=== PATIENT | male | born 1945 | race Caucasian/White ===

== ENCOUNTER 2020-04-05 14:48 | Inpatient (IN) ==
--- OUTSIDE RECORDS SUMMARY | 2020-04-05 14:51 | External Medical Summary | Continuity of Care Document ---
:1945 Author Name Christopher Pastrana, Provider Address Unavailable Unavailable , Care Team Providers Name Role Phone Unavailable Unavailable Unavailable KAT PAINTING Unavailable Unavailable Unavailable Unavailable Unavailable Problems History of basal cell carcinoma (V10.83) (Z85.828) History of SCC (squamous cell carcinoma) of skin (V10.83) (Z 85.828) Neoplasm of uncertain behavior of skin (238.2) (D48.5) Actinic keratosis (702.0) (L57.0) Allergies and Adverse Reactions Penicillins (Allergy) Sulfa Drugs (Allergy) Medications PriLOSEC OTC Victoriano JOAQUIN Refills: 0 Efren REYES M.D. Refills: 0 Procedures Procedures not documented Immunizations Immunizations not documented Social History - Smoking Status Ex-smoker Plan of Treatment Planned Observations Planned Goals not documented Results No Known Results Results not documented
[2020-04-05] MEDS ORDERED: SODIUM CHLORIDE 0.9% 1000ML 1,000 ML IV ONE ×4 (15:18→22:55)
[2020-04-05] MEDS ORDERED: ACETAMINOPHEN 1,000 MG/100 ML VIAL IV STA (15:18)
[2020-04-05] MEDS ORDERED: ONDANSETRON INJ 2 MG/ML 2 ML VIAL IV STA (15:18)
--- NOTE | 2020-04-05 15:30 | Emergency Department Note ---
History of Present Illness General Chief complaint: Nausea Stated complaint: nausea/headache Time Seen by Provider: 04/05/20 15:04 History of Present Illness Provider complaint: Nausea vomiting diarrhea chills headache abdominal pain Onset (ago): day(s) 1 Location: head and abdomen Radiation: non-radiation Severity: moderate Pain Consistency: + constant Current Pain Intensity: 6 Quality: + aching Relieved By: + none Exacerbated By: + none Associated symptoms: + fever/chills, + headaches and + nausea/vomiting; no shortness of breath 74-year-old male presents to the emergency department with chills nausea vomiting diarrhea abdominal pain and headache. Patient states he woke up this morning had severe chills. He took his temperature at home and his T-max was 102. EMS was called. Patient is also reporting abdominal pain, headache. No cough. No loss of taste or smell. 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 Social History Smoking Status: Never smoker Feels Safe at Home: Yes Review of Systems A total of 10 systems reviewed and were otherwise negative Physical Exam Vital Signs Vital Signs - 24 hr 04/05/20 15:10 04/05/20 15:11 04/05/20 15:19 Temperature 37.6 C H Temperature Source Oral Pulse Rate 103 H 111 H 101 H Pulse Rate [Apical] Pulse Rate from SpO2 Sensor 110 H 101 H Respiratory Rate 20 19 14 Respiratory Effort / Characteristics Non-Labored Respiratory Depth Normal Blood Pressure 161/75 H 161/75 H Blood Pressure [Right Arm] Blood Pressure Mean 103 105 Blood Pressure Mean [Right Arm] Pulse Oximetry 97 97 98 Oxygen Delivery Method Room Air Sepsis Recent Fever Within 48 Hours Yes Sepsis New/Unexplained Change in Mental Status No Sepsis Action Taken by Nursing Previously Notified 04/05/20 15:30 04/05/20 16:00 04/05/20 16:40 Temperature Temperature Source Pulse Rate 101 H 98 H Pulse Rate [Apical] Pulse Rate from SpO2 Sensor 101 H 99 H Respiratory Rate 23 22 22 Respiratory Effort / Characteristics Non-Labored Respiratory Depth Blood Pressure Blood Pressure [Right Arm] Blood Pressure Mean Blood Pressure Mean [Right Arm] Pulse Oximetry 96 98 98 Oxygen Delivery Method Room Air Sepsis Recent Fever Within 48 Hours Sepsis New/Unexplained Change in Mental Status Sepsis Action Taken by Nursing 04/05/20 17:42 04/05/20 17:43 04/05/20 18:01 Temperature Temperature Source Pulse Rate 107 H 103 H 102 H Pulse Rate [Apical] 106 H Pulse Rate from SpO2 Sensor 104 H 102 H Respiratory Rate 22 22 23 Respiratory Effort / Characteristics Respiratory Depth Blood Pressure 86/55 L 99/59 L 85/54 L Blood Pressure [Right Arm] 99/59 L Blood Pressure Mean 58 78 63 Blood Pressure Mean [Right Arm] 72 Pulse Oximetry 97 96 Oxygen Delivery Method Sepsis Recent Fever Within 48 Hours Sepsis New/Unexplained Change in Mental Status Sepsis Action Taken by Nursing 04/05/20 18:09 04/05/20 18:15 04/05/20 18:29 Temperature Temperature Source Pulse Rate 95 H 94 H 91 H Pulse Rate [Apical] Pulse Rate from SpO2 Sensor 95 H 95 H Respiratory Rate 21 24 23 Respiratory Effort / Characteristics Respiratory Depth Blood Pressure 95/58 L 96/56 L 95/57 L Blood Pressure [Right Arm] Blood Pressure Mean 69 69 68 Blood Pressure Mean [Right Arm] Pulse Oximetry 97 97 Oxygen Delivery Method Sepsis Recent Fever Within 48 Hours Sepsis New/Unexplained Change in Mental Status Sepsis Action Taken by Nursing 04/05/20 18:30 04/05/20 18:45 04/05/20 19:00 Temperature 36.8 C Temperature Source Oral Pulse Rate 92 H 98 H 94 H Pulse Rate [Apical] Pulse Rate from SpO2 Sensor 93 H Respiratory Rate 23 21 25 H Respiratory Effort / Characteristics Non-Labored Spontaneous Respiratory Depth Blood Pressure 95/58 L 97/56 L 89/59 L Blood Pressure [Right Arm] Blood Pressure Mean 76 67 76 Blood Pressure Mean [Right Arm] Pulse Oximetry 97 Oxygen Delivery Method Room Air Sepsis Recent Fever Within 48 Hours Sepsis New/Unexplained Change in Mental Status Sepsis Action Taken by Nursing 04/05/20 19:15 04/05/20 19:31 Temperature Temperature Source Pulse Rate 94 H 100 H Pulse Rate [Apical] Pulse Rate from SpO2 Sensor 88 Respiratory Rate 26 H 22 Respiratory Effort / Characteristics Respiratory Depth Blood Pressure 97/61 L 111/71 Blood Pressure [Right Arm] Blood Pressure Mean 72 76 Blood Pressure Mean [Right Arm] Pulse Oximetry Oxygen Delivery Method Sepsis Recent Fever Within 48 Hours Sepsis New/Unexplained Change in Mental Status Sepsis Action Taken by Nursing Physical Exam GENERAL: He is oriented to person, place, and time. He appears well-developed and well-nourished. He does not appear distressed. HENT: Exam performed. - Head: Normocephalic and atraumatic. - Right Ear: External ear normal. No mastoid tenderness. - Left Ear: External ear normal. No mastoid tenderness. - Mouth/Throat: The oropharynx is clear and moist. No trismus in the jaw. No dental abscesses or uvula swelling. No oropharyngeal exudate or tonsillar abscesses. EYES: Conjunctivae and EOM are normal. Pupils are equal, round, and reactive to light. Right eye exhibits no discharge. Left eye exhibits no discharge. No scleral icterus. NECK: Normal range of motion. Neck supple. No JVD present. No spinous process tenderness present. No carotid bruit present. No rigidity. No tracheal deviation and normal range of motion present. No Brudzinski's sign and no Kernig's sign noted. CV: Tachycardic rate, regular rhythm, normal heart sounds and intact distal pulses. There is no peripheral edema. Palpable radial pulses bue. PULM/CHEST: Effort normal and breath sounds normal. No respiratory distress. No stridor. He has no wheezes. He has no rales. - Chest Wall: He exhibits no tenderness. ABD: The abdomen is soft. Bowel sounds are normal. He has no distension. No mass is present. There is tenderness to palpation of the left lower quadrant. There is no rebound, no guarding, no Cummins's sign and no tenderness at McBurney's point. Rovsig negative. MUSC/SKEL: Normal range of motion. There is no peripheral edema, tenderness or deformity. LYMPH: No cervical adenopathy. NEURO: He is alert and oriented to person, place, and time. He has normal strength. No cranial nerve deficit or sensory deficit. Coordination and gait normal. GCS eye subscore is 4. GCS verbal subscore is 5. GCS motor subscore is 6. Cerebellar tests wnl. SKIN: Skin is warm and dry. He is not diaphoretic. PSYCH: He has a normal mood and affect. Behavior is normal. Judgment and thought content normal. Course Course 1504: The patient was evaluated in room A9. A complete history and physical exam was performed. Cardiac monitoring: An order was placed for continuous cardiac monitoring. The monitor shows a rate of 105 with sinus tachycardia rhythm 1600: Spoke with the patient's Mariangel at [phone] and gave her an update on the patient. 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 Patient is no longer receiving any treatments for any cancer. She states the patient takes no medications regularly except for digestive enzymes. 184: Vital signs improved. Labs show leukopenia with white blood cell count of 3.78. AST/ALT 632/290. Bilirubin 2.3. Magnesium 1.7. COVID-19 swab negative. Imaging shows colitis. Bony munoz was able to pull labs from [facility] which in May 2019 AST/ALT was 29 and 20 respectively. The patient is elevated liver enzymes are an acute change. Patient does report to drinking alcohol approximately 4-5 drinks a day. The patient did become hypotensive transiently in the emergency department which did respond to IV fluids. Patient's initial lactic acid level was 2.1, status post IV fluids patient's lactic acid level went up to 2.8. Patient was completed with 30 cc/kg bolus. Given the patient's rising lactic acid level and his episodes of hypotension, the patient will be admitted to the hospitalist service. Cipro and Flagyl IV piggyback was ordered for the patient. [facility] hospitalist Yojana Angulo was contacted and stated admit to Dr. Peter Administered Medications Discontinued Medications Acetaminophen (Ofirmev) 1,000 mg in 100 mls @ 400 mls/hr IV NOW STA Stop: 04/05/20 15:32 Last Infusion: 04/05/20 16:05 Dose: 0 mls/hr Documented by: [id number] Admin: 04/05/20 15:43 Dose: 400 mls/hr Documented by: [id number] Sodium Chloride (Nss 1000ml) 1,000 mls @ 999 mls/hr IV .Q1H1M ONE Stop: 04/05/20 16:18 Last Infusion: 04/05/20 16:45 Dose: 0 mls/hr Documented by: [id number] Admin: 04/05/20 15:43 Dose: 999 mls/hr Documented by: [id number] Sodium Chloride (Nss 1000ml) 1,000 mls @ 999 mls/hr IV .Q1H1M ONE Stop: 04/05/20 19:19 Last Infusion: 04/05/20 19:20 Dose: 0 mls/hr Documented by: [id number] Admin: 04/05/20 18:19 Dose: 999 mls/hr Documented by: [id number] Ciprofloxacin (Cipro / D5w) 400 mg in 200 mls @ 100 mls/hr IV NOW STA; Protocol Stop: 04/05/20 20:29 Last Admin: 04/05/20 18:41 Dose: Not Given Documented by: [id number] Metronidazole (Flagyl) 500 mg in 100 mls @ 100 mls/hr IV NOW STA Stop: 04/05/20 19:29 Last Admin: 04/05/20 18:41 Dose: 100 mls/hr Documented by: [id number] Levofloxacin/Dextrose (Levaquin/D5w) 500 mg in 100 mls @ 100 mls/hr IV NOW STA Stop: 04/05/20 19:31 Last Admin: 04/05/20 18:41 Dose: 100 mls/hr Documented by: [id number] Sodium Chloride (Nss 1000ml) 1,000 mls @ 999 mls/hr IV .Q1H1M ONE Stop: 04/05/20 19:46 Last Admin: 04/05/20 19:05 Dose: 999 mls/hr Documented by: [id number] Ioversol (Ioversol 100ml) 93 ml IV ONCE ONE Stop: 04/05/20 16:52 Last Admin: 04/05/20 16:52 Dose: 1 ml Documented by: [id number] Ondansetron HCl (Ondansetron Inj 2 Mg/Ml 2 Ml Vial) 4 mg IV NOW STA Stop: 04/05/20 15:19 Last Admin: 04/05/20 15:43 Dose: Not Given Documented by: [id number] Medical Decision Making Laboratory Data Result diagrams: 04/05/20 15:15 04/05/20 15:15 Lab Results 04/05/20 04/05/20 04/05/20 Range/Units 15:15 15:15 15:15 WBC 3.78 L (4.8-10.8) K/uL RBC 4.12 L (4.7-6.1) M/uL Hgb 12.9 L (14.0-18.0) g/dL POC Hgb (14.0-18.0) g/dl Hct 39.0 L (42-52) % POC Hct (42-52) % MCV 94.7 (80-100) fL MCH 31.3 (25-34) pg MCHC 33.1 (32-36) g/dL RDW Std Deviation 46.8 H (36.4-46.3) fL RDW Coeff of Riley 13.5 (11.5-14.5) % Plt Count 245 (130-400) K/uL MPV 10.2 (7.4-10.4) fL Immature Gran % (Auto) 0.3 % Neut % (Auto) 93.0 % Lymph % (Auto) 5.6 % [place] % (Auto) 0.5 % Eos % (Auto) 0.3 % Baso % (Auto) 0.3 % Neut # (Auto) 3.52 (1.4-6.5) K/uL Lymph # (Auto) 0.21 L (1.2-3.4) K/uL [place] # (Auto) 0.02 L (0.11-0.59) K/uL Eos # (Auto) 0.01 (0-0.5) K/uL Baso # (Auto) 0.01 (0-0.2) K/uL Immature Gran # (Auto) 0.01 (0.00-0.02) K/uL PT 10.5 (9.0-12.0) Seconds INR 1.0 (0.9-1.1) APTT 25.4 (21.0-31.0) Seconds PTT Ratio 0.9 POC Sodium (135-144) mmol/L Sodium 138 (136-145) mmol/L POC Potassium (3.3-5.0) mmol/L Potassium 3.9 (3.5-5.1) mmol/L POC Chloride (101-112) mmol/L Chloride 107 (98-107) mmol/L Carbon Dioxide 24 (21-32) mmol/L POC Total CO2 (24-31) mmol/L Anion Gap 7.0 (3-11) POC Anion Gap (16-25) mmol/L POC BUN (7-18) mg/dl BUN 8 (7-18) mg/dl Creatinine 0.96 (0.6-1.4) mg/dl POC Creatinine (0.6-1.3) mg/dl Est Cr Clr Drug Dosing 74.0 ml/min Est GFR ( Amer) 88.6 Est GFR (Non-Af Amer) 76.5 BUN/Creatinine Ratio 8.0 L (10-20) Glucose 110 H (70-99) mg/dl POC Glucose (other) (70-99) mg/dl Lactate (0.4-2.0) mmol/L Calcium 8.4 L (8.5-10.1) mg/dl POC Ioniz Calcium Sheyla (1.12-1.32) mmol/l Magnesium 1.7 L (1.8-2.4) mg/dl Total Bilirubin 2.3 H (0.2-1) mg/dl AST 632 H (15-37) U/L ALT 290 H (12-78) U/L Alkaline Phosphatase 142 H (45-117) U/L Troponin I < 0.015 (0-0.045) ng/ml Total Protein 6.7 (6.4-8.2) gm/dl Albumin 3.2 L (3.4-5.0) gm/dl Globulin 3.5 (2.5-4.0) gm/dl Albumin/Globulin Ratio 0.9 (0.9-2) Lipase 143 (73-393) U/L Procalcitonin (0-0.5) ng/ml Urine Color Urine Appearance (Clear) Urine pH (4.5-7.5) Ur Specific [place] (1.000-1.030) Urine Protein (Negative) Urine Glucose (UA) (Negative) Urine Ketones (Negative) Urine Blood (Negative) Urine Nitrite (Negative) Urine Bilirubin (Negative) Urine Urobilinogen (Negative) Ur Leukocyte Esterase (Negative) Adenovirus (PCR) (NotDetected) B. pertussis DNA (PCR) (NotDetected) B.parapertussis DNA PCR (NotDetected) C. pneumoniae DNA (PCR) (NotDetected) Coronavirus OC43 (PCR) (NotDetected) Coronavirus HKU1 (PCR) (NotDetected) Coronavirus 229E (PCR) (NotDetected) COVID-19 Eval Order COVID-19 PCR (NotDetected) Coronavirus NL63 (PCR) (NotDetected) Human Metapneumovir PCR (NotDetected) Influenza Type A (PCR) (NotDetected) Influenza Type B (PCR) (NotDetected) M. pneumoniae (PCR) (NotDetected) Parainfluenza 1 (PCR) (NotDetected) Parainfluenza 2 (PCR) (NotDetected) Parainfluenza 3 (PCR) (NotDetected) Parainfluenza 4 (PCR) (NotDetected) RSV (PCR) (NotDetected) Entero/Rhino (PCR) (NotDetected) 04/05/20 04/05/20 04/05/20 Range/Units 15:15 15:30 15:30 WBC (4.8-10.8) K/uL RBC (4.7-6.1) M/uL Hgb (14.0-18.0) g/dL POC Hgb (14.0-18.0) g/dl Hct (42-52) % POC Hct (42-52) % MCV (80-100) fL MCH (25-34) pg MCHC (32-36) g/dL RDW Std Deviation (36.4-46.3) fL RDW Coeff of Riley (11.5-14.5) % Plt Count (130-400) K/uL MPV (7.4-10.4) fL Immature Gran % (Auto) % Neut % (Auto) % Lymph % (Auto) % [place] % (Auto) % Eos % (Auto) % Baso % (Auto) % Neut # (Auto) (1.4-6.5) K/uL Lymph # (Auto) (1.2-3.4) K/uL [place] # (Auto) (0.11-0.59) K/uL Eos # (Auto) (0-0.5) K/uL Baso # (Auto) (0-0.2) K/uL Immature Gran # (Auto) (0.00-0.02) K/uL PT (9.0-12.0) Seconds INR (0.9-1.1) APTT (21.0-31.0) Seconds PTT Ratio POC Sodium (135-144) mmol/L Sodium (136-145) mmol/L POC Potassium (3.3-5.0) mmol/L Potassium (3.5-5.1) mmol/L POC Chloride (101-112) mmol/L Chloride (98-107) mmol/L Carbon Dioxide (21-32) mmol/L POC Total CO2 (24-31) mmol/L Anion Gap (3-11) POC Anion Gap (16-25) mmol/L POC BUN (7-18) mg/dl BUN (7-18) mg/dl Creatinine (0.6-1.4) mg/dl POC Creatinine (0.6-1.3) mg/dl Est Cr Clr Drug Dosing ml/min Est GFR ( Amer) Est GFR (Non-Af Amer) BUN/Creatinine Ratio (10-20) Glucose (70-99) mg/dl POC Glucose (other) (70-99) mg/dl Lactate (0.4-2.0) mmol/L Calcium (8.5-10.1) mg/dl POC Ioniz Calcium [place]yla (1.12-1.32) mmol/l Magnesium (1.8-2.4) mg/dl Total Bilirubin (0.2-1) mg/dl AST (15-37) U/L ALT (12-78) U/L Alkaline Phosphatase (45-117) U/L Troponin I (0-0.045) ng/ml Total Protein (6.4-8.2) gm/dl Albumin (3.4-5.0) gm/dl Globulin (2.5-4.0) gm/dl Albumin/Globulin Ratio (0.9-2) Lipase (73-393) U/L Procalcitonin 0.35 (0-0.5) ng/ml Urine Color Urine Appearance (Clear) Urine pH (4.5-7.5) Ur Specific [place] (1.000-1.030) Urine Protein (Negative) Urine Glucose (UA) (Negative) Urine Ketones (Negative) Urine Blood (Negative) Urine Nitrite (Negative) Urine Bilirubin (Negative) Urine Urobilinogen (Negative) Ur Leukocyte Esterase (Negative) Adenovirus (PCR) Not Detected (NotDetected) B. pertussis DNA (PCR) Not Detected (NotDetected) B.parapertussis DNA PCR Not Detected (NotDetected) C. pneumoniae DNA (PCR) Not Detected (NotDetected) Coronavirus OC43 (PCR) Not Detected (NotDetected) Coronavirus HKU1 (PCR) Not Detected (NotDetected) Coronavirus 229E (PCR) Not Detected (NotDetected) COVID-19 Eval Order Dup asRespPanOrdered COVID-19 PCR Not Detected (NotDetected) Coronavirus NL63 (PCR) Not Detected (NotDetected) Human Metapneumovir PCR Not Detected (NotDetected) Influenza Type A (PCR) Not Detected (NotDetected) Influenza Type B (PCR) Not Detected (NotDetected) M. pneumoniae (PCR) Not Detected (NotDetected) Parainfluenza 1 (PCR) Not Detected (NotDetected) Parainfluenza 2 (PCR) Not Detected (NotDetected) Parainfluenza 3 (PCR) Not Detected (NotDetected) Parainfluenza 4 (PCR) Not Detected (NotDetected) RSV (PCR) Not Detected (NotDetected) Entero/Rhino (PCR) Not Detected (NotDetected) 04/05/20 04/05/20 04/05/20 Range/Units 15:50 15:58 16:05 WBC (4.8-10.8) K/uL RBC (4.7-6.1) M/uL Hgb (14.0-18.0) g/dL POC Hgb 13.3 L (14.0-18.0) g/dl Hct (42-52) % POC Hct 39 L (42-52) % MCV (80-100) fL MCH (25-34) pg MCHC (32-36) g/dL RDW Std Deviation (36.4-46.3) fL RDW Coeff of Riley (11.5-14.5) % Plt Count (130-400) K/uL MPV (7.4-10.4) fL Immature Gran % (Auto) % Neut % (Auto) % Lymph % (Auto) % [place] % (Auto) % Eos % (Auto) % Baso % (Auto) % Neut # (Auto) (1.4-6.5) K/uL Lymph # (Auto) (1.2-3.4) K/uL [place] # (Auto) (0.11-0.59) K/uL Eos # (Auto) (0-0.5) K/uL Baso # (Auto) (0-0.2) K/uL Immature Gran # (Auto) (0.00-0.02) K/uL PT (9.0-12.0) Seconds INR (0.9-1.1) APTT (21.0-31.0) Seconds PTT Ratio POC Sodium 138 (135-144) mmol/L Sodium (136-145) mmol/L POC Potassium 4.0 (3.3-5.0) mmol/L Potassium (3.5-5.1) mmol/L POC Chloride 103 (101-112) mmol/L Chloride (98-107) mmol/L Carbon Dioxide (21-32) mmol/L POC Total CO2 21 L (24-31) mmol/L Anion Gap (3-11) POC Anion Gap 19.0 (16-25) mmol/L POC BUN 6 L (7-18) mg/dl BUN (7-18) mg/dl Creatinine (0.6-1.4) mg/dl POC Creatinine 0.8 (0.6-1.3) mg/dl Est Cr Clr Drug Dosing ml/min Est GFR ( Amer) Est GFR (Non-Af Amer) BUN/Creatinine Ratio (10-20) Glucose (70-99) mg/dl POC Glucose (other) 111 H (70-99) mg/dl Lactate 2.1 H* (0.4-2.0) mmol/L Calcium (8.5-10.1) mg/dl POC Ioniz Calcium [place] 1.14 (1.12-1.32) mmol/l Magnesium (1.8-2.4) mg/dl Total Bilirubin (0.2-1) mg/dl AST (15-37) U/L ALT (12-78) U/L Alkaline Phosphatase (45-117) U/L Troponin I (0-0.045) ng/ml Total Protein (6.4-8.2) gm/dl Albumin (3.4-5.0) gm/dl Globulin (2.5-4.0) gm/dl Albumin/Globulin Ratio (0.9-2) Lipase (73-393) U/L Procalcitonin (0-0.5) ng/ml Urine Color Yellow Urine Appearance Clear (Clear) Urine pH 6.0 (4.5-7.5) Ur Specific [place] 1.009 (1.000-1.030) Urine Protein Negative (Negative) Urine Glucose (UA) Negative (Negative) Urine Ketones Negative (Negative) Urine Blood Negative (Negative) Urine Nitrite Negative (Negative) Urine Bilirubin Negative (Negative) Urine Urobilinogen Negative (Negative) Ur Leukocyte Esterase Negative (Negative) Adenovirus (PCR) (NotDetected) B. pertussis DNA (PCR) (NotDetected) B.parapertussis DNA PCR (NotDetected) C. pneumoniae DNA (PCR) (NotDetected) Coronavirus OC43 (PCR) (NotDetected) Coronavirus HKU1 (PCR) (NotDetected) Coronavirus 229E (PCR) (NotDetected) COVID-19 Eval Order COVID-19 PCR (NotDetected) Coronavirus NL63 (PCR) (NotDetected) Human Metapneumovir PCR (NotDetected) Influenza Type A (PCR) (NotDetected) Influenza Type B (PCR) (NotDetected) M. pneumoniae (PCR) (NotDetected) Parainfluenza 1 (PCR) (NotDetected) Parainfluenza 2 (PCR) (NotDetected) Parainfluenza 3 (PCR) (NotDetected) Parainfluenza 4 (PCR) (NotDetected) RSV (PCR) (NotDetected) Entero/Rhino (PCR) (NotDetected) 04/05/20 Range/Units 17:31 WBC (4.8-10.8) K/uL RBC (4.7-6.1) M/uL Hgb (14.0-18.0) g/dL POC Hgb (14.0-18.0) g/dl Hct (42-52) % POC Hct (42-52) % MCV (80-100) fL MCH (25-34) pg MCHC (32-36) g/dL RDW Std Deviation (36.4-46.3) fL RDW Coeff of Riley (11.5-14.5) % Plt Count (130-400) K/uL MPV (7.4-10.4) fL Immature Gran % (Auto) % Neut % (Auto) % Lymph % (Auto) % [place] % (Auto) % Eos % (Auto) % Baso % (Auto) % Neut # (Auto) (1.4-6.5) K/uL Lymph # (Auto) (1.2-3.4) K/uL [place] # (Auto) (0.11-0.59) K/uL Eos # (Auto) (0-0.5) K/uL Baso # (Auto) (0-0.2) K/uL Immature Gran # (Auto) (0.00-0.02) K/uL PT (9.0-12.0) Seconds INR (0.9-1.1) APTT (21.0-31.0) Seconds PTT Ratio POC Sodium (135-144) mmol/L Sodium (136-145) mmol/L POC Potassium (3.3-5.0) mmol/L Potassium (3.5-5.1) mmol/L POC Chloride (101-112) mmol/L Chloride (98-107) mmol/L Carbon Dioxide (21-32) mmol/L POC Total CO2 (24-31) mmol/L Anion Gap (3-11) POC Anion Gap (16-25) mmol/L POC BUN (7-18) mg/dl BUN (7-18) mg/dl Creatinine (0.6-1.4) mg/dl POC Creatinine (0.6-1.3) mg/dl Est Cr Clr Drug Dosing ml/min Est GFR ( Amer) Est GFR (Non-Af Amer) BUN/Creatinine Ratio (10-20) Glucose (70-99) mg/dl POC Glucose (other) (70-99) mg/dl Lactate 2.8 H* (0.4-2.0) mmol/L Calcium (8.5-10.1) mg/dl POC Ioniz Calcium [place] (1.12-1.32) mmol/l Magnesium (1.8-2.4) mg/dl Total Bilirubin (0.2-1) mg/dl AST (15-37) U/L ALT (12-78) U/L Alkaline Phosphatase (45-117) U/L Troponin I (0-0.045) ng/ml Total Protein (6.4-8.2) gm/dl Albumin (3.4-5.0) gm/dl Globulin (2.5-4.0) gm/dl Albumin/Globulin Ratio (0.9-2) Lipase (73-393) U/L Procalcitonin (0-0.5) ng/ml Urine Color Urine Appearance (Clear) Urine pH (4.5-7.5) Ur Specific [place] (1.000-1.030) Urine Protein (Negative) Urine Glucose (UA) (Negative) Urine Ketones (Negative) Urine Blood (Negative) Urine Nitrite (Negative) Urine Bilirubin (Negative) Urine Urobilinogen (Negative) Ur Leukocyte Esterase (Negative) Adenovirus (PCR) (NotDetected) B. pertussis DNA (PCR) (NotDetected) B.parapertussis DNA PCR (NotDetected) C. pneumoniae DNA (PCR) (NotDetected) Coronavirus OC43 (PCR) (NotDetected) Coronavirus HKU1 (PCR) (NotDetected) Coronavirus 229E (PCR) (NotDetected) COVID-19 Eval Order COVID-19 PCR (NotDetected) Coronavirus NL63 (PCR) (NotDetected) Human Metapneumovir PCR (NotDetected) Influenza Type A (PCR) (NotDetected) Influenza Type B (PCR) (NotDetected) M. pneumoniae (PCR) (NotDetected) Parainfluenza 1 (PCR) (NotDetected) Parainfluenza 2 (PCR) (NotDetected) Parainfluenza 3 (PCR) (NotDetected) Parainfluenza 4 (PCR) (NotDetected) RSV (PCR) (NotDetected) Entero/Rhino (PCR) (NotDetected) Imaging Data Radiologist's Impression: CT SCAN OF THE BRAIN WITHOUT IV CONTRAST CLINICAL HISTORY: Headache. COMPARISON STUDY: No priors. TECHNIQUE: Unenhanced axial CT scan of the brain is performed from the vertex to the skull base. A dose lowering technique was utilized adhering to the principles of ALARA. CT DOSE: 821.00 mGycm FINDINGS: Brain parenchyma: There are age-related involutional changes noting minimal subcortical and periventricular microangiopathic change. There is no hemorrhage, mass effect, or evidence of acute territorial ischemia by CT criteria. Ritchie- white matter differentiation is preserved. No extra-axial fluid collection is seen. Ventricles, sulci, cisterns: Prominent secondary to involutional change. Intracranial vasculature: There is atherosclerotic calcification of the cavernous carotid and vertebral arteries. Calvarium: Unremarkable. Sinuses and mastoids: The visualized paranasal sinuses are clear. The mastoid air cells are well pneumatized. Orbits: The bony orbits are grossly intact. IMPRESSION: There is no hemorrhage, mass effect, or evidence of acute territorial ischemia by CT criteria. ACT 112: Negative or not required by law. Electronically signed by: Baldo Mercedes M.D. 04/05/2020 4:52 PM Dictated: 04/05/20 1651 Transcribed: 04/05/201650 SINGLE VIEW CHEST CLINICAL HISTORY: Sepsis. Fever and chills. FINDINGS: An AP, portable, upright chest radiograph is compared to study dated 12/09/2011. The examination is degraded by portable technique and patient rotation. The heart is top normal for projection noting atherosclerotic calcification of the thoracic aorta. Chronic interstitial thickening is similar to previous. There are bibasilar airspace opacities. No large pleural effusion or pneumothorax is seen. The skeletal structures are osteopenic. The bony thorax is grossly intact. Arthritic change is noted in the shoulders. IMPRESSION: Bibasilar airspace opacities likely represent scarring/atelectasis. Correlate clinically for evidence of a mild infectious/inflammatory pneumonitis. ACT 112: Negative or not required by law. Electronically signed by: Baldo Mercedes M.D. 04/05/2020 4:06 PM Dictated: 04/05/20 1604 Transcribed: 04/05/[address] SCAN OF THE ABDOMEN AND PELVIS WITH IV CONTRAST CLINICAL HISTORY: Fever. Left lower quadrant abdominal pain. COMPARISON STUDY: Abdominal CT dated 02/13/2012 and 12/09/2011. TECHNIQUE: Following the IV administration of 93 cc of Optiray 320, CT scan of the abdomen and pelvis is performed from the lung bases to the proximal femora. Images are reviewed in the axial, sagittal, and coronal planes. IV contrast was administered without complication. A dose lowering technique was utilized adhering to the principles of ALARA. CT DOSE: 998.31 mGycm FINDINGS: Lung bases: The heart is normal in size and without pericardial effusion. There are coronary artery calcifications. The lung bases are clear noting bibasilar scarring/atelectasis. There is a small hiatal hernia. Liver: The contrast-enhanced liver is normal in size, contour, and attenuation. There is mild central intrahepatic biliary ductal dilatation. The hepatic veins and portal veins are patent. Gallbladder: Surgically absent. Spleen: Normal in size and attenuation. Pancreas: The proximal pancreas is surgically absent. The pancreatic body and tail are atrophic. A stent is present within the pancreatic duct. The duct is normal in caliber. Parenchyma calcifications are noted in the distal pancreas and suggest chronic pancreatitis. Adrenal glands: Unremarkable. Kidneys: The contrast enhanced kidneys are normal in size and without hydronephrosis. The kidneys enhance symmetrically. Abdominal vasculature: There is moderate to advanced atherosclerotic calcification and mild ectasia of the abdominal aorta. Bowel: There is postoperative change from distal gastrectomy and duodenal resection with gastrojejunostomy. This is consistent with the reported history of a Whipple procedure. There is moderate colonic diverticulosis without CT evidence of acute diverticulitis. No bowel obstruction is identified. Question mild diffuse colonic wall thickening. Fecalization is noted in the distal ileum. The appendix is well-visualized and normal. Peritoneum: There is trace perihepatic ascites. No intraperitoneal free air is seen. There is a small fat-containing umbilical hernia. Lymphadenopathy: None. Pelvic viscera: The prostate gland is enlarged and heterogeneous noting median lobe hypertrophy. The bladder wall is thickened and trabeculated suggesting chronic outlet obstruction. Skeletal structures: The skeletal structures are osteopenic. There is mild lumbosacral spondylosis. Bilateral pars defects are seen at L5. No lytic or blastic lesions are seen. IMPRESSION: 1. Question mild diffuse colonic wall thickening. Correlate clinically for evidence of a nonspecific colitis. 2. Postoperative change is consistent with a history of previous Whipple procedure. No bowel obstruction is seen. 3. Trace perihepatic ascites. 4. Colonic diverticulosis without CT evidence of acute diverticulitis. 5. Additional findings as above. ACT 112: Negative or not required by law. Electronically signed by: Baldo Mercedes M.D. 04/05/2020 5:10 PM Dictated: 04/05/201653 Transcribed: 04/05/201653 ECG Data Indication: + abdominal pain Rate (beats per minute): 103 Rhythm: + sinus tachycardia ECG Intervals/blocks: + Normal QRS, + Normal NM and + Normal QT-c ECG ST segments: + Normal ST segments [facility] Narrative 1504: The patient was evaluated in room A9. A complete history and physical exam was performed. Cardiac monitoring: An order was placed for continuous cardiac monitoring. The monitor shows a rate of 105 with sinus tachycardia rhythm 1600: Spoke with the patient's Mariangel at [phone] and gave her an update on the patient. 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 Patient is no longer receiving any treatments for any cancer. She states the patient takes no medications regularly except for digestive enzymes. 184: Vital signs improved. Labs show leukopenia with white blood cell count of 3.78. AST/ALT 632/290. Bilirubin 2.3. Magnesium 1.7. COVID-19 swab negative. Imaging shows colitis. Bony munoz was able to pull labs from [facility] which in May 2019 AST/ALT was 29 and 20 respectively. The patient is elevated liver enzymes are an acute change. Patient does report to drinking alcohol approximately 4-5 drinks a day. The patient did become hypotensive transiently in the emergency department which did respond to IV fluids. Patient's initial lactic acid level was 2.1, status post IV fluids patient's lactic acid level went up to 2.8. Patient was completed with 30 cc/kg bolus. Given the patient's rising lactic acid level and his episodes of hypotension, the patient will be admitted to the hospitalist service. Cipro and Flagyl IV piggyback was ordered for the patient. [facility] hospitalist Yojana Angulo was contacted and stated admit to Dr. Peter Impression & Plan Sepsis, Colitis Discharge Plan Visit Data Chief Complaint: Nausea Stated Complaint: nausea/headache ED Provider: Compa Roca Discharge Problem: Sepsis, Colitis Patient Disposition: Admitted As Inpatient Forms Stand Alone Forms: [facility] Prescriptions Prescriptions: No Action cyanocobalamin (vitamin B-12) 1,000 mcg tablet 1,000 mcg PO DAILY RF: 0 omeprazole 20 mg capsule,delayed release(DR/EC) 20 mg PO DAILY RF: 0 Creon 12,000-38,000 -60,000 unit capsule,delayed release(DR/EC) 1 cap PO QAM RF: 0 Referrals Referrals: Arpit Antonio MD [Primary Care Provider] - Discharge Problem: Sepsis Qualifiers: Sepsis type: sepsis due to unspecified organism Sepsis acute organ dysfunction status: unspecified Qualified Code(s): A41.9 - Sepsis, unspecified organism
[2020-04-05 15:42] LABS: Basophils # (auto) 0.01 K/uL (0-0.2); Basophils % (auto) 0.3 %; Eosinophils # (auto) 0.01 K/uL (0-0.5); Eosinophils % (auto) 0.3 %; Hemoglobin 12.9 g/dL (14.0-18.0); Immature Granulocytes # (auto) 0.01 K/uL (0.00-0.02); Immature Granulocytes % (auto) 0.3 %; Lymphocytes # (auto) 0.21 K/uL (1.2-3.4); Lymphocytes % (auto) 5.6 %; Mean Corpuscular Hemoglobin 31.3 pg (25-34); Mean Corpuscular Hgb Conc 33.1 g/dL (32-36); Mean Corpuscular Volume 94.7 fL (80-100); Mean Platelet Volume 10.2 fL (7.4-10.4); Monocytes # (auto) 0.02 K/uL (0.11-0.59); Monocytes % (auto) 0.5 %; Neutrophils # (auto) 3.52 K/uL (1.4-6.5); Platelet Count 245 K/uL (130-400); RDW Coefficient of Variation 13.5 % (11.5-14.5); RDW Standard Deviation 46.8 fL (36.4-46.3); Red Blood Count 4.12 M/uL (4.7-6.1); White Blood Count 3.78 K/uL (4.8-10.8)
[2020-04-05 15:56] LABS: Partial Thromboplastin Ratio 0.9; Partial Thromboplastin Time 25.4 Seconds (21.0-31.0); Prothrombin Time 10.5 Seconds (9.0-12.0)
[2020-04-05 15:59] LABS: Alanine Aminotransferase 290 U/L (12-78); Albumin Level 3.2 gm/dl (3.4-5.0); Blood Urea Nitrogen 8 mg/dl (7-18); Calcium 8.4 mg/dl (8.5-10.1); Carbon Dioxide 24 mmol/L (21-32); Chloride 107 mmol/L (98-107); Est GFR (African American) 88.6; Est GFR (Non-African American) 76.5; Glucose 110 mg/dl (70-99); Lipase 143 U/L (73-393); Magnesium 1.7 mg/dl (1.8-2.4); Potassium 3.9 mmol/L (3.5-5.1); Sodium 138 mmol/L (136-145)
[2020-04-05 16:06] LABS: Albumin Globulin Ratio 0.9 (0.9-2); Alkaline Phosphatase 142 U/L (45-117); Aspartate Aminotransferase 632 U/L (15-37); Bilirubin,Total 2.3 mg/dl (0.2-1); Globulin 3.5 gm/dl (2.5-4.0); Total Protein 6.7 gm/dl (6.4-8.2); Troponin I < 0.015 ng/ml (0-0.045)
--- NOTE | 2020-04-05 16:07 | XRay Report ---
SINGLE VIEW CHEST CLINICAL HISTORY: Sepsis. Fever and chills. FINDINGS: An AP, portable, upright chest radiograph is compared to study dated 12/09/2011. The examina tion is degraded by portable technique and patient rotation. The heart is top normal for projection noting atherosclerotic calcification of the thoracic aorta. Chronic interstitial thickening is simil ar to previous. There are bibasilar airspace opacities. No large pleural effusion or pneumothorax is seen. The skeletal structures are osteopenic. The bony thorax is grossly intact. Arthritic change is noted in the shoulders. IMPRESSION: Bibasilar airspace opacities likely represent scarring/atelectasis. Correlate clinically for evidence of a mild infectious/inflammatory pneumonitis. ACT 112: Negative or not required by law. Electronically signed by: Baldo Mercedes M.D. 04/05/2020 4:06 PM
[2020-04-05 16:12] LABS: iSTAT Creatinine 0.8 mg/dl (0.6-1.3); iSTAT Hemoglobin 13.3 g/dl (14.0-18.0); iSTAT Ionized Calcium 1.14 mmol/l (1.12-1.32)
[2020-04-05 16:16] LABS: Appearance Urine Clear (Clear); Bilirubin Urine Negative (Negative); Blood Urine Negative (Negative); Color Urine Yellow; Glucose Urine UA Negative (Negative); Ketones Urine Negative (Negative); Leukocyte Esterase Urine Negative (Negative); Nitrite Urine Negative (Negative); Protein Urine Negative (Negative); Specific Gravity Urine 1.009 (1.000-1.030); Urobilinogen Urine Negative (Negative)
[2020-04-05 16:46] LABS: Adenovirus PCR Not Detected (NotDetected); Bordetella parapertussis PCR Not Detected (NotDetected); Bordetella pertussis PCR Not Detected (NotDetected); Chlamydia pneumoniae PCR Not Detected (NotDetected); Coronavirus 229E PCR Not Detected (NotDetected); Coronavirus CoV-2 (COVID19)PCR Not Detected (NotDetected); Coronavirus HKU1 PCR Not Detected (NotDetected); Coronavirus NL63 PCR Not Detected (NotDetected); Coronavirus OC43PCR Not Detected (NotDetected); Human Metapneumovirus PCR Not Detected (NotDetected); Influenza A PCR Not Detected (NotDetected); Influenza B PCR Not Detected (NotDetected); Mycoplasma pneumoniae PCR Not Detected (NotDetected); Parainfluenza Virus 1 PCR Not Detected (NotDetected); Parainfluenza Virus 2 PCR Not Detected (NotDetected); Parainfluenza Virus 3 PCR Not Detected (NotDetected); Parainfluenza Virus 4 PCR Not Detected (NotDetected); Respiratory Syncytial VirusPCR Not Detected (NotDetected); Rhinovirus/Enterovirus PCR Not Detected (NotDetected)
[2020-04-05] MEDS ORDERED: IOVERSOL 100ml IV ONE (16:51)
--- NOTE | 2020-04-05 16:54 | CT Scan Report ---
CT SCAN OF THE BRAIN WITHOUT IV CONTRAST CLINICAL HISTORY: Headache. COMPARISON STUDY: No priors. TECHNIQUE: Unenhanced axial CT scan of the brain is performed from the vertex to the skull base. A do se lowering technique was utilized adhering to the principles of ALARA. CT DOSE: 821.00 mGycm FINDINGS: Brain parenchyma: There are age-related involutional changes noting minimal subcortical and perivent ricular microangiopathic change. There is no hemorrhage, mass effect, or evidence of acute territoria l ischemia by CT criteria. Ritchie-white matter differentiation is preserved. No extra-axial fluid colle ction is seen. Ventricles, sulci, cisterns: Prominent secondary to involutional change. Intracranial vasculature: There is atherosclerotic calcification of the cavernous carotid and vertebr al arteries. Calvarium: Unremarkable. Sinuses and mastoids: The visualized paranasal sinuses are clear. The mastoid air cells are well pneu matized. Orbits: The bony orbits are grossly intact. IMPRESSION: There is no hemorrhage, mass effect, or evidence of acute territorial ischemia by CT mackenzie wilson. ACT 112: Negative or not required by law. Electronically signed by: Baldo Mercedes M.D. 04/05/2020 4:52 PM
--- NOTE | 2020-04-05 17:11 | CT Scan Report ---
CT SCAN OF THE ABDOMEN AND PELVIS WITH IV CONTRAST CLINICAL HISTORY: Fever. Left lower quadrant abdominal pain. COMPARISON STUDY: Abdominal CT dated 02/13/2012 and 12/09/2011. TECHNIQUE: Following the IV administration of 93 cc of Optiray 320, CT scan of the abdomen and pelvi s is performed from the lung bases to the proximal femora. Images are reviewed in the axial, sagittal , and coronal planes. IV contrast was administered without complication. A dose lowering technique wa s utilized adhering to the principles of ALARA. CT DOSE: 998.31 mGycm FINDINGS: Lung bases: The heart is normal in size and without pericardial effusion. There are coronary artery c alcifications. The lung bases are clear noting bibasilar scarring/atelectasis. There is a small hiata l hernia. Liver: The contrast-enhanced liver is normal in size, contour, and attenuation. There is mild central intrahepatic biliary ductal dilatation. The hepatic veins and portal veins are patent. Gallbladder: Surgically absent. Spleen: Normal in size and attenuation. Pancreas: The proximal pancreas is surgically absent. The pancreatic body and tail are atrophic. A st ent is present within the pancreatic duct. The duct is normal in caliber. Parenchyma calcifications a re noted in the distal pancreas and suggest chronic pancreatitis. Adrenal glands: Unremarkable. Kidneys: The contrast enhanced kidneys are normal in size and without hydronephrosis. The kidneys enh ance symmetrically. Abdominal vasculature: There is moderate to advanced atherosclerotic calcification and mild ectasia o f the abdominal aorta. Bowel: There is postoperative change from distal gastrectomy and duodenal resection with gastrojejuno stomy. This is consistent with the reported history of a Whipple procedure. There is moderate colonic diverticulosis without CT evidence of acute diverticulitis. No bowel obstruction is identified. Ques tion mild diffuse colonic wall thickening. Fecalization is noted in the distal ileum. The appendix is well-visualized and normal. Peritoneum: There is trace perihepatic ascites. No intraperitoneal free air is seen. There is a small fat-containing umbilical hernia. Lymphadenopathy: None. Pelvic viscera: The prostate gland is enlarged and heterogeneous noting median lobe hypertrophy. The bladder wall is thickened and trabeculated suggesting chronic outlet obstruction. Skeletal structures: The skeletal structures are osteopenic. There is mild lumbosacral spondylosis. B ilateral pars defects are seen at L5. No lytic or blastic lesions are seen. IMPRESSION: 1. Question mild diffuse colonic wall thickening. Correlate clinically for evidence of a nonspecific colitis. 2. Postoperative change is consistent with a history of previous Whipple procedure. No bowel obstruct ion is seen. 3. Trace perihepatic ascites. 4. Colonic diverticulosis without CT evidence of acute diverticulitis. 5. Additional findings as above. ACT 112: Negative or not required by law. Electronically signed by: Baldo Mercedes M.D. 04/05/2020 5:10 PM
--- NOTE | 2020-04-05 17:35 | Electrocardiogram Report ---
Test Reason : Blood Pressure : / mmHG Vent. Rate : 103 BPM Atrial Rate : 103 BPM P-R Int : 158 ms QRS Dur : 092 ms QT Int : 356 ms P-R-T Axes : 052 075 -31 degrees QTc Int : 466 ms Sinus tachycardia Abnormal ECG When compared with ECG of 02-JAN-2012 14:20, T wave inversion now evident in Inferior leads T wave inversion now evident in Anterolateral leads Confirmed by Po Castle ([id number]) on 04/05/2020 5:35:13 PM Referred By: ED Confirmed By:Inderjit Castle
[2020-04-05] MEDS ORDERED: metroNIDAZOLE 500 MG/100 ML BAG IV STA (18:30)
[2020-04-05] MEDS ORDERED: CIPROFLOXACIN / D5W 400 MG/200 ML BAG IV STA (18:30)
[2020-04-05] MEDS ORDERED: LEVOFLOXACIN/D5W 500 MG/100 ML BAG IV STA (18:32)
[2020-04-05] MEDS ORDERED: PROMETHAZINE HCL 6.25 MG in SODIUM CHLORIDE 0.9% 50 ML IV PRN (19:54)
--- NOTE | 2020-04-05 19:54 | History & Physical Report ---
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 Patient reports that because he is on creon for the history of the Whipple procedure, his stools get looser as the day progresses and this is common for him. Recently patient has been in usual state of health but on 04/05/2020, patient had chills and then reported fever of 101 F at home. Patient was seen in the ED and there is not obvious source of infection. White blood cell count is normal There is no hemorrhage, mass effect, or evidence of acute territorial ischemia by CT criteria on CT head. Urine analysis with no bacteria. COVID-19 screening and [employer] for other respiratory viral infections are negative. There is on chest X ray Bibasilar airspace opacities likely represent scarring/atelectasis but patient was given levofloxacin for possible pulmonary infection coverage. Patient was started in the ED on Flagyl in case of any gastrointestinal source of infection but patient had a relatively benign CT abdomen/Pelvis scan of: questionable mild diffuse colonic wall thickening; colonic diverticulosis without CT evidence of acute diverticulitis; Postoperative change is consistent with a history of previous Whipple procedure; No bowel obstruction is seen; Trace perihepatic ascites. Patient did present with elevated lactic acid of 2.1 which jazmin to 2.8. Patient has been receiving IV fluids. -Patient's labs are remarkable for transaminitis of AST/ALT of 630 / 190 and elevated alkaline phosphatase of 142. Patient and his Mariangel ([phone]) at bedside reports moderate alcohol use and patient denies history of alcohol withdrawal. Hepatitis testing currently negative. Patient denies recent history of smoking -no fever on ED presentation, if febrile give prn ibuprofen and avoid acetaminophen -AST and ALT appears to be trending down with some IV fluids -trend the lactic acid with IV fluids -Patient reports that when he was young he had allergies to sulfa drug and then could not determine whether the drug reaction was from penicillin, can continue empiric Levaquin 750 mg IV daily as started and Flagyl 500 mg IV q8 hours in the ED for respiratory and gastrointestinal microbial coverage -Follow the blood cultures and inflammatory markers -continue creon, check stool studies -obtain gastroenterology consult (5) Hypomagnesemia: -serum magnesium 1.7, give magnesium supplements Full Code DVT prophylaxis with SCDs for now My colleague Dr. 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 Patient reports that because he is on creon for the history of the Whipple procedure, his stools get looser as the day progresses and this is common for him. Recently patient has been in usual state of health but on 04/05/2020, patient had chills and then reported fever of 101 F at home. Patient was seen in the ED and there is not obvious source of infection. White blood cell count is normal There is no hemorrhage, mass effect, or evidence of acute territorial is chemia by CT criteria on CT head. Urine analysis with no bacteria. COVID-19 screening and [employer] for other respiratory viral infections are negative. There is on chest X ray Bibasilar airspace opacities likely represent scarring/atelectasis but patient was given levofloxacin for possible pulmonary infection coverage. Patient was started in the ED on Flagyl in case of any gastrointestinal source of infection but patient had a relatively benign CT abdomen/Pelvis scan of: questionable mild diffuse colonic wall thickening; colonic diverticulosis without CT evidence of acute diverticulitis; Post operative change is consistent with a history of previous Whipple procedure; No bowel obstruction is seen; Trace perihepatic ascites. Patient did present with elevated lactic acid of 2.1 which jazmin to 2.8. Patient has been receiving IV fluids. Patient's labs are remarkable for transaminitis of AST/ALT of 630 / 190 and elevated alkaline phosphatase of 142. Patient and his Mariangel ) at bedside reports moderate alcohol use and patient denies history of alcohol withdrawal. Hepatitis testing currently negative. Patient denies recent history of smoking Review of systems: In appearance in the ED, patient did not appear to have any distress. on room air. no shortness of breath. no chest pain. no abdominal pain. no swelling of the knees or lower extremities. denies dysuria. Family History of mother with heart attack when age 80 Primary Care Provider: Arpit Antonio MD Allergies Allergy/AdvReac Type Severity Reaction Status Date / Time Sulfa (Sulfonamide Allergy Intermediate HIVES Verified 04/05/20 16:30 Antibiotics) Penicillins Allergy Mild HIVES Verified 04/05/20 16:30 Home Medications Home Medications Medication Instructions Recorded Confirmed Type cyanocobalamin (vitamin B-12) 1,000 mcg PO DAILY 04/05/20 04/05/20 History [id number] [Creon] 1 cap PO QAM 04/05/20 04/05/20 History omeprazole 20 mg PO DAILY 04/05/20 04/05/20 History Past Med/Surg History Medical History (Updated 04/05/20 @ 22:15 by Alejandro Fuentes MD) Acquired absence of other specified parts of digestive tract Cholangiocarcinoma No pertinent family history Social History Smoking Status: Never smoker Feels Safe at Home: Yes Review of Systems Review of Systems: All systems reviewed & are unremarkable except as noted in Subjective Physical Exam Constitutional: comfortable Eyes: PERRL, conjunctivae normal, anicteric sclerae + corneal abnormality ENMT: external ear and nose normal, oropharynx normal Neck: trachea midline, no thyromegaly normal visual inspection Respiratory: normal respiratory effort, lungs clear to auscultation Cardiovascular: Rate/Rhythm: regular rate Gastrointestinal (Abdomen): Inspection/Auscultation: normal bowel sounds and + abdominal surgical scar Percussion/Palpation: abdomen soft Musculoskeletal: Head/Neck/Chest: normocephalic and head atraumatic Neurologic: PERRL, EOMI, accommodation nl, no face palsy, no dysarthria CN's II-XI intact bilaterally and moves all extremities Psychiatric: A+Ox3, euthymic affect Results & Data Results & Data ([facility]) Vital Signs (Past 12 Hours) Vital Signs Temp Pulse Pulse Resp BP BP Pulse Ox 04/05/20 19:31 100 H 22 111/71 04/05/20 19:15 94 H 26 H 97/61 L 04/05/20 19:00 94 H 25 H 89/59 L 04/05/20 18:45 36.8 C 98 H 21 97/56 L 04/05/20 18:30 92 H 23 95/58 L 97 04/05/20 18:29 91 H 23 95/57 L 04/05/20 18:15 94 H 24 96/56 L 97 04/05/20 18:09 95 H 21 95/58 L 97 04/05/20 18:01 102 H 23 85/54 L 96 04/05/20 17:43 103 H 106 H 22 99/59 L 99/59 L 97 04/05/20 17:42 107 H 22 86/55 L 04/05/20 16:40 22 98 04/05/20 16:00 98 H 22 98 04/05/20 15:30 101 H 23 96 04/05/20 15:19 101 H 14 98 04/05/20 15:11 111 H 19 161/75 H 97 04/05/20 15:10 37.6 C H 103 H 20 161/75 H 97
[2020-04-05] MEDS ORDERED: SODIUM CHLORIDE 0.9% 1000ML 1,000 ML IV SCH (20:15)
[2020-04-05] MEDS: MAGNESIUM SULFATE / D5W 1 GM/100 ML BAG IV SCH ×2 (20:37→21:38)
[2020-04-05 21:00] LABS: Albumin Level 2.7 gm/dl (3.4-5.0); BUN Creatinine Ratio 8.1 (10-20); Calcium 7.6 mg/dl (8.5-10.1); Creatinine Clr Calc Pharmacy 70.3 ml/min; Est GFR (African American) 83.4; Est GFR (Non-African American) 71.9; Potassium 3.5 mmol/L (3.5-5.1)
[2020-04-05 21:22] LABS: Hepatitis B Surface Antigen Neg (Neg)
[2020-04-05 21:28] LABS: Bilirubin,Total 2.3 mg/dl (0.2-1); C Reactive Protein 1.14 mg/dl (0-0.29); Globulin 2.8 gm/dl (2.5-4.0); Total Protein 5.5 gm/dl (6.4-8.2)
[2020-04-05 21:51] LABS: Act87 Hepatitis C IgG Screen Neg (Neg); Hepatitis C IgG 13Yrs+Old_Rflx Neg (Neg)
[2020-04-06] MEDS: metroNIDAZOLE 500 MG/100 ML BAG IV SCH ×2 (01:40→09:28)
[2020-04-06 06:37] LABS: Basophils # (auto) 0.02 K/uL (0-0.2); Basophils % (auto) 0.1 %; Eosinophils # (auto) 0.03 K/uL (0-0.5); Eosinophils % (auto) 0.2 %; Hematocrit (blood only) 34.2 % (42-52); Hemoglobin 11.5 g/dL (14.0-18.0); Immature Granulocytes # (auto) 0.04 K/uL (0.00-0.02); Immature Granulocytes % (auto) 0.3 %; Lymphocytes # (auto) 0.64 K/uL (1.2-3.4); Lymphocytes % (auto) 4.1 %; Mean Corpuscular Hemoglobin 31.7 pg (25-34); Mean Corpuscular Hgb Conc 33.6 g/dL (32-36); Mean Corpuscular Volume 94.2 fL (80-100); Mean Platelet Volume 10.2 fL (7.4-10.4); Monocytes # (auto) 1.36 K/uL (0.11-0.59); Monocytes % (auto) 8.8 %; Neutrophils % (auto) 86.5 %; Platelet Count 217 K/uL (130-400); RDW Coefficient of Variation 13.8 % (11.5-14.5); Red Blood Count 3.63 M/uL (4.7-6.1); White Blood Count 15.49 K/uL (4.8-10.8)
[2020-04-06 07:17] LABS: Albumin Level 2.5 gm/dl (3.4-5.0); BUN Creatinine Ratio 8.1 (10-20); Calcium 7.3 mg/dl (8.5-10.1); Est GFR (African American) 94.5; Est GFR (Non-African American) 81.6; Magnesium 1.8 mg/dl (1.8-2.4); Potassium 3.8 mmol/L (3.5-5.1)
[2020-04-06 07:19] LABS: Albumin Globulin Ratio 0.9 (0.9-2); Bilirubin,Total 2.6 mg/dl (0.2-1); Globulin 2.8 gm/dl (2.5-4.0); Total Protein 5.3 gm/dl (6.4-8.2)
[2020-04-06] MEDS: PANTOprazole 40 MG TAB PO SCH (09:27)
[2020-04-06] MEDS ORDERED: IMIPENEM/CILASTATIN CONSULT ACTIVE PRN (09:28)
[2020-04-06] MEDS: PANCREAZE (LIPASE 10,500U) CAP PO SCH (09:28)
--- NOTE | 2020-04-06 10:25 | Gastrointestinal Consultation ---
Date of Consultation April 06, 2020 Assessment & Plan (1) Transaminitis: (2) Sepsis: Pt is a 74 y/o male w hx of cholangiocarcinoma s/p cholecystectomy and pancreaticoduodenectomy & bilateral hepaticojejunostomies on 12/20/2011 and adjunct chemotherapy; admitted currently w sepsis - CXR ? pneumonitis, LFTs are elevated, and blood cx grew gram negative bacilli. - Rising WBC despite Levaquin and Flagyl. Will change antibx to Primaxin for broader coverage (discussed w pharmacy) - Obtain MRCP to r/o cholangitis; eval stent in pancreatic duct. Will determine if pancreatic duct stent needs to remove or not based on MRCP result - Monitor LFTs - F/U hepatitis serologies Supervising Physician Co-Signing Physician Notes I have seen and examined the patient and discussed the management with DAYA Jimenes. 74 yo male admitted with fevers, chills yesterday through the er also with nausea, vomiting, diarrhea. History of whipple for cholangiocarcinoma per ercp initial in 2011- s/p whipple with hepaticajejunostomy and pancreatic stent placement by Dr. Johnson in 2011- appears to have had localized disease and then had chemo and radiation in 2011. Drinking alcohol - about three drinks a night. Admitted now with concerns for sepsis- fevers, chills, + blood cultures for gnr- feeling better on flagyl, levaquin. UA normal, wbc count of 15.49, tb 2.3 to 2.6, ast 436 to 247, alt 246 to 206, alb 2.[address] showing prostamegaly, prior whipple, and colonic diverticulosis, pancreatic stent. Await MRCP results- further plan pending results of mrcp. Pt requesting check for tumor markers so will send ca 19-9 and cea. History of Present Illness Reason for Consultation: Sepsis, elevated LFTs Requesting Physician: Dr. Tim Becker Attending Physician: Dr. Wilda Lang History of Present Illness Pt is a 74 y/o male w hx of cholangiocarcinoma s/p cholecystectomy and pancreaticoduodenectomy & bilateral hepaticojejunostomies on 12/20/2011 and adjunct chemotherapy who presented yesterday w c/o fever at home 100.4F, chills. He denies associated CP, SOB, cough. COVID 19 negative. He denies jaundice, abd pain, n/v, changes in bowels habits. Stools can be a bit looser and he's on P ancreaze. On eval, noted his WBC jazmin from 3 to 15 despite Levaquin and Flagyl IV antibx. His LFTs are elevated: Tbili 2.6, AST 273, ALT 206, alk phos 100. Lipase normal 143. UA is normal. Blood cx growing gram negative bacilli. His CXR showed possible atelectasis/scarring or pneumonitis. CT abd/pelvis w mild diffuse colonic wall thickening, post op changes of Whipple, and trace perihepatic ascites. No signs of bowel obstruction, or diverticulitis. He admits to 3-4 servings of ETOH daily (mixed wine, beer). No tobacco, illicit drugs. No recent new meds, outpt antibx, APAP, herbal supplement, sick contact/travel. No family hx of liver dz. Allergies Allergy/AdvReac Type Severity Reaction Status Date / Time Sulfa (Sulfonamide Allergy Intermediate HIVES Verified 04/05/20 16:30 Antibiotics) Penicillins Allergy Mild HIVES Verified 04/05/20 16:30 Home Medications Home Medications Medication Instructions Recorded Confirmed Type cyanocobalamin (vitamin B-12) 1,000 mcg PO DAILY 04/05/20 04/05/20 History fhljej-[id number]-[id number] [Creon] 1 cap PO QAM 04/05/20 04/05/20 History omeprazole 20 mg PO DAILY 04/05/20 04/05/20 History Patient History Medical History Acquired absence of other specified parts of digestive tract Cholangiocarcinoma No pertinent family history Social History Smoking Status: Never smoker Hx Alcohol Use: Yes Alcohol type: beer and wine Hx Substance Use: No Communication Ability: Effective Rescue Boat 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 ENMT: external ear and nose normal, oropharynx normal Respiratory: normal respiratory effort, lungs clear to auscultation Cardiovascular: RRR, no murmur, no edema Gastrointestinal (Abdomen): normal bowel sounds, soft, nontender, no hepatosplenomegaly Skin: no rashes, warm and dry no jaundice Psychiatric: A+Ox3, euthymic affect Lymphatic: no lymphedema Results & Data ([facility]) Vital Signs (Past 12 Hours) Vital Signs Temp Pulse Pulse Resp BP BP Pulse Ox 04/06/20 07:00 37.5 C 84 83 18 108/63 96 04/06/20 03:54 37.2 C 78 18 103/66 98 04/05/20 23:54 37.0 C 86 18 97/55 L 99 04/05/20 22:46 37.1 C 94 H 20 97/60 L (1) Sepsis Sepsis acute organ dysfunction status: unspecified Sepsis type: sepsis due to unspecified organism Qualified Code(s): A41.9 - Sepsis, unspecified organism
[2020-04-06] MEDS: IMIPENEM/CILASTATIN SODIUM 400 MG in DEXTROSE 5% 100 ML IV SCH ×3 (11:00→20:46)
--- NOTE | 2020-04-06 14:12 | Magnetic Resonance Report ---
MR MRCP CLINICAL HISTORY: elevated LFTs, ? cholangitis fever, chills. History of Whipple's procedure with jackson creatic stent. History of cholangiocarcinoma. COMPARISON STUDY: CT scan dated 04/05/2020 FINDINGS: A breath-hold MRCP was performed. MIP images were acquired. There is trace perihepatic fluid. The gallbladder surgically absent. Pancreas appears atrophic. There is no significant pancreatic ductal dilatation. The patient appears be status post a hepaticojejunostomy. There is no ductal dilatation. The pancreatic stent described on the CT scan is not visualized on MRCP. IMPRESSION: 1. Postsurgical changes of a Whipple's procedure 2. No ductal dilatation identified 3. Trace ascites ACT 112: Negative or not required by law. Electronically signed by: Jaime Hebert M.D. 04/06/2020 2:11 PM
[2020-04-06] MEDS: IBUPROFEN 200 MG TAB PO PRN (16:26)
--- NOTE | 2020-04-06 16:38 | Communication Note ---
Date of Service: April 06, 2020 called patient's for an update, twice on her cellphone and once on their home phone no answer yet left a voicemail on her cellphone requesting callback will try again in a few minutes Tim Becker MD
--- NOTE | 2020-04-06 17:06 | Hospitalist Progress Note ---
Date of Service April 06, 2020 Assessment & Plan (1) Fever: (2) Elevated lactic acid level: (3) Transaminitis: (4) Elevated alkaline phosphatase level: Sepsis, possible Cholangitis, with Gram Negative Bacilli Bacteremia - WBC increased Tmax 37.8 - (+) direct biliribunemia- increased AST/ALT improving - MRCP: unrevealing - Blood cultures: 2/2 Gram negative bacilli - continue Imipenem IV NPO after midnight, repeat LFTs in AM, may need ERCP if without improvement - continue IV fluids (5) Hypomagnesemia: -serum magnesium 1.7, given magnesium supplements - Mg 1.8 Full Code DVT prophylaxis with SCDs for now Disposition pending lives at home with his plan of care discussed with patient and his at bedside in detail and at length all questions were answered they are understanding, agreeable, comfortable with the plan of care Admission and Anticipated Discharge Date Admission Date: April 05, 2020 Subjective ff up for sepsis, possible cholangitis seen resting in bed, sitting up comfortable states he feels ok overall, improved compared to admission denies chills no headache, sore throat, cough, shortness of breath, abdominal pain, problems with urination or BM denies other symptoms Review of Systems Review of Systems: All systems reviewed & are unremarkable except as noted in Subjective Physical Exam Physical Exam: General- oriented x 3, not in distress, speaks in sentences with no effort or accessory muscle use Head- atraumatic Eyes- PERRL, EOMI, anicteric ENT- oropharynx clear Neck- supple, no JVD, no adenopathy, no thyromegaly; carotids +2/2, no bruits appreciated Lungs- clear to auscultation bilaterally, no rales/wheezes Heart- normal rate, regular rhythm; no murmur, no gallop, no rub appreciated Abdomen- normal bowel sounds, nondistended, soft, nontender, no masses or hepatosplenomegaly no Cummins's sign Extremities- no pretibial edema, no calf tenderness; peripheral pulses intact Neuro- alert, oriented x 3; CN 2-12 grossly intact; motor 5/5 bilaterally;sensation 100% on all extremities; no other gross focal neurologic deficits Skin- warm & dry Results & Data Results & Data ([facility]) Vital Signs (Past 12 Hours) Vital Signs Temp Pulse Pulse Resp BP BP Pulse Ox 04/06/20 16:08 37.8 C H 86 20 100/58 L 95 04/06/20 11:43 36.7 C 77 20 103/62 97 04/06/20 07:00 37.5 C 84 83 18 108/63 96 Laboratory Results Laboratory Results - last 24 hr 04/05/20 04/05/20 04/05/20 15:15 20:20 20:20 WBC RBC Hgb Hct MCV MCH MCHC RDW Std Deviation RDW Coeff of Riley Plt Count MPV Immature Gran % (Auto) Neut % (Auto) Lymph % (Auto) [place] % (Auto) Eos % (Auto) Baso % (Auto) Neut # (Auto) Lymph # (Auto) [place] # (Auto) Eos # (Auto) Baso # (Auto) Immature Gran # (Auto) ESR 2 Sodium 139 Potassium 3.5 Chloride 110 H Carbon Dioxide 22 Anion Gap 7.0 BUN 8 Creatinine 1.01 Est Cr Clr Drug Dosing 70.3 Est GFR ( Amer) 83.4 Est GFR (Non-Af Amer) 71.9 BUN/Creatinine Ratio 8.1 L Glucose 119 H Lactate Calcium 7.6 L Magnesium Total Bilirubin 2.3 H Direct Bilirubin AST 436 H ALT 246 H Alkaline Phosphatase 114 C-Reactive Protein 1.14 H Total Protein 5.5 L Albumin 2.7 L Globulin 2.8 Albumin/Globulin Ratio 1.0 Carcinoembryonic Ag CA 19-9 Antigen Hepatitis A IgM Ab Hep Bs Antigen Neg Hep B Core IgM Ab Hepatitis C Ab Screen Neg Hepatitis C Antibody Neg 04/05/20 04/05/20 04/05/20 20:20 20:29 22:46 WBC RBC Hgb Hct MCV MCH MCHC RDW Std Deviation RDW Coeff of Riley Plt Count MPV Immature Gran % (Auto) Neut % (Auto) Lymph % (Auto) [place] % (Auto) Eos % (Auto) Baso % (Auto) Neut # (Auto) Lymph # (Auto) [place] # (Auto) Eos # (Auto) Baso # (Auto) Immature Gran # (Auto) ESR Sodium Potassium Chloride Carbon Dioxide Anion Gap BUN Creatinine Est Cr Clr Drug Dosing Est GFR ( Amer) Est GFR (Non-Af Amer) BUN/Creatinine Ratio Glucose Lactate 2.6 H* 2.7 H* Calcium Magnesium Total Bilirubin Direct Bilirubin AST ALT Alkaline Phosphatase C-Reactive Protein Total Protein Albumin Globulin Albumin/Globulin Ratio Carcinoembryonic Ag CA 19-9 Antigen Hepatitis A IgM Ab Pending Hep Bs Antigen Hep B Core IgM Ab Pending Hepatitis C Ab Screen Hepatitis C Antibody 04/06/20 04/06/20 04/06/20 05:57 05:57 05:57 WBC 15.49 H D RBC 3.63 L Hgb 11.5 L Hct 34.2 L MCV 94.2 MCH 31.7 MCHC 33.6 RDW Std Deviation 48.0 H RDW Coeff of Riley 13.8 Plt Count 217 MPV 10.2 Immature Gran % (Auto) 0.3 Neut % (Auto) 86.5 Lymph % (Auto) 4.1 Hale % (Auto) 8.8 Eos % (Auto) 0.2 Baso % (Auto) 0.1 Neut # (Auto) 13.40 H Lymph # (Auto) 0.64 L [place] # (Auto) 1.36 H Eos # (Auto) 0.03 Baso # (Auto) 0.02 Immature Gran # (Auto) 0.04 H ESR Sodium 139 Potassium 3.8 Chloride 110 H Carbon Dioxide 23 Anion Gap 6.0 BUN 7 Creatinine 0.91 Est Cr Clr Drug Dosing 78.0 Est GFR ( Amer) 94.5 Est GFR (Non-Af Amer) 81.6 BUN/Creatinine Ratio 8.1 L Glucose 87 Lactate Calcium 7.3 L Magnesium 1.8 Total Bilirubin 2.6 H Direct Bilirubin 2.0 H AST 273 H ALT 206 H Alkaline Phosphatase 100 C-Reactive Protein Total Protein 5.3 L Albumin 2.5 L Globulin 2.8 Albumin/Globulin Ratio 0.9 Carcinoembryonic Ag CA 19-9 Antigen Hepatitis A IgM Ab Hep Bs Antigen Hep B Core IgM Ab Hepatitis C Ab Screen Hepatitis C Antibody 04/06/20 04/06/20 11:46 11:46 WBC RBC Hgb Hct MCV MCH MCHC RDW Std Deviation RDW Coeff of Riley Plt Count MPV Immature Gran % (Auto) Neut % (Auto) Lymph % (Auto) Hale % (Auto) Eos % (Auto) Baso % (Auto) Neut # (Auto) Lymph # (Auto) [place] # (Auto) Eos # (Auto) Baso # (Auto) Immature Gran # (Auto) ESR Sodium Potassium Chloride Carbon Dioxide Anion Gap BUN Creatinine Est Cr Clr Drug Dosing Est GFR ( Amer) Est GFR (Non-Af Amer) BUN/Creatinine Ratio Glucose Lactate Calcium Magnesium Total Bilirubin Direct Bilirubin AST ALT Alkaline Phosphatase C-Reactive Protein Total Protein Albumin Globulin Albumin/Globulin Ratio Carcinoembryonic Ag 0.6 CA 19-9 Antigen Pending Hepatitis A IgM Ab Hep Bs Antigen Hep B Core IgM Ab Hepatitis C Ab Screen Hepatitis C Antibody
[2020-04-06] MEDS ORDERED: LEVOFLOXACIN/D5W 750 MG/150 ML BAG IV SCH (18:00)
[2020-04-06] MEDS: SODIUM CHLORIDE 0.9% 1000ML 1,000 ML IV SCH (18:17)
[2020-04-07] MEDS: SODIUM CHLORIDE 0.9% 1000ML 1,000 ML IV SCH ×4 (01:40→23:19)
[2020-04-07] MEDS: IMIPENEM/CILASTATIN SODIUM 400 MG in DEXTROSE 5% 100 ML IV SCH ×2 (03:17→09:30)
[2020-04-07 06:28] LABS: Basophils # (auto) 0.02 K/uL (0-0.2); Basophils % (auto) 0.2 %; Eosinophils # (auto) 0.15 K/uL (0-0.5); Eosinophils % (auto) 1.4 %; Hematocrit (blood only) 32.5 % (42-52); Hemoglobin 11.2 g/dL (14.0-18.0); Immature Granulocytes # (auto) 0.02 K/uL (0.00-0.02); Immature Granulocytes % (auto) 0.2 %; Lymphocytes # (auto) 0.72 K/uL (1.2-3.4); Lymphocytes % (auto) 6.7 %; Mean Corpuscular Hemoglobin 32.7 pg (25-34); Mean Corpuscular Hgb Conc 34.5 g/dL (32-36); Mean Corpuscular Volume 94.8 fL (80-100); Mean Platelet Volume 10.2 fL (7.4-10.4); Monocytes # (auto) 0.72 K/uL (0.11-0.59); Monocytes % (auto) 6.7 %; Neutrophils # (auto) 9.11 K/uL (1.4-6.5); Neutrophils % (auto) 84.8 %; Platelet Count 179 K/uL (130-400); RDW Coefficient of Variation 14.2 % (11.5-14.5); RDW Standard Deviation 49.5 fL (36.4-46.3); Red Blood Count 3.43 M/uL (4.7-6.1); White Blood Count 10.74 K/uL (4.8-10.8)
[2020-04-07] MEDS ORDERED: INDOMETHACIN 50 MG SUPP PR ONE ×2 (07:12→15:02)
[2020-04-07 07:19] LABS: Albumin Level 2.5 gm/dl (3.4-5.0); BUN Creatinine Ratio 10.4 (10-20); Bilirubin Direct 0.6 mg/dl (0-0.2); Bilirubin,Total 1.2 mg/dl (0.2-1); Calcium 7.5 mg/dl (8.5-10.1); Creatinine Clr Calc Pharmacy 102.9 ml/min; Est GFR (African American) 106.9; Est GFR (Non-African American) 92.2; Potassium 3.5 mmol/L (3.5-5.1); Total Protein 5.4 gm/dl (6.4-8.2)
--- NOTE | 2020-04-07 08:37 | Gastroenterology Progress Note ---
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 pneumonitis, LFTs are elevated, and blood cx grew gram negative bacilli. MRCP reviewed. - Continue Primaxin for broader coverage (discussed w pharmacy) - Keep NPO for ERCP today in OR by Dr. Castillo. Send Indomethacin 100mg NE to OR holding for ERCP premedication - Monitor LFTs - F/U hepatitis serologies Admission and Anticipated Discharge Date Admission Date: April 05, 2020 Supervising Physician Co-Signing Physician Notes I performed a history and physical examination of the patient today, including specifically on physical exam - soft abdomen. I have discussed the patient's management with the advanced practitioner. Please refer to the nurse practitioner's note for the documented findings and plan of care. Will attempt ERCP Subjective Pt denies CP, SOB, abd pain, n/v. Tmax 37.7C last night WBC, LFTs decreasing Review of Systems Review of Systems: All systems reviewed & are unremarkable except as noted in HPI & below Physical Exam Constitutional: WD/WN, vitals as above well groomed, cooperative and comfortable ENMT: external ear and nose normal, oropharynx normal Respiratory: normal respiratory effort, lungs clear to auscultation Cardiovascular: RRR, no murmur, no edema Gastrointestinal (Abdomen): normal bowel sounds, soft, nontender, no hepatosplenomegaly Skin: no rashes, warm and dry no jaundice Psychiatric: A+Ox3, euthymic affect Lymphatic: no lymphedema Results & Data ([facility]) Vital Signs (Past 12 Hours) Vital Signs Temp Pulse Pulse Resp BP Pulse Ox 04/07/20 07:33 37.7 C H 88 18 135/73 96 04/07/20 07:03 72 04/07/20 03:00 37.6 C H 88 16 119/69 97 04/07/20 02:28 75 04/07/20 00:28 37.5 C 77 16 100/58 L 97 (1) Sepsis Sepsis acute organ dysfunction status: unspecified Sepsis type: sepsis due to unspecified organism Qualified Code(s): A41.9 - Sepsis, unspecified organism
[2020-04-07] MEDS: PANTOprazole 40 MG TAB PO SCH (09:19)
[2020-04-07] MEDS: PANCREAZE (LIPASE 10,500U) CAP PO SCH (09:19)
[2020-04-07] MEDS: CIPROFLOXACIN / D5W 400 MG/200 ML BAG IV SCH ×2 (11:51→23:20)
[2020-04-07] MEDS: IBUPROFEN 200 MG TAB PO PRN (11:56)
[2020-04-07] MEDS ORDERED: fentaNYL citrate 100 MCG/2 ML VIAL IV PRN (13:15)
[2020-04-07] MEDS ORDERED: ONDANSETRON INJ 2 MG/ML 2 ML VIAL IV PRN (13:15)
[2020-04-07] MEDS ORDERED: ATROPINE SULFATE 0.1 MG/ML 10ML SYR IV PRN (13:15)
[2020-04-07] MEDS ORDERED: ePHEDrine sulfate 50 MG/ML AMP IV PRN (13:15)
[2020-04-07] MEDS ORDERED: HYDROmorphone INJ 1 MG/ML SYRINGE IV PRN (13:15)
--- NOTE | 2020-04-07 13:19 | Anesthesiology Consultation ---
Date of Service April 07, 2020 Assessment & Plan (1) Encounter for pre-operative examination: Chart Review Chart Review: Acceptable Risk for Surgery and Patient NOT seen in Pre Admission Testing Consults Requested none History Surgery Operation Date: 04/07/20 10:25 Proposed Procedures p Endoscopic Retrograde Cholangiopancreatogram - Rajinder Castillo MD Height/Weight Height: 6 ft 1 in Weight: 86.6 kg Allergies Allergy/AdvReac Type Severity Reaction Status Date / Time Sulfa (Sulfonamide Allergy Intermediate HIVES Verified 04/05/20 16:30 Antibiotics) Penicillins Allergy Mild HIVES Verified 04/05/20 16:30 Medications Home Medications Medication Instructions Recorded Confirmed Last Taken cyanocobalamin (vitamin B-12) 1,000 mcg PO DAILY 04/05/20 04/05/20 Unknown [id number] [Creon] 1 cap PO QAM 04/05/20 04/05/20 Unknown omeprazole 20 mg PO DAILY 04/05/20 04/05/20 Unknown Active Medications Generic Name Dose Route Start Last Admin Trade Name Freq PRN Reason Stop Dose Admin Lipase/Protease/Amylase 1 cap 04/06/20 09:00 04/07/20 09:19 Pancreaze (Lipase 10,500u) Cap PO 05/06/20 08:59 1 cap QAM NATE Administration Sodium Chloride 1,000 mls @ 125 mls/hr 04/06/20 17:15 04/07/20 09:20 Nss 1000ml IV 05/06/20 17:14 125 mls/hr .Q8H NATE Administration Ciprofloxacin 400 mg in 200 mls @ 100 mls/hr 04/07/20 11:15 04/07/20 11:51 Cipro / D5w IV 04/17/20 11:14 100 mls/hr Q12H NATE Administration Protocol Ibuprofen 200 mg 04/05/20 19:54 04/07/20 11:56 Ibuprofen 200 Mg Tab PO 05/05/20 19:53 200 mg Q6H PRN Administration Pain or Fever Pantoprazole Sodium 40 mg 04/06/20 09:00 04/07/20 09:19 Pantoprazole 40 Mg Tab PO 05/06/20 08:59 40 mg DAILY NATE Administration NPO Date Last Intake of Fluids: 04/07/20 Time Last Intake of Fluids: 11:00 Last Intake of Fluids Comment: sip with meds Date Last Intake of Solids: 04/06/20 Time Last Intake of Solids: 16:00 Past Medical History Medical History (Updated 04/07/20 @ 13:19 by Miguel Bailey MD) Acquired absence of other specified parts of digestive tract Cholangiocarcinoma Elevated lactic acid level Hypomagnesemia No pertinent family history Sepsis Transaminitis Exercise / Class Metabolic Activity II 4-5 Yardwork/Stairs/Walk up hill Past Surgical History whipple procedure 8 years ago Past Anesthesia History No Hx of Anesthesia Complications and No Family Hx of Anesthesia Complications History of PONV No Hx of PONV and No Hx of Motion Sickness Social History Smoking Status: Never smoker Do You Dip or Chew Tobacco: No Hx Alcohol Use: Yes Alcohol type: beer and wine alcohol intake frequency: 3 or more drinks per day Hx Substance Use: No substance use type: does not use Physical Exam Vital Signs Last Vital Signs Temp 36.6 C 04/07/20 13:06 Pulse 81 04/07/20 13:06 Resp 18 04/07/20 13:06 BP 136/72 04/07/20 13:06 Pulse Ox 97 04/07/20 13:06 Testing Laboratory Results 04/07/20 05:38 04/07/20 05:38 PT 10.5 Seconds (9.0-12.0) 04/05/20 15:15 INR 1.0 (0.9-1.1) 04/05/20 15:15 APTT 25.4 Seconds (21.0-31.0) 04/05/20 15:15 Urine Color Yellow 04/05/20 16:05 Urine Appearance Clear (Clear) 04/05/20 16:05 Urine pH 6.0 (4.5-7.5) 04/05/20 16:05 Ur Specific [place] 1.009 (1.000-1.030) 04/05/20 16:05 Urine Protein Negative (Negative) 04/05/20 16:05 Urine Glucose (UA) Negative (Negative) 04/05/20 16:05 Urine Ketones Negative (Negative) 04/05/20 16:05 Urine Nitrite Negative (Negative) 04/05/20 16:05 Ur Leukocyte Esterase Negative (Negative) 04/05/20 16:05 04/06/20 19:30 WBC Smear - Final Stool Escherichia coli Shiga Toxins Test - Preliminary Stool Culture - Preliminary No Salmonella isolated to date, No Shigella isolated to date, No Campylobacter jejuni isolated to date. 04/05/20 16:30 Aerobic Blood Culture - Final Blood Escherichia coli Anaerobic Blood Culture - Final Escherichia coli 04/05/20 16:00 Aerobic Blood Culture - Final Blood Escherichia coli Anaerobic Blood Culture - Final Escherichia coli Electrocardiogram Date: 04/05/20 Findings: + ST @ (103) t wave intersions
[2020-04-07] MEDS ORDERED: LIDOCAINE HCL 2% 2 ML VIAL/AMP(20MG/ML) INFIL ONE (14:35)
[2020-04-07] MEDS ORDERED: PROPOFOL IV EMULSION 10 MG/ML 20 ML VIAL IV ONE (14:35)
[2020-04-07] MEDS ORDERED: ONDANSETRON INJ 2 MG/ML 2 ML VIAL ONE (14:35)
[2020-04-07] MEDS ORDERED: fentaNYL citrate 100 MCG/2 ML VIAL ONE (14:35)
[2020-04-07] MEDS ORDERED: IOVERSOL 50ml IV ONE ×2 (15:33→16:13)
[2020-04-07] MEDS ORDERED: SUCCINYLCHOLINE CHLORIDE 20 MG/ML 10 ML VIAL IV ONE (15:44)
[2020-04-07] MEDS ORDERED: ROCURONIUM BROMIDE 10 MG/ML 5 ML VIAL IV ONE (15:44)
--- NOTE | 2020-04-07 16:48 | Operative Report ---
Post Operative Report Pre & Post Diagnosis Operation Date: 04/07/20 10:25 Pre-Op Diagnosis: SEPSIS, TRANSAMINITIS Post-Op Diagnosis: SEPSIS, TRANSAMINITIS I identified the patient and participated in the time-out.: Yes Procedure Operation Date: 04/07/20 10:25 Actual Procedures p Endoscopic Retrograde Cholangiopancreatogram(Not Applicable) - Rajinder patrick MD Surgeon Rajinder Castillo MD Cordage Sales Representative None Estimated Blood Loss 0 Findings See Below (Hepatecojejunostomy stenosis) Specimens None Description of Procedure ERCP I attest to the content of the Intraoperative Record and any orders documented therein. Any exceptions are noted below.
[2020-04-07 16:52] LABS: Hepatitis A Antibody IgM NON-REACTIVE (NON-REACTIVE); Hepatitis B Core Antibody IgM NON-REACTIVE (NON-REACTIVE)
--- NOTE | 2020-04-07 17:29 | Fluoroscopy Report ---
FL ERCP biliary ductal CLINICAL HISTORY: ERCP COMPARISON STUDY: CT of the abdomen and pelvis April 05, 2020. MRCP April 06, 2020. FLUOROSCOPY TIME: 3 minutes. FLUOROSCOPIC IMAGES: 8 FINDINGS: Fluoroscopy was provided during ERCP. Catheter was extended across the hepaticojejunostomy with stent placement. Contrast within the jejunum is noted. IMPRESSION: Fluoroscopy provided during ERCP with placement of stent likely across the hepaticojejun ostomy. ACT 112: Negative or not required by law. Electronically signed by: Pako Yip M.D. 04/07/2020 5:28 PM
--- NOTE | 2020-04-07 17:31 | Anesthesiology Progress Note ---
Date of Service April 07, 2020 Anesthesia Post Procedure Vital Signs Vital Signs: Temp Pulse Pulse Pulse Resp BP BP 04/07/20 17:20 70 16 134/72 04/07/20 17:10 69 20 140/75 04/07/20 17:00 78 12 140/80 04/07/20 16:57 36.1 C L 84 12 139/79 04/07/20 13:06 36.6 C 81 18 136/72 04/07/20 11:22 37.2 C 79 18 117/71 04/07/20 07:33 37.7 C H 88 18 135/73 04/07/20 07:03 72 04/07/20 03:00 37.6 C H 88 16 119/69 04/07/20 02:28 75 04/07/20 00:28 37.5 C 77 16 100/58 L 04/06/20 19:59 37.3 C 78 75 18 101/56 L Pulse Ox 04/07/20 17:20 98 04/07/20 17:10 99 04/07/20 17:00 100 04/07/20 16:57 99 04/07/20 13:06 97 04/07/20 11:22 98 04/07/20 07:33 96 04/07/20 07:03 04/07/20 03:00 97 04/07/20 02:28 04/07/20 00:28 97 04/06/20 19:59 95 Transfer of Care Handoff Completed per policy Notes Mental Status: alert / awake / arousable and participated in evaluation Patient Amnestic to Procedure: Yes Nausea / Vomiting: adequately controlled Pain: adequately controlled Airway Patency, RR, SpO2: stable & adequate BP & HR: stable & adequate Hydration State: stable & adequate Anesthetic Complications: no major complications apparent
[2020-04-07] MEDS ORDERED: Nursing to Pharmacy Communication SCH (18:30)
--- NOTE | 2020-04-07 20:07 | Hospitalist Progress Note ---
Date of Service April 07, 2020 Assessment & Plan (1) Fever: (2) Elevated lactic acid level: (3) Transaminitis: (4) Elevated alkaline phosphatase level: Sepsis, possible Cholangitis, with E. coli bacteremia -Leukocytosis resolved T-max 37.7 - (+) direct biliribunemia-improving AST/ALT improving - MRCP: unrevealing - Blood cultures: E. coli, pansensitive - For ERCP today - continue Imipenem IV will consult [facility] infectious disease service - continue IV fluids (5) Hypomagnesemia: -serum magnesium 1.7, given magnesium supplements - Mg 1.8 Full Code DVT prophylaxis with SCDs for now Disposition pending lives at home with his Reevaluated in the evening Sitting up, not in distress, comfortable Discussed test results Answered all questions plan of care discussed with patient at bedside and over the phone in detail and at length all questions were answered they are understanding, agreeable, comfortable with the plan of care Admission and Anticipated Discharge Date Admission Date: April 05, 2020 Subjective Follow-up for sepsis, E. coli bacteremia, possible cholangitis Seen resting in bed, sitting up, comfortable, not in distress States he feels improved today Denies abdominal pain, nausea vomiting, fevers or chills No shortness of breath, chest pain Denies other symptoms Review of Systems Review of Systems: All systems reviewed & are unremarkable except as noted in Subjective Physical Exam Physical Exam: General- oriented x 3, not in distress, speaks in sentences with no effort or accessory muscle use Eyes- anicteric Neck- no JVD Lungs- clear breath sounds bilaterally, no rales/wheezes Heart- normal rate, regular rhythm; no murmurs Abdomen- normal bowel sounds, nondistended, soft, nontender , No Cummins sign Extremities- no pretibial edema, no calf tenderness Neuro- alert, oriented x 3; no gross focal neurologic deficits Skin- warm & dry Results & Data Results & Data ([facility]) Vital Signs (Past 12 Hours) Vital Signs Temp Pulse Pulse Resp BP BP Pulse Ox 04/07/20 17:45 70 13 124/70 98 04/07/20 17:30 37.4 C 68 16 121/84 98 04/07/20 17:20 70 16 134/72 98 04/07/20 17:10 69 20 140/75 99 04/07/20 17:00 78 12 140/80 100 10/08/20 16:57 36.1 C L 84 12 139/79 99 04/07/20 13:06 36.6 C 81 18 136/72 97 04/07/20 11:22 37.2 C 79 18 117/71 98 Laboratory Results Laboratory Results - last 24 hr 04/05/20 04/06/20 04/07/20 20:20 11:46 05:38 WBC 10.74 RBC 3.43 L Hgb 11.2 L Hct 32.5 L MCV 94.8 MCH 32.7 MCHC 34.5 RDW Std Deviation 49.5 H RDW Coeff of Riley 14.2 Plt Count 179 MPV 10.2 Immature Gran % (Auto) 0.2 Neut % (Auto) 84.8 Lymph % (Auto) 6.7 [place] % (Auto) 6.7 Eos % (Auto) 1.4 Baso % (Auto) 0.2 Neut # (Auto) 9.11 H Lymph # (Auto) 0.72 L [place] # (Auto) 0.72 H Eos # (Auto) 0.15 Baso # (Auto) 0.02 Immature Gran # (Auto) 0.02 Sodium Potassium Chloride Carbon Dioxide Anion Gap BUN Creatinine Est Cr Clr Drug Dosing Est GFR ( Amer) Est GFR (Non-Af Amer) BUN/Creatinine Ratio Glucose Calcium Total Bilirubin Direct Bilirubin AST ALT Alkaline Phosphatase Total Protein Albumin CA 19-9 Antigen 12 Hepatitis A IgM Ab NON-REACTIVE Hep B Core IgM Ab NON-REACTIVE 04/07/20 05:38 WBC RBC Hgb Hct MCV MCH MCHC RDW Std Deviation RDW Coeff of Riley Plt Count MPV Immature Gran % (Auto) Neut % (Auto) Lymph % (Auto) [place] % (Auto) Eos % (Auto) Baso % (Auto) Neut # (Auto) Lymph # (Auto) [place] # (Auto) Eos # (Auto) Baso # (Auto) Immature Gran # (Auto) Sodium 140 Potassium 3.5 Chloride 110 H Carbon Dioxide 24 Anion Gap 6.0 BUN 7 Creatinine 0.69 Est Cr Clr Drug Dosing 102.9 Est GFR ( Amer) 106.9 Est GFR (Non-Af Amer) 92.2 BUN/Creatinine Ratio 10.4 Glucose 88 Calcium 7.5 L Total Bilirubin 1.2 H D Direct Bilirubin 0.6 H D AST 123 H ALT 134 H Alkaline Phosphatase 88 Total Protein 5.4 L Albumin 2.5 L CA 19-9 Antigen Hepatitis A IgM Ab Hep B Core IgM Ab
[2020-04-07] MEDS: metroNIDAZOLE 500 MG/100 ML BAG IV SCH (20:36)
--- NOTE | 2020-04-07 21:57 | Gastroenterology Progress Note ---
Date of Service April 07, 2020 Assessment & Plan Admission and Anticipated Discharge Date Admission Date: April 05, 2020 Subjective Patient underwent ERCP, has post Whipples anatomy with Hepaticojejunostomy. I was able to reach the biliary orifice, contrast injected, there mild narrowing of the left hepatic duct , a stent was placed. There was also mild narrowing of the afferent limb which was dilated with 20 mm balloon. The pancreatic orifice could not be reached. Plan: MRI Liver protocol to assure no evidence of recurrence of cholangiocarcinoma. Repeat ERCP in 4 weeks to remove the stent, will try to schedule [place] [facility] Results & Data ([facility]) Vital Signs (Past 12 Hours) Vital Signs Temp Pulse Pulse Resp BP BP Pulse Ox 04/07/20 20:02 36.7 C 87 16 125/73 98 04/07/20 17:45 70 13 124/70 98 04/07/20 17:30 37.4 C 68 16 121/84 98 04/07/20 17:20 70 16 134/72 98 04/07/20 17:10 69 20 140/75 99 04/07/20 17:00 78 12 140/80 100 04/07/20 16:57 36.1 C L 84 12 139/79 99 04/07/20 13:06 36.6 C 81 18 136/72 97 04/07/20 11:22 37.2 C 79 18 117/71 98
[2020-04-08] MEDS ORDERED: GADOXETATE DISODIUM IV ONE (00:55)
[2020-04-08] MEDS: metroNIDAZOLE 500 MG/100 ML BAG IV SCH ×2 (03:09→09:56)
[2020-04-08 07:18] LABS: Basophils # (auto) 0.02 K/uL (0-0.2); Basophils % (auto) 0.3 %; Eosinophils # (auto) 0.17 K/uL (0-0.5); Eosinophils % (auto) 2.5 %; Hematocrit (blood only) 33.4 % (42-52); Hemoglobin 11.1 g/dL (14.0-18.0); Immature Granulocytes # (auto) 0.02 K/uL (0.00-0.02); Immature Granulocytes % (auto) 0.3 %; Lymphocytes # (auto) 1.25 K/uL (1.2-3.4); Lymphocytes % (auto) 18.2 %; Mean Corpuscular Hemoglobin 31.6 pg (25-34); Mean Corpuscular Hgb Conc 33.2 g/dL (32-36); Mean Corpuscular Volume 95.2 fL (80-100); Mean Platelet Volume 10.3 fL (7.4-10.4); Monocytes # (auto) 0.63 K/uL (0.11-0.59); Monocytes % (auto) 9.2 %; Neutrophils # (auto) 4.78 K/uL (1.4-6.5); Neutrophils % (auto) 69.5 %; Platelet Count 196 K/uL (130-400); RDW Coefficient of Variation 14.2 % (11.5-14.5); Red Blood Count 3.51 M/uL (4.7-6.1); White Blood Count 6.87 K/uL (4.8-10.8)
[2020-04-08 07:46] LABS: Albumin Level 2.3 gm/dl (3.4-5.0); BUN Creatinine Ratio 7.3 (10-20); Bilirubin Direct 0.5 mg/dl (0-0.2); Calcium 7.6 mg/dl (8.5-10.1); Est GFR (African American) 108.2; Est GFR (Non-African American) 93.3; Potassium 3.6 mmol/L (3.5-5.1)
[2020-04-08 07:49] LABS: Bilirubin,Total 0.9 mg/dl (0.2-1); Total Protein 5.4 gm/dl (6.4-8.2)
[2020-04-08] MEDS: PANTOprazole 40 MG TAB PO SCH (08:12)
[2020-04-08] MEDS: PANCREAZE (LIPASE 10,500U) CAP PO SCH (08:12)
[2020-04-08] MEDS: SODIUM CHLORIDE 0.9% 1000ML 1,000 ML IV SCH (08:12)
--- NOTE | 2020-04-08 08:50 | Magnetic Resonance Report ---
MR abdomen wo/w con CLINICAL HISTORY: Cholangiocarcinoma. GRIDER, CHILLS. ELEVATED LFTS. HISTORY OF PANCREATIC STENT. TECHNIQUE: Imaging was performed prior to and following IV contrast injection. COMPARISON STUDY: MRCP dated 04/06/2020, CT scan dated 04/05/2020 FINDINGS: Images were acquired in the axial and coronal planes before and after the administration of 9.8 cc of intravenous Eovist There are small bilateral pleural effusions with basilar airspace opacities likely atelectatic. There is moderate blooming artifact secondary to surgical clips from prior biliary surgery. There is a 3 mm T2 bright nonenhancing lesion within the right lobe of the liver which demonstrates r estricted water diffusion. This statistically represents a small hepatic cyst. The patient is status post a post procedure. 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 There is no significant ductal dilatation. The patient is status post a hepaticojejunostomy. There is a nonspecific 11 mm filling defect within the jejunum just distal to the anastomosis No splenic masses are visualized. No solid renal masses are visualized. The gallbladder is surgically absent. There is no evidence of pathologic upper abdominal lymphadenopathy. There is no evidence of abdominal aortic aneurysm. IMPRESSION: 1. Small bilateral pleural effusions and basilar atelectasis 2. No suspicious hepatic masses identified. A 3 mm T2 bright lesion within the right hepatic lobe lik bear represents a cyst 3. Postsurgical changes of a prior Whipple's procedure. Pancreatic tail atrophy. 4. 11 mm filling defect within the jejunum, just distal to the hepaticojejunostomy. ACT 112: Negative or not required by law. Electronically signed by: Jaime Hebert M.D. 04/08/2020 8:49 AM
--- NOTE | 2020-04-08 09:06 | Gastroenterology Progress Note ---
Date of Service April 08, 2020 Assessment & Plan (1) Transaminitis: Admission and Anticipated Discharge Date Admission Date: April 05, 2020 Supervising Physician Co-Signing Physician Notes I performed a history and physical examination of the patient today, including specifically on physical exam - soft abdomen. I have discussed the patient's management with the advanced practitioner. Please refer to the nurse practitioner's note for the documented findings and plan of care. MRI reviewed, no evidence of recurrence of cholangio. There is a filling defect near the hepaticojejunostomy, likely a stone, biliary stent in place. Diet as tolerated. PO ABx to complete 10 days as OP for cholangitis and E.coli bacteremia. I will arrange repeat ERCP with me at [facility] for spyglass. Recall Gi if needed. Subjective Pt w/o abd pain, n/v, tolerating CL diet overnight. Afebrile overnight. WBC normal, LFTs trending down Review of Systems Review of Systems: All systems reviewed & are unremarkable except as noted in HPI & below Physical Exam Constitutional: WD/WN, vitals as above well groomed, cooperative and comfortable ENMT: external ear and nose normal, oropharynx normal Respiratory: normal respiratory effort, lungs clear to auscultation Cardiovascular: RRR, no murmur, no edema Gastrointestinal (Abdomen): normal bowel sounds, soft, nontender, no hepatosplenomegaly Skin: no rashes, warm and dry no jaundice Psychiatric: A+Ox3, euthymic affect Lymphatic: no lymphedema Results & Data ([facility]) Vital Signs (Past 12 Hours) Vital Signs Temp Pulse Pulse Resp BP Pulse Ox 04/08/20 07:46 36.3 C L 73 18 116/67 99 04/08/20 04:01 36.9 C 62 16 129/59 L 94 04/08/20 00:38 74 04/07/20 23:13 37.1 C 84 18 133/53 L 96
[2020-04-08] MEDS: CIPROFLOXACIN / D5W 400 MG/200 ML BAG IV SCH (11:32)
--- NOTE | 2020-04-08 14:18 | Hospitalist Progress Note ---
Date of Service April 08, 2020 Assessment & Plan (1) Fever: (2) Elevated lactic acid level: (3) Transaminitis: (4) Elevated alkaline phosphatase level: Sepsis, possible Cholangitis, with E. coli bacteremia -Leukocytosis resolved Afebrile x24 hours - (+) direct bilirubinemia-Almost resolved now AST/ALT improving - MRCP: unrevealing - Blood cultures: E. coli, pansensitive - Status post ERCP: Left hepatic duct stent placed - Imipenem transitioned to Cipro plus Flagyl IV [facility] ID service consulted discharge on 7 more days of ciprofloxacin plus Flagyl to complete 10 days antibiotic course Follow-up with [facility] crucible furnace tender Dr. Santiago In 4 weeks for stent removal (5) Hypomagnesemia: -serum magnesium 1.7, given magnesium supplements - Mg 1.8 Full Code DVT prophylaxis with SCDs for now Disposition Discharge to home Follow-up with primary care physician in 1 week Follow-up with [facility] crucible furnace tender in 4 weeks Reevaluated in the evening Sitting up, not in distress, comfortable Discussed test results Answered all questions plan of care discussedAgain with patient at bedside and over the phone in detail and at length all questions were answered they are understanding, agreeable, comfortable with the plan of care Admission and Anticipated Discharge Date Admission Date: April 05, 2020 Subjective Follow-up for E. coli bacteremia, Biliary obstruction, Possible cholangitis Seen sitting up at the edge of the bed, in good spirits, alert States he feels much better overall Denies abdominal pain, nausea vomiting, fevers or chills, headache, dizziness, chest pain, shortness of breath Tolerating regular diet so far Ambulating with no problems States he is ready and would like to be discharged today Review of Systems Review of Systems: All systems reviewed & are unremarkable except as noted in Subjective Physical Exam Physical Exam: General- oriented x 3, not in distress, speaks in sentences with no effort or accessory muscle use Eyes- anicteric Neck- no JVD Lungs- clear breath sounds, No crackles, no wheezing bilaterally Heart- normal rate, regular rhythm; no murmurs Abdomen- normal bowel sounds, nondistended, soft, nontender Extremities- no pretibial edema, no calf tenderness Neuro- alert, oriented x 3; no gross focal neurologic deficits Skin- warm & dry Results & Data Results & Data ([facility]) Vital Signs (Past 12 Hours) Vital Signs Temp Pulse Pulse Resp BP Pulse Ox 04/08/20 11:23 71 04/08/20 11:11 37.0 C 78 18 132/78 97 04/08/20 07:46 36.3 C L 73 18 116/67 99 04/08/20 04:01 36.9 C 62 16 129/59 L 94 Laboratory Results Laboratory Results - last 24 hr 04/05/20 04/08/20 04/08/20 20:20 06:37 06:37 WBC 6.87 RBC 3.51 L Hgb 11.1 L Hct 33.4 L MCV 95.2 MCH 31.6 MCHC 33.2 RDW Std Deviation 49.0 H RDW Coeff of Riley 14.2 Plt Count 196 MPV 10.3 Immature Gran % (Auto) 0.3 Neut % (Auto) 69.5 Lymph % (Auto) 18.2 Mellette % (Auto) 9.2 Eos % (Auto) 2.5 Baso % (Auto) 0.3 Neut # (Auto) 4.78 Lymph # (Auto) 1.25 Mellette # (Auto) 0.63 H Eos # (Auto) 0.17 Baso # (Auto) 0.02 Immature Gran # (Auto) 0.02 Sodium 141 Potassium 3.6 Chloride 111 H Carbon Dioxide 26 Anion Gap 4.0 BUN 5 L Creatinine 0.67 Est Cr Clr Drug Dosing 106.0 Est GFR ( Amer) 108.2 Est GFR (Non-Af Amer) 93.3 BUN/Creatinine Ratio 7.3 L Glucose 86 Calcium 7.6 L Total Bilirubin 0.9 Direct Bilirubin 0.5 H AST 68 H ALT 96 H Alkaline Phosphatase 110 Total Protein 5.4 L Albumin 2.3 L Hepatitis A IgM Ab NON-REACTIVE Hep B Core IgM Ab NON-REACTIVE
--- NOTE | 2020-04-08 14:33 | Discharge Summary ---
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 Patient reports that because he is on creon for the history of the Whipple procedure, his stools get looser as the day progresses and this is common for him. Recently patient has been in usual state of health but on 04/05/2020, patient had chills and then reported fever of 101 F at home. Patient was seen in the ED and there is not obvious source of infection. White blood cell count is normal There is no hemorrhage, mass effect, or evidence of acute territorial ischemia by CT criteria on CT head. Urine analysis with no bacteria. COVID-19 screening and [employer] for other respiratory viral infections are negative. There is on chest X ray Bibasilar airspace opacities likely represent scarring/atelectasis but patient was given levofloxacin for possible pulmonary infection coverage. Patient was started in the ED on Flagyl in case of any gastrointestinal source of infection but patient had a relatively benign CT abdomen/Pelvis scan of: questionable mild diffuse colonic wall thickening; colonic diverticulosis without CT evidence of acute diverticulitis; Postoperative change is consistent with a history of previous Whipple procedure; No bowel obstruction is seen; Trace perihepatic ascites. Patient did present with elevated lactic acid of 2.1 which jazmin to 2.8. Patient has been receiving IV fluids. Patient's labs are remarkable for transaminitis of AST/ALT of 630 / 190 and elevated alkaline phosphatase of 142. Patient and his Mariangel ) at bedside reports moderate alcohol use and patient denies history of alcohol withdrawal. Hepatitis testing currently negative. Patient denies recent history of smoking Admission Exam Per Admitting Provider Constitutional: comfortable Eyes: PERRL, conjunctivae normal, anicteric sclerae + corneal abnormality ENMT: external ear and nose normal, oropharynx normal Neck: trachea midline, no thyromegaly normal visual inspection Respiratory: normal respiratory effort, lungs clear to auscultation Cardiovascular: Rate/Rhythm: regular rate Gastrointestinal (Abdomen): Inspection/Auscultation: normal bowel sounds and + abdominal surgical scar Percussion/Palpation: abdomen soft Musculoskeletal: Head/Neck/Chest: normocephalic and head atraumatic Neurologic: PERRL, EOMI, accommodation nl, no face palsy, no dysarthria CN's II-XI intact bilaterally and moves all extremities Psychiatric: A+Ox3, euthymic affect Principal Diagnosis Sepsis, possible cholangitis, FromE. coli bacteremia likely secondary to biliary tract obstruction, Status post ERCP, status post left hepatic duct stent placement Discharge Exam General- oriented x 3, not in distress, speaks in sentences with no effort or accessory muscle use Eyes- anicteric Neck- no JVD Lungs- clear breath sounds, No crackles, no wheezing bilaterally Heart- normal rate, regular rhythm; no murmurs Abdomen- normal bowel sounds, nondistended, soft, nontender Extremities- no pretibial edema, no calf tenderness Neuro- alert, oriented x 3; no gross focal neurologic deficits Skin- warm & dry Discharge Data Allergies Allergy/AdvReac Type Severity Reaction Status Date / Time Sulfa (Sulfonamide Allergy Intermediate HIVES Verified 04/05/20 16:30 Antibiotics) Penicillins Allergy Mild HIVES Verified 04/05/20 16:30 Consultations 04/05/20 18:47 ED Decision to Admit Stat 04/05/20 19:52 Consult Gastroenterology Routine 04/05/20 19:59 Consult Case Management - Discharge Planning Routine 04/07/20 17:50 Consult Infectious Diseases Routine Procedures Performed Operation Date: 04/07/20 10:25 Actual Procedures p Endoscopic Retrograde Cholangiopancreatogram(Not Applicable) - Rajinder dyson MD Ordered Studies 04/05/20 15:10 CT abd pelvis IV con only Stat COMPARISON STUDY: Abdominal CT dated 02/13/2012 and 12/09/2011. TECHNIQUE: Following the IV administration of 93 cc of Optiray 320, CT scan of the abdomen and pelvis is performed from the lung bases to the proximal femora. Images are reviewed in the axial, sagittal, and coronal planes. IV contrast was administered without complication. A dose lowering technique was utilized adhering to the principles of ALARA. CT DOSE: 998.31 mGycm FINDINGS: Lung bases: The heart is normal in size and without pericardial effusion. There are coronary artery calcifications. The lung bases are clear noting bibasilar scarring/atelectasis. There is a small hiatal hernia. Liver: The contrast-enhanced liver is normal in size, contour, and attenuation. There is mild central intrahepatic biliary ductal dilatation. The hepatic veins and portal veins are patent. Gallbladder: Surgically absent. Spleen: Normal in size and attenuation. Pancreas: The proximal pancreas is surgically absent. The pancreatic body and tail are atrophic. A stent is present within the pancreatic duct. The duct is normal in caliber. Parenchyma calcifications are noted in the distal pancreas and suggest chronic pancreatitis. Adrenal glands: Unremarkable. Kidneys: The contrast enhanced kidneys are normal in size and without hydronephrosis. The kidneys enhance symmetrically. Abdominal vasculature: There is moderate to advanced atherosclerotic calcification and mild ectasia of the abdominal aorta. Bowel: There is postoperative change from distal gastrectomy and duodenal resection with gastrojejunostomy. This is consistent with the reported history of a Whipple procedure. There is moderate colonic diverticulosis without CT evidence of acute diverticulitis. No bowel obstruction is identified. Question mild diffuse colonic wall thickening. Fecalization is noted in the distal ileum. The appendix is well-visualized and normal. Peritoneum: There is trace perihepatic ascites. No intraperitoneal free air is seen. There is a small fat-containing umbilical hernia. Lymphadenopathy: None. Pelvic viscera: The prostate gland is enlarged and heterogeneous noting median lobe hypertrophy. The bladder wall is thickened and trabeculated suggesting chronic outlet obstruction. Skeletal structures: The skeletal structures are osteopenic. There is mild lumbosacral spondylosis. Bilateral pars defects are seen at L5. No lytic or blastic lesions are seen. IMPRESSION: 1. Question mild diffuse colonic wall thickening. Correlate clinically for evidence of a nonspecific colitis. 2. Postoperative change is consistent with a history of previous Whipple procedure. No bowel obstruction is seen. 3. Trace perihepatic ascites. 4. Colonic diverticulosis without CT evidence of acute diverticulitis. 5. Additional findings as above. CT head/brain wo con Stat COMPARISON STUDY: No priors. TECHNIQUE: Unenhanced axial CT scan of the brain is performed from the vertex to the skull base. A dose lowering technique was utilized adhering to the pr inciples of ALA. CT DOSE: 821.00 mGycm FINDINGS: Brain parenchyma: There are age-related involutional changes noting minimal subcortical and periventricular microangiopathic change. There is no hemorrhage, mass effect, or evidence of acute territorial ischemia by CT criteria. Ritchie- white matter differentiation is preserved. No extra-axial fluid collection is seen. Ventricles, sulci, cisterns: Prominent secondary to involutional change. Intracranial vasculature: There is atherosclerotic calcification of the cavernous carotid and vertebral arteries. Calvarium: Unremarkable. Sinuses and mastoids: The visualized paranasal sinuses are clear. The mastoid air cells are well pneumatized. Orbits: The bony orbits are grossly intact. IMPRESSION: There is no hemorrhage, mass effect, or evidence of acute territorial ischemia by CT criteria. 04/06/20 09:27 MR MRCP Urgent COMPARISON STUDY: CT scan dated 04/05/2020 FINDINGS: A breath-hold MRCP was performed. MIP images were acquired. There is trace perihepatic fluid. The gallbladder surgically absent. Pancreas appears atrophic. There is no significant pancreatic ductal dilatation. The patient appears be status post a hepaticojejunostomy. There is no ductal dilatation. The pancreatic stent described on the CT scan is not visualized on MRCP. IMPRESSION: 1. Postsurgical changes of a Whipple's procedure 2. No ductal dilatation identified 3. Trace ascites 04/07/20 [place] ERCP biliary ductal Routine 04/07/20 15:30 US upper EUS PACS images Routine FINDINGS: Fluoroscopy was provided during ERCP. Catheter was extended across the hepaticojejunostomy with stent placement. Contrast within the jejunum is noted. IMPRESSION: Fluoroscopy provided during ERCP with placement of stent likely across the hepaticojejunostomy. 04/07/20 18:24 MR abdomen wo/w con Routine COMPARISON STUDY: MRCP dated 04/06/2020, CT scan dated 04/05/2020 FINDINGS: Images were acquired in the axial and coronal planes before and after the administration of 9.8 cc of intravenous Eovist There are small bilateral pleural effusions with basilar airspace opacities likely atelectatic. There is moderate blooming artifact secondary to surgical clips from prior biliary surgery. There is a 3 mm T2 bright nonenhancing lesion within the right lobe of the liver which demonstrates restricted water diffusion. This statistically represents a small hepatic cyst. The patient is status post a post procedure. 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 There is no significant ductal dilatation. The patient is status post a hepaticojejunostomy. There is a nonspecific 11 mm filling defect within the jejunum just distal to the anastomosis No splenic masses are visualized. No solid renal masses are visualized. The gallbladder is surgically absent. There is no evidence of pathologic upper abdominal lymphadenopathy. There is no evidence of abdominal aortic aneurysm. IMPRESSION: 1. Small bilateral pleural effusions and basilar atelectasis 2. No suspicious hepatic masses identified. A 3 mm T2 bright lesion within the right hepatic lobe likely represents a cyst 3. Postsurgical changes of a prior Whipple's procedure. Pancreatic tail atrophy. 4. 11 mm filling defect within the jejunum, just distal to the hepaticojejunostomy. Hospital Course (1) Bacteremia: Sepsis, possible Cholangitis, with E. coli bacteremia, secondary to biliary duct obstruction, status post ERCP, stent placement- left hepatic duct - Admitted with fever, bilirubinemia, elevated LFTs - Blood cultures: E. coli, pansensitive -[facility] chalk molding machine operator Dr. Juan Richard consulted Status post ERCP: Left hepatic duct stent placed -Given imipenem, transition to Cipro plus Flagyl IV - Leukocytosis resolved Fever resolved - (+) direct bilirubinemia-Resolved AST/ALT improving [facility] ID service consulted discharge on 7 more days of ciprofloxacin plus Flagyl to complete 10 days antibiotic course Follow-up with [facility] chalk molding machine operator Dr. Santiago In 4 weeks for stent removal Abnormal CT abdomen pelvis findings: Please refer to full report at ordered studies above Abdominal vasculature: There is moderate to advanced atherosclerotic c alcification and mild ectasia of the abdominal aorta. Pelvic viscera: The prostate gland is enlarged and heterogeneous noting median lobe hypertrophy. The bladder wall is thickened and trabeculated suggesting chronic outlet obstruction. -- Further management and monitoring as an outpatient Hypomagnesemia -serum magnesium 1.7, given magnesium supplements - Resolved Disposition Discharge to home Follow-up with primary care physician in 1 week Follow-up with [facility] chalk molding machine operator in 4 weeks plan of care discussed again with patient at bedside and over the phone in detail and at length all questions were answered they are understanding, agreeable, comfortable with the plan of care Total Time Total Time Spent Total Time Spent (In Minutes): 55 minutes Discharge Plan Discharge Items Patient Disposition: Home - Self-Care Reason For Visit: FEVER AT HOME CHILLS ELEVATED LACTIC ACID TRANSAMI Discharge Diagnosis: Bloodstream infection likely secondary to biliary duct obstruction Activity: Resume your previous activity Activity Comment: Gradually increase as tolerated Driving/Machine Use: No driving until reevaluated and allowed by primary care physician Non-emergency contact: Primary Care Provider and Cigar Making Machine Operator Call non-emergency contact if: you have any medication questions, your symptoms worsen, your pain is not controlled, your pain is worsening, your pain is unusual for you, your pain is concerning for you and you have a fever Follow-up/Referrals: Arpit Antonio MD [Primary Care Provider] - 04/12/20 11:00 am Rajinder Santiago MD [Hospitalist] - Diet: Heart Healthy, Low Fiber and Low Fat Addtl Attending Provider Instructions: Please review your new medication list and follow the instructions carefully. Your new medications include: Ciprofloxacin and metronidazole-antibiotics for bloodstream infection Please include probiotic products, such as yogurt, and your daily diet for at least 1 month. Drink plenty of water-6 to 8 glasses of water a day. Call Dr. Juan Richard or return to the ER immediately if with worsening of symptoms, including, abdominal pain, nausea or vomiting, fevers or chills. Please follow-up with your primary care physician next week as outlined above. Follow-up with [facility] chalk molding machine operator Dr. Juan Richard in 4 weeks. Please call his office to set up an appointment. Contact information outlined above. Pending Studies at Discharge: No Stand-Alone Forms: My [facility], Smoking Cessation Medications and DC Order Prescriptions: New ciprofloxacin HCl 500 mg tablet 500 mg PO Q12H Qty: 14 RF: 0 metronidazole [Flagyl] 500 mg tablet 500 mg PO Q8H Qty: 21 RF: 0 Continued cyanocobalamin (vitamin B-12) 1,000 mcg tablet 1,000 mcg PO DAILY RF: 0 omeprazole 20 mg capsule,delayed release(DR/EC) 20 mg PO DAILY RF: 0 Creon 12,000-38,000 -60,000 unit capsule,delayed release(DR/EC) 1 cap PO QAM RF: 0 Discharge Orders: Discharge Order (Routine); Ordered 04/08/20 Ordered By: Tim Becker Admission Data Admit Date/Time: 04/05/20 20:00 Attending Provider: Tim Becker Admit Provider: Alejandro Fuentes Primary Care Provider: Arpit Antonio Other Providers: Alejandro Fuentes ; Wilda Lang ; Jeanmarie Guo ; Stacy Solorio ; Arsalan Angulo I. ; Breezy Pina II ; An Winkler ; Austin Karimi
--- NOTE | 2020-04-08 17:54 | GI REPORT ---
Patient Name: Lucien Pemberton Procedure Date: 04/07/2020 3:37 PM Date of : 1945 Admit Type: Inpatient Age: 74 Gender: Male Attending MD: Rajinder Castillo MD Procedure: ERCP Providers: Rajinder Castillo MD Referring MD: Tim Becker Indications: For therapy of ascending cholangitis Medicines: Propofol per Anesthesia Complications: No immediate complications. Estimated Blood Loss: Estimated blood loss: none. Procedure: Pre-Anesthesia Assessment: - Prior to the procedure, a History and Physical was performed, and patient medications, allergies and sensitivities were reviewed. The patient's tolerance of previous anesthesia was reviewed. - The risks and benefits of the procedure and the sedation options and risks were discussed with the patient. All questions were answered and informed consent was obtained. - Patient identification and proposed procedure were verified prior to the procedure by the physician and the nurse. The procedure was verified in the procedure room. - Pre-procedure physical examination revealed no contraindications to sedation. After obtaining informed consent, the scope was passed under direct vision. Throughout the procedure, the patient's blood pressure, pulse, and oxygen saturations were monitored continuously. The Endoscope was introduced through the mouth, and advanced to the duodenum and used to inject contrast into the bile duct. The patient tolerated the procedure well. The ERCP was technically difficult and complex due to post-surgical anatomy. Findings: A geology instructor film of the abdomen was obtained. Surgical clips, consistent with a previous cholecystectomy and Whipple's surgery were seen in the area of the right upper quadrant of the abdomen. The esophagus was successfully intubated under direct vision. A standard esophagogastroduodenoscopy scope (1T scope) was used for the examination of the upper gastrointestinal tract. The scope was passed under direct vision through the upper GI tract. Evidence of a post Whipple's surgery with gastrojejunostomy was found. The gastrojejunal anastomosis was characterized by healthy appearing mucosa. This was traversed. The efferent limb was examined. The afferent limb was examined. The anastomosis at the afferent limb was slightly stenosed. A TTS dilator was passed through the scope. Dilation with an 18-19-20 mm balloon dilator was performed. The 1T scope could reach to the mid afferent limb and was 5 cm away from another sharply curved area. Contrast was injected to delineate the anatomy. There was immediate filling of both right and left intrahepatic branches. No significant dilation seen. The scope was changed to a pediatrics colonoscope. Due to significant scope looping in the afferent limb, the scope could not reach the end of the afferent limb or pass to the area of the hepaticojejunostomy. After maximum scope reduction, a 0.035 inch straight standard wire was passed into the biliary tree and deep into the left intrahepatic branches. The Fusion OMNI sphincterotome was passed over the guidewire and the bile duct was then deeply cannulated. Contrast was injected. I personally interpreted the bile duct images. Ductal flow of contrast was adequate. Image quality was adequate. Opacification of the left intrahepatic branches and right intrahepatic branches was successful. These were normal. There was dilation of the jejunum below the hepaticojejunostomy with large filling defect that seems like a stone. The contrast did not flow to the end of the afferent limb. The biliary tree was swept with an 11.5 mm balloon starting at the left main hepatic duct. Nothing was found. One 7 Fr by 4 cm plastic biliary stent with a single external pigtail and a single internal pigtail was placed into the left hepatic duct and ended in the jejunum. Bile flowed through the stent. The stent was in good position. A plastic pancreatic duct stent was seen on fluoroscopy. Upon withdrawal of the scope, there was an area of superficial mucosal tear in the mid afferent limb with no bleeding or perforation, likely due to pressure from scope looping. This was closed with 4 endoclips. Impression: - Post Whipple's gastrojejunostomy anatomy was found. - Difficult ERCP due to post surgical anatomy however the left hepatic duct was cannulated and stented. - There is luminal narrowing near the hepaticojejunostomy area causing a reservoir effect with bile stasis and likely stone formation which may caused his current cholangitis in view of the normal intrahepatic cholangiogram. - One double pigtail plastic biliary stent was placed. Recommendation: - [facility]. - Advance diet as tolerated. - Repeat ERCP in 6 weeks to remove stent, this will be arranged at [facility], would likely need to use a gastric overtube or a single balloon enteroscopy to evaluate the afferent limb. If not successful then will use a spyglass. - Complete a 10 days course of ABx in view of bacteremia. Rajinder Castillo MD 04/08/2020 5:53:48 PM This report has been signed electronically. Note Initiated On: 04/07/2020 3:37 PM Number of Addenda: 0 I attest to the content of the Intraoperative Record and orders documented therein, exceptions below {[id number]}
== END 2020-04-08 15:24 | disposition home or self-care (01) | DRG 872 ==
LOC: ED 14:48 → 2N 20:00 → SUATTDRO 20:00 → 2N 21:50

== ENCOUNTER 2024-01-13 01:26 | Inpatient (IN) ==
--- OUTSIDE RECORDS SUMMARY | 2024-01-13 01:32 | External Medical Summary | Summary of Care ---
Author Name Unknown Organization [facility] Address [address] [place] [facility] [place] [address] Phone [phone] Care Team Providers Care Production Control Technologist Name Role Phone Paco ODOM MD, Arpit Yan Primary Care Provider [phone] Reason for Visit * Reason Onset Date Comments Test Results 09/19/2023 Encounter Details Date Type Department Care Team (Late st Contact Info) Description 09/19/2023 Telephone Family Practice [facility] [address] [place] [address] Nina Chand MD [address] [place] [address] Test Results Allergies Active Allergy Reactions Criticality Noted Date Comments Penicillins 01/21/2003 As a child Sulfa Antibiotics 01/21/2003 hives and difficulty breathing documented as of this encounter (statuses as of 12/19/2023) Medications Medication Sig Dispensed Refills Start Date End Date Status TYLENOL 325 MG PO TABS Take by mouth. Active Ibuprofen-diphenhy drAMINE Cit 200-38 MG Oral Tablet Take 1 Tab by mouth at bedtime as needed. Active Hydrocortisone (Perianal) 2.5 % External CreamIndications:H emorrhoids, external without complications Administer into the rectum 2 times a day. 28 g 1 Active [facility] Vitamin B-12 1000 MCG Oral Tablet (vitamin b 12) TAKE 1 TABLET BY MOUTH EVERY DAY 90 Tablet 48 2 Active Creon 87156-39621 UNIT Oral Capsule Delayed Release Particles (Pancrelipase (Lei-[id number]))In dications:History of resection of pancreas,Cholangio carcinoma (HCC) TAKE 1 CAPSULE IN THE MORNING, 1 CAP AT NOON, 1 CAP IN EVENING, 1 CAP BEFORE BED AND 1 CAP WITH SNACKS 120 Capsule 4 3 Active Additional Information Patient taking differently: 1 Capsule Oral Daily(AM), TAKE 1 CAPSULE IN THE MORNING, Reported on 10/29/2023 Omeprazole 20 MG Oral Capsule Delayed Release (PriLOSEC)Indicati ons:Cholangiocarci noma (HCC) TAKE 1 CAPSULE BY MOUTH EVERY DAY IN THE MORNING 90 Capsule 1 3 10/09/19 24 Discontinued documented as of this encounter (statuses as of 12/19/2023) Active Problems Problem Noted Date Diagnosed Date 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 Knee effusion, left 07/21/2016 Elevated glucose 01/04/2014 History of resection of pancreas 11/23/2012 Dyslipidemia, goal LDL below 160 11/29/2009 ADVANCE DIRECTIVE INFORMATION 07/06/2009 Overview: Yes, Patient instructed to provide copy of advance directive for provider to review and to be scanned into Electronic Medical Record documented as of this encounter (statuses as of 12/19/2023) Resolved Problems Problem Noted Date Diagnosed Date Resolved Date Recurrent BCC (basal cell carcinoma) 01/15/2015 05/06/2017 Encounter for antineoplastic chemotherapy 03/31/2012 05/06/2017 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 9 History of colon polyps 12/14/201112/29 Overview: 12/14/2011: normal repeat in 5 years 10/15/2006: tubulovillous adenoma: repeat 5 years Adenocarcinoma 12/12/2011 01/15/2015 Acute pancreatitis 12/12/2011 2 Obstructive jaundice 12/11/2011 015 Mass of common bile duct 12/11/2011 Tubulovillous adenoma 12/11/20112016 Overview: 12/17/11: diverticulosis, repeat 5 years 10/18/09: internal hemorrhoids 10/15/06: tubulovillous adenoma repeat 3 years Basal cell carcinoma of skin , site unspecified 04/13/2011 05/06/2017 Other constipation 04/12/2010 7 Other psoriasis 04/12/2010 05/31/2021 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 04/12/2020 SKIN LESION 04/06/2009 04/13/2011 Actinic keratosis 08/18/2008 05/06/2017 Benign neoplasm of colon 10/15/200611/2016 Overview: 10/19/2009 repeat in 2 years, hyperplastic polyp 10/15/2006 repeat in 3 years Vasectomy status 09/25/2006 04/13/2011 HYPERLIPIDEMIA NEC/NOS(aka HYPERCHOLESTEROLEMIA) 04/19/2004 11/29/2009 Venous insufficiency 02/02/2003 017 UNILAT INGUINAL HERNIA 02/02/200301/15 Overview: Right History of right inguinal hernia 02/02/2003 05/06/2017 Overview: [facility]: Conor Cortes MD 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 Overview: ICD-10 update of inactive term documented as of this encounter (statuses as of 12/19/2023) Immunizations Name Administration Dates Next Due COVID-19 mRNA, LNP-s, No Pre serve, 2-Dose Series (Moderna) 09/01/2020,08/06/2020 COVID-19, mRNA, LNP-s, PF, B ooster, 100mcg/0.5mg (Moderna) 05/01/2021 Covid-19, Mrna, Lnp-s, Pf, B ivalent, 30 Mcg, IM, 12 yrs and above (Pfizer) 06/05/2022 H1N1 2009 Influenza, IM 06/16/2009 Pneumococcal Conjugate Vacc, 13 Valent (Prevnar) 07/19/2014 Pneumococcal Polysaccharide PPV23 (Pneumovax) 08/05/2013,11/26/2006 Season Influenza, Quad, PF, Adjuvanted, 65+ Yrs, IM (FLUAD) 04/12/2020 Seasonal Influenza, PF, 6 M & above, IM , (FluLaval or Fluzone) 04/30/2018,05/06/2017 Seasonal Influenza, Quadriva lent Hd (Fluzone Hd) 05/01/2023,05/21/2022 Seasonal Influenza, Quadriva lent, No Preserve, IM 07/09/2016,06/13/2015 Seasonal Influenza, Split, I IV3, With Preserve, Inj 04/01/2014,06/03/2013,05/02/2012,04/01,04/12/2010,04/06/2009 04/06/2010 Seasonal Influenza, Trivalen t, High Dose, No Preserve, IM 04/30/2019 TD, Preservative Free 04/12/2010 TDAP (age 10 and older)(Boostrix) 08/05/2013 Varicella Zoster Vaccine (Adult) 11/09/2013 Zoster Vaccine Recombinant (Shingrix) 03/04/2021 ,04/30/2019 documented as of this encounter Social History Tobacco Use Types Packs/Day Years Used Date Smoking Tobacco: Former Cigarettes 1 10 0 02/03/1964 - 02/02/1974 Smokeless Tobacco: Never Alcohol Use Standard Drinks/Week Comments Yes 6.7 (1 standard drink = 0.6 oz p ure alcohol) occassional AUDIT-C Answer Date Recorded Frequency of Alcohol Consumption Monthly or less 08/27/2018 Average Number of Drinks Not on file 019 Frequency of Binge Drinking Not on file 08/02 PHQ-2 Answer Date Recorded PHQ-2 Score 0 03/03/2020 Utilities Answer Date Recorded Do you have trouble paying y our heating, water, or electric bill? (Adult - for ages 18 years and over) Not on file 12/17/2023 Is your family able to pay t he heat, water, or electric bill? (Household - for ages 0-17 years) Not on file 12/17/2023 Does your family have access to good internet? (Household - for ages 0-17 years) Not on file 12/17/2023 Social Connections Answer Date Recorded How often do you feel lonely or isolated from those around you? (Adult - for ages 18 years and over) Not on file 12/17/2023 Sex and Gender Information Value Date Recorded Sex Assigned at Not on file Gender Identity Not on file Sexual Orientation Not on file Job Start Date Occupation Industry Not on file Not on file Not on file documented as of this encounter Functional Status Functional Status Response Date of Assess ment Are you deaf or do you have serious difficulty h earing? No 08/27/2018 Are you blind or do you have serious difficulty seeing, even when wearing glasses? No 08/27/2018 Do you have serious difficul ty walking or climbing stairs? (5 years old or older) No 08/27/2018 Do you have difficulty dress ing or bathing? (5 years old or older) No 08/27/2018 Because of a physical, menta l, or emotional condition, do you have difficulty doing errands alone such as visiting a doctor s office or shopping? (15 years old or older) No 08/27/19 19 Cognitive Status Response Date of Assessm ent Because of a physical, menta l, or emotional condition, do you have serious difficulty concentrating, remembering, or making decisions? (5 years old or older) No 08/27/2018 documented as of this encounter Miscellaneous Notes * Telephone Encounter - Zenobia Sarmiento LPN - 09/20/2023 3:24 PM EDT Patient aware and verbalized understanding, will comply. Pt is asking for PCP to elaborate his PSA results? Asks that these results are sent to him via email. Email was verified. Test results were sent via e-mail per request. Please advise. * Telephone Encounter - Rosalba Waggoner LPN - 09/20/2023 2:50 PM EDT Called, left message for patient to return call. * Telephone Encounter - Sherrell Dugan LPN - 09/19/2023 12:49 PM EDT Attempted to contact patient/EC. No answer, left message to return the call. * Telephone Encounter - Sherrell Dugan LPN - 09/19/2023 12:16 PM EDT ----- Message from Arpit Antonio III, MD sent at 09/19/2023 10:33 AM EDT ----- Blood count stable cholesterol improved comprehensive pot panel normal CA 19-9 stable CEA slightly lower no medication changes documented in this encounter Plan of Treatment Upcoming Encounters Date Type Department Care Team (Late st Contact Info) Description 03/11/2024 11:15 AM EDT Hospital Encounter [facility]O [facility], Endoscopy Room [facility] [address] [place] [phone] Rajinder Castillo MD [address] [place] [address] 03/11/2024 11:15 AM EDT - 03/11/2024 11:45 AM EDT Surgery [facility]O [facility], Endoscopy Room [facility] [address] [place] [phone] Rajinder Castillo MD [address] [place] [address] COLONOSCOPY FLEXIBLE PROXIMAL DIAGNOSTIC 01/07/2025 11:15 AM EDT Office Visit Ophthalmology, [facility] [address] [place] [address] Umesh Hawkins, DO [address] [place] [address] Scheduled Procedures Name Priority Associated Diagnoses Date/Ti me COLONOSCOPY FLEXIBLE PROXIMAL DIAGNOSTIC Recall History of colon polyps 03/11/2024 11:15 AM EDT Health Maintenance Due Date Last Done Comments Depression Screening 03/03/2021 03/03/2020 COVID-19 Vaccine ( season) 2023 06/05/2022, 05/01/2021, 09/01/2020, Additional history exists Colonoscopy 06/10/2023 06/10/2020, 05/31, 06/02/2018, Additional history exists DTaP,Tdap,and Td Vaccines (2 - Td or Tdap) 08/05/2023 08/05/2013, 04/12/2010 Pneumococcal Vaccine: 65+ Years Completed 07/19/2014, 08/05/2013, 11/26/2006 RETIRED - COLONOSCOPY-ANNUAL AGES 18-100 Discontinued 06/10/2020, 06/10/2020, 06/02/2018, Additional history exists Zoster Vaccines Completed 03/04/2021, 04/02, 11/09/2013 Influenza Vaccine (FLU shot) Completed 05/01/2023, 05/21/2022, 04/12/2020, Additional history exists GARDASIL-HPV IMMUNIZATION SERIES Aged Out No longer eligible based on patient's age to complete this topic Hepatitis B Aged Out No longer eligi ble based on patient's age to complete this topic MENINGOCOCCAL (MENACTRA/MENVEO) Aged Out No longer eligible based on patient's age to complete this topic documented as of this encounter Medical Devices Implanted Type Area Clerk Of Scales Device Identifier Shelf Expiration Date Model / Serial / Lot Lens [id number] 12.5mm+19.50 - [id number] - [id number] Implanted:Qty: 1 on 11/06/2023 by Umesh Hawkins DO at OR [facility] Left: Eye [employer] 05/30/2026 [id number] / [id number] / [id number] Envista Hydrophobic Acrylic Intraocular Lens Implanted:Qty: 1 on 11/20/2023 by Umesh Hawkins DO at OR [facility] Right: Eye [employer]OM[employer] 06/30/2026 [id number] / [id number] / [id number] documented as of this encounter Advance Directives Documents on File Type Date Recorded Patient Production Maintenance Technician Expl anation Advance Directives and Living Will 06/10/2020 10:26 AM ADVANCE DIRECTIVE HEALTH CARE POWER OF GRADE TAMPER & INSTRUCTIONS * Full Code (Latest Code Status on File) Date Activated Date Inactivated Comments 11/20/2023 12:43 PM 11/20/2023 7:18 PM Question Answer Comments Discussion of Advance Direct zulay occurred with: Not Discussed due to patient's condition * Full Code Date Activated Date Inactivated Comments 11/06/2023 12:15 PM 11/06/2023 6:33 PM Question Answer Comments Discussion of Advance Direct zulay occurred with: Not Discussed due to patient's condition * Full Code Date Activated Date Inactivated Comments 01/09/2012 5:46 PM 01/10/2012 7:14 PM This order r eflects the patients wishes and were consensually agreed upon. Question Answer Comments Discussion of Advance Directives occurred with: Patient * Full Code Date Activated Date Inactivated Comments 12/20/2011 3:30 PM 12/27/2011 5:17 PM Question Answer Comments Discussion of Advance Directives occurred with: Not Discussed * Full Code Date Activated Date Inactivated Comments 12/11/2011 9:53 PM 12/14/2011 9:14 PM This order r eflects the patients wishes and were consensually agreed upon. Care Teams Production Control Technologist Relationship Specialty Start Date End Date Arpit Antonio III, MD [address] [place] [address] PCP - General Family Medicine 05/06/17 documented as of this encounter
--- OUTSIDE RECORDS SUMMARY | 2024-01-13 01:32 | External Medical Summary | Summary of Care ---
Author Name Unknown Organization [facility] Address [address] [facility] [place] [address] Phone [phone] Care Team Providers Care Marketing Education Teacher Name Role Phone Paco ODOM MD, Arpit Yan Primary Care Provider [phone] Reason for Visit * Reason Comments Post Op Cataract Surgery 1 month PO Encounter Details Date Type Department Care Team (Late st Contact Info) Description 12/19/2023 2:15 PM EDT Office Visit Ophthalmology, [facility] [address] [facility] [place] [address] Umesh Hawkins, DO [address] [facility] [place] [address] Pseudophakia* Allergies Active Allergy Reactions Criticality Noted Date Comments Penicillins 01/21/2003 As a child Sulfa Antibiotics 01/21/2003 hives and difficulty breathing documented as of this encounter (statuses as of 12/19/2023) Medications Medication Sig Dispensed Refills Start Date End Date Status TYLENOL 325 MG PO TABS Take by mouth. Active Ibuprofen-diphenhyd rAMINE Cit 200-38 MG Oral Tablet Take 1 Tab by mouth at bedtime as needed. Active Hydrocortisone (Perianal) 2.5 % External CreamIndications:He morrhoids, external without complications Administer into the rectum 2 times a day. 28 g 05/09/2021 Active [facility] Vitamin B-12 1000 MCG Oral Tablet (vitamin b 12) TAKE 1 TABLET BY MOUTH EVERY DAY 90 Tablet 48 02/09/2022 Active Creon 01968-73109 UNIT Oral Capsule Delayed Release Particles (Pancrelipase (Hcq-Xzqo-Klfi))Ind ications:History of resection of pancreas,Cholangioc arcinoma (HCC) TAKE 1 CAPSULE IN THE MORNING, 1 CAP AT NOON, 1 CAP IN EVENING, 1 CAP BEFORE BED AND 1 CAP WITH SNACKS 120 Capsule 4 02/04/2023 Active Additional Information Patient taking differently: 1 Capsule Oral Daily(AM), TAKE 1 CAPSULE IN THE MORNING, Reported on 10/29/2023 Omeprazole 20 MG Oral Capsule Delayed Release (PriLOSEC)Indicatio ns:Cholangiocarcino ma (HCC) TAKE 1 CAPSULE BY MOUTH EVERY DAY IN THE MORNING 90 Capsule 1 10/09/2023 Active Moxifloxacin HCl 0.5 % Ophthalmic Solution (Vigamox) Instill 1 Drop into the left eye in the morning and 1 Drop at noon and 1 Drop in the evening and 1 Drop before bedtime. 3 mL 1 11/07/2023 Active prednisoLONE Acetate 1 % Ophthalmic Suspension (Pred Forte) Instill 1 Drop into both eyes in the morning and 1 Drop at noon and 1 Drop in the evening and 1 Drop before bedtime. 10 mL 1 11/07/2023 Active documented as of this encounter (statuses as [...] of right inguinal hernia 02/02/2003 05/06/2017 Overview: [facility]: Conor Cortes MD Malignant neoplasm of [...] No 08/27/2018 documented as of this encounter Progress Notes * Umesh Hawkins, DO - 12/19/2023 2:15 PM EDT 12/19/2023 [facility] [address] Ophthalmology Clinic Note HPI: Lucien Pemberton is a 78 year old pt who presents to the eye clinic today for return. Location: OU Severity: Post op Quality: Doing well, eyes remain dry - tapering pred forte Exacerbating/Remitting Factors: Denies Associated Sx: Denies Past Ocular History: BCC left eye s/p quiroz flap Multiple eyelids lesions s/p biopsy - Actinic keratotis and Bal keratosis Hx of LASIK OU ([facility], 2000, [place]) NEIL Pterygium Pseudophakia OU OD (Ensor TCC Post LASIK [email or web address] IOL calculation MX60E 21.50 11/21/2023) OS (Ensor TCC Post LASIK [email or web address] IOL calculation MX60E 19.50 11/06/2023) Eye Medications: Artificial tears Pred forte taper Family Ocular History: Denies ROS: Pt denies acute vision changes Pt denies new onset double vision Pt denies new JUAN Pt denies new issues surrounding eyes Pt admits to above Please see below for full exam details. Base Eye Exam Visual Acuity (Snellen - Linear) Right Left Dist sc 20/20 20/30 -1 Tonometry (Tonopen, 2:19 PM) Right Left Pressure 15 19 Extraocular Movement Right Left Full Full Neuro/Psych Oriented x3: Yes Dilation Both eyes: 0.5% Proparacaine @ 2:19 PM Additional Tests Keratometry K1 Bath K2 Bath Right 44.50 160 46.00 070 Left 45.00 036 46.75 126 Slit Lamp and Fundus Exam External Exam Right Left External Normal Normal Slit Lamp Exam Right Left Lids/Lashes Mild punctal eversion LL Mild punctal eversion LL Conjunctiva/Sclera White and quiet White and quiet Cornea PEK, pterygium, peripheral LASIK flap PEK, pterygium, peripheral LASIK flap Anterior Chamber Deep and quiet Deep and quiet Iris Round and reactive Round and reactive Lens PCIOL PCIOL Refraction Manifest Refraction (Auto) Sphere Cylinder Bath Right +0.00 +0.25 163 Left -0.25 +1.25 126 Refraction 12/19/23 ADD: +2.50 OU - J1+ A/P: Pseudophakia OU -Looks good RTC 1 year Ross; Dr. Jay in 3 months or sooner prn. Umesh Hawkins DO 12/19/23 documented in this encounter Nursing Notes * [place] TECH - 12/19/2023 2:15 PM EDT Lucien Pemberton presents for p/o check. 1 month post-op ECCE w/IOL insertion Surgical eye- BOTH EYES Patient denies complaints Have you finished taking the prescribed drops? Yes Current Ophthalmic Medications: Refresh Vision, tonometry and AR can be found in the ophth exam documented in this encounter Plan of Treatment Upcoming Encounters Date Type Department Care Team (Late st Contact Info) Description 03/11/2024 11:15 AM EDT Hospital Encounter ENDO OSSC, Endoscopy Room [facility] [address] [place] [phone] Rajinder Castillo MD [address] [place] [address] 03/11/2024 11:15 AM EDT - 03/11/2024 11:45 AM EDT Surgery ENDO OSS, Endoscopy Room [facility] [address] [place] [phone] Rajinder Castillo MD [address] [place] [address] COLONOSCOPY FLEXIBLE PROXIMAL DIAGNOSTIC 01/07/2025 11:15 AM EDT Office Visit Ophthalmology, [facility] [address] [place] [address] Umesh Hawkins, DO 21 [facility] [place] [address] Scheduled Procedures Name Priority Associated Diagnoses Date/Ti [...] this encounter Medical Devices Implanted Type Area System Support Specialist Device Identifier Shelf Expiration Date Model / Serial / Lot Lens [id number] 12.5mm+19.50 - [id number] - [id number] Implanted:Qty: 1 on 11/06/2023 by Umesh Hawkins DO at OR [facility] Left: Eye BAUSCH & LOMB 05/30/2026 [id number] / [id number] / [id number] Envista Hydrophobic Acrylic Intraocular Lens Implanted:Qty: 1 on 11/20/2023 by Umesh Hawkins DO at OR [facility] Right: Eye BAUSCH & LOMB 06/30/2026 [id number] / [id number] / [id number] documented as of this encounter Visit Diagnoses Diagnosis Pseudophakia- Primary Lens replaced by other means History of colon polyps Personal history of colonic polyps documented in this encounter Advance Directives Documents on File Type Date Recorded Patient Shuttle Truck Driver Expl anation Advance Directives and Living Will 06/10/2020 10:26 AM ADVANCE DIRECTIVE HEALTH CARE POWER OF CINDER DUMP CRANE OPERATOR & INSTRUCTIONS * Full Code (Latest Code [...] and were consensually agreed upon. Care Teams Marketing Education Teacher Relationship Specialty Start Date End Date Arpit Antonio III, MD [address] [place] [address] PCP - General Family Medicine 05/06/17 documented as of this encounter
--- OUTSIDE RECORDS SUMMARY | 2024-01-13 01:32 | External Medical Summary | Summary of Care ---
Author Name Unknown Organization [facility] Address [address] [facility] [place] [address] Phone [phone] Care Team Providers Care Facility Maintenance Manager Name Role Phone Paco ODOM MD, Arpit Yan Primary Care Provider [phone] Reason for Visit * Reason Comments Post Op Cataract Surgery 1 month PO Encounter Details Date Type Department Care Team (Late st Contact Info) Description 12/19/2023 2:15 PM EDT Office Visit Ophthalmology, [facility] [address] [facility] [place] [address] Umesh Hawkins, DO 21 [facility] [place] [address] Pseudophakia* Allergies Active Allergy Reactions Criticality Noted Date Comments Penicillins 01/21/2003 As a child Sulfa Antibiotics 01/21/2003 hives and difficulty breathing documented as of this encounter (statuses as of 12/30/2023) Medications Medication Sig Dispensed Refills Start Date [...] DAY 90 Tablet 48 02/09/2022 Active Creon 41012-11031 UNIT Oral Capsule Delayed Release Particles (Pancrelipase (Csw-Nlbf-Ibch))Ind ications:History of resection of pancreas,Cholangioc arcinoma (HCC) [...] as of this encounter (statuses as of 12/30/2023) Active Problems Problem Noted Date Diagnosed Date 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 Knee effusion, left 07/21/2016 Elevated glucose 01/04/2014 History of resection of pancreas 11/23/2012 Dyslipidemia, goal LDL below 160 11/29/2009 ADVANCE DIRECTIVE INFORMATION 07/06/2009 Overview: Yes, Patient instructed to provide copy of advance directive for provider to review and to be scanned into Electronic Medical Record documented as of this encounter (statuses as of 12/30/2023) Resolved Problems Problem Noted Date Diagnosed Date [...] of right inguinal hernia 02/02/2003 05/06/2017 Overview: [facility]: Conor Cortes MD 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 Location: OU Severity: Post op Quality: Doing well, eyes remain dry - tapering pred forte Exacerbating/Remitting Factors: Denies Associated Sx: Denies Past Ocular History: BCC left eye s/p quiroz flap Multiple eyelids lesions s/p biopsy - Actinic keratotis and Abl keratosis Hx of LASIK OU ([facility]F, 2000, [...] @ 2:19 PM Additional Tests Keratometry K1 [place] K2 [place] Right 44.50 160 46.00 070 Left 45.00 [...] PCIOL Refraction Manifest Refraction (Auto) Sphere Cylinder [place] Right +0.00 +0.25 163 Left -0.25 +1.25 [...] EDT Hospital Encounter ENDO OSSC, Endoscopy Room [facility] [address] [place] [phone] Rajinder Castillo MD [address] [place] [address] 03/11/2024 11:15 AM EDT - 03/11/2024 11:45 AM EDT Surgery ENDO OSS, Endoscopy Room [facility] [address] [place] [phone] Rajinder Castillo MD [address] [place] [address] COLONOSCOPY FLEXIBLE PROXIMAL DIAGNOSTIC 03/30/2024 1:00 PM EDT Office Visit Ophthalmology, [facility] [address] [place] [address] Karlos Jay, DO [address] [place] [address] 01/07/2025 11:15 AM EDT Office Visit Ophthalmology, [facility] [place] [address] Umesh Hawkins, DO [address] [place] [address] Scheduled Procedures Name Priority Associated Diagnoses Date/Ti me COLONOSCOPY FLEXIBLE PROXIMAL DIAGNOSTIC Recall History of colon polyps 03/11/2024 11:15 AM EDT Health Maintenance Due Date Last Done Comments Depression Screening 03/03/2021 03/03/2020 COVID-19 Vaccine (5 - 2022-24 season) 2023 06/05/2022, 05/01/2021, 09/01/2020, Additional history exists Colonoscopy 06/10/2023 06/10/2020, 05/31, 06/02/2018, Additional history exists DTaP,Tdap,and Td Vaccines (2 - Td or Tdap) 08/05/2023 08/05/2013, 04/12/2010 Influenza Vaccine (FLU shot) (#1) 2024 05/01/2023, 05/21/2022, 04/12/2020, Additional history exists Pneumococcal Vaccine: 65+ Years Completed 07/19/2014, 08/05/2013, 11/26/2006 RETIRED - COLONOSCOPY-ANNUAL AGES 18-100 Discontinued 06/10/2020, 06/10/2020, 06/02/2018, Additional history exists Zoster Vaccines Completed 03/04/2021, 04/02, 11/09/2013 GARDASIL-HPV IMMUNIZATION SERIES Aged Out No longer eligible based on patient's age to complete this topic Hepatitis B Aged Out No longer eligi ble based on patient's age to complete this topic MENINGOCOCCAL (MENACTRA/MENVEO) Aged Out No longer eligible based on patient's age to complete this topic documented as of this encounter Medical Devices Implanted Type Area Software Engineering Analyst Device Identifier Shelf Expiration Date Model / Serial / Lot Lens [id number] 12.5mm+19.50 - [id number] - [id number] Implanted:Qty: 1 on 11/06/2023 by Umesh Hawkins DO at OR [facility] Left: Eye BAUSCH & LOMB 05/30/2026 [id number] / [id number] / [id number] Envista Hydrophobic Acrylic Intraocular Lens Implanted:Qty: 1 on 11/20/2023 by Umesh Hawkins DO at OR [facility] Right: Eye BAUSCH & LOMB 06/30/2026 [id number] / [id number] / [id number] documented as of this encounter Visit Diagnoses Diagnosis Pseudophakia- Primary Lens replaced by other means History of colon polyps Personal history of colonic polyps documented in this encounter Advance Directives Documents on File Type Date Recorded Patient Surveillance System Monitor Expl anation Advance Directives and Living Will 06/10/2020 10:26 AM ADVANCE DIRECTIVE HEALTH CARE POWER OF SHEET ROCK TAPER & INSTRUCTIONS * Full Code (Latest Code [...] and were consensually agreed upon. Care Teams Facility Maintenance Manager Relationship Specialty Start Date End Date Arpit Antonio III, MD [address] [place] [address] PCP - General Family Medicine 05/06/17 documented as of this encounter
--- OUTSIDE RECORDS SUMMARY | 2024-01-13 01:32 | External Medical Summary | Summary of Care ---
Author Name Unknown Organization [facility] Address [address] [place] [address] Phone [phone] Care Team Providers Care Box Toe Cutter Name Role Phone Paco ODOM MD, John E Primary Care Provider [phone] Encounter Details Date Type Department Care Team (Late st Contact Info) Description 09/23/2023 Telephone Family Practice [facility] [address] [facility] [place] [place] [address] Arpit Antonio III, MD [address] [place] [address] Allergies Active Allergy Reactions Criticality Noted Date Comments Penicillins 01/21/2003 As a child Sulfa Antibiotics 01/21/2003 hives and difficulty breathing documented as of this encounter (statuses as of 12/23/2023) Medications Medication Sig Dispensed Refills Start Date [...] DAY 90 Tablet 48 02/09/2022 Active Creon 08420-55596 UNIT Oral Capsule Delayed Release Particles (Pancrelipase (Lji-Yvkv-Dbtd))Ind ications:History of resection of pancreas,Cholangioc arcinoma (HCC) TAKE 1 CAPSULE IN THE MORNING, 1 CAP AT NOON, 1 CAP IN EVENING, 1 CAP BEFORE BED AND 1 CAP WITH SNACKS 120 Capsule 4 02/04/2023 Active Additional Information Patient taking differently: 1 Capsule Oral Daily(AM), TAKE 1 CAPSULE IN THE MORNING, Reported on 10/29/2023 documented as of this encounter (statuses as of 12/23/2023) Active Problems Problem Noted Date Diagnosed Date 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 Knee effusion, left 07/21/2016 Elevated glucose 01/04/2014 History of resection of pancreas 11/23/2012 Dyslipidemia, goal LDL below 160 11/29/2009 ADVANCE DIRECTIVE INFORMATION 07/06/2009 Overview: Yes, Patient instructed to provide copy of advance directive for provider to review and to be scanned into Electronic Medical Record documented as of this encounter (statuses as of 12/23/2023) Resolved Problems Problem Noted Date Diagnosed Date [...] of right inguinal hernia 02/02/2003 05/06/2017 Overview: [facility]: Conor Cortes MD 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 Overview: ICD-10 update of inactive term documented as of this encounter (statuses as of 12/23/2023) Immunizations Name Administration Dates Next Due COVID-19 [...] encounter Miscellaneous Notes * Telephone Encounter - Arpit Antonio III, MD - 09/23/2023 2:49 PM EDT Called Astrid PSA level discussed age specific reference ranges 60-69 0 to 4.5 ,70- 79 0 to 6.5 documented in this encounter Plan of Treatment Upcoming Encounters Date Type Department Care Team (Late st Contact Info) Description 03/11/2024 11:15 AM EDT Hospital Encounter ENDO OSS[facility], Endoscopy Room [facility] [address] [place] [phone] Rajinder Castillo MD [address] [place] [address] 03/11/2024 11:15 AM EDT - 03/11/2024 11:45 AM EDT Surgery ENDO [facility], Endoscopy Room [facility] [address] [place] [phone] Rajinder Castillo MD [address] [place] [address] COLONOSCOPY FLEXIBLE PROXIMAL DIAGNOSTIC 03/30/2024 1:00 PM EDT Office Visit Ophthalmology, [facility] [address] [place] [address] Karlos Jay, DO [address] [facility] [address] 01/07/2025 11:15 AM EDT Office Visit Ophthalmology, [facility] [address] [place] [address] Umesh Hawkins, DO [address] [place] [address] Scheduled Procedures Name Priority Associated Diagnoses Date/Ti [...] this encounter Medical Devices Implanted Type Area Director Product Device Identifier Shelf Expiration Date Model / Serial / Lot Lens [id number] 12.5mm+19.50 - [id number] - [id number] Implanted:Qty: 1 on 11/06/2023 by Umesh Hawkins, DO at OR [facility] Left: Eye BAUSCH & LOMB 05/30/2026 [id number] / [id number] / [id number] Envista Hydrophobic Acrylic Intraocular Lens Implanted:Qty: 1 on 11/20/2023 by Umesh Hawkins, DO at OR [facility] Right: Eye BAUSCH & LOMB 06/30/2026 [id number] / [id number] / [id number] documented as of this encounter Advance Directives Documents on File Type Date Recorded Patient Improvement Nurse Expl anation Advance Directives and Living Will 06/10/2020 10:26 AM ADVANCE DIRECTIVE HEALTH CARE POWER OF BENZENE WASHER & INSTRUCTIONS * Full Code (Latest Code [...] and were consensually agreed upon. Care Teams Box Toe Cutter Relationship Specialty Start Date End Date Arpit Antonio III, MD [address] [facility] [place] [address] PCP - General Family Medicine 05/06/17 documented as of this encounter
--- OUTSIDE RECORDS SUMMARY | 2024-01-13 01:33 | External Medical Summary | Summary of Care ---
Author Name Unknown Organization [facility] Address [address] [place] [address] Phone [phone] Care Team Providers Care Cosmetic Sales Advisor Name Role Phone Paco ODOM MD, Arpit Yan Primary Care Provider [phone] Reason for Visit * Reason Comments Acute Pt here for an skin growth the right side of face above the lip. Pt states that he has had it for a few ways and would like to have it removed as it is bothersome. Encounter Details Date Type Department Care Team (Late st Contact Info) Description 12/09/2023 3:40 PM EDT Office Visit Family Practice [facility] [address] [facility] [place] [address] José Plummer MD [address] [place] [address] Pigmented skin lesion of uncertain nature* Allergies Active Allergy Reactions Criticality Noted Date Comments Penicillins 01/21/2003 As a child Sulfa Antibiotics 01/21/2003 hives and difficulty breathing documented as of this encounter (statuses as of 12/09/2023) Medications Medication Sig Dispensed Refills Start Date [...] DAY 90 Tablet 48 02/09/2022 Active Creon [id number] UNIT Oral Capsule Delayed Release Particles (Pancrelipase (Fqy-Flje-Sklh))Ind ications:History of resection of pancreas,Cholangioc arcinoma (HCC) [...] as of this encounter (statuses as of 12/09/2023) Active Problems Problem Noted Date Diagnosed Date 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 Knee effusion, left 07/21/2016 Elevated glucose 01/04/2014 History of resection of pancreas 11/23/2012 Dyslipidemia, goal LDL below 160 11/29/2009 ADVANCE DIRECTIVE INFORMATION 07/06/2009 Overview: Yes, Patient instructed to provide copy of advance directive for provider to review and to be scanned into Electronic Medical Record documented as of this encounter (statuses as of 12/09/2023) Resolved Problems Problem Noted Date Diagnosed Date [...] of right inguinal hernia 02/02/2003 05/06/2017 Overview: [facility]: Conor Cortes MD 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 Overview: ICD-10 update of inactive term documented as of this encounter (statuses as of 12/09/2023) Immunizations Name Administration Dates Next Due COVID-19 [...] Answer Date Recorded PHQ-2 Score 0 03/03/2020 Sex and Gender Information Value Date Recorded Sex Assigned at Not on file Gender Identity Not on file Sexual Orientation Not on file Job Start Date Occupation Industry Not on file Not on file Not on file documented as of this encounter Last Filed Vital Signs Vital Sign Reading Time Taken Comments Blood Pressure 130/88 12/09/2023 3:53 PM EDT Pulse 63 12/09/2023 3:53 PM EDT Temperature 36.3 C (97.3 F) 12/09/2023 3:53 PM ED T Respiratory Rate 16 12/09/2023 3:53 PM EDT Oxygen Saturation 99% 12/09/2023 3:53 PM EDT Inhaled Oxygen Concentration - - Weight 80.1 kg (176 lb 9.6 oz) 12/09/2023 3:53 P M EDT Height 182.2 cm (5' 11.73") 12/09/2023 3:53 PM E DT Body Mass Index 24.13 12/09/2023 3:53 PM EDT documented in this encounter Functional Status Functional Status Response [...] as of this encounter Progress Notes * oJsé Plummer MD - 12/09/2023 4:10 PM EDT Images from the original note were not included. History of Present Illness Lucien Pemberton is a 78 year old male that presents for Acute (Pt here for an skin growth the right side of face above the lip. Pt states that he has had it for a few ways and would like to have it removed as it is bothersome. ) Physical Exam BP 130/88 (BP Site: Left Arm, BP Position: Sitting, BP Cuff Size: Regular) | Pulse 63 | Temp 36.3 C (97.3 F) (Tympanic) | Resp 16 | Ht 1.822 m (5' 11.73") | Wt 80.1 kg (176 lb 9.6 oz) | SpO2 99% | BMI 24.13 kg/m | BSA 2.01 m NAD Non ill appearing Patient has a raised and irritated skin lesion on right cheek above the cheek and lateral to nasal ala. There is focal eschar from nicking with razor. I have reviewed most recent labs None Assessment and Plan Pigmented skin lesion of uncertain nature - patient with a strong history of basal cell carcinoma with multiple lesions removed. Has an area of raised skin lesion above lip and to the right of right nasal ala c/w lesion. Options discussed and patient prefers to have it biopsied as he is in the process of switching dermatologists. Verbal consent obtained and the patient was prepped locally with alcohol swab and freeze spray. Lesion removed in shave fashion with dermablade. Hemostasis with pressure and AgNO3 swab x2. Tolerated fine. Dressed with bacitracin and bandage. Change daily for 7-10 days. Will call with path Wrap-Up Time: I spent a total of 30-39 minutes (exact time 33 mins) on the date of service in preparation, delivery, and documentation of the care provided to Lucien Pemberton excluding any time spent in the performance of separately billed services. documented in this encounter Miscellaneous Notes * Addendum Note - José Plummer MD - 12/09/2023 6:59 PM EDTAddended by: JOSÉ PLUMMER on: 12/09/2023 06:59 PM Modules accepted: Orders documented in this encounter Plan of Treatment Upcoming Encounters Date Type Department Care Team (Late st Contact Info) Description 12/19/2023 2:15 PM EDT Office Visit Ophthalmology, [facility] [address] [place] [address] Umesh Hawkins, DO [facility] [place] [address] 03/11/2024 11:15 AM EDT Hospital Encounter ENDO [facility], Endoscopy Room [facility] [address] [place] [phone] Rajinder Castillo MD [address] [place] [address] 03/11/2024 11:15 AM EDT - 03/11/2024 11:45 AM EDT Surgery ENDO [facility], Endoscopy Room [facility] [address] [place] [phone] Rajinder Castillo MD [address] [place] [address] COLONOSCOPY FLEXIBLE PROXIMAL DIAGNOSTIC Scheduled Orders Name Type Priority Associated Diagnoses Orde r Schedule SHAVE DERM LSN FACE .6-1.0CM Procedures Routine Pigmented skin lesion of uncertain nature Ordered: 12/09/2023 SURGICAL PATHOLOGY Pathology Routine Pigmented skin lesion of uncertain nature Ordered: 12/09/2023 Scheduled Procedures Name Priority Associated Diagnoses Date/Ti me COLONOSCOPY FLEXIBLE PROXIMAL DIAGNOSTIC Recall History of colon polyps 03/11/2024 11:15 AM EDT Health Maintenance Due Date Last Done Comments Depression Screening 03/03/2021 03/03/2020 COVID-19 Vaccine ( season) 2023 06/05/2022, 05/01/2021, 09/01/2020, Additional history exists Postponed from 03/01/2023 (Patient Declined After Education) Colonoscopy 12/10/2023 06/10/2020, 05/31, 06/02/2018, Additional history exists Postponed from 06/10/2023 (Other) DTaP,Tdap,and Td Vaccines (2 - Td or Tdap) 12/10/2023 08/05/2013, 04/12/2010 Postponed from 08/05/2023 (Other) Pneumococcal Vaccine: 65+ Years Completed 07/19/2014, 08/05/2013, [...] this encounter Medical Devices Implanted Type Area Rn Hyperbaric Device Identifier Shelf Expiration Date Model / Serial / Lot Lens [id number] 12.5mm+19.50 - [id number] - [id number] Implanted:Qty: 1 on 11/06/2023 by Umesh Hawkins DO at OR [facility] Left: Eye BAUSCH & LOMB 05/30/2026 [id number] / [id number] / [id number] Envista Hydrophobic Acrylic Intraocular Lens Implanted:Qty: 1 on 11/20/2023 by Umesh Hawkins DO at OR [facility] Right: Eye BAUSCH & LOMB 06/30/2026 [id number] / [id number] / [id number] documented as of this encounter Visit Diagnoses Diagnosis Pigmented skin lesion of uncertain nature- Primary History of colon polyps Personal history of colonic polyps documented in this encounter Advance Directives Documents on File Type Date Recorded Patient Ceramic Engineering Professor Expl anation Advance Directives and Living Will 06/10/2020 10:26 AM ADVANCE DIRECTIVE HEALTH CARE POWER OF HEAD OF RESEARCH & INSIGHTS & INSTRUCTIONS * Full Code (Latest Code [...] and were consensually agreed upon. Care Teams Cosmetic Sales Advisor Relationship Specialty Start Date End Date Arpit Antonio III, MD [address] [place] [address] PCP - General Family Medicine 05/06/17 documented as of this encounter
--- OUTSIDE RECORDS SUMMARY | 2024-01-13 01:33 | External Medical Summary | Summary of Care ---
Author Name Unknown Organization [facility] Address [address] [place] [address] Phone [phone] Care Team Providers Care Director Traffic And Planning Name Role Phone Paco ODOM MD, Arpit Yan Primary Care Provider [phone] Reason for Visit * Reason Comments Acute Pt here for an skin growth the right side of face above the lip. Pt states that he has had it for a few ways and would like to have it removed as it is bothersome. Encounter Details Date Type Department Care Team (Late st Contact Info) Description 12/09/2023 3:40 PM EDT Office Visit Family Practice [facility] 132 [facility] [place] [address] José Plummer MD [address] [place] [address] Pigmented skin lesion of uncertain nature* Allergies [...] DAY 90 Tablet 48 02/09/2022 Active Creon [id number] UNIT Oral Capsule Delayed Release Particles (Pancrelipase (Jrx-Dolq-Sfjq))Ind ications:History of resection of pancreas,Cholangioc arcinoma (HCC) [...] of right inguinal hernia 02/02/2003 05/06/2017 Overview: [facility]: Conor Cortes MD Malignant neoplasm of scalp [...] as of this encounter Progress Notes * José Plummer MD - 12/09/2023 4:10 PM EDT [...] separately billed services. documented in this encounter Plan of Treatment Upcoming Encounters Date Type Department Care Team (Late st Contact Info) Description 12/19/2023 2:15 PM EDT Office Visit Ophthalmology, [facility] 132 [facility] [place] [address] Umesh Hawkins, DO [address] [place] [address] 03/11/2024 11:15 AM EDT Hospital Encounter ENDO [facility], Endoscopy Room [facility] [address] [place] [phone] Rajinder Castillo MD [address] [place] [address] 03/11/2024 11:15 AM EDT - 03/11/2024 11:45 AM EDT Surgery ENDO [facility], Endoscopy Room [facility] [address] [place] [phone] Rajinder Castillo MD [address] [place] [address] COLONOSCOPY FLEXIBLE PROXIMAL DIAGNOSTIC Scheduled Procedures Name Priority Associated Diagnoses Date/Ti [...] this encounter Medical Devices Implanted Type Area Talent Development Analyst Device Identifier Shelf Expiration Date Model / Serial / Lot Lens [id number] 12.5mm+19.50 - [id number] - [id number] Implanted:Qty: 1 on 11/06/2023 by Umesh Hawkins DO at OR [facility] Left: Eye BAUSCH & LOMB 05/30/2026 [id number] 950 / [id number] / [id number] [employer]ista Hydrophobic Acrylic Intraocular Lens Implanted:Qty: 1 on 11/20/2023 by Umesh Hawkins DO at OR [facility] Right: Eye BAUSCH & LOMB 06/30/2026 [id number] / [id number] / [id number] documented as of this encounter Visit Diagnoses Diagnosis Pigmented skin lesion of uncertain nature- Primary History of colon polyps Personal history of colonic polyps documented in this encounter Advance Directives Documents on File Type Date Recorded Patient Oil Rigger Expl anation Advance Directives and Living Will 06/10/2020 10:26 AM ADVANCE DIRECTIVE HEALTH CARE POWER OF WEB CONTENT WRITER & INSTRUCTIONS * Full Code (Latest Code [...] and were consensually agreed upon. Care Teams Director Traffic And Planning Relationship Specialty Start Date End Date Arpit Antonio III, MD [address] [place] [address], [place] [address] PCP - General Family Medicine 05/06/17 documented as of this encounter
--- OUTSIDE RECORDS SUMMARY | 2024-01-13 01:33 | External Medical Summary | Summary of Care ---
Author Name Unknown Organization [facility] Address [address] [place] [address] Phone [phone] Care Team Providers Care Arts And Crafts Instructor Name Role Phone Paco OODM MD, Arpit Yan Primary Care Provider [phone] Reason for Visit * Reason Comments Acute Pt here for an skin growth the right side of face above the lip. Pt states that he has had it for a few ways and would like to have it removed as it is bothersome. Encounter Details Date Type Department Care Team (Late st Contact Info) Description 12/09/2023 3:40 PM EDT Office Visit Family Practice [facility] 132 [facility] [place] [address] José Plummer MD [address] [place] [address] Pigmented skin lesion of uncertain nature* Allergies [...] DAY 90 Tablet 48 02/09/2022 Active Creon 13660-50911 UNIT Oral Capsule Delayed Release Particles (Pancrelipase (Ako-Rjwb-Chrs))Ind ications:History of resection of pancreas,Cholangioc arcinoma (HCC) [...] inguinal hernia 02/02/2003 05/06/2017 Overview: [facility]: Conor Cortes MD Malignant neoplasm of scalp [...] 12/19/2023 2:15 PM EDT Office Visit Ophthalmology, [facility] 132 [facility] [place] [address] Umesh Hawkins, DO [address] [place] [address] 03/11/2024 11:15 AM EDT Hospital Encounter ENDO [facility], Endoscopy Room [facility] [address] [place] [phone] Rajinder Castillo MD [address] [place] [address] 03/11/2024 11:15 AM EDT - 03/11/2024 11:45 AM EDT Surgery ENDO [facility], Endoscopy Room [facility] [address] [place] [phone] Rajinder Castillo MD [address] [place] [address] COLONOSCOPY FLEXIBLE PROXIMAL DIAGNOSTIC Scheduled Procedures Name [...] this encounter Medical Devices Implanted Type Area Lozenge Maker Device Identifier Shelf Expiration Date Model / Serial / Lot Lens [id number] 12.5mm+19.50 - [id number] - [id number] Implanted:Qty: 1 on 11/06/2023 by Umesh Hawkins DO at OR [facility] Left: Eye BAUSCH & LOMB 05/30/2026 [id number] 950 / [id number] / [id number] Envista Hydrophobic Acrylic Intraocular Lens Implanted:Qty: 1 on 11/20/2023 by Umesh Hawkins DO at OR [facility] Right: Eye BAUSCH & LOMB 06/30/2026 [id number] / [id number] / [id number] documented as of this encounter Visit Diagnoses Diagnosis Pigmented skin lesion of uncertain nature- Primary History of colon polyps Personal history of colonic polyps documented in this encounter Advance Directives Documents on File Type Date Recorded Patient Helicopter Officer Expl anation Advance Directives and Living Will 06/10/2020 10:26 AM ADVANCE DIRECTIVE HEALTH CARE POWER OF MANAGEMENT PROFESSIONAL & INSTRUCTIONS * Full Code (Latest Code [...] and were consensually agreed upon. Care Teams Arts And Crafts Instructor Relationship Specialty Start Date End Date Arpit Antonio III, MD [address] [place] [address], [place] [address] PCP - General Family Medicine 05/06/17 documented as of this encounter
--- OUTSIDE RECORDS SUMMARY | 2024-01-13 01:33 | External Medical Summary | Summary of Care ---
Author Name Unknown Organization [facility] Address [address] [place] [address] Phone [phone] Care Team Providers Care Women'S Ministry Director Name Role Phone Paco ODOM MD, Arpit Yan Primary Care Provider [phone] Reason for Visit * Reason Comments Acute Pt here for an skin growth the right side of face above the lip. Pt states that he has had it for a few ways and would like to have it removed as it is bothersome. Encounter Details Date Type Department Care Team (Late st Contact Info) Description 12/09/2023 3:40 PM EDT Office Visit Family Practice [facility] 132 [facility] [place] [address] José Plummer MD [address] [place] [address] Pigmented skin lesion of uncertain nature* Allergies [...] DAY 90 Tablet 48 02/09/2022 Active Creon [id number] UNIT Oral Capsule Delayed Release Particles (Pancrelipase (Mbd-Zdiw-Qsqn))Ind ications:History of resection of pancreas,Cholangioc arcinoma (HCC) [...] right inguinal hernia 02/02/2003 05/06/2017 Overview: [facility]: Conor Cortes MD Malignant neoplasm of scalp [...] 12/19/2023 2:15 PM EDT Office Visit Ophthalmology, [facility] 132 [facility] [place] [address] Umesh Hawkins, DO [address] [place] [address] 03/11/2024 11:15 AM EDT Hospital Encounter ENDO [facility], Endoscopy Room [facility] [address] [place] [phone] Rajinder Castillo MD [address] [place] [address] 03/11/2024 11:15 AM EDT - 03/11/2024 11:45 AM EDT Surgery ENDO [facility], Endoscopy Room [facility] [address] [place] [phone] Rajinder Castillo MD [address] [place] [address] COLONOSCOPY FLEXIBLE PROXIMAL DIAGNOSTIC Scheduled Procedures Name [...] this encounter Medical Devices Implanted Type Area Japanese Tutor Device Identifier Shelf Expiration Date Model / Serial / Lot Lens [id number] 12.5mm+19.50 - [id number] - [id number] Implanted:Qty: 1 on 11/06/2023 by Umesh Hawkins DO at OR [facility] Left: Eye BAUSCH & LOMB 05/30/2026 [id number] 950 / [id number] / [id number] Envista Hydrophobic Acrylic Intraocular Lens Implanted:Qty: 1 on 11/20/2023 by Umesh Hawkins DO at OR [facility] Right: Eye BAUSCH & LOMB 06/30/2026 [id number] / [id number] / [id number] documented as of this encounter Visit Diagnoses Diagnosis Pigmented skin lesion of uncertain nature- Primary History of colon polyps Personal history of colonic polyps documented in this encounter Advance Directives Documents on File Type Date Recorded Patient Ammonium Nitrate Crystallizer Expl anation Advance Directives and Living Will 06/10/2020 10:26 AM ADVANCE DIRECTIVE HEALTH CARE POWER OF HOSE MENDER & INSTRUCTIONS * Full Code (Latest Code [...] and were consensually agreed upon. Care Teams Women'S Ministry Director Relationship Specialty Start Date End Date Arpit Antonio III, MD [address] [place] [address], [place] [address] PCP - General Family Medicine 05/06/17 documented as of this encounter
--- OUTSIDE RECORDS SUMMARY | 2024-01-13 01:33 | External Medical Summary | Summary of Care ---
Author Name Unknown Organization [facility] Address [address] [place] [address] Phone [phone] Care Team Providers Care Career Development Coordinator/Teacher Name Role Phone Paco ODOM MD, Arpit Yan Primary Care Provider [phone] Reason for Visit * Reason Comments Acute Pt here for an skin growth the right side of face above the lip. Pt states that he has had it for a few ways and would like to have it removed as it is bothersome. Encounter Details Date Type Department Care Team (Late st Contact Info) Description 12/09/2023 3:40 PM EDT Office Visit Family Practice [facility] 132 [facility] [place] [address] José Plummer MD [address] [place] [address] Pigmented skin lesion of uncertain nature* Allergies [...] DAY 90 Tablet 48 02/09/2022 Active Creon [id number] UNIT Oral Capsule Delayed Release Particles (Pancrelipase (Uyh-Tnmv-Qgzo))Ind ications:History of resection of pancreas,Cholangioc arcinoma (HCC) [...] of right inguinal hernia 02/02/2003 05/06/2017 Overview: [facility]: Conor Cortes MD Malignant neoplasm of scalp [...] 12/19/2023 2:15 PM EDT Office Visit Ophthalmology, [facility] [address] [place] [address] Umesh Hawkins, DO [facility] [place] [address] 03/11/2024 11:15 AM EDT Hospital Encounter ENDO [facility], Endoscopy Room [facility] [address] [place] [phone] Rajinder Castillo MD [address] [place] [address] 03/11/2024 11:15 AM EDT - 03/11/2024 11:45 AM EDT Surgery ENDO [facility], Endoscopy Room [facility] [address] [place] [phone] Rajinder Castillo MD [address] [place] [address] COLONOSCOPY FLEXIBLE PROXIMAL DIAGNOSTIC Scheduled Orders Name [...] this encounter Medical Devices Implanted Type Area Sponge Maker Device Identifier Shelf Expiration Date Model / Serial / Lot Lens [id number] 12.5mm+19.50 - [id number] - [id number] Implanted:Qty: 1 on 11/06/2023 by Umesh Hawkins DO at OR [facility] Left: Eye BAUSCH & LOMB 05/30/2026 [id number] 950 / [id number] / [id number] Envista Hydrophobic Acrylic Intraocular Lens Implanted:Qty: 1 on 11/20/2023 by Umesh Hawkins DO at OR [facility] Right: Eye BAUSCH & LOMB 06/30/2026 [id number] / [id number] / [id number] documented as of this encounter Visit Diagnoses Diagnosis Pigmented skin lesion of uncertain nature- Primary History of colon polyps Personal history of colonic polyps documented in this encounter Advance Directives Documents on File Type Date Recorded Patient Public Speaking Instructor Expl anation Advance Directives and Living Will 06/10/2020 10:26 AM ADVANCE DIRECTIVE HEALTH CARE POWER OF CLOTH PAINTER & INSTRUCTIONS * Full Code (Latest Code [...] and were consensually agreed upon. Care Teams Career Development Coordinator/Teacher Relationship Specialty Start Date End Date Arpit Antonio III, MD [address] [facility] [address] PCP - General Family Medicine 05/06/17 documented as of this encounter
--- OUTSIDE RECORDS SUMMARY | 2024-01-13 01:33 | External Medical Summary | Summary of Care ---
Author Name Unknown Organization [facility] Address [address] [place] [address] Phone [phone] Care Team Providers Care Web Communications Specialist Name Role Phone Paco ODOM MD, Arpit Yan Primary Care Provider [phone] Reason for Visit * Reason Comments Acute Pt here for an skin growth the right side of face above the lip. Pt states that he has had it for a few ways and would like to have it removed as it is bothersome. Encounter Details Date Type Department Care Team (Late st Contact Info) Description 12/09/2023 3:40 PM EDT Office Visit Family Practice [facility] 132 [facility] [place] [address] José Plummer MD [address] [place] [address] Pigmented skin lesion of uncertain nature* Allergies [...] DAY 90 Tablet 48 02/09/2022 Active Creon [id number] UNIT Oral Capsule Delayed Release Particles (Pancrelipase (Jzs-Kdce-Usfo))Ind ications:History of resection of pancreas,Cholangioc arcinoma (HCC) [...] of right inguinal hernia 02/02/2003 05/06/2017 Overview: [facility]: Conor Cortes MD Malignant neoplasm of scalp [...] 12/19/2023 2:15 PM EDT Office Visit Ophthalmology, [facility] 132 [facility] [place] [address] Umesh Hawkins, DO [address] [place] [address] 03/11/2024 11:15 AM EDT Hospital Encounter ENDO [facility], Endoscopy Room [facility] [address] [place] [phone] Rajinder Castillo MD [address] [place] [address] 03/11/2024 11:15 AM EDT - 03/11/2024 11:45 AM EDT Surgery ENDO [facility], Endoscopy Room [facility] [address] [place] [phone] Rajinder Castillo MD [address] [place] [address] COLONOSCOPY FLEXIBLE PROXIMAL DIAGNOSTIC Scheduled Procedures Name [...] this encounter Medical Devices Implanted Type Area Construction Grip Device Identifier Shelf Expiration Date Model / Serial / Lot Lens [id number] 12.5mm+19.50 - [id number] - [id number] Implanted:Qty: 1 on 11/06/2023 by Umesh Hawkins DO at OR [facility] Left: Eye BAUSCH & LOMB 05/30/2026 [id number] 950 / [id number] / [id number] Envista Hydrophobic Acrylic Intraocular Lens Implanted:Qty: 1 on 11/20/2023 by Umesh Hawkins DO at OR [facility] Right: Eye BAUSCH & LOMB 06/30/2026 [id number] / [id number] / [id number] documented as of this encounter Visit Diagnoses Diagnosis Pigmented skin lesion of uncertain nature- Primary History of colon polyps Personal history of colonic polyps documented in this encounter Advance Directives Documents on File Type Date Recorded Patient Account Services Analyst Expl anation Advance Directives and Living Will 06/10/2020 10:26 AM ADVANCE DIRECTIVE HEALTH CARE POWER OF COREROOM FOUNDRY LABORER & INSTRUCTIONS * Full Code (Latest Code [...] and were consensually agreed upon. Care Teams Web Communications Specialist Relationship Specialty Start Date End Date Arpit Antonio III, MD [address] [place] [address], [place] [address] PCP - General Family Medicine 05/06/17 documented as of this encounter
--- OUTSIDE RECORDS SUMMARY | 2024-01-13 01:34 | External Medical Summary | Summary of Care ---
Author Name Unknown Organization [facility] Address [address] [place] [address] Phone [phone] Care Team Providers Care Tunnel Kiln Operator Name Role Phone Paco ODOM MD, John E Primary Care Provider [phone] Reason for Referral * Evaluate & Treat - Unlimited Visits (Within 10 days (routine)) - Pending Review Specialty Diagnoses / Procedures Referred By Refugio moreno Referred To Contact Dermatology Diagnoses History of basal cell carcinoma (BCC) Arpit Antonio III, MD [address] [place] [address] Referral ID Status Reason Start Date Expiration Date Visits Requested Visits Authorized [id number] Pending Review Specialty Services Required 12/04/2023 999 999 Question Answer Referral Priority Within 10 days (routine) Where should this appointment be scheduled? External Are you referring the patient for Mohs Surgery and have a current positive skin cancer biopsy result? No What is the reason for the patient referral? Other Comments Hx of basal cell carcioma. Reason for Visit * Reason Onset Date Comments Referral 12/04/2023 Encounter Details Date Type Department Care Team (Late st Contact Info) Description 12/04/2023 Telephone Family Practice [facility] [address] [place] [address] Arpit Antonio III, MD [address] [place] [address] Referral Allergies Active Allergy Reactions Criticality Noted Date Comments Penicillins 01/21/2003 As a child Sulfa Antibiotics 01/21/2003 hives and difficulty breathing documented as of this encounter (statuses as of 12/04/2023) Medications Medication Sig Dispensed Refills Start Date End Date Status TYLENOL 325 MG PO TABS 1-2 tablets every 4 hours as needed Active Ibuprofen-diphenhyd rAMINE Cit 200-38 MG Oral Tablet Take 1 Tab by mouth at bedtime as needed. Active Hydrocortisone (Perianal) 2.5 % External CreamIndications:He morrhoids, external without complications Administer into the rectum 2 times a day. 28 g 05/09/2021 Active [facility] Vitamin B-12 1000 MCG Oral Tablet (vitamin b 12) TAKE 1 TABLET BY MOUTH EVERY DAY 90 Tablet 48 02/09/2022 Active Creon 79275-76978 UNIT Oral Capsule Delayed Release Particles (Pancrelipase (Mlq-Extz-Auom))Ind ications:History of resection of pancreas,Cholangioc arcinoma (HCC) [...] as of this encounter (statuses as of 12/04/2023) Active Problems Problem Noted Date Diagnosed Date 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 Knee effusion, left 07/21/2016 Elevated glucose 01/04/2014 History of resection of pancreas 11/23/2012 Dyslipidemia, goal LDL below 160 11/29/2009 ADVANCE DIRECTIVE INFORMATION 07/06/2009 Overview: Yes, Patient instructed to provide copy of advance directive for provider to review and to be scanned into Electronic Medical Record documented as of this encounter (statuses as of 12/04/2023) Resolved Problems Problem Noted Date Diagnosed Date [...] of right inguinal hernia 02/02/2003 05/06/2017 Overview: [facility]: Conor Cortes MD 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 Overview: ICD-10 update of inactive term documented as of this encounter (statuses as of 12/04/2023) Immunizations Name Administration Dates Next Due COVID-19 mRNA, LNP-s, No Pre serve, 2-Dose Series (Moderna) 09/01/2020,08/06/2020 COVID-19, mRNA, LNP-s, PF, B ooster, 100mcg/0.5mg (Moderna) 05/01/2021 Covid-19, Mrna, Lnp-s, Pf, B ivalent, 30 Mcg, IM, 12 yrs and above (Scint-X) 06/05/2022 H1N1 2009 Influenza, IM 06/16/2009 Pneumococcal [...] as of this encounter Miscellaneous Notes * Addendum Note - Grant Florentino DO - 12/04/2023 4:35 PM EDTAddended by: GRANT FLORENTINO on: 12/04/2023 04:35 PM Modules accepted: Orders * Telephone Encounter - Grant Florentino DO - 12/04/2023 4:34 PM EDT Derm referral placed considering his cancer history. Does not need to be urgent * Addendum Note - Lexx Herrera RN - 12/04/2023 11:02 AM EDTAddended by: LEXX HERRERA on: 12/04/2023 11:02 AM Modules accepted: Orders * Telephone Encounter - Lexx Herrera RN - 12/04/2023 10:53 AM EDT Pt wants to see a [facility] peoplesoft financial developer. History of basal cell carcioma. Was going to [facility] derm, but doesn't want to go there anymore. Order pended. Then send to scheduling. * Telephone Encounter - Jhoana Casiano OSA - 12/04/2023 9:20 AM EDT Pt needs a referral for Dermatology. Please call Pt to schedule when referral comes through. documented in this encounter Plan of Treatment Upcoming Encounters Date Type Department Care Team (Late st Contact Info) Description 12/19/2023 2:15 PM EDT Office Visit Ophthalmology, [facility] [address] [address] Umesh Hawkins DO [address] [address] 03/11/2024 11:15 AM EDT Hospital Encounter ENDO [facility], Endoscopy Room [facility] [address] [phone] Rajinder Castillo MD [address] [address] 03/11/2024 11:15 AM EDT - 03/11/2024 11:45 AM EDT Surgery ENDO [facility], Endoscopy Room [facility] [address] [place] [phone] Rajinder Castillo MD [address] [place] [address] COLONOSCOPY FLEXIBLE PROXIMAL DIAGNOSTIC Scheduled Procedures Name Priority Associated Diagnoses Date/Ti me COLONOSCOPY FLEXIBLE PROXIMAL DIAGNOSTIC Recall History of colon polyps 03/11/2024 11:15 AM EDT Scheduled Referrals Name Type Priority Associated Diagnoses Orde r Schedule DERMATOLOGY REFERRAL OP Referral Within 10 days (routine) History of basal cell carcinoma (BCC) Ordered: 12/04/2023 Health Maintenance Due Date Last Done Comments [...] this encounter Medical Devices Implanted Type Area Special Agent Device Identifier Shelf Expiration Date Model / Serial / Lot Lens [id number] 12.5mm+19.50 - [id number] - [id number] Implanted:Qty: 1 on 11/06/2023 by Umesh Hawkins DO at OR [facility] Left: Eye BAUSCH & LOMB 05/30/2026 [id number] / [id number] / [id number] Envista Hydrophobic Acrylic Intraocular Lens Implanted:Qty: 1 on 11/20/2023 by Umesh Hawkins DO at OR [facility] Right: Eye BAUSCH & LOMB 06/30/2026 [id number] / [id number] / [id number] documented as of this encounter Visit Diagnoses Diagnosis History of basal cell carcinoma (BCC)- Primary History of colon polyps Personal history of colonic polyps documented in this encounter Advance Directives Documents on File Type Date Recorded Patient Preparation Plant Supervisor Expl anation Advance Directives and Living Will 06/10/2020 10:26 AM ADVANCE DIRECTIVE HEALTH CARE POWER OF OUTPATIENT PROGRAM COORDINATOR & INSTRUCTIONS * Full Code (Latest Code [...] and were consensually agreed upon. Care Teams Tunnel Kiln Operator Relationship Specialty Start Date End Date Arpit Antonio III, MD [address] [place] [address] PCP - General Family Medicine 05/06/17 documented as of this encounter
--- OUTSIDE RECORDS SUMMARY | 2024-01-13 01:34 | External Medical Summary | Summary of Care ---
Author Name Unknown Organization [facility] Address [address] [place] [place] [place] [address] Phone [phone] Care Team Providers Care Story Writer Name Role Phone Paco ODOM MD, Arpit Yan Primary Care Provider [phone] Reason for Visit * Reason Onset Date Comments Referral 12/04/2023 Encounter Details Date Type Department Care Team (Late st Contact Info) Description 12/04/2023 Telephone Family Practice [facility] 200 [facility] [place] [address] Arpit Antonio III, MD 200 [place] [address] Referral Allergies Active Allergy Reactions Criticality Noted [...] DAY 90 Tablet 48 02/09/2022 Active Creon 95050-04441 UNIT Oral Capsule Delayed Release Particles (Pancrelipase (Kns-Zksn-Okkz))Ind ications:History of resection of pancreas,Cholangioc arcinoma (HCC) [...] of right inguinal hernia 02/02/2003 05/06/2017 Overview: [facility]: Conor Cortes MD Malignant neoplasm of scalp [...] encounter Miscellaneous Notes * Telephone Encounter - Jhoana Casiano OSA - 12/04/2023 9:20 AM EDT Pt needs a referral for Dermatology. Please call Pt to schedule when referral comes through. documented in this encounter Plan of Treatment Upcoming Encounters Date Type Department Care Team (Late st Contact Info) Description 12/19/2023 2:15 PM EDT Office Visit Ophthalmology, [facility] [address] [address] Umesh Hawkins, [address] [facility] [address] [place] [address] 03/11/2024 11:15 AM EDT Hospital Encounter ENDO [facility], Endoscopy Room [facility] [address] [phone] Rajinder Castillo MD [address] [address] 03/11/2024 11:15 AM EDT - 03/11/2024 11:45 AM EDT Surgery ENDO [facility], Endoscopy Room [facility] [address] [place] [phone] Rajinder Castillo MD [address] [place] [address] COLONOSCOPY FLEXIBLE PROXIMAL DIAGNOSTIC Scheduled Procedures Name [...] this encounter Medical Devices Implanted Type Area Corporate Analyst Device Identifier Shelf Expiration Date Model / Serial / Lot Lens [id number] 12.5mm+19.50 - [id number] - [id number] Implanted:Qty: 1 on 11/06/2023 by Umesh Hawkins DO at OR [facility] Left: Eye BAUSCH & LOMB 05/30/2026 [id number] 950 / [id number] / [id number] Envista Hydrophobic Acrylic Intraocular Lens Implanted:Qty: 1 on 11/20/2023 by Umesh Hawkins DO at OR [facility] Right: Eye BAUSCH & LOMB 06/30/2026 [id number] / [id number] / [id number] documented as of this encounter Advance Directives Documents on File Type Date Recorded Patient Protection Engineer Expl anation Advance Directives and Living Will 06/10/2020 10:26 AM ADVANCE DIRECTIVE HEALTH CARE POWER OF SENIOR ADMINISTRATIVE SERVICES OFFICER & INSTRUCTIONS * Full Code (Latest Code [...] and were consensually agreed upon. Care Teams Story Writer Relationship Specialty Start Date End Date Arpit Antonio III, MD 200 [facility], [address] [address] PCP - General Family Medicine 05/06/17 documented as of this encounter
--- OUTSIDE RECORDS SUMMARY | 2024-01-13 01:34 | External Medical Summary | Summary of Care ---
Author Name Unknown Organization [facility] Address [address] [place] [place] [place] [address] Phone [phone] Care Team Providers Care Vegetable Ii Farmworker Name Role Phone Paco ODOM MD, Arpit Yan Primary Care Provider [phone] Reason for Visit * Reason Onset Date Comments Referral 12/04/2023 Encounter Details Date Type Department Care Team (Late st Contact Info) Description 12/04/2023 Telephone Family Practice [facility] 200 [facility] [place] [address] Arpit Antonio III, MD 200 [place] [address] Referral Allergies Active Allergy Reactions Criticality Noted [...] DAY 90 Tablet 48 02/09/2022 Active Creon 35201-87818 UNIT Oral Capsule Delayed Release Particles (Pancrelipase (Kkj-Kcvo-Dxey))Ind ications:History of resection of pancreas,Cholangioc arcinoma (HCC) [...] of right inguinal hernia 02/02/2003 05/06/2017 Overview: [facility]: Conor Cortes MD Malignant neoplasm [...] encounter Miscellaneous Notes * Addendum Note - Erum Herrera RN - 12/04/2023 11:02 AM EDTAddended by: ERUM HERRERA on: 12/04/2023 11:02 AM Modules accepted: Orders * Telephone Encounter - Erum Herrera RN - 12/04/2023 10:53 AM EDT Pt wants to see a [facility] sheet pile hammer operator. History of basal cell carcioma. Was [facility], but doesn't want to go there [...] 12/19/2023 2:15 PM EDT Office Visit Ophthalmology, [facility] [address] [place] [address] Umesh Hawkins, DO [address] [facility] [address] [place] [address] 03/11/2024 11:15 AM EDT Hospital Encounter ENDO [facility], Endoscopy Room [facility] [address] [place] [phone] Rajinder Castillo MD [address] [place] [place] [address] 03/11/2024 11:15 AM EDT - 03/11/2024 11:45 AM EDT Surgery ENDO [facility], Endoscopy Room [facility] [address] [place] [phone] Rajinder Castillo MD [address] [place] [place] [address] COLONOSCOPY FLEXIBLE PROXIMAL DIAGNOSTIC Scheduled Procedures Name [...] this encounter Medical Devices Implanted Type Area Store Sales Consultant Device Identifier Shelf Expiration Date Model / Serial / Lot Lens [id number] 12.5mm+19.50 - [id number] - [id number] Implanted:Qty: 1 on 11/06/2023 by Umesh Hawkins DO at OR [facility] Left: Eye BAUSCH & LOMB 05/30/2026 [id number] 950 / [id number] / [id number] Envista Hydrophobic Acrylic Intraocular Lens Implanted:Qty: 1 on 11/20/2023 by Umesh Hawkins DO at OR [facility] Right: Eye BAUSCH & LOMB 06/30/2026 [id number] / [id number] / [id number] documented as of this encounter Advance Directives Documents on File Type Date Recorded Patient Architectural Project Manager Expl anation Advance Directives and Living Will 06/10/2020 10:26 AM ADVANCE DIRECTIVE HEALTH CARE POWER OF EQUITY RESEARCH ASSOCIATE & INSTRUCTIONS * Full Code (Latest Code [...] and were consensually agreed upon. Care Teams Vegetable Ii Farmworker Relationship Specialty Start Date End Date Arpit Antonio III, MD [address] [place] [address] PCP - General Family Medicine 05/06/17 documented as of this encounter
--- OUTSIDE RECORDS SUMMARY | 2024-01-13 01:34 | External Medical Summary | Summary of Care ---
Author Name Unknown Organization [facility] Address [address] [place] [facility] [place] [address] Phone [phone] Care Team Providers Care Squaring Shear Operator Name Role Phone Paco ODOM MD, Arpit Yan Primary Care Provider [phone] Reason for Visit * Reason Onset Date Comments Referral 12/04/2023 Encounter Details Date Type Department Care Team (Late st Contact Info) Description 12/04/2023 Telephone Family Practice [facility] 200 [place] [address] Arpit Antonio III, MD 200 [place] [address] Referral Allergies Active Allergy Reactions Criticality Noted [...] DAY 90 Tablet 48 02/09/2022 Active Creon 38333-59429 UNIT Oral Capsule Delayed Release Particles (Pancrelipase (Bdk-Tshe-Pjjs))Ind ications:History of resection of pancreas,Cholangioc arcinoma (HCC) [...] inguinal hernia 02/02/2003 05/06/2017 Overview: [facility]: Conor Cortes MD Malignant neoplasm of scalp [...] 12/19/2023 2:15 PM EDT Office Visit Ophthalmology, [facility] [address] [address] Umesh Hawkins, 21 [facility] [address] [place] [address] 03/11/2024 11:15 AM EDT Hospital Encounter ENDO [facility], Endoscopy Room [facility] [address] [phone] Rajinder Castillo MD [address] [address] 03/11/2024 11:15 AM EDT - 03/11/2024 11:45 AM EDT Surgery ENDO [facility], Endoscopy Room [facility] [address] [place] [place] [phone] Rajinder Castillo MD [address] [place] [address] COLONOSCOPY FLEXIBLE PROXIMAL DIAGNOSTIC Scheduled Procedures Name [...] this encounter Medical Devices Implanted Type Area Human Performance Technologist Device Identifier Shelf Expiration Date Model / Serial / Lot Lens [id number] 12.5mm+19.50 - [id number] - [id number] Implanted:Qty: 1 on 11/06/2023 by Umesh Hawkins DO at OR [facility] Left: Eye BAUSCH & LOMB 05/30/2026 [id number] 950 / [id number] / [id number] Envista Hydrophobic Acrylic Intraocular Lens Implanted:Qty: 1 on 11/20/2023 by Umesh Hawkins DO at OR [facility] Right: Eye BAUSCH & LOMB 06/30/2026 [id number] / [id number] / [id number] documented as of this encounter Advance Directives Documents on File Type Date Recorded Patient Scalp Specialist Expl anation Advance Directives and Living Will 06/10/2020 10:26 AM ADVANCE DIRECTIVE HEALTH CARE POWER OF FIRE PREVENTION SPECIALIST & INSTRUCTIONS * Full Code (Latest Code [...] and were consensually agreed upon. Care Teams Squaring Shear Operator Relationship Specialty Start Date End Date Arpit Antonio III, MD 200 [facility], [place] [address] PCP - General Family Medicine 05/06/17 documented as of this encounter
--- OUTSIDE RECORDS SUMMARY | 2024-01-13 01:34 | External Medical Summary | Summary of Care ---
Author Name Unknown Organization [facility] Address [address] [place] [address] Phone [phone] Care Team Providers Care Water Quality Technician Name Role Phone Paco ODOM MD, John E Primary Care Provider [phone] Reason for Referral * Evaluate & Treat - Unlimited Visits (Within 10 days (routine)) - Pending Review Specialty Diagnoses / Procedures Referred By Refugio moreno Referred To Contact Dermatology Diagnoses History of basal cell carcinoma (BCC) Arpit Antonio III, MD [address] [place] [address] Referral ID Status Reason Start Date Expiration Date Visits Requested Visits Authorized [id number] Pending Review Specialty Services Required 12/04/2023 999 [...] [facility] [address] [place] [address] Arpit Antonio III, MD [address] [place] [address] Referral Allergies Active Allergy Reactions Criticality Noted Date Comments Penicillins 01/21/2003 As a child Sulfa Antibiotics 01/21/2003 hives and difficulty breathing documented as of this encounter (statuses as of 12/05/2023) Medications Medication Sig Dispensed Refills Start Date [...] DAY 90 Tablet 48 02/09/2022 Active Creon 86707-32510 UNIT Oral Capsule Delayed Release Particles (Pancrelipase (Fio-Dtho-Xtiw))Ind ications:History of resection of pancreas,Cholangioc arcinoma (HCC) [...] as of this encounter (statuses as of 12/05/2023) Active Problems Problem Noted Date Diagnosed Date 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 Knee effusion, left 07/21/2016 Elevated glucose 01/04/2014 History of resection of pancreas 11/23/2012 Dyslipidemia, goal LDL below 160 11/29/2009 ADVANCE DIRECTIVE INFORMATION 07/06/2009 Overview: Yes, Patient instructed to provide copy of advance directive for provider to review and to be scanned into Electronic Medical Record documented as of this encounter (statuses as of 12/05/2023) Resolved Problems Problem Noted Date Diagnosed Date [...] right inguinal hernia 02/02/2003 05/06/2017 Overview: [facility]: Conor Cortes MD 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 Overview: ICD-10 update of inactive term documented as of this encounter (statuses as of 12/05/2023) Immunizations Name Administration Dates Next Due COVID-19 mRNA, LNP-s, No Pre serve, 2-Dose Series (Moderna) 09/01/2020,08/06/2020 COVID-19, mRNA, LNP-s, PF, B ooster, 100mcg/0.5mg (Moderna) 05/01/2021 Covid-19, Mrna, Lnp-s, Pf, B ivalent, 30 Mcg, IM, 12 yrs and above (Mafengwo) 06/05/2022 H1N1 2009 Influenza, IM 06/16/2009 Pneumococcal [...] encounter Miscellaneous Notes * Telephone Encounter - Diane Castrejon OSA - 12/05/2023 8:59 AM EDT Called and LMOM for patient to schedule Derm appt * Addendum Note - Grant Florentino, - 12/04/2023 4:35 PM EDTAddended by: GRANT [...] AM EDT Pt wants to see a [facility] inspecting and testing lead hand. History of basal cell carcioma. Was going [...] 12/19/2023 2:15 PM EDT Office Visit Ophthalmology, [facility] 132 [facility] [address] [place] [address] Umesh Hawkins DO [address] [address] 03/11/2024 11:15 AM EDT Hospital Encounter ENDO [facility], Endoscopy Room [facility] [address] [place] [place] [phone] Rajinder Castillo MD [address] [place] [address] 03/11/2024 11:15 AM EDT - 03/11/2024 11:45 AM EDT Surgery ENDO [facility], Endoscopy Room [facility] [address] [phone] Rajinder Castillo MD [address] [place] [address] COLONOSCOPY FLEXIBLE PROXIMAL DIAGNOSTIC Scheduled Procedures Name [...] this encounter Medical Devices Implanted Type Area Brim Buster Device Identifier Shelf Expiration Date Model / Serial / Lot Lens [id number] 12.5mm+19.50 - [id number] - [id number] Implanted:Qty: 1 on 11/06/2023 by Umesh Hawkins DO at OR [facility] Left: Eye BAUSCH & LOMB 05/30/2026 [id number] 950 / [id number] / [id number] Envista Hydrophobic Acrylic Intraocular Lens Implanted:Qty: 1 on 11/20/2023 by Umesh Hawkins DO at OR [facility] Right: Eye BAUSCH & LOMB 06/30/2026 [id number] / [id number] / [id number] documented as of this encounter Visit Diagnoses Diagnosis History of basal cell carcinoma (BCC)- Primary History of colon polyps Personal history of colonic polyps documented in this encounter Advance Directives Documents on File Type Date Recorded Patient Hog Slaughterer Expl anation Advance Directives and Living Will 06/10/2020 10:26 AM ADVANCE DIRECTIVE HEALTH CARE POWER OF LICENSE INSPECTOR & INSTRUCTIONS * Full Code (Latest Code [...] and were consensually agreed upon. Care Teams Water Quality Technician Relationship Specialty Start Date End Date Paco ODOM, Arpit Yan MD 200 [place] [address] PCP - General Family Medicine 05/06/17 documented as of this encounter
--- OUTSIDE RECORDS SUMMARY | 2024-01-13 01:35 | External Medical Summary | Summary of Care ---
Author Name Unknown Organization [facility] Address [address] [facility] [place] [address] Phone [phone] Care Team Providers Care Maitre D' Name Role Phone Paco ODOM MD, Arpit Yan Primary Care Provider [phone] Reason for Visit * Reason Comments Post Op Cataract Surgery 1 week right ey e Encounter Details Date Type Department Care Team (Late st Contact Info) Description 11/28/2023 2:00 PM EDT Office Visit Ophthalmology, [facility] [address] [facility] [place] [address] Umesh Hawkins, DO [address] [facility] [place] [phone] Pseudophakia* Allergies Active Allergy Reactions Criticality Noted Date Comments Penicillins 01/21/2003 As a child Sulfa Antibiotics 01/21/2003 hives and difficulty breathing documented as of this encounter (statuses as of 11/28/2023) Medications Medication Sig Dispensed Refills Start Date [...] DAY 90 Tablet 48 02/09/2022 Active Creon 97306-52410 UNIT Oral Capsule Delayed Release Particles (Pancrelipase ([id number]))Ind ications:History of resection of pancreas,Cholangioc arcinoma (HCC) [...] as of this encounter (statuses as of 11/28/2023) Active Problems Problem Noted Date Diagnosed Date 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 Knee effusion, left 07/21/2016 Elevated glucose 01/04/2014 History of resection of pancreas 11/23/2012 Dyslipidemia, goal LDL below 160 11/29/2009 ADVANCE DIRECTIVE INFORMATION 07/06/2009 Overview: Yes, Patient instructed to provide copy of advance directive for provider to review and to be scanned into Electronic Medical Record documented as of this encounter (statuses as of 11/28/2023) Resolved Problems Problem Noted Date Diagnosed Date [...] 02/02/2003 05/06/2017 Overview: [facility]: Conor Cortes MD 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 Overview: ICD-10 update of inactive term documented as of this encounter (statuses as of 11/28/2023) Immunizations Name Administration Dates Next Due COVID-19 [...] of this encounter Progress Notes * Umesh Hawkins DO - 11/28/2023 2:00 PM EDT 11/28/2023 [facility] Ophthalmology Post-operative Clinic Note HPI: Lucien Pemberton is a 78 year old pt who presents to the eye clinic today for 1 week post-op CE PCIOL OD (Ensor TCC Post LASIK [email or web address] IOL calculation MX60E 21.50 11/21/2023) Past Ocular History: BCC left eye s/p quiroz flap Multiple eyelids lesions s/p biopsy - Actinic keratotis and Bal keratosis Hx of LASIK OU ([facility], 1999, [place]) NEIL Pterygium VA: 20/25 IOP: 15 mmHg LL: Normal Conjunctiva: Normal Cornea: CCI and paracentesis amadou negative, PEK, pterygium AC: 1+ c/f Iris: dilation Lens: PCIOL centered Vitreous: PVD Optic nerve: Normal Macula: Normal Vessels: Normal Periphery: No break/tear A/P: 1 week post op CE PCIOL OD (Ensor TCC Post LASIK [email or web address] IOL calculation MX60E 21.50 11/21/2023) Stable DFE Taper prednisolone as directed by one drop weekly May stop vigamox D/c eye shield Gradual return to normal activity levels Call with flashes, floaters, dec vision eye pain. Advised of cash applications manager coverage for after hours/weekend emergencies. RTC 4 weeks or sooner prn. 12/18 Umesh Hawkins DO 11/28/23 documented in this encounter Nursing Notes * [place] TECH - 11/28/2023 3:19 PM EDT Lucien Pemberton presents for p/o check. 1 week post-op ECCE w/IOL insertion Surgical eye RIGHT EYE Patient denies complaints Current Ophthalmic Medications: Pred Forte and Ofloxacin 1gtt 4 times daily in surgical eye Are you taking the drops as directed? Yes documented in this encounter Plan of Treatment Upcoming Encounters Date Type Department Care Team (Late st Contact Info) Description 12/04/2023 8:15 AM EDT Cardiac Studies Cardiac Studies, [facility] [address] [place] [place] [address] 12/19/2023 2:15 PM EDT Office Visit Ophthalmology, [facility] [address] [place] [address] Umesh Hawkins DO [address] [facility] [place] [address] 03/11/2024 11:15 AM EDT Hospital Encounter ENDO [facility], Endoscopy Room [facility] [address] [place] [phone] Rajinder Castillo MD [address] [place] [address] 03/11/2024 11:15 AM EDT - 03/11/2024 11:45 AM EDT Surgery ENDO [facility], Endoscopy Room [facility] [address] [place] [phone] Rajinder Castillo MD [address] [place] [address] COLONOSCOPY FLEXIBLE PROXIMAL DIAGNOSTIC Scheduled Procedures Name [...] this encounter Medical Devices Implanted Type Area Natural Sciences Professor Device Identifier Shelf Expiration Date Model / Serial / Lot Lens [id number] 12.5mm+19.50 - [id number] - [id number] Implanted:Qty: 1 on 11/06/2023 by Umesh Hawkins DO at OR [facility] Left: Eye [employer]CH [employer] LOMB 05/30/2026 [id number] / [id number] / [id number] Envista Hydrophobic Acrylic Intraocular Lens Implanted:Qty: 1 on 11/20/2023 by Umesh Hawkins DO at OR [facility] Right: Eye BAUSCH [employer] LOMB 06/30/2026 [id number] / [id number] / [id number] documented as of this encounter Visit Diagnoses Diagnosis Pseudophakia- Primary Lens replaced by other means History of colon polyps Personal history of colonic polyps documented in this encounter Advance Directives Documents on File Type Date Recorded Patient Integrated Pest Management Technician Expl anation Advance Directives and Living Will 06/10/2020 10:26 AM ADVANCE DIRECTIVE HEALTH CARE POWER OF NEWS PRODUCTION ASSISTANT & INSTRUCTIONS * Full Code (Latest Code [...] and were consensually agreed upon. Care Teams Maitre D' Relationship Specialty Start Date End Date Arpit Antonio III, MD [address] [facility] [place] [address] PCP - General Family Medicine 05/06/17 documented as of this encounter
--- OUTSIDE RECORDS SUMMARY | 2024-01-13 01:35 | External Medical Summary | Summary of Care ---
Author Name Unknown Organization [facility] Address [address] [place] [place] [address] Phone [phone] Care Team Providers Care Aviation Technical Systems Specialist Name Role Phone Paco ODOM MD, Arpit Yan Primary Care Provider [phone] Reason for Visit * Reason Comments Other Encounter Details Date Type Department Care Team (Late st Contact Info) Description 10/10/2023 3:45 PM EDT Office Visit Ophthalmology, [facility] [address] [facility] [place] [address] Umesh Hawkins, DO [address] [facility] [place] [phone] Age-related nuclear cataract of both eyes*; Hx of LASIK Allergies Active Allergy Reactions Criticality Noted Date Comments Penicillins 01/21/2003 As a child Sulfa Antibiotics 01/21/2003 hives and difficulty breathing documented as of this encounter (statuses as of 10/10/2023) Medications Medication Sig Dispensed Refills Start Date End Date Status TYLENOL 325 MG PO TABS 1-2 tablets every 4 hours as needed 0 Active Ibuprofen-diphenhydr AMINE Cit 200-38 MG Oral Tablet Take 1 Tab by mouth at bedtime as needed. 0 Active Hydrocortisone (Perianal) 2.5 % External CreamIndications:Hem orrhoids, external without complications Administer into the rectum 2 times a day. 28 g 0 05/09/2021 Active [facility] Vitamin B-12 1000 MCG Oral Tablet (vitamin b 12) TAKE 1 TABLET BY MOUTH EVERY DAY 90 Tablet 48 02/09/2022 Active Creon 88175-99692 UNIT Oral Capsule Delayed Release Particles (Pancrelipase ([id number]))Kita cations:History of resection of pancreas,Cholangioca rcinoma (HCC) TAKE 1 CAPSULE IN THE MORNING, 1 CAP AT NOON, 1 CAP IN EVENING, 1 CAP BEFORE BED AND 1 CAP WITH SNACKS 120 Capsule 4 02/04/2023 Active Omeprazole 20 MG Oral Capsule Delayed Release (PriLOSEC)Indication s:Cholangiocarcinoma (HCC) TAKE 1 CAPSULE BY MOUTH EVERY DAY IN THE MORNING 90 Capsule 1 10/09/2023 Active documented as of this encounter (statuses as of 10/10/2023) Active Problems Problem Noted Date Diagnosed Date Knee effusion, left 07/21/2016 Elevated glucose 01/04/2014 History of resection of pancreas 11/23/2012 Dyslipidemia, goal LDL below 160 11/29/2009 ADVANCE DIRECTIVE INFORMATION 07/06/2009 Overview: Yes, Patient instructed to provide copy of advance directive for provider to review and to be scanned into Electronic Medical Record documented as of this encounter (statuses as of 10/10/2023) Resolved Problems Problem Noted Date Diagnosed Date [...] right inguinal hernia 02/02/2003 05/06/2017 Overview: [facility]: Conor Cortes MD 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 Referred by Dr. Jay Past Ocular History: BCC left eye s/p quiroz flap Multiple eyelids lesions s/p biopsy - Actinic keratotis and Bal keratosis Cataract OU Hx of LASIK OU ([facility], 1999, [place], used to wear contact lenses for distance prior) NEIL Eye Medications, reviewed: Refresh BID OU Hx of refractive procedure, reviewed: Yes - Lasik Hx of contact lens use, reviewed: None Hx of eye trauma, reviewed: Denies FOHx, reviewed: Denies Date: 08/29/23 OCT Macula: OD - Normal OS - Normal A/P: Cataract OU Recommend CE/IOL left eye first. Risks, benefits, and alternatives were discussed with the patient.Explained the elective nature of the procedure and that no surgery is without risk. Discussed the option of continued non-surgical management and risks of worsening disease. Explained goals of surgery. No promises made re: outcome. Discussed options including glasses, surgery, observation. All pertinent risks and benefits reviewed with patient, including but not limited to: posterior capsule rupture, need for anterior vitrectomy, dropped/retained lens material, pain, inflammation, infection, abnormal IOP, retinal tear, retinal detachment, bleeding, need for more treatment/surgery, permanent vision loss. Typical postop course discussed and explained potential need for adjustment based on clinical course. The patient verbalized understanding of options, risks/benefits/alternatives of options, and that all questions/concerns were addressed. The patient verbalized a desire to proceed for CE/IOL Indication for removal = visually-significant both eyes, start OS Indication for cataract removal explained to patient, as well as expected postoperative visual outcome in setting of the patient's specific overall ocular health. Dilates = [place] = None PXF=None Retina = Stable by exam, OCT normal Flomax = Denies Claustrophobia = Denies Anesthesia = plan for mac/topical Hx of refractive procedure=YES - LASIK OU in [place] per patient - unable to get reocrds IOL Measurements = Plan plano target OU; understands need for readers OU; understands possibility of glasses regardless for distance/near c/o hx of LASIK, NEIL, and pterygium OU IOL interpretation = Biometry (IOL) & topography (if indicated) will be obtained in near futureto determine the intended refractive target for this patient. These choices will be reflected in the final selection of the intraocular lens at the time of surgery. Discussed options for surgical anesthesia and potential risks/benefits/alternatives of all options. Discussed need for post-operative drops. Discussed potential need for corrective lenses post-operatively. Discussed possible need for anterior vitrectomy Discussed need for post-operative laser procedure (Nd:YAG capsulotomy). Discussed other potential causes for current decreased visual acuity. The patient was strongly encouraged to call with any questions regarding surgery before and after. Hx of LASIK OU Unable to get prior records from [place] Eyes, OU Pterygium OU -Recommend artificial tears up to 4 times daily -Brand names given - Refresh RTC DOS or sooner prn. A/P explained, patient verbalized understanding. Patient understands to f/u immediately with questions, concerns, or any ophthalmic issues. Umesh Hawkins DO 10/10/23 documented in this encounter Nursing Notes * Leeann Meier COA - 10/10/2023 4:11 PM EDT IOL and ANUJA measurements of both eyes completed and scanned into the electronic medical record. Please refer to operative report for interpretation. documented in this encounter Plan of Treatment Upcoming Encounters Date Type Department Care Team (Late st Contact Info) Description 10/30/2023 11:20 AM EDT Office Visit Family [facility] [address] [place] [address] Sarahi Jaimes PA-C [address] [place] [address] 11/06/2023 12:17 PM EDT Hospital Encounter OR [facility], Operating Room [facility] [address] [place] [phone] Umesh Hawkins, DO [address] [place] [address] 11/06/2023 12:17 PM EDT - 11/06/2023 1:02 PM EDT Surgery OR [facility], Operating Room [facility] [address] [place] [phone] Umesh Hawkins, DO [address] [place] [place] [address] LEFT EXTRACAPSULAR CATARACT REMOVAL WITH INTRAOCULAR LENS 11/07/2023 8:15 AM EDT Office Visit Ophthalmology, [facility] [address] [facility] [place] [address] Umesh Hawkins, DO [address] [place] [address] 11/11/2023 7:50 AM EDT Office Visit Ophthalmology, [facility] [address] [facility] [place] [address] Karlos Jay, DO [address] [place] [address] 11/14/2023 2:30 PM EDT Office Visit Ophthalmology, [facility] [address] [facility] [place] [address] Umesh Hawkins, DO [address] [place] [address] 11/20/2023 12:17 PM EDT Hospital [facility] [place] [phone] Umesh Hawkins, DO [address] [address] 11/20/2023 12:17 PM EDT - 11/20/2023 1:02 PM EDT Surgery OR [facility], Operating Room [facility] [address] [facility] [place] [phone] Umesh Hawkins, DO [address] [place] [address] RIGHT EXTRACAPSULAR CATARACT REMOVAL WITH INTRAOCULAR LENS 11/21/2023 8:30 AM EDT Office Visit Ophthalmology, [facility] [address] [facility] [place] [address] Umesh Hawkins, DO [address] [place] [address] 11/28/2023 2:00 PM EDT Office Visit Ophthalmology, [facility] [address] [facility] [place] [address] Umesh Hawkins, DO [address] [place] [address] 12/04/2023 8:15 AM EDT Cardiac Studies Cardiac Studies, [facility] [address] [facility] [place] [address] 12/19/2023 2:15 PM EDT Office Visit Ophthalmology, [facility] [address] [facility] [place] [address] Umesh Hawkins, DO [address] [place] [address] 03/11/2024 11:15 AM EDT Hospital Encounter ENDO [facility], Endoscopy Room [facility] [address] [place] [phone] Rajinder Castillo MD [address] [place] [address] 03/11/2024 11:15 AM EDT - 03/11/2024 11:45 AM EDT Surgery ENDO [facility], Endoscopy Room [facility] [address] [place] [address] Rajinder Castillo MD [address] [place] [address] COLONOSCOPY FLEXIBLE PROXIMAL DIAGNOSTIC Scheduled Orders Name Type Priority Associated Diagnoses Orde r Schedule COMPUTERIZED CORNEAL ANUJA Procedures Routine Age-related nuclear cataract of both eyes Ordered: 10/10/2023 Scheduled Procedures Name Priority Associated Diagnoses Date/Ti me EXTRACAPSULAR CATARACT REMOVAL WITH INTRAOCULAR LENS Cataract 11/06/2023 12:17 PM EDT EXTRACAPSULAR CATARACT REMOVAL WITH INTRAOCULAR LENS Cataract 11/20/2023 12:17 PM EDT COLONOSCOPY FLEXIBLE PROXIMAL DIAGNOSTIC Recall History of colon polyps 03/11/2024 11:15 AM EDT Health Maintenance Due Date Last Done Comments Depression Screening 03/03/2021 03/03/2020 COVID-19 Vaccine ( season) 2023 06/05/2022, 05/01/2021, 09/01/2020, Additional history exists COLONOSCOPY-EVERY 3 YRS AGES 18-100 06/10/2023 06/10/2020, 06/10/2020, 06/02/2018, Additional history exists DTaP,Tdap,and Td Vaccines (2 - Td or Tdap) 08/05/2023 08/05/2013, 04/12/2010 Pneumococcal Vaccine: 65+ Years Completed 07/19/2014, 08/05/2013, 11/26/2006 COLONOSCOPY-ANNUAL AGES 18-100 Discontinued 06/10/2020, 06/10/2020, 06/02/2018, [...] documented as of this encounter Medical Devices Not on filedocumented as of this encounter Visit Diagnoses Diagnosis Age-related nuclear cataract of both eyes- Primary Senile nuclear sclerosis Hx of LASIK Other states following surgery of eye and adnexa Cataract Unspecified cataract Cataract Unspecified cataract History of colon polyps Personal history of colonic polyps documented in this encounter Advance Directives Documents on File Type Date Recorded Patient Resin Filterer Expl anation Advance Directives and Living Will 06/10/2020 10:26 AM ADVANCE DIRECTIVE HEALTH CARE POWER OF FOURCHETTE SEWER & INSTRUCTIONS Latest Code Status on File Code Status Date Activated Date Inactivated Comments Full Code 01/09/2012 5:46 PM 01/10/2012 7:14 PM This order reflects the patients wishes and were consensually agreed upon. Question Answer Comments Discussion of Advance Directives occurred with: Patient Code Status History Code Status Date Activated Date Inactivated Comments Full Code 12/20/2011 3:30 PM 12/27/2011 5:17 PM Question Answer Comments Discussion of Advance Directives occurred with: Not Discussed Full Code 12/11/2011 9:53 PM 12/14/2011 9:14 PM This order reflects the patients wishes and were consensually agreed upon. Care Teams Aviation Technical Systems Specialist Relationship Specialty Start Date End Date Arpit Antonio III, MD [address] [facility] [place] [address] PCP - General Family Medicine 05/06/17 documented as of this encounter
--- OUTSIDE RECORDS SUMMARY | 2024-01-13 01:35 | External Medical Summary | Summary of Care ---
Author Name Unknown Organization [facility] Address [address] [place] [address] Phone [phone] Care Team Providers Care Special Events Manager Name Role Phone Paco ODOM MD, Arpit Yan Primary Care Provider [phone] Reason for Visit * Reason Comments Post Op Cataract Surgery Encounter Details Date Type Department Care Team (Late st Contact Info) Description 11/14/2023 2:30 PM EDT Office Visit Ophthalmology, [facility] [address] [facility] [place] [address] Umesh Hawkins, DO [address] [facility] [place] [phone] After cataract not obscuring vision, left* Allergies Active Allergy Reactions Criticality Noted Date Comments Penicillins 01/21/2003 As a child Sulfa Antibiotics 01/21/2003 hives and difficulty breathing documented as of this encounter (statuses as of 11/15/2023) Medications Medication Sig Dispensed Refills Start Date End Date Status TYLENOL 325 MG PO TABS 1-2 tablets every 4 hours as needed 0 Active Ibuprofen-diphenhyd rAMINE Cit 200-38 MG Oral Tablet Take 1 Tab by mouth at bedtime as needed. 0 Active Hydrocortisone (Perianal) 2.5 % External CreamIndications:He morrhoids, external without complications Administer into the rectum 2 times a day. 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 Dyslipidemia, goal LDL below 160 11/29/2009 ADVANCE DIRECTIVE INFORMATION 07/06/2009 Overview: Yes, Patient instructed to provide copy of advance directive for provider to review and to be scanned into Electronic Medical Record documented as of this encounter (statuses as of 11/15/2023) Resolved Problems Problem Noted Date Diagnosed Date [...] 02/02/2003 05/06/2017 Overview: [facility]: Conor Cortes MD 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 Overview: ICD-10 update of inactive term documented as of this encounter (statuses as of 11/15/2023) Immunizations Name Administration Dates Next Due COVID-19 [...] file Not on file Not on file Travel History Travel Start Travel End Lyndsay 10/18/2023 10/28/2023 documented as of this encounter Functional Status [...] Progress Notes * Umesh Hawkins DO - 11/14/2023 2:30 PM EDT 11/14/2023 [facility] Ophthalmology Post-operative Clinic Note HPI: Lucien Pemberton is a 78 year old pt who presents to the eye clinic today for 1 week post-op CE PCIOL OS (Ensor TCC Post LASIK [email or web address] IOL calculation MX60E 19.50 11/06/2023). Improved clarity and brightness. Notes additional swelling of left upper eyelid. Eyes are dry and watering Past Ocular History: BCC left eye s/p quiroz flap Multiple eyelids lesions s/p biopsy - Actinic keratotis and Bal keratosis Hx of LASIK OU ([facility], 2000, [place]) NEIL Pterygium Eye Medications: Refresh BID OU VA: 20/30 PH 20/25 IOP: 20 mmhg LL: DCL Conjunctiva: Normal Cornea: CCI and paracentesis amadou negative, PEK, pterygium AC: 1+ c/f Iris: dilation Lens: PCIOL centered Vitreous: PVD Optic nerve: Normal Macula: Normal Vessels: Normal Periphery: No break/tear A/P: 1 week post op CE PCIOL OS (Ensor TCC Post LASIK [email or web address] IOL calculation MX60E 19.50 11/06/2023) Stable DFE Keep pred QID May stop vigamox D/c eye shield Gradual return to normal activity levels Artificial tears QID Cool compresses to upper lid, erythromycin ointment PRN Call with flashes, floaters, dec vision eye pain. Advised of director of it operations coverage for after hours/weekend emergencies. RTC DOS or sooner prn. Umesh Hawkins DO 11/14/23 documented in this encounter Nursing Notes * Leeann Meier COA - 11/14/2023 2:37 PM EDT Lucien Pemberton presents for p/o check. 1 week post-op ECCE w/IOL insertion Surgical eye LEFT EYE Patient denies complaints Current Ophthalmic Medications: Pred Forte and Ofloxacin 1gtt 4 times daily in surgical eye Are you taking the drops as directed? Yes documented in this encounter Plan of Treatment Upcoming Encounters Date Type Department Care Team (Late st Contact Info) Description 11/20/2023 1:00 PM EDT Hospital Encounter OR [facility], Operating Room [facility] [address] [place] [phone] Umesh Hawkins DO [address] [place] [address] 11/20/2023 1:00 PM EDT - 11/20/2023 1:45 PM EDT Surgery OR [facility], Operating Room [facility] [address] [phone] Umesh Hawkins DO [address] [place] [id number] RIGHT EXTRACAPSULAR CATARACT REMOVAL WITH INTRAOCULAR LENS 11/21/2023 8:30 AM EDT Office Visit Ophthalmology, [facility] [address] [address] Umesh Hawkins, DO [address] [place] [address] 11/28/2023 2:00 PM EDT Office Visit Ophthalmology, [facility] [address] [facility] [place] [address] Umesh Hawkins, DO [address] [place] [address] 12/04/2023 8:15 AM EDT Cardiac Studies Cardiac Studies, [facility] [address] [facility] [place] [address] 12/19/2023 2:15 PM EDT Office Visit Ophthalmology, [facility] [address] [facility] [place] [address] Umesh Hawkins, DO [address] [place] [address] 03/11/2024 11:15 AM EDT Hospital Encounter ENDO [facility], Endoscopy Room [facility] [address] [place] [phone] Rajinder Castillo MD [address] [place] [address] 03/11/2024 11:15 AM EDT - 03/11/2024 11:45 AM EDT Surgery ENDO [facility], Endoscopy [facility] [place] [phone] Rajinder Castillo MD [address] [place] [address] COLONOSCOPY FLEXIBLE PROXIMAL DIAGNOSTIC Scheduled Procedures Name Priority Associated Diagnoses Date/Ti me EXTRACAPSULAR CATARACT REMOVAL WITH INTRAOCULAR LENS Cataract 11/20/2023 1:00 PM EDT COLONOSCOPY FLEXIBLE PROXIMAL DIAGNOSTIC Recall [...] this encounter Medical Devices Implanted Type Area Pharmacy Helper Device Identifier Shelf Expiration Date Model / Serial / Lot Lens [id number] 12.5mm+19.50 - [id number] - [id number] Implanted:Qty: 1 on 11/06/2023 by Umesh Hawkins DO at OR [facility] Left: Eye BAUSCH & LOMB 05/30/2026 [id number] / [id number] / [id number] documented as of this encounter Visit Diagnoses Diagnosis Age-related nuclear cataract of right eye- Primary Senile nuclear sclerosis After cataract not obscuring vision, left- Primary Cataract Unspecified cataract History of colon polyps Personal history of colonic polyps documented in this encounter Advance Directives Documents on File Type Date Recorded Patient Hemmer Lockstitch Expl anation Advance Directives and Living Will 06/10/2020 10:26 AM ADVANCE DIRECTIVE HEALTH CARE POWER OF SERVICE DIRECTOR & INSTRUCTIONS Latest Code Status on File Code Status Date Activated Date Inactivated Comments Full Code 11/06/2023 12:15 PM 11/06/2023 6:33 PM Question Answer Comments Discussion of Advance Directives occurred with: Not Discussed due to patient's condition Code Status History Code Status Date Activated Date Inactivated Comments Full Code 01/09/2012 5:46 PM 01/10/2012 7:14 PM This order reflects the patients wishes and were consensually agreed upon. Question Answer Comments Discussion of Advance Directives occurred with: Patient Full Code 12/20/2011 3:30 PM 12/27/2011 5:17 PM Question Answer Comments Discussion of Advance Directives occurred with: Not Discussed Full Code 12/11/2011 9:53 PM 12/14/2011 9:14 PM This order reflects the patients wishes and were consensually agreed upon. Care Teams Special Events Manager Relationship Specialty Start Date End Date Arpit Antonio III, MD [address] [place] [address] PCP - General Family Medicine 05/06/17 documented as of this encounter
--- OUTSIDE RECORDS SUMMARY | 2024-01-13 01:35 | External Medical Summary | Summary of Care ---
Author Name Unknown Organization [facility] Address [address] [facility] [place] [address] Phone [phone] Care Team Providers Care Sales Representative Gas [employer] Name Role Phone Paco ODOM MD, Arpit Yan Primary Care Provider [phone] Reason for Visit * Auth/Cert Specialty Diagnoses / Procedures Referred By Refugio moreno Referred To Contact Diagnoses Cataract Cataract [H26.9] Procedures REMOVE CATARACT, INSERT LENS PROSTH RIGHT EXTRACAPSULAR CATARACT REMOVAL WITH INTRAOCULAR LENS Umesh Hawkins DO [address] [address] Or [facility] [address] [place] [address] Referral ID Status Reason Start Date Expiration Date Visits Re quested Visits Authorized [id number] Encounter Details Date Type Department Care Team (Late st Contact Info) Description 11/20/2023 12:33 PM EDT - 11/20/2023 3:13 PM EDT Hospital Encounter OR [facility], Operating Room [facility] [address] [place] [place] [id number] Umesh Hawkins DO [address] [address] Discharge Disposition: Home - Self Care Allergies Active Allergy Reactions Criticality Noted Date Comments Penicillins 01/21/2003 As a child Sulfa Antibiotics 01/21/2003 hives and difficulty breathing documented as of this encounter (statuses as of 11/21/2023) Medications Medication Sig Dispensed Refills Start Date [...] DAY 90 Tablet 48 02/09/2022 Active Creon [id number] UNIT Oral Capsule Delayed Release Particles (Pancrelipase (Lvf-Uatk-Hrpj))Ind ications:History of resection of pancreas,Cholangioc arcinoma (HCC) [...] as of this encounter (statuses as of 11/21/2023) Active Problems Problem Noted Date Diagnosed Date 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 Knee effusion, left 07/21/2016 Elevated glucose 01/04/2014 History of resection of pancreas 11/23/2012 Dyslipidemia, goal LDL below 160 11/29/2009 ADVANCE DIRECTIVE INFORMATION 07/06/2009 Overview: Yes, Patient instructed to provide copy of advance directive for provider to review and to be scanned into Electronic Medical Record documented as of this encounter (statuses as of 11/21/2023) Resolved Problems Problem Noted Date Diagnosed Date [...] of right inguinal hernia 02/02/2003 05/06/2017 Overview: [facility]: Conor Cortes MD 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 Overview: ICD-10 update of inactive term documented as of this encounter (statuses as of 11/21/2023) Immunizations Name Administration Dates Next Due COVID-19 [...] 10/18/2023 10/28/2023 documented as of this encounter Last Filed Vital Signs Vital Sign Reading Time Taken Comments Blood Pressure 121/62 11/20/2023 2:48 PM EDT Pulse 84 11/20/2023 2:48 PM EDT Temperature 36.2 C (97.1 F) 11/20/2023 2:48 PM ED T Respiratory Rate 16 11/20/2023 2:48 PM EDT Oxygen Saturation 100% 11/20/2023 2:48 PM EDT Inhaled Oxygen Concentration - - Weight 84.8 kg (187 lb) 10/29/2023 2:26 PM EDT Height 185.4 cm (6' 1") 10/29/2023 2:26 PM EDT Body Mass Index 24.67 10/29/2023 2:26 PM EDT documented in this encounter Functional [...] No 08/27/2018 documented as of this encounter Discharge Instructions * Discharge Instr - AVS* Umesh Hawkins, - 11/20/2023 2:28 PM EDT Discharge Date: 11/20/23 Check your Patient Education Brochure for further information. If you have any further questions orconcerns after discharge and before 4:00 p.m. please contact your surgeons (Dr. Umesh Hawkins) office at [phone]. This is the [place] office and during the day it will give you an opportunity to talk to our ophthalmology certified legal secretary specialist. After 4:00 p.m. or on the weekend, call the [facility] at ([phone]) and ask for the float phlebotomist cotton ginner. Please let the float phlebotomist cotton ginner know you had surgery with Dr. Hawkins and they will get in touch with Dr. Hawkins. Go to the Emergency Room if you feel the situation is an emergency. If you present to another facility's emergency room, please call and inform your surgeon's office at the phone number provided above. The information below provides you with the instructions and the list of medications you need to betaking following discharge from the hospital. If you have any questions, please ask before leaving.Please carry this letter with you when you see your doctor in the clinic. If you have questions, you can reach us at the numbers above. Diet: Start with clear liquids (jello, tea, apple juice), avoid dairy products (milk, cheese, pudding, ice cream) and fried, greasy foods. Progress to prescribed diet as tolerated. If nausea should occur, have clear liquids only until soft foods can be tolerated. Activity: A responsible adult must be with the patient for 24 hours after surgery. Rest today and tomorrow, and then increase activity as tolerated. DO NOT drive, operate any appliances and/or machinery or sign legal documents for 24 hours. DO NOT touch or rub the operative eye. Keep shield in place except to place eyedrops. Sleep with eyeshield in place. Eye Drops: Begin eyedrops when arrive home Moxifloxacin: One Drop to right eye 4 times per day Prednisolone acetate (shake well): One Drop to right eye 4 times per day Erythromycin ophthalmic ointment - Instill at bedtime or as needed for pain/discomfort right eye Please use the Moxifloxacin drop first followed by the prednisolone drop. Shake the prednisolone 10-15 times prior to use. Wait at least 5 minutes between eyedrops. Please use your eyedrops first thing in morning prior to postoperative day 1 visit. Pain Contol: Tylenol extra-strength 1 tablet every 4 hours as needed for pain. Warnings: Call your surgeon promptly in case of: A. Pain that is not relieved by the medicine you were told to take (surface irritation and burning is common and not a concern) B. Swelling or pus-like drainage C. Persistent nausea and vomiting D. Other Questions or concerns Special Instructions: A. Do not lift heavy objects or bend until appointment tomorrow. B. If you have burning or scratchy sensation, it is okay to use the ophthalmic ointment In the blue kit - apply 1/4 inch into the gutter created by pulling lower eyelid down. Other Instructions/follow-up: A. A follow-up appointment has been made for you tomorrow, at the Eye clinic in the [facility] on the second floor. Please show up at your scheduled appointment time. B. Please Bring the blue bag with both eyedrops with you to post-op visit tomorrow. documented in this encounter Progress Notes * Umesh Hawkins DO - 11/20/2023 2:28 PM EDT [facility] [address] [address] OUTPATIENT SURGERY DISCHARGE SUMMARY NOTE Name: Lucien Pemberton Location: OR [facility]/OR Date: 11/20/2023 Time: 2:28 PM Surgery Date: 11/20/2023 Procedure: RIGHT EXTRACAPSULAR CATARACT REMOVAL WITH INTRAOCULAR LENS Right Surgeon: Umesh Hawkins DO Discharge Diagnosis: same After examination of this patient, I have determined he is ready for discharge to home when the patient meets criteria. Discharge instructions were given to the patient. documented in this encounter H&P Notes * Umesh Hawkins DO - 11/20/2023 1:44 PM EDT Images from the original note were not included. See PCP clearance. Office Visit 10/30/2023 Family [facility] Sarahi Jaimes PA-C Family Medicine Age-related cataract of both eyes, unspecified age-related cataract type +4 more Dx Physical-Exam ; Referred by Umesh Hawkins DO Reason for Visit Progress Notes Sarahi Jaimes PA-C (Physician Overhauler - Certified) Family Medicine Expand All Collapse All[]Expand All by Default Subjective: Lucien Pemberton is a 78 year old male. Presents at the request of Dr Hawkins for medical clearance for cataract removal. PHM: Problem List Patient Active Problem List Diagnosis Code ADVANCE DIRECTIVE INFORMATION Dyslipidemia, goal LDL below 160 E78.5 History of resection of pancreas Z90.410 Elevated glucose R73.09 Knee effusion, left M25.462 Current Medications Current Outpatient Medications Medication Sig Dispense Refill Ibuprofen-diphenhydrAMINE Cit 200-38 MG Oral Tablet Take 1 Tab by mouth at bedtime as needed. Hydrocortisone (Perianal) 2.5 % External Cream Administer into the rectum 2 times a day. 28 g 0 [facility] Vitamin B-12 1000 MCG Oral Tablet (vitamin b 12) TAKE 1 TABLET BY MOUTH EVERY DAY 90 Tablet 48 Creon [id number] UNIT Oral Capsule Delayed Release Particles (Pancrelipase (Dfo-Tkex-Icsj)) TAKE 1CAPSULE IN THE MORNING, 1 CAP AT NOON, 1 CAP IN EVENING, 1 CAP BEFORE BED AND 1 CAP WITH SNACKS (Patient taking differently: Take 1 Capsule by mouth in the morning. TAKE 1 CAPSULE IN THE MORNING.) 120 Capsule 4 Omeprazole 20 MG Oral Capsule Delayed Release (PriLOSEC) TAKE 1 CAPSULE BY MOUTH EVERY DAY IN THE MORNING 90 Capsule 1 TYLENOL 325 MG PO TABS 1-2 tablets every 4 hours as needed (Patient not taking: Reported on 10/29/2023) No current facility-administered medications for this visit. 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 Jay COLONOSCOPY W/ LESION REMOVAL, SNARE 10/15/2006 path-adenomatous- repeat in 3 years, 2009 COLONOSCOPY W/ LESION REMOVAL, SNARE 10/18/2009 done severe diverticulosis,internal hemorrhoids, polyps x3--hyperplastic tissue repeat ,[address] ya suggests a 2 day prep COLONOSCOPY, DIAGNOSTIC (RECTUM) 12/14/2011 COLONOSCOPY FLEXIBLE PROXIMAL DIAGNOSTIC performed by Marie Jarquin MD at ENDOSCOPY [facility] COLONOSCOPY, DIAGNOSTIC (RECTUM) 12/17/2011 COLONOSCOPY FLEXIBLE PROXIMAL DIAGNOSTIC performed by Leora Jay MD at ENDOSCOPY [facility] COLONOSCOPY, DIAGNOSTIC (RECTUM) 06/02/2018 adenomatous polyps, diverticulosis, poor prep, repeat 1 yr/COLONOSCOPY FLEXIBLE PROXIMAL DIAGNOSTICperformed by Nilson Dick MD at ENDOSCOPY [facility] COLONOSCOPY, DIAGNOSTIC (RECTUM) 06/10/2020 adenomatous polyps, repeat 3 yrs / COLONOSCOPY FLEXIBLE PROXIMAL DIAGNOSTIC performed by Rajinder Castillo MD at ENDOSCOPY [facility] EGD, W/ENDOSCOPIC US 12/12/2011 UPPER GI ENDOSCOPY ENDOSCOPIC ULTRASOUND performed by Thierry Hsieh MD at ENDOSCOPY [facility] EGD, W/ENDOSCOPIC US N/A 05/17/2020 ESOPHAGOGASTRODUODENOSCOPY (EGD), FLEXIBLE, TRANSORAL, ENDOSCOPIC ULTRASOUND performed by Rajinder Castillo MD at ENDOSCOPY [facility] ERCP 04/07/2020 luminal narrowing, stent placed, repeat 6 wks/ [facility] ERCP, DIAGNOSTIC, SPECIMEN COLLECTION N/A 05/17/2020 ENDOSCOPIC RETROGRADE CHOLANGIOPANCREATOGRAPHY (ERCP) DIAGNOSTIC performed by Martha Mann ENDOSCOPY [facility] ERCP, DIAGNOSTIC, SPECIMEN COLLECTION N/A 08/25/2020 ENDOSCOPIC RETROGRADE CHOLANGIOPANCREATOGRAPHY (ERCP) DIAGNOSTIC performed by Alirio Purvis MD at ENDOSCOPY [facility] KNEE ARTHROSCOPY, DIAGNOSTIC 2000 Knee Scope,Diagnostic, [place], [place] no treatment REMOVE PANCREAS, PARTIAL (WHIPPLE) 12/20/2011 PANCREATECTOMY PROXIMAL WITH SUBTOTAL DUODENECTOMY performed by Lio Johnson MD at OR [facility] REMOVE TONSILS & ADENOIDS, UNDER 12 REPAIR INITIAL INGUINAL HERNIA REDUCIBLE AGE 5 OR MORE Right 06/04/2008 Repair right direct and indirect inguinal hernia with mesh reinforcement 06/04/[address] [place]es [place] [facility] [place] [facility] [place] Allergies Review of patient's allergies indicates: Allergen Reactions Penicillins As a child Sulfa Antibiotics hives and difficulty breathing Family History Family History Problem Relation Age of Onset No Past Hx Father age 93 Heart Disorder Mother age 83 after CABG Family Status Family Status Relation Status Mo at age 80 [place], CABG, never recovered Fa at age 94 old age Bro Alive Sis Alive MGMA MGFA PGMA PGFA David Alive colon cancer at age 36 Son Alive Son Alive Social History - Alcohol and Tobacco Use Social History Tobacco Use Smoking status: Former Current packs/day: 0.00 Average packs/day: 1 pack/day for 10.0 years (10.0 ttl pk-yrs) Types: Cigarettes Start date: 02/03/1964 Quit date: 02/02/1974 Years since quittin.7 Smokeless tobacco: Never Substance Use Topics Alcohol use: Yes Alcohol/week: 6.7 standard drinks of alcohol Types: 8 5 oz of wine per week Comment: occassional Vaping History Vaping/E-Cigarette Use Vaping/E-Cigarette Use Never User Vaping History Vaping/E-Cigarette Substances Vaping History Vaping/E-Cigarette Devices Review of Systems: General: No change in weight, No weakness, No fatigue, and No fevers, sweats, or chills Head: No significant headache and No recent significant head injury Eyes: No eye pain, redness, discharge, or excessive tearing, No diplopia, No h/o glaucoma, and + h/o cataracts Ears: No recent change in hearing, No tinnitus or vertigo, No ear pain, and No ear discharge Nose: No h/o frequent colds or sinusitis, No nasal stuffiness, No h/o hay fever, and No significantepistaxis Throat/Oropharynx: No teeth or gum problems, No bleeding gums, No tongue complaints, No sore throat, and No recent change in voice or hoarseness Neck: No complaint of lumps in neck, No swollen glands, No recent swelling in thyroid area, and No significant pain in neck Respiratory: No cough, sputum, or hemoptysis, No wheezing, No shortness of breath, and No recent change in breathing Cardiac: No chest pain, No shortness of breath, No dyspnea on exertion, No orthopnea, No paroxysmalnocturnal dyspnea, No edema, No palpitations, and No syncope Gastrointestinal: No dysphagia, No significant heartburn, No significant change in appetite, No nausea, vomiting, diarrhea, or constipation, No hematemesis, No blood in stools or black tarry stools, No abdominal bloating or early satiety, and No abdominal pain Urinary: No urinary frequency, No dysuria, No hematuria, No urinary urgency, No polyuria, No nocturia, No incontinence, No hesitancy, and No sensation of incomplete voiding Hematologic: No anemia, No easy bruising or abnormal bleeding, and No history of transfusion Neurologic: No fainting or blackouts, No seizures, No paralysis or focal weakness, No numbness or tingling, No tremors, and No significant problems with memory Skin: No edema, No rash, and No itching Objective: BP 136/64 | Pulse 64 | Temp 35.8 C (96.4 F) (Tympanic) | Ht 1.822 m (5' 11.73") | Wt 82.1 kg (181 lb 1.3 oz) | SpO2 100% | BMI 24.74 kg/m | BSA 2.04 m Physical Exam: General: alert, healthy, no distress, well nourished, well developed, comfortable, and cooperative Head: Normocephalic, No masses, lesions, tenderness or abnormalities Eye Exam: PERRLA, extraocular movements intact, conjunctiva are pink and non- injected, sclera clear Ears: External ears normal, Canals clear, TM's Normal Nose: no mucosal erythema, no mucosal edema, no purulent discharge Oropharynx: no exudate, no erythema, lips, buccal mucosa, and tongue normal, and mucous membranes are moist Neck: supple, no adenopathy, no bruits, thyroid normal size, non-tender, without nodularity Heart: regular rate & rhythm, no murmur, and no gallops Lungs: chest symmetric with normal AP diameter, no chest deformities noted, normal respiratory rateand rhythm, no chest wall tenderness, diaphragmatic excursion normal, lungs clear to auscultation Abdomen: abdomen soft, non-tender, normal bowel sounds, no masses or organomegaly, no rebound or guarding, no CVA tenderness, and no bladder distention identified Back: back symmetric, no curvature, no costovertebral angle tenderness, no skin lesions, erythema or scars, no tenderness to percussion or palpation Extremities: less than 2 second capillary refill, no joint deformities, effusion, or inflammation, no edema, no skin discoloration, no clubbing, no cyanosis Neuro Exam: alert & oriented x 3 with fluent speech, no focal motor/sensory deficits ASSESSMENT: Diagnosis for procedure: cataracts Preoperative Examination PLAN: Patient is medically cleared. Perioperative recommendations regarding medications and treatment include medications as directed. This assessment was forwarded to Dr Hawkins. Sarahi Jaimes PA-C * Umesh Hawkins DO - 11/20/2023 1:43 PM EDT HISTORY & PHYSICAL INTERVAL NOTE [facility] [address] [place] [address] History and Physical Update: Name: Lucien Pemberton Location: OR [facility]/OR Date: 11/20/2023 Time: 1:43 PM DATE OF HISTORY AND PHYSICAL: 10/30/23 BP: 154 mmHg/73 mmHg (11/20/23 1241) Pulse: 63 (11/20/23 1241) Temp: 36.44 C (11/20/23 1241) Temp Summary: Temp Min: 36.4 C (97.6 F) Max: 36.4 C (97.6 F) SpO2: 100 % (11/20/23 1241) O2 flow rate: Supplemental O2 Delivery: Heart Exam: regular rate and rhythm Lung Exam: clear to auscultation bilaterally Other Pertinent Physical Exam: no eye changes I have reviewed the H&P previously performed and examined the patient today. There are no new findings noted. * Umesh Hawkins DO - 11/12/2023 2:43 PM EDT Images from the original note were not included. See PCP clearance. Sarahi Jaimes PA-C Family Medicine Age-related cataract of both eyes, unspecified age-related cataract type +4 more Dx Physical-Exam ; Referred by Umesh Hawkins DO Reason for Visit Progress Notes Sarahi Jaimes PA-C (Physician Overhauler - Certified) Family Medicine Expand All Collapse All[]Expand All by Default Subjective: Lucien Pemberton is a 78 year old male. Presents at the request of Dr Hawkins for medical clearance for cataract removal. PHM: Problem List Patient Active Problem List Diagnosis Code ADVANCE DIRECTIVE INFORMATION Dyslipidemia, goal LDL below 160 E78.5 History of resection of pancreas Z90.410 Elevated glucose R73.09 Knee effusion, left M25.462 Current Medications Current Outpatient Medications Medication Sig Dispense Refill Ibuprofen-diphenhydrAMINE Cit 200-38 MG Oral Tablet Take 1 Tab by mouth at bedtime as needed. Hydrocortisone (Perianal) 2.5 % External Cream Administer into the rectum 2 times a day. 28 g 0 [facility] Vitamin B-12 1000 MCG Oral Tablet (vitamin b 12) TAKE 1 TABLET BY MOUTH EVERY DAY 90 Tablet 48 Creon [id number] UNIT Oral Capsule Delayed Release Particles (Pancrelipase (Vim-Dssr-Rzyr)) TAKE 1CAPSULE IN THE MORNING, 1 CAP AT NOON, 1 CAP IN EVENING, 1 CAP BEFORE BED AND 1 CAP WITH SNACKS (Patient taking differently: Take 1 Capsule by mouth in the morning. TAKE 1 CAPSULE IN THE MORNING.) 120 Capsule 4 Omeprazole 20 MG Oral Capsule Delayed Release (PriLOSEC) TAKE 1 CAPSULE BY MOUTH EVERY DAY IN THE MORNING 90 Capsule 1 TYLENOL 325 MG PO TABS 1-2 tablets every 4 hours as needed (Patient not taking: Reported on 10/29/2023) No current facility-administered medications for this visit. 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 Jay COLONOSCOPY W/ LESION REMOVAL, SNARE 10/15/2006 path-adenomatous- repeat in 3 years, 2009 COLONOSCOPY W/ LESION REMOVAL, SNARE 10/18/2009 done severe diverticulosis,internal hemorrhoids, polyps x3--hyperplastic tissue repeat ,[address] ya suggests a 2 day prep COLONOSCOPY, DIAGNOSTIC (RECTUM) 12/14/2011 COLONOSCOPY FLEXIBLE PROXIMAL DIAGNOSTIC performed by Marie Jarquin MD at ENDOSCOPY [facility] COLONOSCOPY, DIAGNOSTIC (RECTUM) 12/17/2011 COLONOSCOPY FLEXIBLE PROXIMAL DIAGNOSTIC performed by Leora Jay MD at ENDOSCOPY [facility] COLONOSCOPY, DIAGNOSTIC (RECTUM) 06/02/2018 adenomatous polyps, diverticulosis, poor prep, repeat 1 yr/COLONOSCOPY FLEXIBLE PROXIMAL DIAGNOSTICperformed by Nilson Dick MD at ENDOSCOPY [facility] COLONOSCOPY, DIAGNOSTIC (RECTUM) 06/10/2020 adenomatous polyps, repeat 3 yrs / COLONOSCOPY FLEXIBLE PROXIMAL DIAGNOSTIC performed by Rajinder Castillo MD at ENDOSCOPY [facility] EGD, W/ENDOSCOPIC US 12/12/2011 UPPER GI ENDOSCOPY ENDOSCOPIC ULTRASOUND performed by Thierry Hsieh MD at ENDOSCOPY [facility] EGD, W/ENDOSCOPIC US N/A 05/17/2020 ESOPHAGOGASTRODUODENOSCOPY (EGD), FLEXIBLE, TRANSORAL, ENDOSCOPIC ULTRASOUND performed by Rajinder Castillo MD at ENDOSCOPY [facility] ERCP 04/07/2020 luminal narrowing, stent placed, repeat 6 wks/ [facility] ERCP, DIAGNOSTIC, SPECIMEN COLLECTION N/A 05/17/2020 ENDOSCOPIC RETROGRADE CHOLANGIOPANCREATOGRAPHY (ERCP) DIAGNOSTIC performed by Martha Mann ENDOSCOPY [facility] ERCP, DIAGNOSTIC, SPECIMEN COLLECTION N/A 08/25/2020 ENDOSCOPIC RETROGRADE CHOLANGIOPANCREATOGRAPHY (ERCP) DIAGNOSTIC performed by Alirio Purvis MD at ENDOSCOPY [facility] KNEE ARTHROSCOPY, DIAGNOSTIC 2000 Knee Scope,Diagnostic, [place], [place] no treatment REMOVE PANCREAS, PARTIAL (WHIPPLE) 12/20/2011 PANCREATECTOMY PROXIMAL WITH SUBTOTAL DUODENECTOMY performed by Lio Johnson MD at OR [facility] REMOVE TONSILS & ADENOIDS, UNDER 12 REPAIR INITIAL INGUINAL HERNIA REDUCIBLE AGE 5 OR MORE Right 06/04/2008 Repair right direct and indirect inguinal hernia with mesh reinforcement 06/04/[address] Cortes [place] [facility] [place] [facility] [place] Allergies Review of patient's allergies indicates: Allergen Reactions Penicillins As a child Sulfa Antibiotics hives and difficulty breathing Family History Problem Relation Age of Onset No Past Hx Father age 93 Heart Disorder Mother age 83 after CABG Family Status Family Status Relation Status Mo at age 80 [place], CABG, never recovered Fa at age 94 old age Bro Alive Sis Alive MGMA MGFA PGMA PGFA David Alive colon cancer at age 36 Son Alive Son Alive Social History - Alcohol and Tobacco Use Social History Tobacco Use Smoking status: Former Current packs/day: 0.00 Average packs/day: 1 pack/day for 10.0 years (10.0 ttl pk-yrs) Types: Cigarettes Start date: 02/03/1964 Quit date: 02/02/1974 Years since quittin.7 Smokeless tobacco: Never Substance Use Topics Alcohol use: Yes Alcohol/week: 6.7 standard drinks of alcohol Types: 8 5 oz of wine per week Comment: occassional Vaping History Vaping/E-Cigarette Use Vaping/E-Cigarette Use Never User Vaping History Vaping/E-Cigarette Substances Vaping History Vaping/E-Cigarette Devices Review of Systems: General: No change in weight, No weakness, No fatigue, and No fevers, sweats, or chills Head: No significant headache and No recent significant head injury Eyes: No eye pain, redness, discharge, or excessive tearing, No diplopia, No h/o glaucoma, and + h/o cataracts Ears: No recent change in hearing, No tinnitus or vertigo, No ear pain, and No ear discharge Nose: No h/o frequent colds or sinusitis, No nasal stuffiness, No h/o hay fever, and No significantepistaxis Throat/Oropharynx: No teeth or gum problems, No bleeding gums, No tongue complaints, No sore throat, and No recent change in voice or hoarseness Neck: No complaint of lumps in neck, No swollen glands, No recent swelling in thyroid area, and No significant pain in neck Respiratory: No cough, sputum, or hemoptysis, No wheezing, No shortness of breath, and No recent change in breathing Cardiac: No chest pain, No shortness of breath, No dyspnea on exertion, No orthopnea, No paroxysmalnocturnal dyspnea, No edema, No palpitations, and No syncope Gastrointestinal: No dysphagia, No significant heartburn, No significant change in appetite, No nausea, vomiting, diarrhea, or constipation, No hematemesis, No blood in stools or black tarry stools, No abdominal bloating or early satiety, and No abdominal pain Urinary: No urinary frequency, No dysuria, No hematuria, No urinary urgency, No polyuria, No nocturia, No incontinence, No hesitancy, and No sensation of incomplete voiding Hematologic: No anemia, No easy bruising or abnormal bleeding, and No history of transfusion Neurologic: No fainting or blackouts, No seizures, No paralysis or focal weakness, No numbness or tingling, No tremors, and No significant problems with memory Skin: No edema, No rash, and No itching Objective: BP 136/64 | Pulse 64 | Temp 35.8 C (96.4 F) (Tympanic) | Ht 1.822 m (5' 11.73") | Wt 82.1 kg (181 lb 1.3 oz) | SpO2 100% | BMI 24.74 kg/m | BSA 2.04 m Physical Exam: General: alert, healthy, no distress, well nourished, well developed, comfortable, and cooperative Head: Normocephalic, No masses, lesions, tenderness or abnormalities Eye Exam: PERRLA, extraocular movements intact, conjunctiva are pink and non- injected, sclera clear Ears: External ears normal, Canals clear, TM's Normal Nose: no mucosal erythema, no mucosal edema, no purulent discharge Oropharynx: no exudate, no erythema, lips, buccal mucosa, and tongue normal, and mucous membranes are moist Neck: supple, no adenopathy, no bruits, thyroid normal size, non-tender, without nodularity Heart: regular rate & rhythm, no murmur, and no gallops Lungs: chest symmetric with normal AP diameter, no chest deformities noted, normal respiratory rateand rhythm, no chest wall tenderness, diaphragmatic excursion normal, lungs clear to auscultation Abdomen: abdomen soft, non-tender, normal bowel sounds, no masses or organomegaly, no rebound or guarding, no CVA tenderness, and no bladder distention identified Back: back symmetric, no curvature, no costovertebral angle tenderness, no skin lesions, erythema or scars, no tenderness to percussion or palpation Extremities: less than 2 second capillary refill, no joint deformities, effusion, or inflammation, no edema, no skin discoloration, no clubbing, no cyanosis Neuro Exam: alert & oriented x 3 with fluent speech, no focal motor/sensory deficits ASSESSMENT: Diagnosis for procedure: cataracts Preoperative Examination PLAN: Patient is medically cleared. Perioperative recommendations regarding medications and treatment include medications as directed. This assessment was forwarded to Dr Hawkins. Sarahi Jaimes PA-C documented in this encounter Nursing Notes * Vianey Estrada RN - 11/20/2023 3:02 PM EDT Patient awake and oriented x3. Denies pain. No drainage from eye noted. Tolerating PO fluids. Discharge instructions given and patient verbalizes understanding. Patient ambulated to private vehicle and discharged to home. * Vianey Estrada RN - 11/20/2023 2:30 PM EDT Patient transferred to pacu 2 status post right cataract removal and lens placement. No drainage noted. Patient awake. Denies pain and nausea. Respirations are even and unlabored on room air. Abdomensoft and non distended. Vital signs stable. documented in this encounter OR Notes * OR Surgeon - Umesh Hawkins DO - 11/20/2023 2:28 PM EDT [facility] [address] [place] [address] OPERATIVE REPORT Name: Lucien Pemberton Date: 11/20/2023 Time: 2:28 PM Service: Ophthalmology Date of Operation: 11/20/2023 Pre-op Diagnosis: Nuclear age related Cataract Right eye Post-op Diagnosis: Nuclear age related Cataract Right eye Surgeon: Umesh Hawkins DO Assistants: None Anesthesia: Monitored Local Anesthesia with Sedation Operation: Cataract extraction to the Right eye with implantation of posterior intraocular lens. Findings: None Estimated Blood Loss: minimal IV Intake:<100 ml Urine output: 0 ml Drains: 0 INDICATIONS AND PERTINENT HISTORY: The patient has a visually significant cataract of the Right eye. The proposed procedure was discussed in detail with the patient. All feasible options were reviewed with the appropriate indications and expected outcomes. Specimens and Disposition: None Complications: none Condition: Stable Description of Operation: The patient was identified with two identifiers and the procedure verified. Proper consent was verified. Antibiotic and dilating drops were instilled in the right eye pre-operatively in the Pre-operative holding area. Fifteen minutes prior to transfer to the Operating Room, topical proparacaine drops and topical 2% lidocaine jelly were placed over the right eye. The patient was then taken back tothe Operating Room. Ophthalmic Betadine 5% was placed in the superior and inferior cul-de-sacs of the right eye. The right eye was then prepped with 10% povidone-iodine and draped in the usual sterile fashion. After the lid speculum was inserted, a paracentesis incision was made at the 11 o'clock position with a sharp blade. MPF lidocaine was instilled. The anterior chamber was then refilled withViscoat. The main wound was then created at 9' using the 2.4mm phacokeratome blade. A continuous curvilinear capsulorrhexis was then performed initially with a cystotome, then completed with Utrada forceps. Hydrodissection and hydrodelineation were achieved with balanced salt solution through a 27G cannula. The phacoemulsification handpiece was utilized to remove the lens nucleus with a [id number] technique. Residual cortical material was removed with the irrigating and aspirating device. The capsular bag was re- formed with viscoelastic. An MX60E 21.50 diopters in power (selected after review and interpretation of IOL measurements), acrylic foldable lens was placed into the capsularbag uneventfully and rotated into position with a Sinskey hook. It was noted to be in a central andstable position. The residual viscoelastic was irrigated and aspirated from the anterior chamber. Stromal hydration was applied to the wound. The anterior chamber was re-formed with balanced salt solution. The wounds were checked with Weck-cels and found to be watertight. The lid speculum was then removed. Brimonidine, prednisolone acetate, ocuflox drops and erythromycin oph ointment were instilled in the eye. The patient tolerated the procedure well. There were no complications I performed the procedure Umesh Hawkins DO 11/20/2023 2:28 PM documented in this encounter Plan of Treatment Upcoming Encounters Date Type Department Care Team (Late st Contact Info) Description 11/21/2023 8:30 AM EDT Office Visit Ophthalmology, [address] [place] [address] Umesh Hawkins DO [address] [place] [address] 11/28/2023 2:00 PM EDT Office Visit Ophthalmology, [facility] [address] [facility] [place] [address] Umesh Hawkins DO [address] [place] [address] 12/04/2023 8:15 AM EDT Cardiac Studies Cardiac Studies, [address] [place] [address] 12/19/2023 2:15 PM EDT Office Visit Ophthalmology, [facility] [address] [place] [address] Umesh Hawkins, DO [address] [place] [address] 03/11/2024 11:15 AM EDT Hospital Encounter ENDO [facility], Endoscopy Room [facility] [address] [place] [phone] Rajinder Castillo MD [address] [place] [address] 03/11/2024 11:15 AM EDT - 03/11/2024 11:45 AM EDT Surgery ENDO [facility], Endoscopy Room [facility] [address] [place] [phone] Rajinder Castillo MD [address] [place] [address] COLONOSCOPY FLEXIBLE PROXIMAL DIAGNOSTIC Scheduled Procedures Name [...] this encounter Medical Devices Implanted Type Area Disintegrator Feeder Device Identifier Shelf Expiration Date Model / Serial / Lot Lens [id number] 12.5mm+19.50 - [id number] - [id number] Implanted:Qty: 1 on 11/06/2023 by Umesh Hawkins DO at OR [facility] Left: Eye BAUSCH [employer] LOMB 05/30/2026 [id number] / [id number] / [id number] Envista Hydrophobic Acrylic Intraocular Lens Implanted:Qty: 1 on 11/20/2023 by Umesh Hawkins DO at OR [facility] Right: Eye BAUSCH & LOMB 06/30/2026 [id number] / [id number] / [id number] documented as of this encounter Visit Diagnoses Diagnosis Age-related nuclear cataract of right eye- Primary Senile nuclear sclerosis History of colon polyps Personal history of colonic polyps documented in this encounter Administered Medications Inactive Administered Medications - up to 3 most recent administrations Medication Order MAR Action Action Date Dose Rate Site Diclofenac Sodium (Voltaren) 0.1 % ophthalmic solution 1 Drop 1 Drop, Right eye, Q5 MINUTES, First dose on Sat11/20/23 at 1315, Last dose on Sat11/20/23 at 1325, For 3 doses, PRE-OP: One drop to right eye every 5 minutes for 3 doses, Pre-Op Given 11/20/2023 12:55 PM EDT 1 Drop Given 11/20/2023 12:50 PM EDT 1 Drop Given 11/20/2023 12:45 PM EDT 1 Drop isolyte-S pH 7.4 infusion Intravenous, at 10 mL/hr, Plasma-LYTE 148, isolyte-S, and isolyte-S pH 7.4 are considered equivalent - including for MAR barcode scanning., CONTINUOUS, Starting on Sat11/20/23 at 1315, Until Sat11/20/23 at 1913, Pre-Op Continue from Pre-Op 11/20/2023 1:54 PM EDT 10 mL/hr New Bag 11/20/2023 12:55 PM EDT 10 mL/hr Lidocaine urethral/mucosal 2 % gel 2 mL Topical, ONCE, 1 dose, On Sat11/20/23 at 1315, 15 minutes prior to scheduled surgery time, apply 2 ml to superior and inferior fornices right eye & tape eyes shut., Pre-Op Given 11/20/2023 12:56 PM EDT 2 mL Eye Right moxifloxacin (Vigamox) 0.5 % ophthalmic solution 1 Drop 1 Drop, Right eye, Q5 MINUTES, First dose on Sat11/20/23 at 1315, Last dose on Sat11/20/23 at 1325, For 3 doses, PRE-OP: One drop to right eye every 5 minutes for 3 doses, Pre-Op Given 11/20/2023 12:55 PM EDT 1 Drop Given 11/20/2023 12:50 PM EDT 1 Drop Given 11/20/2023 12:45 PM EDT 1 Drop prednisoLONE Acetate (Pred Forte) 1 % ophthalmic suspension 1 Drop 1 Drop, Right eye, Q5 MINUTES, First dose on Sat11/20/23 at 1315, Last dose on Sat11/20/23 at 1325, For 3 doses, PRE-OP: One drop to right eye every 5 minutes for 3 doses., Pre-Op Given 11/20/2023 12:55 PM EDT 1 Drop Given 11/20/2023 12:50 PM EDT 1 Drop Given 11/20/2023 12:45 PM EDT 1 Drop proparacaine (Alcaine) 0.5 % ophthalmic solution 1 Drop 1 Drop, Right eye, ONCE, On Sat11/20/23 at 1315, For 1 dose, PRE-OP: 15 minutes prior to scheduled surgery time for 1 dose, Pre-Op Given 11/20/2023 12:4 5 PM EDT 1 Drop tropicamide 1%-cyclopentolate 1%-phenylephrine 2.5% ophthalmic solution 1 Drop 1 Drop, Right eye, Q5 MINUTES, First dose on Sat11/20/23 at 1315, Last dose on Sat11/20/23 at 1325, For 3 doses Given 11/20/2023 12:55 PM EDT 1 Drop Given 11/20/2023 12:50 PM EDT 1 Drop Given 11/20/2023 12:45 PM EDT 1 Drop documented in this encounter Active and Recently Administered Medications Times are shown in EDT. Scheduled Medication Order 11/18/2023 11/19/2023 11/20/2023 Diclofenac Sodium (Voltaren) 0.1 % ophthalmic solution 1 Drop (COMPLETED) 1 Drop, Right eye, Q5 MINUTES, First dose on Sat11/20/23 at 1315, Last dose on Sat11/20/23 at 1325, For 3 doses, PRE-OP: One drop to right eye every 5 minutes for 3 doses, Pre-Op 1245 (Given - Provid er: Rylie Sánchez RN)1250 (Given - Provider: Rylie Sánchez RN)1255 (Given - Provider: Rylie Sánchez RN) Lidocaine urethral/mucosal 2 % gel 2 mL (COMPLETED) Topical, ONCE, 1 dose, On Sat11/20/23 at 1315, 15 minutes prior to scheduled surgery time, apply 2 ml to superior and inferior fornices right eye & tape eyes shut., Pre-Op 1256 (Given - Provid er: Rylie Sánchez RN) moxifloxacin (Vigamox) 0.5 % ophthalmic solution 1 Drop (COMPLETED) 1 Drop, Right eye, Q5 MINUTES, First dose on Sat11/20/23 at 1315, Last dose on Sat11/20/23 at 1325, For 3 doses, PRE-OP: One drop to right eye every 5 minutes for 3 doses, Pre-Op 1245 (Given - Provid er: Rylie Sánchez RN)1250 (Given - Provider: Rylie Sánchez RN)1255 (Given - Provider: Rylie Sánchez RN) prednisoLONE Acetate (Pred Forte) 1 % ophthalmic suspension 1 Drop (COMPLETED) 1 Drop, Right eye, Q5 MINUTES, First dose on Sat11/20/23 at 1315, Last dose on Sat11/20/23 at 1325, For 3 doses, PRE-OP: One drop to right eye every 5 minutes for 3 doses., Pre-Op 1245 (Given - Provid er: Rylie Sánchez RN)1250 (Given - Provider: Rylie Sánchez RN)1255 (Given - Provider: Rylie Sánchez RN) proparacaine (Alcaine) 0.5 % ophthalmic solution 1 Drop (COMPLETED) 1 Drop, Right eye, ONCE, On Sat11/20/23 at 1315, For 1 dose, PRE-OP: 15 minutes prior to scheduled surgery time for 1 dose, Pre-Op 1245 (Given - Provid er: Rylie Sánchez RN) tropicamide 1%-cyclopentolate 1%-phenylephrine 2.5% ophthalmic solution 1 Drop (COMPLETED) 1 Drop, Right eye, Q5 MINUTES, First dose on Sat11/20/23 at 1315, Last dose on Sat11/20/23 at 1325, For 3 doses 1245 (Given - Provid er: Rylie Sánchez RN)1250 (Given - Provider: Rylie Sánchez RN)1255 (Given - Provider: Rylie Sánchez RN) Continuous Medication Order 11/18/2023 11/19/2023 11/20/2023 isolyte-S pH 7.4 infusion Intravenous, at 10 mL/hr, Plasma-LYTE 148, isolyte-S, and isolyte-S pH 7.4 are considered equivalent - including for MAR barcode scanning., CONTINUOUS, Starting on Sat11/20/23 at 1315, Until Sat11/20/23 at 1913, Pre-Op 1255 (New Bag - Prov ider: Rylie Sánchez RN)1354 (Continue from Pre-Op - Provider: Ronak Pelayo CRNA)1424 (Anes Intra-Op Fluid - Provider: Ronak Pelayo CRNA) PRN Medication Order 11/18/2023 11/19/2023 11/20/2023 briMONidine tartrate (Alphagan) 0.2 % ophthalmic solution (CANCELED) ONCE PRN INTRA PROCEDURE, Starting on Sat11/20/23 at 1412, Until Sat11/20/23 at 1424, Intra-Op 1412 (Given - Provid er: Umesh Hawkins DO) DUOVISC inj KIT (CANCELED) ONCE PRN INTRA PROCEDURE, Starting on Sat11/20/23 at 1412, Until Sat11/20/23 at 1424, Intra-Op 1412 (Given - Provid er: Umesh M Ensor, DO - Comment: qs) EPINEPHrine 0.5 mg in balanced salt solution 500 mL inj (CANCELED) ONCE PRN INTRA PROCEDURE, Starting on Sat11/20/23 at 1411, Until Sat11/20/23 at 1424, Intra-Op 1411 (Given - Provid er: Umesh Hawkins, DO - Comment: qs) Erythromycin ophthalmic ointment (CANCELED) ONCE PRN INTRA PROCEDURE, Starting on Sat11/20/23 at 1412, Until Sat11/20/23 at 1424, Intra-Op 1412 (Given - Provid er: Umesh Hawkins DO) hydroxypropyl methylcellulose (Ocucoat) 2 % intraocular inj (CANCELED) ONCE PRN INTRA PROCEDURE, Starting on Sat11/20/23 at 1412, Until Sat11/20/23 at 1424, Intra-Op 1412 (Given - Provid er: Umesh Hawkins, DO - Comment: qs) Lidocaine 1 % (PF) inj (CANCELED) ONCE PRN INTRA PROCEDURE, Starting on Sat11/20/23 at 1412, Until Sat11/20/23 at 1424, Intra-Op 1412 (Given - Provid er: Umesh Hawkins, DO - Comment: qs) moxifloxacin (Vigamox) 0.5 % ophthalmic solution (CANCELED) ONCE PRN INTRA PROCEDURE, Starting on Sat11/20/23 at 1413, Until Sat11/20/23 at 1424, Intra-Op 1413 (Given - Provid er: Umesh Hawkins DO) prednisoLONE Acetate (Pred Forte) 1 % ophthalmic suspension (CANCELED) ONCE PRN INTRA PROCEDURE, Starting on Sat11/20/23 at 1413, Until Sat11/20/23 at 1424, Intra-Op 1413 (Given - Provid er: Umesh Hawkins DO) Tetracaine (Pontocaine) 0.5 % ophthalmic solution (CANCELED) ONCE PRN INTRA PROCEDURE, Starting on Sat11/20/23 at 1413, Until Sat11/20/23 at 1424, Intra-Op 1413 (Given - Provid er: Umesh Hawkins, DO - Comment: qs) documented in this encounter Advance Directives Documents on File Type Date Recorded Patient Teacher Hearing Impaired Expl anation Advance Directives and Living Will 06/10/2020 10:26 AM ADVANCE DIRECTIVE HEALTH CARE POWER OF COCONUT BOILER & INSTRUCTIONS * Full Code (Latest Code [...] and were consensually agreed upon. Care Teams Sales Representative Gas Service Relationship Specialty Start Date End Date Arpit Antonio III, MD [address] [facility] [place] [address] PCP - General Family Medicine 05/06/17 documented as of this encounter
--- OUTSIDE RECORDS SUMMARY | 2024-01-13 01:35 | External Medical Summary | Summary of Care ---
Author Name Unknown Organization [facility] Address [address] [place] [facility] [place] [address] Phone [phone] Care Team Providers Care Supervisor Stave Cutting Name Role Phone Paco ODOM MD, Arpit Yan Primary Care Provider [phone] Reason for Visit * Reason Comments Post Op Cataract Surgery Encounter Details Date Type Department Care Team (Late st Contact Info) Description 11/14/2023 2:30 PM EDT Office Visit Ophthalmology, [facility] [address] [facility] [place] [address] Umesh Hawkins, DO [address] [facility] [place] [phone] After cataract not obscuring vision, left* Allergies Active Allergy Reactions Criticality Noted Date Comments Penicillins 01/21/2003 As a child Sulfa Antibiotics 01/21/2003 hives and difficulty breathing documented as of this encounter (statuses as of 11/14/2023) Medications Medication Sig Dispensed Refills Start Date [...] DAY 90 Tablet 48 02/09/2022 Active Creon [id number] UNIT Oral Capsule Delayed Release Particles (Pancrelipase (Fhb-[id number]))Ind ications:History of resection of pancreas,Cholangioc arcinoma (HCC) [...] as of this encounter (statuses as of 11/14/2023) Active Problems Problem Noted Date Diagnosed Date 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 Knee effusion, left 07/21/2016 Elevated glucose 01/04/2014 History of resection of pancreas 11/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 Dyslipidemia, goal LDL below 160 11/29/2009 ADVANCE DIRECTIVE INFORMATION 07/06/2009 Overview: Yes, Patient instructed to provide copy of advance directive for provider to review and to be scanned into Electronic Medical Record documented as of this encounter (statuses as of 11/14/2023) Resolved Problems Problem Noted Date Diagnosed Date [...] right inguinal hernia 02/02/2003 05/06/2017 Overview: [facility]: Conor Cortes MD 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 Advised of deputy controller coverage for after hours/weekend emergencies. RTC DOS [...] Team (Late st Contact Info) Description 11/20/2023 11:30 AM EDT Hospital Encounter OR [facility], Operating Room [facility] [address] [place] [phone] Umesh Hawkins DO [address] [place] [address] 11/20/2023 11:30 AM EDT - 11/20/2023 12:15 PM EDT Surgery OR [facility], Operating Room [facility] [address] [place] [phone] Umesh Hawkins DO [address] [place] [address] RIGHT EXTRACAPSULAR CATARACT REMOVAL WITH INTRAOCULAR LENS 11/21/2023 8:30 AM EDT Office Visit Ophthalmology, [facility] [address] [place] [address] Umesh Hawkins, DO [address] [place] [address] 11/28/2023 2:00 PM EDT Office Visit Ophthalmology, [facility] [address] [place] [address] Umesh Hawkins, DO [address] [place] [address] 12/04/2023 8:15 AM EDT Cardiac Studies Cardiac Studies, [facility] [address] [facility] [place] [address] 12/19/2023 2:15 PM EDT Office Visit Ophthalmology, [facility] [address] [facility] [place] [address] Umesh Hawkins, DO [address] [place] [address] 03/11/2024 11:15 AM EDT Hospital Encounter ENDO [facility], Endoscopy Room [facility] [address] [place] [phone] Rajinder Castillo MD [address] [place] [address] 03/11/2024 11:15 AM EDT - 03/11/2024 11:45 AM EDT Surgery ENDO [facility], Endoscopy Room [facility] [place] [phone] Rajinder Castillo MD [address] [place] [address] COLONOSCOPY FLEXIBLE PROXIMAL DIAGNOSTIC Scheduled Procedures Name Priority Associated Diagnoses Date/Ti me EXTRACAPSULAR CATARACT REMOVAL WITH INTRAOCULAR LENS Cataract 11/20/2023 11:30 AM EDT COLONOSCOPY FLEXIBLE PROXIMAL DIAGNOSTIC Recall History [...] encounter Medical Devices Implanted Type Area Software Quality Manager Device Identifier Shelf Expiration Date Model / Serial / Lot Lens [id number] 12.5mm+19.50 - [id number] - [id number] Implanted:Qty: 1 on 11/06/2023 by Umesh Hawkins DO at OR [facility] Left: Eye BAUSCH & LOMB 05/30/2026 [id number] / [id number] / [id number] documented as of this encounter Visit Diagnoses Diagnosis Age-related nuclear cataract of right eye- Primary Senile nuclear sclerosis After cataract not obscuring vision, left- Primary Cataract Unspecified cataract History of colon polyps Personal history of colonic polyps documented in this encounter Advance Directives Documents on File Type Date Recorded Patient Vba Developer Expl anation Advance Directives and Living Will 06/10/2020 10:26 AM ADVANCE DIRECTIVE HEALTH CARE POWER OF CAR BRACER & INSTRUCTIONS Latest Code Status on File [...] and were consensually agreed upon. Care Teams Supervisor Stave Cutting Relationship Specialty Start Date End Date Arpit Antonio III, MD [address] [place] [address] PCP - General Family Medicine 05/06/17 documented as of this encounter
--- OUTSIDE RECORDS SUMMARY | 2024-01-13 01:35 | External Medical Summary | Summary of Care ---
Author Name Unknown Organization [facility] Address [address] [place] [address] Phone [phone] Care Team Providers Care Safety Engineer Name Role Phone Paco ODOM MD, Arpit Yan Primary Care Provider [phone] Reason for Visit * Reason Comments Physical-Exam Patient would like a pre-op clearance for cataract surgery next Saturday. Encounter Details Date Type Department Care Team (Late st Contact Info) Description 10/30/2023 11:20 AM EDT Office Visit [facility] [place] [address] [facility] [place] [address] Sarahi Jaimes PA-C [address] [facility] [place] [address] Age-related cataract of both eyes, unspecified age-related cataract type*; Pre-op examination; HYPERLIPIDEMIA NEC/NOS(aka HYPERCHOLESTEROLEMIA) ; Gastroesophageal reflux disease without esophagitis; Cholangiocarcinoma (HCC) Allergies Active Allergy Reactions Criticality Noted Date Comments Penicillins 01/21/2003 As a child Sulfa Antibiotics 01/21/2003 hives and difficulty breathing documented as of this encounter (statuses as of 10/30/2023) Medications Medication Sig Dispensed Refills Start Date [...] DAY 90 Tablet 48 02/09/2022 Active Creon 85780-37926 UNIT Oral Capsule Delayed Release Particles (Pancrelipase (Xwf-Nvrj-Esee))Ind ications:History of resection of pancreas,Cholangioc arcinoma (HCC) [...] as of this encounter (statuses as of 10/30/2023) Active Problems Problem Noted Date Diagnosed Date 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 Knee effusion, left 07/21/2016 Elevated glucose 01/04/2014 History of resection of pancreas 11/23/2012 Dyslipidemia, goal LDL below 160 11/29/2009 ADVANCE DIRECTIVE INFORMATION 07/06/2009 Overview: Yes, Patient instructed to provide copy of advance directive for provider to review and to be scanned into Electronic Medical Record documented as of this encounter (statuses as of 10/30/2023) Resolved Problems Problem Noted Date Diagnosed Date [...] of right inguinal hernia 02/02/2003 05/06/2017 Overview: [facility]: Conor Cortes MD 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 Overview: ICD-10 update of inactive term documented as of this encounter (statuses as of 10/30/2023) Immunizations Name Administration Dates Next Due COVID-19 [...] file Travel History Travel Start Travel End [facility] 10/18/2023 10/28/2023 documented as of this encounter Last Filed Vital Signs Vital Sign Reading Time Taken Comments Blood Pressure 136/64 10/30/2023 11:42 AM EDT Pulse 64 10/30/2023 11:42 AM EDT Temperature 35.8 C (96.4 F) 10/30/2023 11:42 AM E DT Respiratory Rate - - Oxygen Saturation 100% 10/30/2023 11:42 AM EDT Inhaled Oxygen Concentration - - Weight 82.1 kg (181 lb 1.3 oz) 10/30/2023 11:42 AM EDT Height 182.2 cm (5' 11.73") 10/30/2023 11:42 AM EDT Body Mass Index 24.74 10/30/2023 11:42 AM EDT documented in this encounter Functional Status [...] as of this encounter Progress Notes * Sarahi Jaimes PA-C - 10/30/2023 11:59 AM EDT Subjective: Lucien Pemberton is a 78 year old male. Presents at the request of Dr Hawkins for medical clearance for cataract removal. PHM: Patient Active Problem List Diagnosis Code ADVANCE DIRECTIVE INFORMATION Dyslipidemia, goal LDL below 160 E78.5 History of resection of pancreas Z90.410 Elevated glucose R73.09 Knee effusion, left M25.462 Current Outpatient Medications Medication Sig Dispense Refill Ibuprofen-diphenhydrAMINE Cit 200-38 MG Oral Tablet Take 1 Tab by mouth at bedtime as needed. Hydrocortisone (Perianal) 2.5 % External Cream Administer into the rectum 2 times a day. 28 g 0 [facility] Vitamin B-12 1000 MCG Oral Tablet (vitamin b 12) TAKE 1 TABLET BY MOUTH EVERY DAY 90 Tablet 48 Creon 59749-80494 UNIT Oral Capsule Delayed Release Particles (Pancrelipase (Rhu-Tdwi-Pytl)) TAKE 1CAPSULE IN THE MORNING, 1 CAP [...] facility-administered medications for this visit. Past Medical History: Diagnosis Date Benign neoplasm [...] 12/14/2011 colonoscopy done, repeat 11/2016 Past Surgical History: Procedure Laterality Date BIOPSY [...] performed by Marie Jarquin MD at [place] [facility] COLONOSCOPY, DIAGNOSTIC (RECTUM) 12/17/2011 COLONOSCOPY FLEXIBLE PROXIMAL DIAGNOSTIC performed by Leora Jay MD at [facility] COLONOSCOPY, DIAGNOSTIC (RECTUM) 06/02/2018 adenomatous polyps, diverticulosis, poor prep, repeat 1 yr/COLONOSCOPY FLEXIBLE PROXIMAL DIAGNOSTICperformed by Nilson Dick MD at ENDOSCOPY [facility] COLONOSCOPY, DIAGNOSTIC (RECTUM) 06/10/2020 adenomatous polyps, repeat 3 yrs / COLONOSCOPY FLEXIBLE PROXIMAL DIAGNOSTIC performed by Rajinder Castillo MD at ENDOSCOPY [facility] EGD, W/ENDOSCOPIC US 12/12/2011 UPPER GI ENDOSCOPY ENDOSCOPIC ULTRASOUND performed by Thierry Hsieh MD at [facility] EGD, W/ENDOSCOPIC US N/A 05/17/2020 ESOPHAGOGASTRODUODENOSCOPY (EGD), FLEXIBLE, TRANSORAL, ENDOSCOPIC ULTRASOUND performed by Rajinder Castillo MD at ENDOSCOPY [facility] ERCP 04/07/2020 luminal narrowing, stent placed, repeat 6 wks/ [facility] ERCP, DIAGNOSTIC, SPECIMEN COLLECTION N/A 05/17/2020 ENDOSCOPIC RETROGRADE CHOLANGIOPANCREATOGRAPHY (ERCP) DIAGNOSTIC performed by Rajinder Castillo MDa [facility]OSCOPY [facility] ERCP, DIAGNOSTIC, SPECIMEN COLLECTION N/A 08/25/2020 ENDOSCOPIC RETROGRADE CHOLANGIOPANCREATOGRAPHY (ERCP) DIAGNOSTIC performed by Alirio Purvis MD at [facility]OSCOPY [facility] KNEE ARTHROSCOPY, DIAGNOSTIC 2000 Knee Scope,Diagnostic, [place], [place] no treatment REMOVE PANCREAS, PARTIAL (WHIPPLE) 12/20/2011 PANCREATECTOMY PROXIMAL WITH SUBTOTAL DUODENECTOMY performed by Lio Johnson MD at [place] [facility] REMOVE TONSILS & ADENOIDS, UNDER 12 REPAIR INITIAL INGUINAL HERNIA REDUCIBLE AGE 5 OR MORE Right 06/04/2008 Repair right direct and indirect inguinal hernia with mesh reinforcement 06/04/[address] [place] [facility] [place] Review of patient's allergies indicates: Allergen Reactions Penicillins As a child Sulfa Antibiotics hives and difficulty breathing Family History Problem Relation Age of Onset No Past Hx Father age 93 Heart Disorder Mother age 83 after CABG Family Status Relation Status Mo at age 80 [place], CABG, never recovered Fa at age 94 old age Bro Alive Sis Alive MGMA MGFA PGMA PGFA David Alive colon cancer at age 36 Son Alive Son Alive Social History Tobacco Use Smoking status: Former Current packs/day: 0.00 Average packs/day: 1 pack/day for 10.0 years (10.0 ttl pk-yrs) Types: Cigarettes Start date: 02/03/1964 Quit date: 02/02/1974 Years since quittin.7 Smokeless tobacco: Never Substance Use Topics Alcohol use: Yes Alcohol/week: 6.7 standard drinks of alcohol Types: 8 5 oz of wine per week Comment: occassional Vaping/E-Cigarette Use Vaping/E-Cigarette Use Never User Vaping/E-Cigarette Substances Vaping/E-Cigarette Devices Review of Systems: General: No [...] documented in this encounter Nursing Notes * Lisa Vallejo, MED ASSIST - 10/30/2023 11:42 AM EDT Chief Complaint Patient presents with Physical-Exam Patient would like a pre-op clearance for cataract surgery next Saturday. Patient has been verbally educated on the need or importance of Immunizations: Tdap and has declined topic(s). documented in this encounter Plan of Treatment Upcoming Encounters Date Type Department Care Team (Late st Contact Info) Description 11/06/2023 11:30 AM EDT Hospital Encounter OR [facility], Operating Room [facility] [address] [facility] [place] [phone] Umesh Hawkins, DO [address] [place] [address] 11/06/2023 11:30 AM EDT - 11/06/2023 12:15 PM EDT Surgery OR [facility], Operating Room [facility] [address] [facility] [place] [phone] Umesh Hawkins, DO [address] [place] [address] LEFT EXTRACAPSULAR CATARACT REMOVAL WITH INTRAOCULAR LENS 11/07/2023 8:15 AM EDT Office Visit Ophthalmology, [facility] [address] [facility] [place] [address] Umesh Hawkins, DO [address] [place] [address] 11/11/2023 7:50 AM EDT Office Visit Ophthalmology, [facility] [address] [facility] [place] [address] Karlos Jay, DO [address] [place] [address] 11/14/2023 2:30 PM EDT Office Visit Ophthalmology, [facility] [address] [facility] [place] [address] Umesh Hawkins, DO [address] [place] [address] 11/20/2023 12:17 PM EDT Hospital Encounter OR [facility], Operating Room [facility] [address] [place] [phone] Umesh Hawkins, DO [address] [place] [address] 11/20/2023 12:17 PM EDT - 11/20/2023 1:02 PM EDT Surgery OR [facility], Operating Room [facility] [address] [facility] [place] [address] Umesh Hawkins, DO [address] [place] [address] RIGHT EXTRACAPSULAR CATARACT REMOVAL WITH INTRAOCULAR LENS 11/21/2023 8:30 AM EDT Office Visit Ophthalmology, [facility] [address] [facility] [place] [address] Umesh Hawkins, DO [address] [place] [address] 11/28/2023 2:00 PM EDT Office Visit Ophthalmology, [facility] [address] [facility] [place] [address] Umesh Hawkins, DO [address] [place] [address] 12/04/2023 8:15 AM EDT Cardiac Studies Cardiac Studies, [facility] [address] [facility] [place] [address] 12/19/2023 2:15 PM EDT Office Visit Ophthalmology, [facility] [address] [facility] [place] [address] Umesh Hawkins, DO [address] [place] [address] 03/11/2024 11:15 AM EDT Hospital Encounter ENDO [facility], Endoscopy Room [facility] [address] [place] [phone] Rajinder Castillo MD [address] [place] [address] 03/11/2024 11:15 AM EDT - 03/11/2024 11:45 AM EDT Surgery ENDO [facility], Endoscopy Room [facility] [address] [place] [phone] Rajinder Castillo MD [address] [place] [address] COLONOSCOPY FLEXIBLE PROXIMAL DIAGNOSTIC Scheduled Procedures Name Priority Associated Diagnoses Date/Ti me EXTRACAPSULAR CATARACT REMOVAL WITH INTRAOCULAR LENS Cataract 11/06/2023 11:30 AM EDT EXTRACAPSULAR CATARACT REMOVAL WITH INTRAOCULAR LENS [...] as of this encounter Visit Diagnoses Diagnosis 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 Other and combined forms of senile cataract Age-related cataract of both eyes, unspecified age-related cataract type- Primary Pre-op examination Preoperative examination, unspecified HYPERLIPIDEMIA NEC/NOS(aka HYPERCHOLESTEROLEMIA) Other and unspecified hyperlipidemia Gastroesophageal reflux disease without esophagitis Esophageal reflux 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 Care Teams Safety Engineer Relationship Specialty Start Date End Date Arpit Antonio III, MD [address] [place] [address] PCP - General Family Medicine 05/06/17 documented as of this encounter
--- OUTSIDE RECORDS SUMMARY | 2024-01-13 01:35 | External Medical Summary | Summary of Care ---
Author Name Unknown Organization [facility] Address [address] [place] [facility] [place] [address] Phone [phone] Care Team Providers Care Ironing Pleater Name Role Phone Paco ODOM MD, Arpit Yan Primary Care Provider [phone] Reason for Visit * Reason Comments Post Op Cataract Surgery Encounter Details Date Type Department Care Team (Late st Contact Info) Description 11/07/2023 8:15 AM EDT Office Visit Ophthalmology, [facility] [address] [facility] [place] [address] Umesh Hawkins, DO [address] [facility] [place] [phone] After cataract not obscuring vision, left* Allergies Active Allergy Reactions Criticality Noted Date Comments Penicillins 01/21/2003 As a child Sulfa Antibiotics 01/21/2003 hives and difficulty breathing documented as of this encounter (statuses as of 11/07/2023) Medications Medication Sig Dispensed Refills Start Date [...] DAY 90 Tablet 48 02/09/2022 Active Creon 10540-63333 UNIT Oral Capsule Delayed Release Particles (Pancrelipase (Ywh-Ovev-Ksqu))Ind ications:History of resection of pancreas,Cholangioc arcinoma (HCC) [...] as of this encounter (statuses as of 11/07/2023) Active Problems Problem Noted Date Diagnosed Date 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 Knee effusion, left 07/21/2016 Elevated glucose 01/04/2014 History of resection of pancreas 11/23/2012 Dyslipidemia, goal LDL below 160 11/29/2009 ADVANCE DIRECTIVE INFORMATION 07/06/2009 Overview: Yes, Patient instructed to provide copy of advance directive for provider to review and to be scanned into Electronic Medical Record documented as of this encounter (statuses as of 11/07/2023) Resolved Problems Problem Noted Date Diagnosed Date [...] of right inguinal hernia 02/02/2003 05/06/2017 Overview: [facility]: Conor Cortes MD 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 Overview: ICD-10 update of inactive term documented as of this encounter (statuses as of 11/07/2023) Immunizations Name Administration Dates Next Due COVID-19 [...] Progress Notes * Umesh Hawkins DO - 11/07/2023 8:15 AM EDT 11/07/2023 [facility] Ophthalmology Post-operative Clinic Note HPI: Lucien Pemberton is a 78 year old pt who presents to the eye clinic today for 1 day post-op CE PCIOL OS (Ensor TCC Post LASIK [email or web address] IOL calculation MX60E 19.50 11/06/2023) Past Ocular History: BCC left eye s/p quiroz flap Multiple eyelids lesions s/p biopsy - Actinic keratotis and Bal keratosis Hx of LASIK OU ([facility], 2000, [place]) NEIL Pterygium Eye Medications, routine: Refresh BID OU VAsc: 20/50 PH 20/20 IOP: 14 mmHg LL: Normal Conjunctiva: Normal Cornea: CCI and paracentesis amadou negative, LASIK flap, MCE CCI, PEK AC: 2+ c/f Iris: residual dilation Lens: PCIOL centered A/P: 1 day post op CE PCIOL OS (Ensor TCC Post LASIK [email or web address] IOL calculation MX60E 19.50 11/06/2023) Doing well today Amadou negative wounds Normal IOP Expected post operative inflammation is seen Reviewed eye drops: Vigamox QID Prednisolone QID Reviewed activity restrictions - no bending or lifting, no strenuous activity. Wear eye shield at bedtime. Call with flashes, floaters, dec vision eye pain. Advised of gas substation operator coverage for after hours/weekend emergencies. RTC 1 week or sooner prn. Umesh Hawkins DO 11/07/23 documented in this encounter Nursing Notes * Leeann Meier COA - 11/07/2023 8:35 AM EDT Lucien Pemberton presents for p/o check. Post operative day 1 procedure: ECCE w/IOL insertion Operative eye: LEFT EYE Patient denies complaints Dressing removed, negative amount of drainage. Eye cleansed with normal saline solution. Instructions regarding wearing of eye shield reinforced. No drops used, eye was patched. Pred Forte and Ofloxacin 1gtt 4 times daily in surgical eye Did you wear eye shield to bed, slept on unaffected side and avoid bending over and heavy lifting? Yes Va will be found in the ophth exam documented in this encounter Plan of Treatment Upcoming Encounters Date Type Department Care Team (Late st Contact Info) Description 11/14/2023 2:30 PM EDT Office Visit Ophthalmology, [facility] [address] [place] [address] Umesh Hawkins DO [place] [address] 11/20/2023 12:17 PM EDT Hospital Encounter OR [facility], Operating Room [facility] [address] [place] [phone] Umesh Hawkins DO [address] [place] [address] 11/20/2023 12:17 PM EDT - 11/20/2023 1:02 PM EDT Surgery OR [facility], Operating Room [facility] [address] [place] [phone] Umesh Hawkins, DO [address] [place] [address] RIGHT EXTRACAPSULAR CATARACT REMOVAL WITH INTRAOCULAR LENS 11/21/2023 8:30 AM EDT Office Visit Ophthalmology, [facility] [address] [facility] [place] [address] Umesh Hawkins, DO [address] [place] [address] 11/28/2023 2:00 PM EDT Office Visit Ophthalmology, [facility] [address] [facility] [place] [address] Umesh Hawkins, DO [address] [place] [address] 12/04/2023 8:15 AM EDT Cardiac Studies Cardiac Studies, [facility] [address] [facility] [place] [address] 12/19/2023 2:15 PM EDT Office Visit Ophthalmology, [facility] [address] [facility] [place] [address] Umesh Hawkins, DO [address] [place] [address] 03/11/2024 11:15 AM EDT Hospital Encounter ENDO [facility], Endoscopy Room [facility] [address] [place] [phone] Rajinder Castillo MD [address] [place] [address] 03/11/2024 11:15 AM EDT - 03/11/2024 11:45 AM EDT Surgery ENDO [facility], Endoscopy Room [facility] [address] [place] [phone] Rajinder Castillo MD [address] [place] [address] COLONOSCOPY FLEXIBLE PROXIMAL DIAGNOSTIC Scheduled Procedures Name [...] this encounter Medical Devices Implanted Type Area Dyehouse Worker Device Identifier Shelf Expiration Date Model / Serial / Lot Lens [id number] 12.5mm+19.50 - [id number] - [id number] Implanted:Qty: 1 on 11/06/2023 by Umesh Hawkins DO at OR [facility] Left: Eye BAUSCH & LOMB 05/30/2026 [id number] / [id number] / [id number] documented as of this encounter Visit Diagnoses Diagnosis After cataract not obscuring vision, left- Primary Cataract Unspecified cataract History of colon polyps Personal history of colonic polyps documented in this encounter Advance Directives Documents on File Type Date Recorded Patient Jig Box Operator Expl anation Advance Directives and Living Will 06/10/2020 10:26 AM ADVANCE DIRECTIVE HEALTH CARE POWER OF SENIOR SQL DBA & INSTRUCTIONS Latest Code Status on File [...] and were consensually agreed upon. Care Teams Ironing Pleater Relationship Specialty Start Date End Date Arpit Antonio III, MD [address] [facility] [place] [address] PCP - General Family Medicine 05/06/17 documented as of this encounter
--- OUTSIDE RECORDS SUMMARY | 2024-01-13 01:35 | External Medical Summary | Summary of Care ---
Author Name Unknown Organization [facility] Address [address] [place] [facility] [place] [address] Phone [phone] Care Team Providers Care Production Dispatcher Name Role Phone Paco ODOM MD, Arpit Yan Primary Care Provider [phone] Reason for Visit * Auth/Cert Specialty Diagnoses / Procedures Referred By Refugio moreno Referred To Contact Diagnoses Cataract Cataract [H26.9] Procedures REMOVE CATARACT, INSERT LENS PROSTH LEFT EXTRACAPSULAR CATARACT REMOVAL WITH INTRAOCULAR LENS Umesh Hawkins DO [address] [address] Or [facility] [address] [place] [address] Referral ID Status Reason Start Date Expiration Date Visits Re quested Visits Authorized [id number] Encounter Details Date Type Department Care Team (Late st Contact Info) Description 11/06/2023 12:09 PM EDT - 11/06/2023 2:27 PM EDT Hospital Encounter OR [facility], Operating Room [facility] [address] [place] [phone] Umesh Hawkins DO [address] [address] Discharge Disposition: Home - Self Care Allergies [...] DAY 90 Tablet 48 02/09/2022 Active Creon [id number] UNIT Oral Capsule Delayed Release Particles (Pancrelipase ([id number]))Ind ications:History of resection of pancreas,Cholangioc arcinoma (HCC) [...] of right inguinal hernia 02/02/2003 05/06/2017 Overview: [facility]: Conor Cortes MD Malignant neoplasm of [...] Sign Reading Time Taken Comments Blood Pressure 119/64 11/06/2023 2:17 PM EDT Pulse 70 11/06/2023 2:17 PM EDT Temperature 36.1 C (96.9 F) 11/06/2023 2:02 PM ED T Respiratory Rate 16 11/06/2023 2:17 PM EDT Oxygen Saturation 98% 11/06/2023 2:17 PM EDT Inhaled Oxygen Concentration - - Weight 84.8 kg (187 lb) 11/06/2023 12:25 PM EDT Height 185.4 cm (6' 1") 10/29/2023 1:58 PM EDT Body Mass Index 25.55 10/30/2023 11:42 AM EDT documented in this [...] Instructions * Discharge Instr - AVS* Umesh Hawkins DO - 11/06/2023 2:00 PM EDT Discharge Date: 11/06/23 Check your Patient Education Brochure for further information. If you have any further questions orconcerns after discharge and before 4:00 p.m. please contact your surgeons (Dr. Umesh Hawkins) office at [phone]. This is the [place] office and during the day it will give you an opportunity to talk to our ophthalmology unit secretary. After 4:00 p.m. or on the weekend, call the [facility] at ([phone]) and ask for the plate fitter extrusion die repairer. Please let the plate fitter extrusion die repairer know you had surgery with Dr. Hawkins [...] when arrive home Moxifloxacin: One Drop to left eye 4 times per day Prednisolone acetate (shake well): One Drop to left eye 4 times per day Erythromycin ophthalmic ointment - Instill at bedtime or as needed for pain/discomfort left eye Please use the Moxifloxacin drop first [...] tomorrow, at the Eye clinic in the [facility] on the second floor. Please show up at your scheduled appointment time. B. Please Bring the blue bag with both eyedrops with you to post-op visit tomorrow. documented in this encounter Progress Notes * Umesh Hawkins DO - 11/06/2023 2:00 PM EDT [facility] [address] SURGERY [facility] [address] [address] OUTPATIENT SURGERY DISCHARGE SUMMARY NOTE Name: Lucien Pemberton Location: OR [facility]/OR Date: 11/06/2023 Time: 2:00 PM Surgery Date: 11/06/2023 Procedure: LEFT EXTRACAPSULAR CATARACT REMOVAL WITH INTRAOCULAR LENS Left Surgeon: Umesh Hawkins DO Discharge Diagnosis: same After examination of this patient, I have determined he is ready for discharge to home when the patient meets criteria. Discharge instructions were given to the patient. documented in this encounter H&P Notes * Umesh Hawkins DO - 11/06/2023 1:18 PM EDT HISTORY & PHYSICAL INTERVAL NOTE [facility] ENDOSCOPY [address] [address] History and Physical Update: Name: Lucien Pemberton Location: OR [facility]/OR Date: 11/06/2023 Time: 1:18 PM DATE OF HISTORY AND PHYSICAL: 10/30/23 BP: 138 mmHg/63 mmHg (11/06/23 1225) Pulse: 72 (11/06/23 1225) Temp: 37.11 C (11/06/23 1225) Temp Summary: Temp Min: 37.1 C (98.8 F) Max: 37.1 C (98.8 F) SpO2: 100 % (11/06/23 1225) O2 flow rate: Supplemental O2 Delivery: Room Air, None (11/06/23 122) Heart Exam: regular rate and rhythm Lung Exam: clear to auscultation bilaterally Other Pertinent Physical Exam: No eye changes I have reviewed the H&P previously performed and examined the patient today. There are no new findings noted. * Umesh Hawkins DO - 10/31/2023 6:21 AM EDT Images from the original note were not included. See PCP clearance. Sarahi Jaimes PA-C Family Medicine Age-related cataract of both eyes, unspecified age-related cataract type +4 more Dx Physical-Exam ; Referred by Umesh Hawkins DO Reason for Visit Progress Notes Sarahi Jaimes PA-C (Physician Product Safety Professional - Certified) Family Medicine Expand All Collapse [...] MOUTH EVERY DAY 90 Tablet 48 Creon [id number] UNIT Oral Capsule Delayed Release Particles (Pancrelipase ([id number]-[id number])) TAKE 1CAPSULE IN THE MORNING, 1 CAP [...] performed by Marie Jarquin MD at ENDOSCOPY [facility] COLONOSCOPY, DIAGNOSTIC (RECTUM) 12/17/2011 COLONOSCOPY FLEXIBLE PROXIMAL DIAGNOSTIC performed by Leora Jay MD at ENDOSCOPY [facility] COLONOSCOPY, DIAGNOSTIC (RECTUM) 06/02/2018 adenomatous polyps, diverticulosis, poor prep, repeat 1 yr/COLONOSCOPY FLEXIBLE PROXIMAL DIAGNOSTICperformed by Nilson Dick MD at ENDOSCOPY [facility] COLONOSCOPY, DIAGNOSTIC (RECTUM) 06/10/2020 adenomatous polyps, repeat 3 yrs / COLONOSCOPY FLEXIBLE PROXIMAL DIAGNOSTIC performed by Rajinder Castillo MD at ENDOSCOPY [facility] EGD, W/ENDOSCOPIC US 12/12/2011 UPPER GI ENDOSCOPY ENDOSCOPIC ULTRASOUND performed by Thierry Hsieh MD at ENDOSCOPY [facility] EGD, W/ENDOSCOPIC US N/A 05/17/2020 ESOPHAGOGASTRODUODENOSCOPY (EGD), FLEXIBLE, TRANSORAL, ENDOSCOPIC ULTRASOUND performed by Rajinder Castillo MD at ENDOSCOPY [facility] ERCP 04/07/2020 luminal narrowing, stent placed, repeat 6 wks/ [facility] ERCP, DIAGNOSTIC, SPECIMEN COLLECTION N/A 05/17/2020 ENDOSCOPIC RETROGRADE CHOLANGIOPANCREATOGRAPHY (ERCP) DIAGNOSTIC performed by Rajinder Castillo MDa ENDOSCOPY [facility] ERCP, DIAGNOSTIC, SPECIMEN COLLECTION N/A 08/25/2020 ENDOSCOPIC RETROGRADE CHOLANGIOPANCREATOGRAPHY (ERCP) DIAGNOSTIC performed by Alirio Purvis MD at ENDOSCOPY [facility] KNEE ARTHROSCOPY, DIAGNOSTIC [address],Diagnostic, [place], [place] no treatment REMOVE PANCREAS, PARTIAL (WHIPPLE) 12/20/2011 PANCREATECTOMY PROXIMAL WITH SUBTOTAL DUODENECTOMY performed by Lio Johnson MD at OR [facility] REMOVE TONSILS & ADENOIDS, UNDER 12 REPAIR INITIAL INGUINAL HERNIA REDUCIBLE AGE 5 OR MORE Right 06/04/2008 Repair right direct and indirect inguinal hernia with mesh reinforcement 06/04/[address] Cortes at [facility] VASECTOMY 2006 Allergies Review of patient's allergies indicates: Allergen Reactions Penicillins As a child Sulfa Antibiotics hives and difficulty breathing Family History Problem Relation Age of Onset No Past Hx Father age 93 Heart Disorder Mother age 83 after CABG Family Status Family Status Relation Status Mo at age 80 [place], CABG, never recovered Fa at age 94 [...] documented in this encounter Nursing Notes * Vicki Fair RN - 11/06/2023 2:27 PM EDT Patient awake and oriented x3. Denies pain. No drainage from eye noted. Tolerating PO fluids. Discharge instructions given and patient verbalizes understanding. Patient ambulated to private vehicle and discharged to home. * Vicki Fair RN - 11/06/2023 2:09 PM EDT Patient awake and alert, tolerating clear liquids. Patient denies pain and nausea. Left eye remainsclosed with eye tape per Dr. Lei request. Patients van driver helper called for transportation. * Vicki Fair RN - 11/06/2023 2:02 PM EDT Patient transferred to pacu 2 status post left cataract removal and lens placement. No drainage noted. Patient awake. Denies pain and nausea. Respirations are even and unlabored on room air. Abdomen soft and non distended. Vital signs stable. * Rylie Sánchez RN - 11/06/2023 12:15 PM EDT Surgical consent verified with patient. Patient agrees with listed procedure and verified signature. documented in this encounter OR Notes * OR Surgeon - Umesh Hawkins DO - 11/06/2023 2:01 PM EDT [facility] [address] [place] [address] OPERATIVE REPORT Name: Lucien Pemberton Date: 11/06/2023 Time: 2:01 PM Service: Ophthalmology Date of Operation: 11/06/2023 Pre-op Diagnosis: Nuclear age related Cataract Left eye Post-op Diagnosis: Nuclear age related Cataract Left eye Surgeon: Umesh Hawkins DO Assistants: None Anesthesia: Monitored Local Anesthesia with Sedation Operation: Cataract extraction to the Left eye with implantation of posterior intraocular lens. Findings: None Estimated Blood Loss: minimal IV Intake:<100 ml Urine output: 0 ml Drains: 0 INDICATIONS AND PERTINENT HISTORY: The patient has a visually significant cataract of the Left eye.The proposed procedure was discussed in detail with the patient. All feasible options were reviewedwith the appropriate indications and expected outcomes. Specimens and Disposition: None Complications: none Condition: Stable Description of Operation: The patient was identified with two identifiers and the procedure verified. Proper consent was verified. Antibiotic and dilating drops were instilled in the Left eye pre-operatively in the Pre-operative holding area. Fifteen minutes prior to transfer to the Operating Room, topical proparacaine drops and topical 2% lidocaine jelly were placed over the Left eye. The patient was then taken back to the Operating Room. Ophthalmic Betadine 5% was placed in the superior and inferior cul-de-sacs of theLeft eye. The Left eye was then prepped with 10% povidone-iodine and draped in the usual sterile fashion. After the lid speculum was inserted, a paracentesis incision was made at the 5 o'clock position with a sharp blade. MPF lidocaine was instilled. The anterior chamber was then refilled with Viscoat. The main wound was then created at 3' using the 2.4mm phacokeratome blade. His LASIK flap was avoided completely in the creation of the incision. A continuous curvilinear capsulorrhexis was then performed initially with a cystotome, then completed with Utrada forceps. Hydrodissection and hydrodelineation were achieved with balanced salt solution through a 27G cannula. The phacoemulsification handpiece was utilized to remove the lens nucleus with a nakybw-dae-kwrykaf technique. Residual cortical material was removed with the irrigating and aspirating device. The capsular bag was re- formed with viscoelastic. An [id number] 19.50 diopters in power (selected after review and interpretation of IOLmeasurements), acrylic foldable lens was placed into the capsular bag uneventfully and rotated intoposition with a Sinskey hook. It was noted to be in a central and stable position. The residual viscoelastic was irrigated and aspirated from the anterior chamber. Stromal hydration was applied to the wound. The anterior chamber was re-formed with balanced salt solution. The wounds were checked with Weck-cels and found to be watertight. The lid speculum was then removed. Brimonidine, prednisolone, moxifloxacin drops and erythromycin oph ointment were instilled in the eye. The patient tolerated t he procedure well. There were no complications I performed the procedure Umesh Hawkins DO 11/06/2023 2:01 PM documented in this encounter Plan of Treatment Upcoming Encounters Date Type Department Care Team (Late st Contact Info) Description 11/07/2023 8:15 AM EDT Office Visit Ophthalmology, [facility] [address] [facility] [place] [address] Umesh Hawkins DO [address] [address] 11/11/2023 7:50 AM EDT Office Visit Ophthalmology, [facility] [address] [facility] [place] [address] Karlos Jay, DO [address] [place] [address] 11/14/2023 2:30 PM EDT Office Visit Ophthalmology, [facility] [address] [facility] [place] [address] Umesh Hawkins DO [address] [address] 11/20/2023 12:17 PM EDT Hospital Encounter OR [facility], Operating Room [facility] [address] [facility] [place] [phone] Umesh Hawkins DO [address] [address] 11/20/2023 12:17 PM EDT - 11/20/2023 1:02 PM EDT Surgery OR [facility], Operating Room [facility] [address] [phone] Umesh Hawkins, DO [address] [address] RIGHT EXTRACAPSULAR CATARACT REMOVAL WITH INTRAOCULAR LENS 11/21/2023 8:30 AM EDT Office Visit Ophthalmology, [facility] [address] [facility] [place] [address] Umesh Hawkins, DO [address] [address] 11/28/2023 2:00 PM EDT Office Visit Ophthalmology, [facility] [address] [facility] [place] [address] Umesh Hawkins, DO [address] [address] 12/04/2023 8:15 AM EDT Cardiac Studies Cardiac Studies, [facility] [address] [facility] [place] [address] 12/19/2023 2:15 PM EDT Office Visit Ophthalmology, [facility] [address] [facility] [place] [address] Umesh Hawkins, DO [address] [address] 03/11/2024 11:15 AM EDT Hospital Encounter ENDO [facility], Endoscopy Room [facility] [address] [phone] Rajinder Castillo MD [address] [place] [address] 03/11/2024 11:15 AM EDT - 03/11/2024 11:45 AM EDT Surgery ENDO [facility], Endoscopy Room [facility] [address] [place] [phone] Rajinder Castillo MD [address] [place] [address] COLONOSCOPY FLEXIBLE PROXIMAL DIAGNOSTIC Scheduled Procedures Name [...] this encounter Medical Devices Implanted Type Area Tire Fixer Device Identifier Shelf Expiration Date Model / Serial / Lot Lens [id number] 12.5mm+19.50 - [id number] - [id number] Implanted:Qty: 1 on 11/06/2023 by Umesh Hawkins DO at OR [facility] Left: Eye [employer] 05/30/2026 [id number] / [id number] / [id number] documented as of this encounter Visit Diagnoses Diagnosis 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 Other and combined forms of senile cataract After cataract not obscuring vision, left- Primary Cataract Unspecified cataract History of colon polyps Personal history of colonic polyps documented in this encounter Administered Medications Inactive Administered Medications - up to 3 most recent administrations Medication Order MAR Action Action Date Dose Rate Site Flurbiprofen Sodium (Ocufen) 0.03 % ophthalmic solution 1 Drop 1 Drop, Left eye, Q5 MINUTES, First dose on Sat11/06/23 at 1300, Last dose on Sat11/06/23 at 1310, For 3 doses Given 11/06/2023 12:38 PM EDT 1 Drop Given 11/06/2023 12:33 PM EDT 1 Drop Given 11/06/2023 12:27 PM EDT 1 Drop isolyte-S pH 7.4 infusion Intravenous, at 10 mL/hr, Plasma-LYTE 148, isolyte-S, and isolyte-S pH 7.4 are considered equivalent - including for MAR barcode scanning., CONTINUOUS, Starting on Sat11/06/23 at 1300, Until Sat11/06/23 at 1828, Pre-Op Continue from Pre-Op 11/06/2023 1:14 PM EDT 10 mL/hr New Bag 11/06/2023 12:33 PM EDT 10 mL/hr Lidocaine urethral/mucosal 2 % gel 2 mL Topical, ONCE, 1 dose, On Sat11/06/23 at 1300, 15 minutes prior to scheduled surgery time, apply 2 ml to superior and inferior fornices left eye & tape eyes shut., Pre-Op Given 11/06/2023 1:16 PM EDT 2 mL Eye Left moxifloxacin (Vigamox) 0.5 % ophthalmic solution 1 Drop 1 Drop, Left eye, Q5 MINUTES, First dose on Sat11/06/23 at 1300, Last dose on Sat11/06/23 at 1310, For 3 doses, PRE-OP: One drop to left eye every 5 minutes for 3 doses, Pre-Op Given 11/06/2023 12:38 PM EDT 1 Drop Given 11/06/2023 12:33 PM EDT 1 Drop Given 11/06/2023 12:27 PM EDT 1 Drop prednisoLONE Acetate (Pred Forte) 1 % ophthalmic suspension 1 Drop 1 Drop, Left eye, Q5 MINUTES, First dose on Sat11/06/23 at 1300, Last dose on Sat11/06/23 at 1310, For 3 doses, PRE-OP: One drop to left eye every 5 minutes for 3 doses., Pre-Op Given 11/06/2023 12:38 PM EDT 1 Drop Given 11/06/2023 12:33 PM EDT 1 Drop Given 11/06/2023 12:27 PM EDT 1 Drop proparacaine (Alcaine) 0.5 % ophthalmic solution 1 Drop 1 Drop, Left eye, ONCE, On Sat11/06/23 at 1300, For 1 dose, PRE-OP: 15 minutes prior to scheduled surgery time for 1 dose, Pre-Op Given 11/06/2023 12:2 7 PM EDT 1 Drop tropicamide 1%-cyclopentolate 1%-phenylephrine 2.5% ophthalmic solution 1 Drop 1 Drop, Left eye, Q5 MINUTES, First dose on Sat11/06/23 at 1300, Last dose on Sat11/06/23 at 1310, For 3 doses Given 11/06/2023 12:38 PM EDT 1 Drop Given 11/06/2023 12:33 PM EDT 1 Drop Given 11/06/2023 12:27 PM EDT 1 Drop documented in this encounter Active and Recently Administered Medications Times are shown in EDT. Scheduled Medication Order 11/04/2023 11/05/2023 11/06/2023 Flurbiprofen Sodium (Ocufen) 0.03 % ophthalmic solution 1 Drop (COMPLETED) 1 Drop, Left eye, Q5 MINUTES, First dose on Sat11/06/23 at 1300, Last dose on Sat11/06/23 at 1310, For 3 doses 1227 (Given - Provid er: Rylie Sánchez RN)1233 (Given - Provider: Rylie Sánchez RN)1238 (Given - Provider: Rylie Sánchez RN) Lidocaine urethral/mucosal 2 % gel 2 mL (COMPLETED) Topical, ONCE, 1 dose, On Sat11/06/23 at 1300, 15 minutes prior to scheduled surgery time, apply 2 ml to superior and inferior fornices left eye & tape eyes shut., Pre-Op 1316 (Given - Provid er: Marci Garcia RN) moxifloxacin (Vigamox) 0.5 % ophthalmic solution 1 Drop (COMPLETED) 1 Drop, Left eye, Q5 MINUTES, First dose on Sat11/06/23 at 1300, Last dose on Sat11/06/23 at 1310, For 3 doses, PRE-OP: One drop to left eye every 5 minutes for 3 doses, Pre-Op 1227 (Given - Provid er: Rylie Sánchez RN)1233 (Given - Provider: Rylie Sánchez RN)1238 (Given - Provider: Rylie Sánchez RN) prednisoLONE Acetate (Pred Forte) 1 % ophthalmic suspension 1 Drop (COMPLETED) 1 Drop, Left eye, Q5 MINUTES, First dose on Sat11/06/23 at 1300, Last dose on Sat11/06/23 at 1310, For 3 doses, PRE-OP: One drop to left eye every 5 minutes for 3 doses., Pre-Op 1227 (Given - Provid er: Rylie Sánchez RN)1233 (Given - Provider: Rylie Sánchez RN)1238 (Given - Provider: Rylie Sánchez RN) proparacaine (Alcaine) 0.5 % ophthalmic solution 1 Drop (COMPLETED) 1 Drop, Left eye, ONCE, On Sat11/06/23 at 1300, For 1 dose, PRE-OP: 15 minutes prior to scheduled surgery time for 1 dose, Pre-Op 1227 (Given - Provid er: Rylie Sánchez RN) tropicamide 1%-cyclopentolate 1%-phenylephrine 2.5% ophthalmic solution 1 Drop (COMPLETED) 1 Drop, Left eye, Q5 MINUTES, First dose on Sat11/06/23 at 1300, Last dose on Sat11/06/23 at 1310, For 3 doses 1227 (Given - Provid er: Rylie Sánchez RN)1233 (Given - Provider: Rylie Sánchez RN)1238 (Given - Provider: Rylie Sánchez RN) Continuous Medication Order 11/04/2023 11/05/2023 11/06/2023 isolyte-S pH 7.4 infusion Intravenous, at 10 mL/hr, Plasma-LYTE 148, isolyte-S, and isolyte-S pH 7.4 are considered equivalent - including for MAR barcode scanning., CONTINUOUS, Starting on Sat11/06/23 at 1300, Until Sat11/06/23 at 1828, Pre-Op 1233 (New Bag - Prov ider: Rylie Sánchez RN)1314 (Continue from Pre-Op - Provider: Dane Meng CRNA) PRN Medication Order 11/04/2023 11/05/2023 11/06/2023 briMONidine tartrate (Alphagan) 0.2 % ophthalmic solution (CANCELED) ONCE PRN INTRA PROCEDURE, Starting on Sat11/06/23 at 1341, Until Sat11/06/23 at 1356, Intra-Op 1341 (Given - Provid er: Umesh Hawkins DO) DUOVISC inj KIT (CANCELED) ONCE PRN INTRA PROCEDURE, Starting on Sat11/06/23 at 1341, Until Sat11/06/23 at 1356, Intra-Op 1341 (Given - Provid er: Umesh Hawkins DO - Comment: qs) EPINEPHrine 0.5 mg in balanced salt solution 500 mL inj (CANCELED) ONCE PRN INTRA PROCEDURE, Starting on Sat11/06/23 at 1341, Until Sat11/06/23 at 1356, Intra-Op 1341 (Given - Provid er: Umesh Hawkins DO - Comment: qs) Erythromycin ophthalmic ointment (CANCELED) ONCE PRN INTRA PROCEDURE, Starting on Sat11/06/23 at 1341, Until Sat11/06/23 at 1356, Intra-Op 1341 (Given - Provid er: Umesh Hawkins DO) hydroxypropyl methylcellulose (Ocucoat) 2 % intraocular inj (CANCELED) ONCE PRN INTRA PROCEDURE, Starting on Sat11/06/23 at 1342, Until Sat11/06/23 at 1356, Intra-Op 1342 (Given - Provid er: Umesh Hawkins DO) Lidocaine 1 % (PF) inj (CANCELED) ONCE PRN INTRA PROCEDURE, Starting on Sat11/06/23 at 1342, Until Sat11/06/23 at 1356, Intra-Op 1342 (Given - Provid er: Umesh Hawkins DO) moxifloxacin (Vigamox) 0.5 % ophthalmic solution (CANCELED) ONCE PRN INTRA PROCEDURE, Starting on Sat11/06/23 at 1342, Until Sat11/06/23 at 1356, Intra-Op 1342 (Given - Provid er: Umesh Hawkins DO) prednisoLONE Acetate (Pred Forte) 1 % ophthalmic suspension (CANCELED) ONCE PRN INTRA PROCEDURE, Starting on Sat11/06/23 at 1342, Until Sat11/06/23 at 1356, Intra-Op 1342 (Given - Provid er: Umesh Hawkins DO) Tetracaine (Pontocaine) 0.5 % ophthalmic solution (CANCELED) ONCE PRN INTRA PROCEDURE, Starting on Sat11/06/23 at 1342, Until Sat11/06/23 at 1356, Intra-Op 1342 (Given - Provid er: Umesh Hawkins DO) documented in this encounter Advance Directives Documents on File Type Date Recorded Patient Clerical Specialist Expl anation Advance Directives and Living Will 06/10/2020 10:26 AM ADVANCE DIRECTIVE HEALTH CARE POWER OF WATER FILTERER HELPER & INSTRUCTIONS Latest Code Status on File [...] were consensually agreed upon. Care Teams Production Dispatcher Relationship Specialty Start Date End Date Arpit Antonio III, MD [address] [facility] [place] [address] PCP - General Family Medicine 05/06/17 documented as of this encounter
--- OUTSIDE RECORDS SUMMARY | 2024-01-13 01:35 | External Medical Summary | Summary of Care ---
Author Name Unknown Organization [facility] Address [address] [facility] [place] [address] Phone [phone] Care Team Providers Care Food Service Lead Name Role Phone Paco ODOM MD, Arpit Yan Primary Care Provider [phone] Reason for Visit * Reason Comments Post Op Cataract Surgery Encounter Details Date Type Department Care Team (Late st Contact Info) Description 11/21/2023 8:30 AM EDT Office Visit Ophthalmology, [facility] [address] [facility] [place] [address] Umesh Hawkins, DO 21 [facility] [place] [phone] Pseudophakia* Allergies Active Allergy Reactions Criticality Noted [...] DAY 90 Tablet 48 02/09/2022 Active Creon 48657-62352 UNIT Oral Capsule Delayed Release Particles (Pancrelipase (Hwr-Tycf-Qnra))Ind ications:History of resection of pancreas,Cholangioc arcinoma (HCC) [...] file Travel History Travel Start Travel End [facility] 10/18/2023 10/28/2023 documented as of this [...] Progress Notes * Umesh Hawkins DO - 11/21/2023 8:30 AM EDT 11/21/2023 [facility] Ophthalmology Post-operative Clinic Note HPI: Lucien Pemberton is a 78 year old pt who presents to the eye clinic today for 1 day post-op CE PCIOL OD (Ensor TCC Post LASIK [email or web address] IOL calculation MX60E 21.50 11/21/2023) Past Ocular History: BCC left eye s/p quiroz flap Multiple eyelids lesions s/p biopsy - Actinic keratotis and Bal keratosis Hx of LASIK OU ([facility], 1999, [place]) NEIL Pterygium VAsc: 20/40 PH 20/25 IOP: 15 mmHg LL: Normal Conjunctiva: Normal Cornea: 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 Wear eye shield at bedtime. Call with flashes, floaters, dec vision eye pain. Advised of national opelint analyst coverage for after hours/weekend emergencies. RTC 1 week or sooner prn. Umesh Hawkins DO 11/21/23 documented in this encounter Nursing Notes * [place] TECH - 11/21/2023 8:38 AM EDT Lucien Pemberton presents for p/o check. Post operative day 1 procedure: ECCE w/IOL insertion Operative eye: RIGHT EYE Patient denies complaints Pt. presents w/o dressing. Are you taking the eye drops as directed? Yes. Pred Forte and Ofloxacin 1gtt 4 times [...] 11/28/2023 2:00 PM EDT Office Visit Ophthalmology, [address] [place] [address] Umesh Hawkins DO [address] [place] [address] 12/04/2023 8:15 AM EDT Cardiac Studies Cardiac Studies, [facility] 132 [facility] [place] [address] 12/19/2023 2:15 PM EDT Office Visit Ophthalmology, [facility] [place] [address] Umesh Hawkins DO [address] [place] [address] 03/11/2024 11:15 AM EDT Hospital Encounter ENDO [facility], Endoscopy Room [facility] [address] [place] [phone] Rajinder Castillo MD [address] [place] [address] 03/11/2024 11:15 AM EDT - 03/11/2024 11:45 AM EDT Surgery ENDO [facility], Endoscopy Room [facility] [address] [place] [phone] Rajinder Castillo MD [address] [place] [address] COLONOSCOPY FLEXIBLE PROXIMAL DIAGNOSTIC Scheduled Procedures Name [...] this encounter Medical Devices Implanted Type Area Body Die Maker Device Identifier Shelf Expiration Date Model / Serial / Lot Lens [id number] 12.5mm+19.50 - [id number] - [id number] Implanted:Qty: 1 on 11/06/2023 by Umesh Hawkins, DO at OR [facility] Left: Eye BAUSCH & LOMB 05/30/2026 [id number] / [id number] / [id number] Envista Hydrophobic Acrylic Intraocular Lens Implanted:Qty: 1 on 11/20/2023 by Umesh Hawkins, DO at OR [facility] Right: Eye BAUSCH & LOMB 06/30/2026 [id number] / [id number] / [id number] documented as of this encounter Visit Diagnoses Diagnosis Pseudophakia- Primary Lens replaced by other means History of colon polyps Personal history of colonic polyps documented in this encounter Advance Directives Documents on File Type Date Recorded 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 Care Teams Food Service Lead Relationship Specialty Start Date End Date Arpit Antonio III, MD [address] [place] [address] PCP - General Family Medicine 05/06/17 documented as of this encounter
--- OUTSIDE RECORDS SUMMARY | 2024-01-13 01:35 | External Medical Summary | Summary of Care ---
Author Name Unknown Organization [facility] Address [address] [place] [address] Phone [phone] Care Team Providers Care Acoustic Intelligence Specialist Name Role Phone Paco ODOM MD, Melissa Yan Primary Care Provider [phone] Reason for Visit * Reason Comments eRx-Medication Refill Encounter Details Date Type Department Care Team (Late st Contact Info) Description 10/07/2023 Refill Family Practice [facility] 200 [facility] [place] [address] Melissa Petersen III, MD [address] [place] [address] Cholangiocarcinoma ([facility]) Allergies Active Allergy Reactions Criticality Noted Date Comments Penicillins 01/21/2003 As a child Sulfa Antibiotics 01/21/2003 hives and difficulty breathing documented as of this encounter (statuses as of 10/09/2023) Medications Medication Sig Dispensed Refills Start Date End Date Status TYLENOL 325 MG PO TABS 1-2 tablets every 4 hours as needed 0 Active Ibuprofen-diphenhy drAMINE Cit 200-38 MG Oral Tablet Take 1 Tab by mouth at bedtime as needed. 0 Active Hydrocortisone (Perianal) 2.5 % External CreamIndications:H emorrhoids, external without complications Administer into the rectum 2 times a day. 28 g 0 1 Active [facility] Vitamin B-12 1000 MCG Oral Tablet (vitamin b 12) TAKE 1 TABLET BY MOUTH EVERY DAY 90 Tablet 48 2 Active Creon 11088-14780 UNIT Oral Capsule Delayed Release Particles (Pancrelipase (Bfq-Kvzj-Anjy))In dications:History of resection of pancreas,Cholangio carcinoma (HCC) TAKE 1 CAPSULE IN THE MORNING, 1 CAP AT NOON, 1 CAP IN EVENING, 1 CAP BEFORE BED AND 1 CAP WITH SNACKS 120 Capsule 4 3 Active Omeprazole 20 MG Oral Capsule Delayed Release (PriLOSEC)Indicati ons:Cholangiocarci noma (HCC) TAKE 1 CAPSULE BY MOUTH EVERY DAY IN THE MORNING 90 Capsule 1 4 Active Omeprazole 20 MG Oral Capsule Delayed Release (PriLOSEC)Indicati ons:Cholangiocarci noma (HCC) TAKE 1 CAPSULE BY MOUTH EVERY DAY IN THE MORNING 90 Capsule 1 3 10/09/19 24 Discontinued documented as of this encounter (statuses as of 10/09/2023) Active Problems Problem Noted Date Diagnosed Date Knee effusion, left 07/21/2016 Elevated glucose 01/04/2014 History of resection of pancreas 11/23/2012 Dyslipidemia, goal LDL below 160 11/29/2009 ADVANCE DIRECTIVE INFORMATION 07/06/2009 Overview: Yes, Patient instructed to provide copy of advance directive for provider to review and to be scanned into Electronic Medical Record documented as of this encounter (statuses as of 10/09/2023) Resolved Problems Problem Noted Date Diagnosed Date [...] bile duct 12/11/2011 Tubulovillous adenoma 12/11/20112016 Overview: 6/18/12: diverticulosis, repeat 5 years 10/18/09: internal hemorrhoids [...] of right inguinal hernia 02/02/2003 05/06/2017 Overview: [facility]: Conor Cortes MD 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 Overview: ICD-10 update of inactive term documented as of this encounter (statuses as of 10/09/2023) Immunizations Name Administration Dates Next Due COVID-19 [...] encounter Miscellaneous Notes * Telephone Encounter - Carol Shields RPh - 10/09/2023 11:59 AM EDT Signed Prescriptions: Disp Refills Omeprazole 20 MG Oral Capsule Delayed Rele*90 Cap*1 Sig: TAKE 1 CAPSULE BY MOUTH EVERY DAY IN THE MORNINGAuthorizing Provider: MELISSA PETERSEN III User: CAROL SHIELDS documented in this encounter Plan of Treatment Upcoming Encounters Date Type Department Care Team (Late st Contact Info) Description 10/10/2023 3:45 PM EDT Office Visit Ophthalmology, [facility] [address] [place] [address] Umesh Hawkins DO [address] [place] [address] 10/30/2023 11:20 AM EDT Office Visit Family Practice [facility] [address] [place] [address] Sarahi Jaimes PA-C [address] [facility] [place] [address] 11/06/2023 12:17 PM EDT Hospital Encounter OR [facility], Operating Room [facility] [address] [place] [address] Umesh Hawkins, DO [address] [place] [address] 11/06/2023 12:17 PM EDT - 11/06/2023 1:02 PM EDT Surgery OR [facility], Operating Room [facility] 132 [facility] [place] [phone] Umesh Hawkins, DO [address] [place] [address] LEFT EXTRACAPSULAR CATARACT REMOVAL WITH INTRAOCULAR LENS 11/07/2023 8:15 AM EDT Office Visit Ophthalmology, [facility] 132 [facility] [place] [address] Umesh Hawkins, DO [address] [place] [address] 11/11/2023 7:50 AM EDT Office Visit Ophthalmology, [facility] 132 [facility] [place] [address] Karlos Jay, DO 16 [facility] [place] [address] 11/14/2023 2:30 PM EDT Office Visit Ophthalmology, [facility] 132 [facility] [place] [address] Umesh Hawkins, DO [address] [place] [address] 11/20/2023 12:17 PM EDT Hospital Encounter OR [facility], Operating Room [facility] 132 [facility] [place] [phone] Umesh Hawkins, DO [address] [place] [address] 11/20/2023 12:17 PM EDT - 11/20/2023 1:02 PM EDT Surgery OR [facility], Operating Room [facility] [address] [place] [address] Umesh Hawkins, DO [address] [place] [address] RIGHT EXTRACAPSULAR CATARACT REMOVAL WITH INTRAOCULAR LENS 11/21/2023 8:30 AM EDT Office Visit Ophthalmology, [facility] 132 [facility] [place] [address] Umesh Hawkins, DO [address] [place] [address] 11/28/2023 2:00 PM EDT Office Visit Ophthalmology, [facility] [address] [facility] [place] [address] Umesh Hawkins, DO [address] [place] [address] 12/04/2023 8:15 AM EDT Cardiac Studies Cardiac Studies, [facility] [address] [facility] [place] [address] 12/19/2023 2:15 PM EDT Office Visit Ophthalmology, [facility] [address] [facility] [place] [address] Umesh Hawkins, DO [address] [place] [address] 03/11/2024 11:15 AM EDT Hospital Encounter ENDO [facility], Endoscopy Room [facility] [address] [place] [phone] Rajinder Castillo MD [address] [place] [address] 03/11/2024 11:15 AM EDT - 03/11/2024 11:45 AM EDT Surgery ENDO [facility], Endoscopy Room [facility] [address] [place] [address] Rajinder Castillo MD [address] [place] [address] COLONOSCOPY FLEXIBLE PROXIMAL DIAGNOSTIC Scheduled Procedures Name [...] as of this encounter Visit Diagnoses Diagnosis 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 Care Teams Acoustic Intelligence Specialist Relationship Specialty Start Date End Date Melissa Petersen III, MD [address] [place] [address] PCP - General Family Medicine 05/06/17 documented as of this encounter
--- OUTSIDE RECORDS SUMMARY | 2024-01-13 01:35 | External Medical Summary | Summary of Care ---
Author Name Unknown Organization [facility] Address [address] [facility] [place] [address] Phone [phone] Care Team Providers Care Water Conservationist Name Role Phone Paco ODOM MD, Arpit Yan Primary Care Provider [phone] Reason for Visit * Reason Comments Post Op Cataract Surgery Encounter Details Date Type Department Care Team (Late st Contact Info) Description 11/14/2023 2:30 PM EDT Office Visit Ophthalmology, [facility] 132 [facility] [place] [address] Umesh Hawkins, DO 21 [facility] [place] [phone] After cataract not obscuring vision, left* Allergies [...] DAY 90 Tablet 48 02/09/2022 Active Creon 13259-24935 UNIT Oral Capsule Delayed Release Particles (Pancrelipase (Vwy-Kffw-Mniw))Ind ications:History of resection of pancreas,Cholangioc arcinoma (HCC) [...] hernia 02/02/2003 05/06/2017 Overview: [facility]: Conor Cortes MD Malignant neoplasm [...] DO - 11/14/2023 2:30 PM EDT 11/14/2023 [facility] Ophthalmology Post-operative Clinic Note HPI: Lucien [...] floaters, dec vision eye pain. Advised of court commissioner coverage for after hours/weekend emergencies. RTC DOS [...] [facility], Operating Room [facility] [address] [place] [phone] Umesh Hawkins DO [address] [place] [address] 11/20/2023 1:00 PM EDT - 11/20/2023 1:45 PM EDT Surgery OR [facility], Operating Room [facility] [address] [place] [phone] Umesh Hawkins DO [address] [place] [address] RIGHT EXTRACAPSULAR CATARACT REMOVAL WITH INTRAOCULAR LENS 11/21/2023 8:30 AM EDT Office Visit Ophthalmology, [facility] [address] [place] [address] Umesh Hawkins, DO [address] [place] [address] 11/28/2023 2:00 PM EDT Office Visit Ophthalmology, [facility] 132 [facility] [place] [address] Umesh Hawkins, DO [address] [place] [address] 12/04/2023 8:15 AM EDT Cardiac Studies Cardiac Studies, [facility] 132 [facility] [place] [address] 12/19/2023 2:15 PM EDT Office Visit Ophthalmology, [facility] 132 [facility] [place] [address] Umesh Hawkins, DO [address] [place] [address] 03/11/2024 11:15 AM EDT Hospital Encounter ENDO [facility], Endoscopy Room [facility] [address] [place] [phone] Rajinder Castillo MD [address] [place] [address] 03/11/2024 11:15 AM EDT - 03/11/2024 11:45 AM EDT Surgery ENDO [facility], Endoscopy Room [facility] [place] [phone] Rajinder Castillo MD [address] [place] [address] COLONOSCOPY FLEXIBLE PROXIMAL DIAGNOSTIC Scheduled Procedures Name [...] this encounter Medical Devices Implanted Type Area Occupational Therapy Asst Device Identifier Shelf Expiration Date Model / Serial / Lot Lens [id number] 12.5mm+19.50 - [id number] - [id number] Implanted:Qty: 1 on 11/06/2023 by Umesh Hawkins DO at OR [facility] Left: Eye BAUSCH & LOMB 05/30/2026 [id number] / [id number] / [id number] documented as of this encounter Visit Diagnoses Diagnosis Age-related nuclear cataract of right eye- Primary Senile nuclear sclerosis After cataract not obscuring vision, left- Primary Cataract Unspecified cataract History of colon polyps Personal history of colonic polyps documented in this encounter Advance Directives Documents on File Type Date Recorded 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 Care Teams Water Conservationist Relationship Specialty Start Date End Date Arpit Antonio III, MD [address] [place] [address] PCP - General Family Medicine 05/06/17 documented as of this encounter
--- OUTSIDE RECORDS SUMMARY | 2024-01-13 01:36 | External Medical Summary ---
Author Name Unknown Address Unknown Organization K01:[facility] - [address] [place] [address] Laboratory Report Ordering Provider Test Date Status RACHELE PEREZ 09/17/2023 09:53:42 Final Observation Date Value Abnormality Reference (Units ) Status Cancer Ag 19-9 09/17/2023 09:53:42 3.8 <35.0 (U/mL) Final Performing Location [facility] [address] [facility] [address]
--- OUTSIDE RECORDS SUMMARY | 2024-01-13 01:36 | External Medical Summary ---
Author Name Unknown Address Unknown Organization K09:[facility] [place] [address] Laboratory Report Ordering Provider Test Date Status RACHELE PEREZ 09/17/2023 09:53:42 Final Observation Date Value Abnormality Reference (Units ) Status WBC, Total 09/17/2023 09:53:42 5.14 4.00-10.8 0 (K/uL) Final RBC 09/17/2023 09:53:42 4.07 4.50-5.25 (M/uL) Final Hemoglobin 09/17/2023 09:53:42 13.0 Below low normal 14 .0-16.8 (g/dL) Final HCT 09/17/2023 09:53:42 40.4 40.0-48.4 (%) Final MCV 09/17/2023 09:53:42 99.3 82.0-99.5 (fL) Final MCH 09/17/2023 09:53:42 31.9 27.0-34.0 (pg) Final MCHC 09/17/2023 09:53:42 32.2 32.0-36.0 (g/dL) Final RDW 09/17/2023 09:53:42 12.8 11.5-15.5 (%) Final Platelets 09/17/2023 09:53:42 256 140-400 (K /uL) Final MPV 09/17/2023 09:53:42 9.7 6.6-11.1 ( fL) Final Performing Location [facility] [place] [address]
--- OUTSIDE RECORDS SUMMARY | 2024-01-13 01:36 | External Medical Summary | Summary of Care ---
Author Name Unknown Organization [facility] Address [address] [facility] [address] Phone [phone] Care Team Providers Care Shooter'S Helper Name Role Phone Paco ODOM MD, Arpit Yan Primary Care Provider [phone] Reason for Visit * Reason Onset Date Comments Medical Records Request 09/02/2023 Encounter Details Date Type Department Care Team (Late st Contact Info) Description 09/02/2023 Telephone Ophthalmology, [facility] [address] [place] [address] Umesh Hawkins DO [facility] [place] [address] Medical Records Request Allergies Active Allergy Reactions Criticality Noted Date Comments Penicillins 01/21/2003 As a child Sulfa Antibiotics 01/21/2003 hives and difficulty breathing documented as of this encounter (statuses as of 09/20/2023) Medications Medication Sig Dispensed Refills Start Date [...] DAY 90 Tablet 48 2 Active Creon 22420-35389 UNIT Oral Capsule Delayed Release Particles (Pancrelipase (Mll-Vvaq-Kwoq))In dications:History of resection of pancreas,Cholangio carcinoma (HCC) TAKE 1 CAPSULE IN THE MORNING, 1 CAP AT NOON, 1 CAP IN EVENING, 1 CAP BEFORE BED AND 1 CAP WITH SNACKS 120 Capsule 4 3 Active Omeprazole 20 MG Oral Capsule Delayed Release (PriLOSEC)Indicati ons:Cholangiocarci noma (HCC) TAKE 1 CAPSULE BY MOUTH EVERY DAY IN THE MORNING 90 Capsule 1 3 Active zoster vac recomb adjuvanted (SHINGRIX) 50 MCG/0.5ML injection Inject 0.5 mL into a large muscle now and repeat dose in 60 to 180 days. Please fax date this was given to our office. 1 Each 1 9 09/17/19 24 Discontinued Benzonatate 100 MG Oral CapsuleIndications :Viral URI with cough Take 1 Capsule by mouth 3 times a day as needed for Cough. 30 Capsule 1 3 09/17/19 24 Discontinued documented as of this encounter (statuses as of 09/20/2023) Active Problems Problem Noted Date Diagnosed Date Knee effusion, left 07/21/2016 Elevated glucose 01/04/2014 History of resection of pancreas 11/23/2012 Dyslipidemia, goal LDL below 160 11/29/2009 ADVANCE DIRECTIVE INFORMATION 07/06/2009 Overview: Yes, Patient instructed to provide copy of advance directive for provider to review and to be scanned into Electronic Medical Record documented as of this encounter (statuses as of 09/20/2023) Resolved Problems Problem Noted Date Diagnosed Date [...] of right inguinal hernia 02/02/2003 05/06/2017 Overview: [facility]: Conor Cortes MD 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 Overview: ICD-10 update of inactive term documented as of this encounter (statuses as of 09/20/2023) Immunizations Name Administration Dates Next Due COVID-19 mRNA, LNP-s, No Pre serve, 2-Dose Series (Moderna) 09/01/2020,08/06/2020 COVID-19, mRNA, LNP-s, PF, B ooster, 100mcg/0.5mg (Moderna) 05/01/2021 Covid-19, Mrna, Lnp-s, Pf, B ivalent, 30 Mcg, IM, 12 yrs and above (ADCentricity) 06/05/2022 H1N1 2009 Influenza, IM 06/16/2009 Pneumococcal [...] encounter Miscellaneous Notes * Telephone Encounter - Leeann Meier COA - 09/20/2023 1:59 PM EDT Attempted to contact Juju at [facility] regarding Lucien's LASIK surgery. Unavailable [facility] with name and direct number to return the call. Fax on [phone] RAFAEL Orr 09/20/2023 2:02 PM * Telephone Encounter - Leeann Meier COA - 09/19/2023 11:35 AM EDT Attempted to contact Juju at [facility] regarding information about the patient. [facility] with direct number and reason for calling. RAFAEL Orr 09/19/2023 11:36 AM * Telephone Encounter - Leeann Meier COA - 09/04/2023 3:[address] Matthews's office to inquire if they had any information at all regarding which type ofLASIK the patient had while he was a patient there. They were unable to provide any information stating they no longer had his chart. They were able to give information for [facility] - Dr. Rose stating they may have information regarding the patient. Juju [phone] was the contact information given. Attempted to contact [facility] as well, but was unable to reach Juju. Another attempt will be made tomorrow. RAFAEL Orr 09/04/2023 3:56 PM * Telephone Encounter - Jerrica Haddad OSA - 09/04/2023 7:[address] J Carlos Matthews's office called back and left a message. Stated that the patient has not been seen in over 7 years. After 7 years, they destroy the records. She stated that if anyone has any questions to call back to [phone]. GRISEL Sterling 09/04/2023 7:41 AM * Telephone Encounter - Leeann Meier COA - 09/02/2023 10:24 AM EST Fax sent to request medical records from previous Roll Forming Machine Set Up Operator - Dr. J Carlos Matthews MD documented in this encounter Plan of Treatment Upcoming Encounters Date Type Department Care Team (Late st Contact Info) Description 10/10/2023 3:45 PM EDT Office Visit Ophthalmology, [facility] 132 [facility] [place] [address] Umesh Hawkins DO [address] [place] [address] 10/30/2023 11:20 AM EDT Office Visit Family Practice [facility] [place] [address] [place] [address] Sarahi Jaimes PA-C [address] [facility] [place] [address] 11/11/2023 7:50 AM EDT Office Visit Ophthalmology [facility] 132 [facility] [place] [address] Karlos Jay T, DO 16 [facility] [place] [address] 12/04/2023 8:15 AM EDT Cardiac Studies Cardiac Studies, [facility] 132 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 Care Teams Shooter'S Helper Relationship Specialty Start Date End Date Arpit Antonio III, MD [address] [place] [address] PCP - General Family Medicine 05/06/17 documented as of this encounter
--- OUTSIDE RECORDS SUMMARY | 2024-01-13 01:36 | External Medical Summary | Summary of Care ---
Author Name Unknown Organization [facility] Address [address] [place] [address] Phone [phone] Care Team Providers Care Bereavement Counselor Name Role Phone Paco ODOM MD, Arpit Yan Primary Care Provider [phone] Reason for Visit * Reason Comments Outpatient Testing Encounter Details Date Type Department Care Team (Late st Contact Info) Description 09/17/2023 10:10 AM EDT Laboratory Laboratory [facility] [address] [place] [address] [place], Lab Scenery [address] [place] [address] Adform Other*[id number]; Screening for prostate cancer; Acquired total absence of pancreas; Dyslipidemia, goal LDL below 160; Elevated glucose; Malaise and fatigue Allergies Active Allergy Reactions Criticality Noted Date Comments Penicillins 01/21/2003 As a child Sulfa Antibiotics 01/21/2003 hives and difficulty breathing documented as of this encounter (statuses as of 09/17/2023) Medications Medication Sig Dispensed Refills Start Date [...] DAY 90 Tablet 48 02/09/2022 Active Creon [id number] UNIT Oral Capsule Delayed Release Particles (Pancrelipase (Gre-Mruu-Rmdn))Kita cations:History of resection of pancreas,Cholangioca rcinoma (HCC) TAKE 1 CAPSULE IN THE MORNING, 1 CAP AT NOON, 1 CAP IN EVENING, 1 CAP BEFORE BED AND 1 CAP WITH SNACKS 120 Capsule 4 02/04/2023 Active Omeprazole 20 MG Oral Capsule Delayed Release (PriLOSEC)Indication s:Cholangiocarcinoma (HCC) TAKE 1 CAPSULE BY MOUTH EVERY DAY IN THE MORNING 90 Capsule 1 04/26/2023 Active documented as of this encounter (statuses as of 09/17/2023) Active Problems Problem Noted Date Diagnosed Date Knee effusion, left 07/21/2016 Elevated glucose 01/04/2014 History of resection of pancreas 11/23/2012 Dyslipidemia, goal LDL below 160 11/29/2009 ADVANCE DIRECTIVE INFORMATION 07/06/2009 Overview: Yes, Patient instructed to provide copy of advance directive for provider to review and to be scanned into Electronic Medical Record documented as of this encounter (statuses as of 09/17/2023) Resolved Problems Problem Noted Date Diagnosed Date [...] hernia 02/02/2003 05/06/2017 Overview: [facility]: Conor Cortes MD 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 (5 years old or older) No 08/27/2018 documented as of this encounter Plan of Treatment Upcoming Encounters Date Type Department Care Team (Late st Contact Info) Description 10/10/2023 3:45 PM EDT Office Visit Ophthalmology, [facility] [address] [facility] [place] [address] Umesh Hawkins, DO [address] [place] [address] 10/30/2023 11:20 AM EDT Office Visit Family Practice [facility] [address] [facility] [place] [address] Sarahi Jaimes PA-C [address] [facility] [place] [address] 11/11/2023 7:50 AM EDT Office Visit Ophthalmology, [facility] [address] [facility] [place] [address] Karlos Jay, DO [address] [place] [address] Pending Results Name Type Priority Associated Diagnoses Date /Time MYCODE SUBSEQUENT ADULT Lab Routine MyCode Research Other*[id number] 09/17/2023 9:53 AM EDT PSA Lab Routine Screening for prostate cancer 09/17/2023 9:53 AM EDT CEA Lab Routine Acquired total absence of pancreas 09/17/2023 9:53 AM EDT CA 19-9 Lab Routine Acquired total absence of pancreas 09/17/2023 9:53 AM EDT COMPREHENSIVE METABOLIC PANEL Lab Routine Dyslipidemia, goal LDL below 160 Elevated glucose 09/17/2023 9:53 AM EDT LIPID PANEL WITH DIRECT LDL IF TG IS HIGH Lab Routine Dyslipidemia, goal LDL below 160 09/17/2023 9:53 AM EDT ERYTHROCYTE SEDIMENTATION RATE (ESR) Lab Routine Malaise and fatigue 09/17/2023 9:53 AM EDT TSH WITH FREE T4 IF INDICATED Lab Routine Malaise and fatigue 09/17/2023 9:53 AM EDT MYCODE SST1 Lab Routine MyCode Research Other*[id number] 09/17/2023 9:53 AM EDT MYCODE SST2 Lab Routine MyCode Research Other*[id number] 09/17/2023 9:53 AM EDT Scheduled Procedures Name Priority Associated Diagnoses Date/Ti [...] Not on filedocumented as of this encounter Procedures Procedure Name Priority Date/Time Associated Diagnosis Comments DIFFERENTIAL, AUTOMATED Routine 09/17/2023 9:53 AM EDT Dyslipidemia, goal LDL below 160 CBC Routine 09/17/2023 9:53 AM EDT Dyslipidemia, goal LDL below 160 CBC Routine 09/17/2023 9:53 AM EDT Dyslipidemia, goal LDL below 160 documented in this encounter Results * (ABNORMAL) DIFFERENTIAL, AUTOMATED (09/17/2023 9:53 AM EDT) WBC 5.14 4.00 - 10.80 K/uL 09/17/2023 10:07 AM EDT [facility] 56-02 Neutrophils % 57.5 40.0 - 75.0 % 09/17/2023 10:07 AM EDT [facility] [place] 56-02 Lymphocytes % 26.8 18.0 - 42.0 % 09/17/2023 10:07 AM EDT [facility] [place] 56-02 Monocytes % 12.6(H) 1.0 - 11.0 % 09/17/2023 10:07 AM EDT [facility] [place] 56-02 Eosinophils % 2.3 0.0 - 6.0 % 09/17/2023 10:07 AM EDT [facility] [place] 56-02 Basophils % 0.8 0.0 - 2.0 % 09/17/2023 10:07 AM EDT [facility] [place] 56-02 Absolute Neutrophils 2.95 1.80 - 7.70 K/uL 09/17/2023 10:07 AM EDT [facility] [place] 56-02 Absolute Lymphocytes 1.38 1.00 - 4.80 K/ul 09/17/2023 10:07 AM EDT [facility] [place] 56-02 Absolute Monocytes 0.65 0.00 - 1.10 K/uL 09/17/2023 10:07 AM EDT [facility] [place] 56-02 Absolute Eosinophils 0.12 0.00 - 0.70 K/uL 09/17/2023 10:07 AM EDT [facility]ORY [facility] 56-02 Absolute Basophils 0.04 0.00 - 0.20 K/uL 09/17/2023 10:07 AM EDT [facility] [place] 56-02 Blood Venous blood specimen / Unknown Venipuncture / Unknown 09/17/2023 9:53 AM EDT 09/17/2023 9:54 AM EDT Nina Chand MD LAB BLOOD ORDERABLES [facility] [address] [place] [address] * (ABNORMAL) CBC (09/17/2023 9:53 AM EDT) WBC 5.14 4.00 - 10.80 K/uL 09/17/2023 10:07 AM EDT [facility] 56- RBC 4.07 4.50 - 5.25 M/uL 09/17/2023 10:07 AM EDT [facility] 56- HGB 13.0(L) 14.0 - 16.8 g/dL 09/17/2023 10:07 AM EDT [facility] 56- HCT 40.4 40.0 - 48.4 % 09/17/2023 10:07 AM EDT [facility] 56- MCV 99.3 82.0 - 99.5 fL 09/17/2023 10:07 AM EDT [facility] 56- MCH 31.9 27.0 - 34.0 pg 09/17/2023 10:07 AM EDT [facility] 56 MCHC 32.2 32.0 - 36.0 g/dL 09/17/2023 10:07 AM EDT [facility] 56- RDW 12.8 11.5 - 15.5 % 09/17/2023 10:07 AM EDT [facility] 56- PLT 256 140 - 400 K/uL 09/17/2023 10:07 AM EDT [facility] 56- MPV 9.7 6.6 - 11.1 fL 09/17/2023 10:07 AM EDT [facility] 56- Blood Venous blood specimen / Unknown Venipuncture / Unknown 09/17/2023 9:53 AM EDT 09/17/2023 9:54 AM EDT Nina Chand MD LAB BLOOD ORDERABLES [facility] [address] [place] [address] documented in this encounter Visit Diagnoses Diagnosis MyCode Research Other*[id number] Screening for prostate cancer Special screening for malignant neoplasm of prostate Acquired total absence of pancreas Dyslipidemia, goal LDL below 160 Other and unspecified hyperlipidemia Elevated glucose Other abnormal glucose Malaise and fatigue Other malaise and fatigue documented in this encounter Advance Directives Documents on File Type Date Recorded Patient Line Service Technician Expl anation Advance Directives and Living Will 06/10/2020 10:26 AM ADVANCE DIRECTIVE HEALTH CARE POWER OF PREMIUM REPRESENTATIVE & INSTRUCTIONS Latest Code Status on File [...] and were consensually agreed upon. Care Teams Bereavement Counselor Relationship Specialty Start Date End Date Arpit Antonio III, MD [address] [place] [address] PCP - General Family Medicine 05/06/17 documented as of this encounter
--- OUTSIDE RECORDS SUMMARY | 2024-01-13 01:36 | External Medical Summary | Summary of Care ---
Author Name Unknown Organization [facility] Address [address] [place] [address] Phone [phone] Care Team Providers Care Hydramatic Specialist Name Role Phone Paco ODOM MD, Arpit Yan Primary Care Provider [phone] Reason for Referral * Precert (Within 10 days (routine)) - Pending Review Specialty Diagnoses / Procedures Referred By Contac t Referred To Contact Cardiac Studies Diagnoses Aortic valve stenosis, etiology of cardiac valve disease unspecified Procedures ECHO, COMPLETE (2D), TRANS-THORACIC Arpit Antonio III, MD [address] [place] [address] Referral ID Status Reason Start Date Expiration Date Visits Requested Visits Authorized [id number] Pending Review Precert 09/17/[phone] Reason for Visit * Reason Comments Physical-Exam Encounter Details Date Type Department Care Team (Late st Contact Info) Description 09/17/2023 9:00 AM EDT Office Visit [facility] [address] [place] [address] Arpit Antonio III, MD [address] [place] [address] History of Whipple procedure*; Dyslipidemia; Malaise and fatigue; Aortic valve stenosis, etiology of cardiac valve disease unspecified Allergies Active Allergy Reactions Criticality Noted Date [...] DAY 90 Tablet 48 2 Active Creon 18580-38910 UNIT Oral Capsule Delayed Release Particles (Pancrelipase (Cio-Czqu-Fcij))In dications:History of resection of pancreas,Cholangio carcinoma (HCC) [...] right inguinal hernia 02/02/2003 05/06/2017 Overview: [facility]: Conor Cortes MD Malignant neoplasm [...] Sign Reading Time Taken Comments Blood Pressure 130/68 09/17/2023 9:07 AM EDT Pulse 77 09/17/2023 9:07 AM EDT Temperature 35.3 C (95.5 F) 09/17/2023 9:07 AM ED T Respiratory Rate 16 09/17/2023 9:07 AM EDT Oxygen Saturation 99% 09/17/2023 9:07 AM EDT Inhaled Oxygen Concentration - - Weight 84.8 kg (187 lb) 09/17/2023 9:07 AM EDT Height 185.4 cm (6' 1") 09/17/2023 9:07 AM EDT Body Mass Index 24.67 09/17/2023 9:07 AM EDT documented in this encounter Functional [...] as of this encounter Progress Notes * Paco ODOM, Arpit Yan MD - 09/17/2023 9:45 AM EDT Subjective: Lucien Pemberton is a 77 year old male. Chief Complaint Patient presents with Physical-Exam HPI: Concerns today are feeling wiped out tired 2 days after he is done his exercise no exertional chest pain shortness of breath claudication no bleeding urine or bowels does get some discomfort between the rectum in the scrotum no associated does have hemorrhoids psoriasis gluteal cleft will be traveling to [place] history of Whipple's procedure PMH: Patient Active Problem List Diagnosis Code ADVANCE DIRECTIVE INFORMATION Dyslipidemia, goal LDL below 160 E78.5 History of resection of pancreas Z90.410 Elevated glucose R73.09 Knee effusion, left M25.462 Current Outpatient Medications Medication Sig Dispense Refill TYLENOL 325 MG PO TABS 1-2 tablets every 4 hours as needed Ibuprofen-diphenhydrAMINE Cit 200-38 MG Oral Tablet Take 1 Tab by mouth at bedtime as needed. Hydrocortisone (Perianal) 2.5 % External Cream Administer into the rectum 2 times a day. 28 g 0 [facility] Vitamin B-12 1000 MCG Oral Tablet (vitamin b 12) TAKE 1 TABLET BY MOUTH EVERY DAY 90 Tablet 48 Creon 39749-24243 UNIT Oral Capsule Delayed Release Particles (Pancrelipase (Arr-Xcyd-Cnoh)) TAKE 1CAPSULE IN THE MORNING, 1 CAP AT NOON, 1 CAP IN EVENING, 1 CAP BEFORE BED AND 1 CAP WITH SNACKS 120Capsule 4 Omeprazole 20 MG Oral Capsule Delayed Release (PriLOSEC) TAKE 1 CAPSULE BY MOUTH EVERY DAY IN THE MORNING 90 Capsule 1 No current facility-administered medications for this visit. Review of patient's allergies indicates: Allergen Reactions Penicillins As a child Sulfa Antibiotics hives and difficulty breathing Past Medical History: Diagnosis Date Benign neoplasm [...] performed by Marie Jarquin MD at [facility] COLONOSCOPY, DIAGNOSTIC (RECTUM) 12/17/2011 COLONOSCOPY FLEXIBLE PROXIMAL DIAGNOSTIC performed by Leora Jay MD at [facility] COLONOSCOPY, DIAGNOSTIC (RECTUM) 06/02/2018 adenomatous polyps, diverticulosis, poor prep, repeat 1 yr/COLONOSCOPY FLEXIBLE PROXIMAL DIAGNOSTICperformed by Nilson Dick MD at ENDOSCOPY [facility] COLONOSCOPY, DIAGNOSTIC (RECTUM) 06/10/2020 adenomatous polyps, repeat 3 yrs / COLONOSCOPY FLEXIBLE PROXIMAL DIAGNOSTIC performed by Rajinder Castillo MD at ENDOSCOPY [facility] EGD, W/ENDOSCOPIC US 12/12/2011 UPPER GI ENDOSCOPY ENDOSCOPIC ULTRASOUND performed by Thierry Hsieh MD at [facility] EGD, W/ENDOSCOPIC US N/A 05/17/2020 ESOPHAGOGASTRODUODENOSCOPY (EGD), FLEXIBLE, TRANSORAL, ENDOSCOPIC ULTRASOUND performed by Rajinder Castillo MD at [facility] ERCP 04/07/2020 luminal narrowing, stent placed, repeat 6 wks/ [facility] ERCP, DIAGNOSTIC, SPECIMEN COLLECTION N/A 05/17/2020 ENDOSCOPIC RETROGRADE CHOLANGIOPANCREATOGRAPHY (ERCP) DIAGNOSTIC performed by Martha Mann [facility] ERCP, DIAGNOSTIC, SPECIMEN COLLECTION N/A 08/25/2020 ENDOSCOPIC RETROGRADE CHOLANGIOPANCREATOGRAPHY (ERCP) DIAGNOSTIC performed by Alirio Purvis MD at [facility] KNEE ARTHROSCOPY, DIAGNOSTIC 2000 Knee Scope,Diagnostic, [place], [place] no treatment REMOVE PANCREAS, PARTIAL (WHIPPLE) 12/20/2011 PANCREATECTOMY PROXIMAL WITH SUBTOTAL DUODENECTOMY performed by Lio Johnson MD at [facility] REMOVE TONSILS & ADENOIDS, UNDER 12 REPAIR INITIAL INGUINAL HERNIA REDUCIBLE AGE 5 OR MORE Right 06/04/2008 Repair right direct and indirect inguinal hernia with mesh reinforcement 06/04/[address] Cortes at [facility] VASECTOMY 2006 Objective: The patient is a 77 year old male BP 130/68 | Pulse 77 | Temp 35.3 C (95.5 F) (Tympanic) | Resp 16 | Ht 1.854 m (6' 1") | Wt 84.8kg (187 lb) | SpO2 99% | BMI 24.67 kg/m | BSA 2.09 m General: alert, healthy, and no distress Eye Exam: PERRLA, extraocular movements intact, conjunctiva are pink and non- injected, sclera clear Oropharynx: no exudate, no erythema, lips, buccal mucosa, and tongue normal, and mucous membranes are moist Heart: regular rate & rhythm, no murmur, and no gallops Lungs: lungs clear to auscultation Extremities: no edema, no clubbing, no cyanosis Rectal: Hemorrhoidal tags gluteal cleft psoriatic changes ASSESSMENT: Z90.410,Z90.49 History of Whipple procedure (primary encounter diagnosis) E78.5 Dyslipidemia R53.81,R53.83 Malaise and fatigue I35.0 Aortic valve stenosis, etiology of cardiac valve disease unspecified PLAN: Labs ordered check echocardiogram RSV vaccine Tdap discussed gastroenterology ask a doc read colonoscopy Follow up in 6 month(s). Arpit Antonio III, MD documented in this encounter Nursing Notes * Sonia Ram LPN - 09/17/2023 9:05 AM EDT Lucien Pemberton presents for annual physical exam. Medications & HM reviewed. Denies any concerns at this time documented in this encounter Plan of Treatment Upcoming Encounters Date Type Department Care Team (Late st Contact Info) Description 09/17/2023 10:10 AM EDT [facility] [address] [place] [phone] [place], Lab Scenery [address] [place] [address] MyCode Research Other*[id number]; Screening for prostate cancer; Acquired total absence of pancreas; Dyslipidemia, goal LDL below 160; Elevated glucose; Malaise and fatigue 10/10/2023 3:45 PM EDT Office Visit Ophthalmology, [facility] [address] [place] [address] Umesh Hawkins, DO [address] [facility] [place] [address] 10/30/2023 11:20 AM EDT Office Visit Family Practice [facility] [address] [facility] [place] [address] Sarahi Jaimes PA-C [address] [facility] [place] [address] 11/11/2023 7:50 AM EDT Office Visit Ophthalmology, [facility] 132 [facility] [place] [address] Karlos Jay, DO [address] [place] [address] Pending Results Name Type Priority Associated Diagnoses Date /Time ERYTHROCYTE SEDIMENTATION RATE (ESR) Lab Routine Malaise and fatigue 09/17/2023 9:53 AM EDT TSH WITH FREE T4 IF INDICATED Lab Routine Malaise and fatigue 09/17/2023 9:53 AM EDT Scheduled Orders Name Type Priority Associated Diagnoses Orde r Schedule ERYTHROCYTE SEDIMENTATION RATE (ESR) Lab Routine Malaise and fatigue Expected: 09/17/2023 (Approximate), Expires: 09/16/2024 TSH WITH FREE T4 IF INDICATED Lab Routine Malaise and fatigue Expected: 09/17/2023 (Approximate), Expires: 09/16/2024 ECHO, COMPLETE (2D), TRANS-THORACIC Echocardiology Routine Aortic valve stenosis, etiology of cardiac valve disease unspecified Expected: 09/17/2023, Expires: 10/17/2025 Scheduled Procedures Name Priority Associated Diagnoses Date/Ti me COLONOSCOPY FLEXIBLE PROXIMAL DIAGNOSTIC Recall History of colon polyps Health Maintenance Due Date Last Done Comments Hepatitis C Screening 09/28/1963 Depression Screening 03/03/2021 03/03/2020 COVID-19 Vaccine (2022- season) 2023 06/05/2022, 05/01/2021, 09/01/2020, Additional history [...] this encounter Visit Diagnoses Diagnosis History of Whipple procedure- Primary Dyslipidemia Other and unspecified hyperlipidemia Malaise and fatigue Other malaise and fatigue Aortic valve stenosis, etiology of cardiac valve disease unspecified MyCode Research Other*[id number] Screening for prostate cancer Special screening for malignant neoplasm of prostate Acquired total absence of pancreas Dyslipidemia, goal LDL below 160 Other and unspecified hyperlipidemia Elevated glucose Other abnormal glucose Malaise and fatigue Other malaise and fatigue documented in this encounter Advance Directives Documents on File Type Date Recorded Patient Ops Analyst Expl anation Advance Directives and Living Will 06/10/2020 10:26 AM ADVANCE DIRECTIVE HEALTH CARE POWER OF BLACKSMITH ASSISTANT & INSTRUCTIONS Latest Code Status on File [...] and were consensually agreed upon. Care Teams Hydramatic Specialist Relationship Specialty Start Date End Date Arpit Antonio III, MD [address] [place] [address] PCP - General Family Medicine 05/06/17 documented as of this encounter
--- OUTSIDE RECORDS SUMMARY | 2024-01-13 01:36 | External Medical Summary | Summary of Care ---
Author Name Unknown Organization [facility] Address [address] [facility] [address] Phone [phone] Care Team Providers Care Crop Adjuster Name Role Phone Paco ODOM MD, Arpit Yan Primary Care Provider [phone] Reason for Visit * Reason Onset Date Comments Medical Records Request 09/02/2023 Encounter Details Date Type Department Care Team (Late st Contact Info) Description 09/02/2023 Telephone Ophthalmology, [place] [facility] [place] [address] [facility] [place] [address] Medical Records Request Allergies Active Allergy Reactions Criticality Noted Date Comments Penicillins 01/21/2003 As a child Sulfa Antibiotics 01/21/2003 hives and difficulty breathing documented as of this encounter (statuses as of 09/19/2023) Medications Medication Sig Dispensed Refills Start Date [...] DAY 90 Tablet 48 2 Active Creon 05474-66912 UNIT Oral Capsule Delayed Release Particles (Pancrelipase (Grj-Yveb-Lnzs))In dications:History of resection of pancreas,Cholangio carcinoma (HCC) [...] as of this encounter (statuses as of 09/19/2023) Active Problems Problem Noted Date Diagnosed Date Knee effusion, left 07/21/2016 Elevated glucose 01/04/2014 History of resection of pancreas 11/23/2012 Dyslipidemia, goal LDL below 160 11/29/2009 ADVANCE DIRECTIVE INFORMATION 07/06/2009 Overview: Yes, Patient instructed to provide copy of advance directive for provider to review and to be scanned into Electronic Medical Record documented as of this encounter (statuses as of 09/19/2023) Resolved Problems Problem Noted Date Diagnosed Date [...] right inguinal hernia 02/02/2003 05/06/2017 Overview: [facility]: Conor Cortes MD 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 LVM with direct number and reason for calling. [...] They were able to give information for [facility] - Dr. Rose stating they may have information regarding the patient. Juju [phone] was the contact information given. Attempted to contact [facility] as well, but was unable to reach [...] has any questions to call back to [phone]. GRISEL Sterling 09/04/2023 7:41 AM * Telephone Encounter - Leeann Meier COA - 09/02/2023 10:24 AM EST Fax sent to request medical records from previous Senior Research Manager - Dr. J Carlos Matthews MD documented in this encounter Plan of Treatment Upcoming Encounters Date Type Department Care Team (Late st Contact Info) Description 10/10/2023 3:45 PM EDT Office Visit Ophthalmology, [facility] [address] [facility] [place] [address] Umesh Hawkins, DO [address] [place] [address] 10/30/2023 11:20 AM EDT Office Visit Family Practice [facility] [address] [facility] [place] [address] Sarahi Jaimes PA-C [address] [facility] [place] [address] 11/11/2023 7:50 AM EDT Office Visit Ophthalmology, [facility] 132 [facility] [place] [address] Karlos Jay, DO [address] [place] [address] 12/04/2023 8:15 AM EDT Cardiac Studies Cardiac Studies, [facility] [address] [facility] [place] [address] Scheduled Procedures Name Priority Associated Diagnoses Date/Ti [...] Documents on File Type Date Recorded Patient Talent Acquisition Program Manager Expl anation Advance Directives and Living Will 06/10/2020 10:26 AM ADVANCE DIRECTIVE HEALTH CARE POWER OF ACETONE RECOVERY WORKER & INSTRUCTIONS Latest Code Status on File [...] and were consensually agreed upon. Care Teams Crop Adjuster Relationship Specialty Start Date End Date Arpit Antonio III, MD [address] [place] [address] PCP - General Family Medicine 05/06/17 documented as of this encounter
--- OUTSIDE RECORDS SUMMARY | 2024-01-13 01:36 | External Medical Summary ---
Author Name Unknown Address Unknown Organization K09:[facility] [place] [address] Laboratory Report Ordering Provider Test Date Status RACHELE PEREZ 09/17/2023 09:53:42 Final Observation Date Value Abnormality Reference (Units ) Status SYNC LEUKOCYTES IN BLOOD BY AUTOMATED COUNT 09/17/2023 09:53:42 5.14 4.00-10.80 (K/uL) Final Segs 09/17/2023 09:53:42 57.5 40.0-75.0 (%) Final Lymphs % 09/17/2023 09:53:42 26.8 18.0-42.0 (%) Final Monos 09/17/2023 09:53:42 12.6 Above high normal 1.0-11.0 (%) Final Eosinophils 09/17/2023 09:53:42 2.3 0.0-6.0 (%) Final Basos 09/17/2023 09:53:42 0.8 0.0-2.0 (%) Final Absolute Segs 09/17/2023 09:53:42 2.95 1.80-7.70 (K/uL) Final Lymphs, absolute 09/17/2023 09:53:42 1.38 1.00-4.80 (K/ul) Final Monos, Abs 09/17/2023 09:53:42 0.65 0.00-1.10 (K/uL) Final Eos, Abs 09/17/2023 09:53:42 0.12 0.00-0.70 (K/uL) Final Basos, Abs 09/17/2023 09:53:42 0.04 0.00-0.20 (K/uL) Final Performing Location [facility] [address] [place] [address]
--- OUTSIDE RECORDS SUMMARY | 2024-01-13 01:36 | External Medical Summary ---
Author Name Unknown Address Unknown Organization [id number]:LAB[facility]ATORY [facility] [place] - [address] [facility] [address] Laboratory Report Ordering Provider Test Date Status SRAVANTHI PEREZY 09/17/2023 09:53:42 Final Observation Date Value Abnormality Reference (Units ) Status Triglyceride 09/17/2023 09:53:42 103 <=174 ( mg/dL) Final Triglyceride Reference Range s (mg/dL):
<150 Acceptable
150-174 Borderline high
175-499 High
>=500 Very high Cholesterol 09/17/2023 09:53:42 167 <200 (mg /dL) Final Total Cholesterol Reference Ranges (mg/dL):
<200 Desirable
200-239 Borderline high
>=240 High HDL 09/17/2023 09:53:42 62 >39 (mg/dL ) Final HDL Cholesterol Reference Ra nges (mg/dL):
>=60 High (Desirable)
<50 Low (Undesirable) For Females
<40 Low (Undesirable) For Males NON-HDL CHOLESTEROL 09/17/2023 09:53:42 105 <=159 (mg/dL) Final Non-HDL Cholesterol Referenc e Range (mg/dL):
<100 Target level for high risk ASCVD patient
<130 Optimal for general population
130-159 Near optimal for general population
160-189 Borderline High
190-219 High
>=220 Very High LDL, (calculated) 09/17/2023 09:53:42 84 <= 129 (mg/dL) Final LDL Cholesterol Reference Ra nges (mg/dL):
<70 Target level for high risk ASCVD patient
<100 Optimal for general population
100-129 Near optimal for general population
130-159 Borderline high
160-189 High
>=190 Very high Performing Location [facility] [place] - [address] [place] [address]
--- OUTSIDE RECORDS SUMMARY | 2024-01-13 01:36 | External Medical Summary ---
Author Name Unknown Address Unknown Organization K09:[facility] [place] [address] Laboratory Report Ordering Provider Test Date Status RACHELE PEREZ 09/17/2023 09:53:42 Final Observation Date Value Abnormality Reference (Units ) Status BUN 09/17/2023 09:53:42 10 6-20 (mg/dL) Final Creatinine 09/17/2023 09:53:42 1.0 0.6-1.2 (mg/dL) Final Glomerular filtration rate/1.73 sq M.predicted [Volume Rate/Area] in Serum, Plasma or Blood by Creatinine-based formula (CKD-EPI) 09/17/2023 09:53:42 81 >=60 (mL/min) Final eGFR is calculated based on the CKD-EPI 2020 equation SODIUM 09/17/2023 09:53:42 139 135-146 (m mol/L) Final Potassium 09/17/2023 09:53:42 4.6 3.5-5.1 (m mol/L) Final Cl 09/17/2023 09:53:42 104 98-107 (mm ol/L) Final CO2 09/17/2023 09:53:42 25 22-32 (mmo l/L) Final Anion gap 09/17/2023 09:53:42 10 7-15 (mmol /L) Final Glucose 09/17/2023 09:53:42 93 70-120 (mg /dL) Final Albumin 09/17/2023 09:53:42 4.2 3.8-5.0 (g /dL) Final AST (Aspartate aminotransferase) 09/17/2023 09:53:42 26 10-50 (U/L) Final Alk Phos 09/17/2023 09:53:42 76 35-130 (U/ L) Final Bilirubin, Total 09/17/2023 09:53:42 0.4 <=1 .2 (mg/dL) Final Calcium 09/17/2023 09:53:42 9.4 8.4-10.2 ( mg/dL) Final Protein 09/17/2023 09:53:42 6.8 6.0-8.3 (g /dL) Final ALT (Alanine aminotransferase) 09/17/2023 09:53:42 20 10-50 (U/L) Final Performing Location [facility] [address] [place] [address]
--- OUTSIDE RECORDS SUMMARY | 2024-01-13 01:37 | External Medical Summary | Summary of Care ---
Author Name Unknown Organization [facility] Address [address] [facility] [place] [address] Phone [phone] Care Team Providers Care Fisher Clam Name Role Phone Paco ODOM MD, Arpit Yan Primary Care Provider [phone] Reason for Visit * Reason Onset Date Comments Medication Question 09/04/2023 Encounter Details Date Type Department Care Team (Late st Contact Info) Description 09/04/2023 Telephone Family Practice [facility] [place] 200 [facility] [place] [address] Arpit Antonio III, MD 200 [place] [address] Medication Question Allergies Active Allergy Reactions Criticality Noted Date Comments Penicillins 01/21/2003 As a child Sulfa Antibiotics 01/21/2003 hives and difficulty breathing documented as of this encounter (statuses as of 09/05/2023) Medications Medication Sig Dispensed Refills Start Date End Date Status TYLENOL 325 MG PO TABS 1-2 tablets every 4 hours as needed 0 Active Ibuprofen-diphenhydr AMINE Cit 200-38 MG Oral Tablet Take 1 Tab by mouth at bedtime as needed. 0 Active zoster vac recomb adjuvanted (SHINGRIX) 50 MCG/0.5ML injection Inject 0.5 mL into a large muscle now and repeat dose in 60 to 180 days. Please fax date this was given to our office. 1 Each 1 02/18/2019 Active Hydrocortisone (Perianal) 2.5 % External CreamIndications:Hem orrhoids, external without complications Administer into the rectum 2 times a day. 28 g 0 05/09/2021 Active [facility] Vitamin B-12 1000 MCG Oral Tablet (vitamin b 12) TAKE 1 TABLET BY MOUTH EVERY DAY 90 Tablet 48 02/09/2022 Active Benzonatate 100 MG Oral CapsuleIndications:V iral URI with cough Take 1 Capsule by mouth 3 times a day as needed for Cough. 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 Dyslipidemia, goal LDL below 160 11/29/2009 ADVANCE DIRECTIVE INFORMATION 07/06/2009 Overview: Yes, Patient instructed to provide copy of advance directive for provider to review and to be scanned into Electronic Medical Record documented as of this encounter (statuses as of 09/05/2023) Resolved Problems Problem Noted Date Diagnosed Date [...] of right inguinal hernia 02/02/2003 05/06/2017 Overview: [facility]: Conor Cortes MD 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 Nothing due per HM. He's also requesting labs for tumor markers? * Telephone Encounter - Nina Chicas OSA - 09/04/2023 1:30 PM EST Pt would like labs ordered before next appt on 09/17/23 PSA Tumor markers Please call pt and tell them when they are in. documented in this encounter Plan of Treatment Upcoming Encounters Date Type Department Care Team (Late st Contact Info) Description 09/16/2023 11:20 AM EDT Office Visit Ophthalmology, [address] [place] [address] Karlos Jay, DO [address] [place] [address] [place] [address] 09/17/2023 9:00 AM EDT Office Visit Family Practice [facility] 200 [facility] [place] [address] Arpit Antonio III, MD 200 [facility] [place] [address] 10/10/2023 3:45 PM EDT Office Visit Ophthalmology, [facility] [address] [place] [address] Umesh Hawkins, DO [address] [place] [address] 11/11/2023 7:50 AM EDT Office Visit Ophthalmology, [facility] 132 [facility] [place] [address] Karlos Jay, DO [address] [place] [address] Scheduled Procedures Name Priority Associated Diagnoses Date/Ti [...] as of this encounter Visit Diagnoses Diagnosis Screening for prostate cancer- Primary Special screening for malignant neoplasm of prostate documented in this encounter Advance Directives Documents on File Type Date Recorded Patient Filter Tank Tender Expl anation Advance Directives and Living Will 06/10/2020 10:26 AM ADVANCE DIRECTIVE HEALTH CARE POWER OF GARMENT SEWER HAND & INSTRUCTIONS Latest Code Status on File [...] and were consensually agreed upon. Care Teams Fisher Clam Relationship Specialty Start Date End Date Arpit Antonio III, MD 200 [facility] [place] [address] PCP - General Family Medicine 05/06/17 documented as of this encounter
--- OUTSIDE RECORDS SUMMARY | 2024-01-13 01:37 | External Medical Summary | Summary of Care ---
Author Name Unknown Organization [facility] Address [address] [place] [facility] [place] [facility] [place] [address] Phone [phone] Care Team Providers Care Booster Pump Oiler Name Role Phone Paco ODOM MD, Arpit Yan Primary Care Provider [phone] Reason for Visit * Reason Onset Date Comments Medication Question 09/04/2023 Encounter Details Date Type Department Care Team (Late st Contact Info) Description 09/04/2023 Telephone Family Practice [facility] [place] 200 [place] [address] Arpit Antonio III, MD [address] [place] [address] Medication Question Allergies Active Allergy Reactions Criticality Noted Date Comments Penicillins 01/21/2003 As a child Sulfa Antibiotics 01/21/2003 hives and difficulty breathing documented as of this encounter (statuses as of 09/06/2023) Medications Medication Sig Dispensed Refills Start Date [...] Cough. 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 Dyslipidemia, goal LDL below 160 11/29/2009 ADVANCE DIRECTIVE INFORMATION 07/06/2009 Overview: Yes, Patient instructed to provide copy of advance directive for provider to review and to be scanned into Electronic Medical Record documented as of this encounter (statuses as of 09/06/2023) Resolved Problems Problem Noted Date Diagnosed Date [...] of right inguinal hernia 02/02/2003 05/06/2017 Overview: [facility] [place]: Conor Cortes MD 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 informed of message. He had whipple surgery 12 years ago. Every year he gets a CEA and CA 19-9 done to monitor. Pending. He would like cbc, cholesterol and cmp ordered too. Pending. * Addendum Note - Sarahi Cardenas PA-C - 09/05/2023 10:27 PM ESTAddended by: SARAHI CARDENAS on: 09/05/2023 10:27 PM Modules accepted: Orders * Telephone Encounter - Sarahi Cardenas PA-C - 09/05/2023 10:26 PM EST Tumor markers for?? * Addendum Note - Ananda Rizo LPN - 09/05/2023 1:49 PM ESTAddended by: ANANDA RIZO on: 09/05/2023 01:49 PM Modules accepted: Orders * Telephone Encounter - Ananda Rizo LPN - 09/05/2023 1:44 PM EST [...] 09/16/2023 11:20 AM EDT Office Visit Ophthalmology, [facility] 132 [facility] [place] [address] [facility]os Jay, DO [facility] [address] 09/17/2023 9:00 AM EDT Office Visit Family Practice [facility] 200 [facility] [place] [address] Arpit Antonio III, MD 200 [facility] [place] [address] 10/10/2023 3:45 PM EDT Office Visit Ophthalmology, [facility] 132 [facility] [place] [address] Umesh Hawkins, DO [facility] [place] [address] 11/11/2023 7:50 AM EDT Office Visit Ophthalmology, [facility] 132 [facility] [place] [address] Karlos Jay, [address] [place] [address] [place] [address] Scheduled Orders Name Type Priority Associated Diagnoses Orde r Schedule PSA Lab Routine Screening for prostate cancer Expected: 09/05/2023 (Approximate), Expires: 09/04/2024 Scheduled Procedures Name Priority Associated Diagnoses Date/Ti [...] as of this encounter Visit Diagnoses Diagnosis Acquired total absence of pancreas- Primary Screening for prostate cancer Special screening for malignant neoplasm of prostate documented in this encounter Advance Directives Documents on File Type Date Recorded Patient Licensed Audiologist Expl anation Advance Directives and Living Will 06/10/2020 10:26 AM ADVANCE DIRECTIVE HEALTH CARE POWER OF MANAGER WOUND & INSTRUCTIONS Latest Code Status on File [...] and were consensually agreed upon. Care Teams Booster Pump Oiler Relationship Specialty Start Date End Date Arpit Antonio III, MD 200 [place] [address] PCP - General Family Medicine 05/06/17 documented as of this encounter
--- OUTSIDE RECORDS SUMMARY | 2024-01-13 01:37 | External Medical Summary | Summary of Care ---
Author Name Unknown Organization [facility] Address [address] [facility] [place] [address] Phone [phone] Care Team Providers Care Enterprise Architect Name Role Phone Paco ODOM MD, Arpit Yan Primary Care Provider [phone] Reason for Visit * Reason Onset Date Comments Medication Question 09/04/2023 Encounter Details Date Type Department Care Team (Late st Contact Info) Description 09/04/2023 Telephone Family Practice [facility] [place] 200 [facility] [place] [address] Arpit Antonio III, MD 200 [place] [address] Medication Question Allergies Active Allergy Reactions Criticality [...] Cough. 30 Capsule 1 10/24/2022 Active Creon [id number] UNIT Oral Capsule Delayed Release Particles (Pancrelipase (Bfr-Runw-Ljsy))Kita cations:History of resection of pancreas,Cholangioca rcinoma (HCC) [...] right inguinal hernia 02/02/2003 05/06/2017 Overview: [facility]: Conor Cortes MD Malignant neoplasm of [...] encounter Miscellaneous Notes * Addendum Note - Sarahi Jaimes PA-C - 09/05/2023 10:27 PM ESTAddended by: SARAHI JAIMES on: 09/05/2023 10:27 PM Modules accepted: Orders * Telephone Encounter - Sarahi Jaimes PA-C - 09/05/2023 10:26 PM EST Tumor markers for?? * Addendum Note - Tanya Rizo LPN [...] 09/16/2023 11:20 AM EDT Office Visit Ophthalmology, [facility] [address] [place] [address] Karlos Jay, DO [address] [place] [address] 09/17/2023 9:00 AM EDT Office Visit Family Practice [facility] 200 [facility] [place] [address] Arpit Antonio III, MD 200 [facility] [place] [address] 10/10/2023 3:45 PM EDT Office Visit Ophthalmology, [facility] [address] [place] [address] Umesh Hawkins DO [address] [place] [address] 11/11/2023 7:50 AM EDT Office Visit Ophthalmology, [address] [address] Karlos Jay, DO [address] [place] [address] Scheduled Orders Name Type Priority Associated Diagnoses [...] Documents on File Type Date Recorded Patient Cardiovascular Operating Room Nurse Expl anation Advance Directives and Living Will 06/10/2020 10:26 AM ADVANCE DIRECTIVE HEALTH CARE POWER OF MOTOR VEHICLE LIGHT ASSEMBLER & INSTRUCTIONS Latest Code Status on File [...] and were consensually agreed upon. Care Teams Enterprise Architect Relationship Specialty Start Date End Date Arpit Antonio III, MD [address] [place] [address] PCP - General Family Medicine 05/06/17 documented as of this encounter
--- OUTSIDE RECORDS SUMMARY | 2024-01-13 01:37 | External Medical Summary ---
Author Name Unknown Address Unknown Organization K01:LABORATORY [facility] [place] - [address] [place] [address] Laboratory Report Ordering Provider Test Date Status TRINITY TORRES III 09/17/2023 09:53:42 Final Observation Date Value Abnormality Reference (Units ) Status Erythrocyte sedimentation rate by Photometric method 09/17/2023 09:53:42 12 <20 (mm/hour) Final Performing Location [facility] [place] - [address] [place] [address]
--- OUTSIDE RECORDS SUMMARY | 2024-01-13 01:37 | External Medical Summary | Continuity of Care Document ---
Author Name Unknown Organization [facility] [address] [facility] 2 Address [address] [phone] Care Team Providers Care E D Tech Name Role Phone Arpit Antonio Primary Care Physician [phone] [phone] Date(s): 09/12/23 - 09/12/23 [facility] [address] [facility] 2 [address] [phone] Encounter Diagnosis Changing skin lesion(Discharge Diagnosis) - 09/12/23 Actinic keratoses(Discharge Diagnosis) - 09/12/23 History of basal cell cancer(Discharge Diagnosis) - 09/12/23 Discharge Disposition: Home or Self Care Attending Physician: GAYE Pena Dawn M Allergies, Adverse Reactions, Alerts Substance Reaction Severity Status PCN (penicillin) hives Active sulfa drugs hives Active Assessment and Plan Extracted from: Title:Dermatology Office Visit Note Author:Javier cerna PA-C, Dawn M Date:09/12/23 1.Changing skin lesion Changing skin lesion - bx today. will contact with result 2.Actinic keratoses - chronic and stable -ACTINIC KERATOSES - discussed precancerous potential of these lesions and reviewed options for watchful waiting with judicious sun protection vs cryotherapy. cryo x 5 3.History of basal cell cancer Reviewed sun protection with SPF 30 or higher applied every 80 minutes and use of sun protective clothing and hat. Call with questions or concerns. Follow up pending path and in 6 months. Patient in agreement with plan. Medications Advil 200 mg oral tablet Start: 01/24/21 8:32:00 EDT, 1 tab, PO, Daily Start Date: 01/24/21 Status: Ordered Aspirin Low Dose 81 mg oral delayed release tablet Start: 01/24/21 8:32:00 EDT, 2 tab, PO, Daily Start Date: 01/24/21 Status: Ordered Creon Start: 02/22/15 13:55:00, 1 tab/ dose unknown, PO, with each meal and snack Start Date: 02/22/15 Status: Ordered PriLOSEC Start: 02/22/15 13:54:00, 20 mg =, PO, Daily Start Date: 02/22/15 Status: Ordered Vitamin B Complex Start: 01/24/21 8:32:00 EDT, 1 tab, PO, Daily Start Date: 01/24/21 Status: Ordered Mental Status 09/12/23 Barriers to Learning one year None evide nt Mandatory Health Literacy Documentation Yes Health Literacy Communication Barriers N ever Primary Language Kyrgyz Problem List Condition Confirmation Course Effective Dates Status Health St atus Informant Basal cell carcinoma 1 Confirmed Active BCC (basal cell carcinoma) Confirmed Active Reflux Confirmed Active SCC (squamous cell carcinoma) Confirmed Active 1L post aurucular area; L infraauricular area Diagnosis Diagnosis Type Effective Dates Health Status Cl inical Service Informant History of basal cell cancer Discharge Diagnosis 09/12/23 Changing skin lesion Discharge Diagnosis 09/12/23 Actinic keratoses Discharge Diagnosis 09/12/23 Procedures Procedure Date Related Diagnosis Body Site Status Shave biopsy 1 09/12/23 Completed Mohs' micrographic surgery 07/08/23 Completed Shave biopsy of skin 03/28/23 Comp leted Shave biopsy of skin 03/28/23 Comp leted Shave biopsy and cauterization of skin 03/15/21 Completed Radiation 09/2020 Completed Shave biopsy of skin 06/14/20 Comp leted Shave biopsy of skin 03/01/20 Comp leted Mohs surgery 2 04/23/18 Completed Shave biopsy of skin 03/12/18 Comp leted Shave biopsy and cauterisati on of skin 3 03/22/17 Completed Curettage and cauterization of skin lesion 4 02/07/17 Completed Curettage and cauterization of skin lesion 5 12/20/16 Completed Shave biopsy of skin 6 05/30/16 Co mpleted Shave biopsy of skin 03/27/16 Comp leted Mohs surgery 08/2015 Completed Shave biopsy 07/22/15 Completed Whipple operation 2011 Complet ed Mohs surgery 7 Completed Mohs surgery 8 Completed Shave biopsy 9 Completed 1right posterior auricular sulcus 2Right cheek 3left side nose 4right preauricular area 5right cheek 6ED&C 7notes a dozen times/ numerous areas over the past years 8Moh on the nose 9right periorbital area Social History Social History Type Response Smoking Status Never smoked cigaret lilly Sex Dermatology Outpatient Note * GAYE ePna, Julia Shukla: PERFORM Event Display: Dermatology Outpt Note Authored Date: [id number] Chief Complaint sensitive area behind left ear near Mohs site. some scaly areas on bridge of nose. HX of SCC, BCC History of Present Illness IDA BAUGH [facility] a77 year old [place] of sensitive area behind left ear near Mohs site. some scaly areas on bridge of nose. HX of SCC, BCC. The patient feels the condition isstable.He denies itching, bleeding, oozing, but confirms crusting or evolving lesions. Patient has a past personal history of skin cancer: Multiple BCC Patient uses sunscreen. Grew up in [place]. 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 Physical Exam _Constitutional: Generally well appearing, well developed. Appears stated age. Eyes: Conjunctivae and lids without noted inflammation, lesion, mass, deformity or drainage. Neurological / Psychiatric: Oriented to person, place and time. Appropriate mood and affect. No notable depression, anxiety or agitation. Integumentary:Exam of the scalp, face, hair, lips, eyelids, neck, both upper extremities, hands, digits, and nails was conducted and was normal except as detailed below: LEFT NOSE, LEFT CHEEK, LEFT MU-ISM, RIGHT CHEEK (2) - erythematous based scaled lesions consistent with actinic keratoses - cryo x 5 RIGHT POSTERIOR AURICULAR SULCUS - 0.7cm pink pearly papule - bx today PROCEDURE: Cryotherapy performed to actinic keratoses x 5following verbal consent, time out and allowing time for questions. Alternative therapies were discussed, and education on wound healing, risk of thermal injury, dyspigmentation, infection and scar formation were performed. Wound care instruction was provided. Patient was without concerns after questions answered after the procedure. Procedure Note A shave skin biopsy Right POSTERIOR AURICULAR SULCUS was performed after a time out (patient identified with full name and date, site located and confirmed with team members) and verbal informed consent was obtained.Risks (infection, scar, bleeding) and benefits (proper diagnosis and treatment) were reviewed.Alternative options were discussed if applicable.Time was given to address and answer all questions.Photograph was taken to document location. Skin prep: isopropyl alcohol Anesthesia: 1% lidocaine with epinephrine Shave biopsy with derm blade. Hemostasis/Closure: aluminum chloride Dressing: sterile Verbal and written wound care instructions given.Patient was informed that further procedure(s)or treatment(s) may be needed pending pathology results.Patient is instructed to call should any problems or concerns arise.The patient agreed to call the office to obtain the test results if they have not been communicated to them within 2 weeks.Patient left after procedure in good condition. Assessment/Plan 1.Changing skin lesion Changing skin lesion - bx today. will contact with result 2.Actinic keratoses - chronic and stable -ACTINIC KERATOSES - discussed precancerous potential of these lesions and reviewed options for watchful waiting with judicious sun protection vs cryotherapy. cryo x 5 3.History of basal cell cancer Reviewed sun protection with SPF 30 or higher applied every 80 minutes and use of sun protective clothing and hat. Call with questions or concerns. Follow up pending path and in 6 months. Patient in agreement with plan. Problem List/Past Medical History Ongoing Basal cell carcinoma BCC (basal cell carcinoma) Reflux SCC (squamous cell carcinoma) Procedure/Surgical History Shave biopsy| Service Date: 09/12/2023Mo' micrographic surgery| Service Date: 07/08/2023Shave biopsy of skin| Service Date: 03/28/2023Shave biopsy of skin| Service Date: 03/28/2023Shave biopsy and cauterization of skin| Service Date: 03/15/2021adiation| Service Date: have biopsy of skin| Service Date: 06/14/2020Shave biopsy of skin| Service Date: 03/01/2020[facility] surgery| Service Date: 04/23/2018Shave biopsy of skin| Service Date: 03/12/2018Shave biopsyand cauterisation of skin| Service Date: 03/22/2017Curettage and cauterization of skin lesion| Service Date: 02/07/2017Curettage and cauterization of skin lesion| Service Date: 12/20/2016[facility] biopsy of skin| Service Date: 05/30/2016[facility] biopsy of skin| Service Date: 03/27/2016[facility] surgery| Service Date: 08/2015[facility] biopsy| Service Date: 07/22/2015Whipple operation| ServiceDate: 2011[facility] Medications aspirin(Aspirin Low Dose 81 mg oral delayed release tablet), 162 mg= 2 tab, PO, Daily ibuprofen(Advil 200 mg oral tablet), 200 mg= 1 tab, PO, Daily multivitamin(Vitamin B Complex), 1 tab, PO, Daily omeprazole(PriLOSEC), 20 mg, PO, Daily pancrelipase(Creon), 1 tab/ dose unknown, PO Allergies PCN (penicillin)hives sulfa drugshives Social History Smoking Status Never smoked cigarettes Electronic Signature on File Electronically Reviewed/Signed by: CURLY Blanco Author Signature Dt/Tm:09/12/2023 04:54 PM Department of Family Medicine Department of Dermatology DMS Patient Care team information Care Team Personnel Name: MD Antonio John E Position: Referring DIRECT Member Role: Primary Care Provider Address: Address: [address] [place], [place] [id number] Care Team Related Persons Name: JESIKA BAUGH Address: home [address] [place], [place] [id number] Name: JESIKA BAUGH Address: home [address] [place], [place] [id number]"
--- OUTSIDE RECORDS SUMMARY | 2024-01-13 01:37 | External Medical Summary | Summary of Care ---
Author Name Unknown Organization [facility] Address [address] [facility] [address] Phone [phone] Care Team Providers Care Screen Printer Helper Name Role Phone Paco ODOM MD, Arpit Yan Primary Care Provider [phone] Reason for Visit * Reason Onset Date Comments Medical Records Request 09/02/2023 Encounter Details Date Type Department Care Team (Late st Contact Info) Description 09/02/2023 Telephone Ophthalmology, [facility] [place] [address] Umesh Hawkins DO [facility] [place] [address] Medical Records Request Allergies Active Allergy Reactions Criticality Noted Date Comments Penicillins 01/21/2003 As a child Sulfa Antibiotics 01/21/2003 hives and difficulty breathing documented as of this encounter (statuses as of 09/04/2023) Medications Medication Sig Dispensed Refills Start Date [...] Cough. 30 Capsule 1 10/24/2022 Active Creon [id number] UNIT Oral Capsule Delayed Release Particles (Pancrelipase (Jov-Fxxr-Tavd))Kita cations:History of resection of pancreas,Cholangioca rcinoma (HCC) [...] as of this encounter (statuses as of 09/04/2023) Active Problems Problem Noted Date Diagnosed Date Knee effusion, left 07/21/2016 Elevated glucose 01/04/2014 History of resection of pancreas 11/23/2012 Dyslipidemia, goal LDL below 160 11/29/2009 ADVANCE DIRECTIVE INFORMATION 07/06/2009 Overview: Yes, Patient instructed to provide copy of advance directive for provider to review and to be scanned into Electronic Medical Record documented as of this encounter (statuses as of 09/04/2023) Resolved Problems Problem Noted Date Diagnosed Date Resolved Date Recurrent BCC (basal cell carcinoma) 01/15/2015 05/06/2017 Encounter for antineoplastic chemotherapy 03/31/2012 05/06/2017 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 9 History of colon polyps 12/14/201112/29 Overview: 12/14/2011: normal repeat in 5 years 10/15/2006: tubulovillous adenoma: repeat 5 years Adenocarcinoma 12/12/2011 01/15/2015 Acute pancreatitis 12/12/2011 2 Obstructive jaundice 12/11/2011 07/18/2 015 Mass of common bile duct 12/11/2011 [...] of right inguinal hernia 02/02/2003 05/06/2017 Overview: [facility]: Conor Cortes MD 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 Rose stating they may have information regarding the patient. Juju [phone] was the contact information given. Attempted to contact [facility] as well, but was unable to [...] has any questions to call back to [phone]. GRISEL Sterling 09/04/2023 7:41 AM * Telephone Encounter - Leeann Meier COA - 09/02/2023 10:24 AM EST Fax sent to request medical records from previous Pharmacist Apprentice - Dr. J Carlos Matthews MD documented in this encounter Plan of Treatment Upcoming Encounters Date Type Department Care Team (Late st Contact Info) Description 09/16/2023 11:20 AM EDT Office Visit Ophthalmology, [facility] 132 [facility] [place] [address] Karlos Jay, DO [address] [place] [address] 09/17/2023 9:00 AM EDT Office Visit Family Practice [facility] 200 [facility] [place] [address] Arpit Antonio III, MD 200 [facility] [place] [address] 10/10/2023 3:45 PM EDT Office Visit Ophthalmology, [facility] [address] [facility] [place] [address] Umesh Hawkins, DO [address] [facility] [place] [address] 11/11/2023 7:50 AM EDT Office Visit Ophthalmology, [facility] [address] [facility] [place] [address] Karlos Jay, DO [address] [place] [address] Scheduled Procedures Name Priority Associated Diagnoses Date/Ti [...] Documents on File Type Date Recorded Patient Shampooer Expl anation Advance Directives and Living Will 06/10/2020 10:26 AM ADVANCE DIRECTIVE HEALTH CARE POWER OF EXPANDING MACHINE OPERATOR & INSTRUCTIONS Latest Code Status on File [...] and were consensually agreed upon. Care Teams Screen Printer Helper Relationship Specialty Start Date End Date Arpit Antonio III, MD [address] [place] [address] PCP - General Family Medicine 05/06/17 documented as of this encounter
--- OUTSIDE RECORDS SUMMARY | 2024-01-13 01:37 | External Medical Summary ---
Author Name Unknown Address Unknown Organization [id number]:[facility] [place] [address] [place] [address] Laboratory Report Ordering Provider Test Date Status HANNAH MOORE 09/17/2023 09:53:42 Final Observation Date Value Abnormality Reference (Units ) Status MYCODE SPECIMEN-SST 09/17/2023 09:53:42 Freezing of extracted DNA, whole blood and/or serum. Final Performing Location [facility] [place] [place] [address] [place] [address]
--- OUTSIDE RECORDS SUMMARY | 2024-01-13 01:37 | External Medical Summary | Summary of Care ---
Author Name Unknown Organization [facility] Address [address] [place] [address] Phone [phone] Care Team Providers Care Splicing Supervisor Name Role Phone Paco ODOM MD, Arpit Yan Primary Care Provider [phone] Reason for Visit * Reason Onset Date Comments Medication Question 09/04/2023 Encounter Details Date Type Department Care Team (Late st Contact Info) Description 09/04/2023 Telephone Family Practice [facility] [place] 200 [facility] [address] Arpit Antonio III, MD 200 [place] [address] Medication Question Allergies Active Allergy Reactions Criticality [...] Cough. 30 Capsule 1 10/24/2022 Active Creon [id number] UNIT Oral Capsule Delayed Release Particles (Pancrelipase (Sya-Fouf-Axor))Kita cations:History of resection of pancreas,Cholangioca rcinoma (HCC) [...] of right inguinal hernia 02/02/2003 05/06/2017 Overview: [facility]: Conor Cortes MD Malignant neoplasm [...] encounter Miscellaneous Notes * Addendum Note - Chris Chand MD - 09/06/2023 3:52 PM ESTAddended by: CHRIS CHAND on: 09/06/2023 03:52 PM Modules accepted: Orders * Addendum Note - Patrick Castrejon LPN [...] for tumor markers? * Telephone Encounter - Chris Chicas OSA - 09/04/2023 1:30 PM EST Pt would like labs ordered before next appt on 09/17/23 PSA Tumor markers Please call pt and tell them when they are in. documented in this encounter Plan of Treatment Upcoming Encounters Date Type Department Care Team (Late st Contact Info) Description 09/16/2023 11:20 AM EDT [facility] [address] [facility] [place] [address] Karlos Jay, DO [facility] [address] 09/17/2023 9:00 AM EDT Office Visit Family Practice [facility] [place] [address] [place] [address] Arpit Antonio III, MD [address] [place] [address] 10/10/2023 3:45 PM EDT Office Visit Ophthalmology, [facility] 132 [facility] [place] [address] Umesh Hawkins, DO [address] [place] [address] 10/30/2023 11:20 AM EDT Office Visit [facility] [address] [facility] [place] [address] Sarahi Cardenas PA-C 200 [facility] [place] [address] 11/11/2023 7:50 AM EDT Office Visit Ophthalmology, [facility] [address] [facility] [place] [address] Karlos Jay, DO 16 [facility] [place] [address] Scheduled Orders Name Type Priority Associated Diagnoses Orde r Schedule PSA Lab Routine Screening for prostate cancer Expected: 09/05/2023 (Approximate), Expires: 09/04/2024 CEA Lab Routine Acquired total absence of pancreas Expected: 09/06/2023 (Approximate), Expires: 09/05/2024 CA 19-9 Lab Routine Acquired total absence of pancreas Expected: 09/06/2023 (Approximate), Expires: 09/05/2024 COMPREHENSIVE METABOLIC PANEL Lab Routine Dyslipidemia, goal LDL below 160 Elevated glucose Expected: 09/06/2023 (Approximate), Expires: 09/05/2024 LIPID PANEL WITH DIRECT LDL IF TG IS HIGH Lab Routine Dyslipidemia, goal LDL below 160 Expected: 09/06/2023, Expires: 09/05/2024 CBC WITH WBC DIFFERENTIAL Lab Routine Dyslipidemia, goal LDL below 160 Expected: 09/06/2023 (Approximate), Expires: 09/05/2024 Scheduled Procedures Name Priority Associated Diagnoses Date/Ti [...] Special screening for malignant neoplasm of prostate Dyslipidemia, goal LDL below 160 Other and unspecified hyperlipidemia Elevated glucose Other abnormal glucose documented in this encounter Advance Directives Documents on File Type Date Recorded Patient Mammalogy Teacher Expl anation Advance Directives and Living Will 06/10/2020 10:26 AM ADVANCE DIRECTIVE HEALTH CARE POWER OF LAYOUT FORMER & INSTRUCTIONS Latest Code Status on File [...] and were consensually agreed upon. Care Teams Splicing Supervisor Relationship Specialty Start Date End Date Leelanau III, Arpit E, MD 200 [place] [address] PCP - General Family Medicine 05/06/17 documented as of this encounter
--- OUTSIDE RECORDS SUMMARY | 2024-01-13 01:37 | External Medical Summary ---
Author Name Unknown Address Unknown Organization K01:[facility] [place] [address] [facility] [address] Laboratory Report Ordering Provider Test Date Status TRINITY TORRES III 09/17/2023 09:53:42 Final Observation Date Value Abnormality Reference (Units ) Status TSH 09/17/2023 09:53:42 3.28 0.27-4.20 (uIU/mL) Final Performing Location [facility] [place] [facility] [address] [facility] [address]
--- OUTSIDE RECORDS SUMMARY | 2024-01-13 01:37 | External Medical Summary ---
Author Name Unknown Address Unknown Organization K01:[facility] - [address] [place] [address] Laboratory Report Ordering Provider Test Date Status RACHELE PEREZ 09/17/2023 09:53:42 Final Observation Date Value Abnormality Reference (Units ) Status CEA 09/17/2023 09:53:42 2.0 <=5.2 (ng/ mL) Final Performing Location [facility] - [address] [place] [address]
--- OUTSIDE RECORDS SUMMARY | 2024-01-13 01:37 | External Medical Summary | Summary of Care ---
Author Name Unknown Organization [facility] Address [address] [place] [address] Phone [phone] Care Team Providers Care Credit Card Associate Name Role Phone Paco ODOM MD, Arpit Yan Primary Care Provider [phone] Reason for Visit * Reason Onset Date Comments Medication Question 09/04/2023 Encounter Details Date Type Department Care Team (Late st Contact Info) Description 09/04/2023 Telephone Family Practice [facility] [place] 200 [facility] [address] Arpit Antonio III, MD 200 [facility] [address] Medication Question Allergies Active Allergy Reactions Criticality [...] Cough. 30 Capsule 1 10/24/2022 Active Creon [id number] UNIT Oral Capsule Delayed Release Particles (Pancrelipase (Qgg-Eplt-Zikb))Kita cations:History of resection of pancreas,Cholangioca rcinoma (HCC) [...] of right inguinal hernia 02/02/2003 05/06/2017 Overview: [facility]: Conor Cortes MD Malignant neoplasm [...] encounter Miscellaneous Notes * Telephone Encounter - Nina Chicas OSA - 09/04/2023 1:30 PM EST Pt would like labs ordered before next appt on 09/17/23 PSA Tumor markers Please call pt and tell them when they are in. documented in this encounter Plan of Treatment Upcoming Encounters Date Type Department Care Team (Late st Contact Info) Description 09/16/2023 11:20 AM EDT Office Visit Ophthalmology, [facility] 132 [facility] [place] [address] Karlos Jay, DO 16 [place] [address] 09/17/2023 9:00 AM EDT Office Visit Family Practice [facility] 200 [facility] [place] [address] Arpit Antonio III, MD 200 [facility] [place] [address] 10/10/2023 3:45 PM EDT Office Visit Ophthalmology [facility] [address] [facility] [place] [address] Umesh Hawkins, DO [address] [place] [address] 11/11/2023 7:50 AM EDT Office Visit Ophthalmology, [facility] [address] [place] [address] Karlos Jay, DO 16 [facility] [place] [address] Scheduled Procedures Name Priority Associated Diagnoses Date/Ti [...] Documents on File Type Date Recorded Patient Java J2Ee Lead Expl anation Advance Directives and Living Will 06/10/2020 10:26 AM ADVANCE DIRECTIVE HEALTH CARE POWER OF BULLET CHARGING MACHINE OPERATOR & INSTRUCTIONS Latest Code Status [...] and were consensually agreed upon. Care Teams Credit Card Associate Relationship Specialty Start Date End Date Arpit Antonio III, MD 200 [facility] [address] PCP - General Family Medicine 05/06/17 documented as of this encounter
--- OUTSIDE RECORDS SUMMARY | 2024-01-13 01:37 | External Medical Summary ---
Author Name Unknown Address Unknown Organization K01:[facility] [place] [address] [place] [address] Laboratory Report Ordering Provider Test Date Status 09/17/2023 09:53:42 Final Observation Date Value Abnormality Reference (Units ) Status PSA 09/17/2023 09:53:42 4.49 Above high normal <4 .10 (ng/mL) Final Performing Location [facility] - [address] [facility] [place] [address]
--- OUTSIDE RECORDS SUMMARY | 2024-01-13 01:37 | External Medical Summary ---
Author Name Unknown Address Unknown Organization [id number]:[facility] [place] [address] [place] [address] Laboratory Report Ordering Provider Test Date Status HANNAH MOORE 09/17/2023 09:53:42 Final Observation Date Value Abnormality Reference (Units ) Status MYCODE SPECIMEN-SST 09/17/2023 09:53:42 Freezing of extracted DNA, whole blood and/or serum. Final Performing Location [facility] [place] [address] [place] [address]
--- OUTSIDE RECORDS SUMMARY | 2024-01-13 01:37 | External Medical Summary | Summary of Care ---
Author Name Unknown Organization [facility] Address [address] [place] [address] Phone [phone] Care Team Providers Care Television Inspector Name Role Phone Paco ODOM MD, Arpit Yan Primary Care Provider [phone] Encounter Details Date Type Department Care Team (Late st Contact Info) Description 09/07/2023 Orders Only PATIENT PORTAL DO NOT DELETE THIS DEPT USED BY [place] S[place] [id number] Allergies Active Allergy Reactions Criticality Noted Date Comments Penicillins 01/21/2003 As a child Sulfa Antibiotics 01/21/2003 hives and difficulty breathing documented as of this encounter (statuses as of 09/07/2023) Medications Medication Sig Dispensed Refills Start Date [...] Cough. 30 Capsule 1 10/24/2022 Active Creon [id number] UNIT Oral Capsule Delayed Release Particles (Pancrelipase (Zof-Jaab-Mpuo))Kita cations:History of resection of pancreas,Cholangioca rcinoma (HCC) [...] as of this encounter (statuses as of 09/07/2023) Active Problems Problem Noted Date Diagnosed Date Knee effusion, left 07/21/2016 Elevated glucose 01/04/2014 History of resection of pancreas 11/23/2012 Dyslipidemia, goal LDL below 160 11/29/2009 ADVANCE DIRECTIVE INFORMATION 07/06/2009 Overview: Yes, Patient instructed to provide copy of advance directive for provider to review and to be scanned into Electronic Medical Record documented as of this encounter (statuses as of 09/07/2023) Resolved Problems Problem Noted Date Diagnosed Date [...] as of this encounter (statuses as of 09/07/2023) Immunizations Name Administration Dates Next Due COVID-19 [...] 09/16/2023 11:20 AM EDT Office Visit Ophthalmology, [facility] [address] [place] [address] Karlos Jay, DO [address] [place] [address] 09/17/2023 9:00 AM EDT Office Visit [facility] [address] [place] [address] Arpit Antonio III, MD [address] [place] [address] 10/10/2023 3:45 PM EDT Office Visit Ophthalmology, [facility] [address] [place] [address] Umesh Hawkins, DO [facility] [place] [address] 10/30/2023 11:20 AM EDT Office Visit [facility] [address] [place], [place] [address] Sarahi Jaimes PA-C [address] [place], [place] [address] 11/11/2023 7:50 AM EDT Office Visit Ophthalmology, [facility] [address] [place] [address] Karlos Jay, DO [address] [place] [address] Scheduled Procedures Name Priority Associated Diagnoses Date/Ti [...] Documents on File Type Date Recorded Patient Personal Lines Advisor Expl anation Advance Directives and Living Will 06/10/2020 10:26 AM ADVANCE DIRECTIVE HEALTH CARE POWER OF CUSTOM FURRIER & INSTRUCTIONS Latest Code Status on File [...] and were consensually agreed upon. Care Teams Television Inspector Relationship Specialty Start Date End Date Arpit Antonio III, MD 200 [place] [address] PCP - General Family Medicine 05/06/17 documented as of this encounter
--- OUTSIDE RECORDS SUMMARY | 2024-01-13 01:38 | External Medical Summary | Summary of Care ---
Author Name Unknown Organization [facility] Address [address] [facility] [place] [address] Phone [phone] Care Team Providers Care Programs Director Name Role Phone Paco ODOM MD, Arpit Yan Primary Care Provider [phone] Encounter Details Date Type Department Care Team (Late st Contact Info) Description 08/30/2023 Telephone Ophthalmology, [facility] [address] [facility] [place] [address] Umesh Hawkins DO [facility] [place] [address] Allergies Active Allergy Reactions Criticality Noted Date Comments Penicillins 01/21/2003 As a child Sulfa Antibiotics 01/21/2003 hives and difficulty breathing documented as of this encounter (statuses as of 08/30/2023) Medications Medication Sig Dispensed Refills Start Date [...] Cough. 30 Capsule 1 10/24/2022 Active Creon [id number] UNIT Oral Capsule Delayed Release Particles (Pancrelipase (Tkg-Ilso-Zrkb))Kita cations:History of resection of pancreas,Cholangioca rcinoma (HCC) [...] as of this encounter (statuses as of 08/30/2023) Active Problems Problem Noted Date Diagnosed Date Knee effusion, left 07/21/2016 Elevated glucose 01/04/2014 History of resection of pancreas 11/23/2012 Dyslipidemia, goal LDL below 160 11/29/2009 ADVANCE DIRECTIVE INFORMATION 07/06/2009 Overview: Yes, Patient instructed to provide copy of advance directive for provider to review and to be scanned into Electronic Medical Record documented as of this encounter (statuses as of 08/30/2023) Resolved Problems Problem Noted Date Diagnosed Date [...] hernia 02/02/2003 05/06/2017 Overview: [facility]: Conor Cortes MD 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 Anesthesia: Monitored Local Anesthesia with Sedation 4. Preferred location: [facility] 5. Time needed for IOL/sampson discussion: Already scheduled 6. Please schedule H&P w/ PCP Difficulty = 1 documented in this encounter Plan of Treatment Upcoming Encounters Date Type Department Care Team (Late st Contact Info) Description 09/16/2023 11:20 AM EDT Office Visit Ophthalmology, [facility] [address] [facility] [place] [address] Karlos Jay, 16 [place] [address] 09/17/2023 9:00 AM EDT Office Visit Family Practice [facility] [place] [address] Paco Arpit ODOM MD [address] [place] [address] 10/10/2023 3:45 PM EDT Office Visit Ophthalmology, [facility] 132 [facility] [place] [address] Umesh Hawkins DO 21 [facility] [place] [address] 11/11/2023 7:50 AM EDT Office Visit Ophthalmology, [facility] [address] [place] [address] Karlos Jay, DO [address] [place] [address] Scheduled Procedures Name Priority Associated Diagnoses Date/Ti [...] Documents on File Type Date Recorded Patient Gluer Expl anation Advance Directives and Living Will 06/10/2020 10:26 AM ADVANCE DIRECTIVE HEALTH CARE POWER OF INLAYER & INSTRUCTIONS Latest Code Status on File [...] and were consensually agreed upon. Care Teams Programs Director Relationship Specialty Start Date End Date Arpit Antonio III, MD 200 [place] [address] PCP - General Family Medicine 05/06/17 documented as of this encounter
--- OUTSIDE RECORDS SUMMARY | 2024-01-13 01:38 | External Medical Summary | Summary of Care ---
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 Dyslipidemia, goal LDL below 160 11/29/2009 ADVANCE DIRECTIVE INFORMATION 07/06/2009 Overview: Yes, Patient instructed to provide copy of advance directive for provider to review and to be scanned into Electronic Medical Record documented as of this encounter (statuses as of 08/05/2023) Resolved Problems Problem Noted Date Diagnosed Date [...] of right inguinal hernia 02/02/2003 05/06/2017 Overview: [facility]: Conor Cortes MD 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 Overview: ICD-10 update of inactive term documented as of this encounter (statuses as of 08/05/2023) Immunizations Name Administration Dates Next Due COVID-19 mRNA, LNP-s, No Pre serve, 2-Dose Series (Moderna) 09/01/2020,08/06/2020 COVID-19, mRNA, LNP-s, PF, B ooster, 100mcg/0.5mg (Moderna) 05/01/2021 Covid-19, Mrna, Lnp-s, Pf, B ivalent, 30 Mcg, IM, 12 yrs and above ([employer]) 06/05/2022 H1N1 2009 Influenza, IM 06/16/2009 Pneumococcal [...] Date Smoking Tobacco: Former Cigarettes 1 10 Q uit: 02/02/1974 Smokeless Tobacco: Never Alcohol Use Standard [...] as of this encounter Progress Notes * Karlos Jay DO - 08/05/2023 11:33 AM EST Lucien Pemberton seen for 2 weeks post bilateral biopsies. AK and Bal K on path. Toerated well wants CEeval.. LLL: incisions healed slight ectropion RLL medially C/S: Normal Cornea: Clear Assessment: S/P biopsies Both Eyes. Looks great. Plan: Erythromycin ointment QHS Return visit 3 months. NA CE Eval Pt. advised to RTC sooner if there are any problems. Karlos Jay DO documented in this encounter Nursing Notes * Faith Saldivar LPN - 08/05/2023 11:23 AM EST Lucien Pemberton is a 77 year old male who presents for PO follow up. Patient denies issues other than cataracts. Last Visit: 06/12/2023 (in office), Visit date not found (telemedicine) He currently states no change in vision. Are you diabetic? No Current Ophthalmic Medications: Refresh VA, IOP, current eyeglass Rx, and pupil check and dilation if needed can be found in ophth exam. documented in this encounter Plan of Treatment Upcoming Encounters Date Type Department Care Team (Late st Contact Info) Description 08/29/2023 12:30 PM EST Office Visit Ophthalmology, [facility] [address] [place] [address] Umesh Hawkins, DO [address] [place] [address] 09/16/2023 11:20 AM EDT Office Visit Ophthalmology, [facility] 132 [facility] [place] [address] Karlos Jya, DO [address] [place] [address] 09/17/2023 9:00 AM EDT Office Visit Family Practice [facility] 200 [facility] [place] [place] [address] Arpit Antonio III, MD 200 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 Care Teams Sign Carpenter Relationship Specialty Start Date End Date Arpit Antonio III, MD [address] [place] [address] PCP - General Family Medicine 05/06/17 documented as of this encounter
--- OUTSIDE RECORDS SUMMARY | 2024-01-13 01:38 | External Medical Summary | Summary of Care ---
Author Name Unknown Organization [facility] Address [address] [facility] [address] Phone [phone] Care Team Providers Care Promotor Group Ticket Sales Name Role Phone Paco ODOM MD, Arpit Yan Primary Care Provider [phone] Reason for Visit * Reason Onset Date Comments Medical Records Request 09/02/2023 Encounter Details Date Type Department Care Team (Late st Contact Info) Description 09/02/2023 Telephone Ophthalmology, [facility] [place] [address] Umesh Hawkins [place] [address] Medical Records Request Allergies Active Allergy Reactions [...] Cough. 30 Capsule 1 10/24/2022 Active Creon [id number] UNIT Oral Capsule Delayed Release Particles (Pancrelipase (Edz-Zgdf-Erda))Kita cations:History of resection of pancreas,Cholangioca rcinoma (HCC) [...] of right inguinal hernia 02/02/2003 05/06/2017 Overview: [facility]: Conor Cortes MD Malignant neoplasm of [...] 30 Mcg, IM, 12 yrs and above ([employer]) 06/05/2022 H1N1 2009 Influenza, IM 06/16/2009 Pneumococcal [...] encounter Miscellaneous Notes * Telephone Encounter - Jerrica Haddad OSA - 09/04/2023 7:[address] J Carlos Matthews's office called back and left a message. Stated that the patient has not been seen in over 7 years. After 7 years, they destroy the records. She stated that if anyone has any questions to call back to [phone]. GRISEL Sterling 09/04/2023 7:41 AM * Telephone Encounter - Leeann Meier COA - 09/02/2023 10:24 AM EST Fax sent to request medical records from previous Patient Care Secretary - Dr. J Carlos Matthews MD documented in this encounter Plan of Treatment Upcoming Encounters Date Type Department Care Team (Late st Contact Info) Description 09/16/2023 11:20 AM EDT Office Visit Ophthalmology, [facility] 132 [facility] [place] [address] Karlos Jya, [address] [place] [address] [place] [address] 09/17/2023 9:00 AM EDT Office Visit [facility] [address] [place] [address] Arpit Antonio III, MD 200 [facility] [place] [address] 10/10/2023 3:45 PM EDT Office Visit Ophthalmology, [facility] [address] [place] [address] Umesh Hawkins, DO [address] [facility] [place] [address] 11/11/2023 7:50 AM EDT Office Visit Ophthalmology, [facility] [address] [place] [address] Karlos Jay, DO [address] [place] [address] Scheduled Procedures Name Priority Associated Diagnoses Date/Ti [...] Documents on File Type Date Recorded Patient Nba Player Expl anation Advance Directives and Living Will 06/10/2020 10:26 AM ADVANCE DIRECTIVE HEALTH CARE POWER OF GEOPHYSICS TEACHER & INSTRUCTIONS Latest Code Status on File [...] and were consensually agreed upon. Care Teams Promotor Group Ticket Sales Relationship Specialty Start Date End Date Arpit Antonio III, MD 200 [facility] [place], [place] [address] PCP - General Family Medicine 05/06/17 documented as of this encounter
--- OUTSIDE RECORDS SUMMARY | 2024-01-13 01:38 | External Medical Summary | Summary of Care ---
Author Name Unknown Organization [facility] Address [address] [facility] [place] [address] Phone [phone] Care Team Providers Care Emt Paramedic Name Role Phone Paco ODOM MD, Arpit Yan Primary Care Provider [phone] Reason for Visit * Reason Comments NEW PATIENT Cataracts Encounter Details Date Type Department Care Team (Late st Contact Info) Description 08/29/2023 12:30 PM EST Office Visit Ophthalmology, [facility] 132 [facility] [place] [address] Umesh Shah, DO [facility] [place] [id number] Age-related nuclear cataract of both eyes*; Dry eyes, bilateral; Pterygium of both eyes; Hx of LASIK Allergies Active Allergy Reactions Criticality Noted Date Comments Penicillins 01/21/2003 As a child Sulfa Antibiotics 01/21/2003 hives and difficulty breathing documented as of this encounter (statuses as of 08/29/2023) Medications Medication Sig Dispensed Refills Start Date [...] Cough. 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 Dyslipidemia, goal LDL below 160 11/29/2009 ADVANCE DIRECTIVE INFORMATION 07/06/2009 Overview: Yes, Patient instructed to provide copy of advance directive for provider to review and to be scanned into Electronic Medical Record documented as of this encounter (statuses as of 08/29/2023) Resolved Problems Problem Noted Date Diagnosed Date [...] as of this encounter (statuses as of 08/29/2023) Immunizations Name Administration Dates Next Due COVID-19 [...] of this encounter Progress Notes * Umesh Shah, DO - 08/29/2023 12:30 PM EST 08/29/2023 Lucien Pemberton is a 77 year old patient here for cataract evaluation. Referred by Dr. Jay Patient c/o progressively increasing difficulty with vision in left>right eyes at distance = near. Also c/o significant glare and halos around lights. The following activities are more difficult because of blurred vision from the cataract in the left>right EYE : Reading the newspaper: yes Reading medication labels: yes Watching TV: yes Driving during the day: No Driving at night: yes Recognizing people: No Past Ocular History: BCC left eye s/p quiroz flap Multiple eyelids lesions s/p biopsy - Actinic keratotis and Bal keratosis Cataract OU Hx of LASIK OU (US, 1989, [place], used to wear contact lenses for distance prior) NEIL Eye Medications, reviewed: Refresh BID OU Hx of refractive procedure, reviewed: Yes - Lasik Hx of contact lens use, reviewed: None Hx of eye trauma, reviewed: Denies FOHx, reviewed: Denies Review of Systems Unless noted above, all other systems negative. Nursing notes reviewed. Base Eye Exam Visual Acuity (Snellen - Linear) Right Left Dist sc 20/30 -1 20/40 Dist ph sc 20/25 -2 Tonometry (Tonopen, 12:45 PM) Right Left Pressure 14 15 Pupils Dark Light Shape React APD Right 4 3 Round Brisk None Left 4 3 Round Brisk None Visual Harris (Counting fingers) Right Left Full Full Extraocular Movement Right Left Full Full Dilation Both eyes: 1.0% Mydriacyl, 2.5% Phenylephrine @ 12:45 PM Additional Tests Keratometry (Automated) K1 [place] K2 [place] Right 42.75 115 43.50 25 Left 44.50 44 45.50 134 Glare Testing Off High Right 20/30 20/40 Left 20/40 20/60 Slit Lamp and Fundus Exam External Exam Right Left External Normal Normal Slit Lamp Exam Right Left Lids/Lashes Mild punctal eversion LL Mild punctal eversion LL Conjunctiva/Sclera White and quiet White and quiet Cornea PEK, pterygium, peripheral LASIK flap PEK, pterygium, peripheral LASIK flap Anterior Chamber Deep and quiet Deep and quiet Iris Round and reactive, PD 7mm Round and reactive, PD 7mm Lens 3+ NSC 3+ NSC Fundus Exam Right Left Vitreous PVD PVD Disc Normal Normal Macula Normal Normal Vessels Normal Normal Periphery Normal Normal Refraction Manifest Refraction (Auto) Sphere Cylinder [place] Right +1.50 Left -0.25 +0.50 149 Date: 08/29/23 OCT Macula: OD - Normal [...] OCT normal Flomax = Denies Claustrophobia = Did not discuss Anesthesia = Did not discuss but would plan for mac/topical Hx of refractive procedure=YES - LASIK OU in [place] per patient - attempt to get records IOL Measurements = To be performed IOL interpretation = Biometry (IOL) & topography [...] before and after. Hx of LASIK OU -Need to get records Dry Eyes, OU Pterygium OU -Recommend artificial tears up to 4 times daily -Brand names given - Refresh RTC IOL/sampson or sooner prn. A/P explained, patient verbalized understanding. Patient understands to f/u immediately with questions, concerns, or any ophthalmic issues. Umesh Shah DO 08/29/23 I spent a total of 30-39 minutes (exact time 30 mins) on the date of service in preparation, delivery, and documentation of the care provided to Lucien Pemberton excluding any time spent in the performance of separately billed services. documented in this encounter Nursing Notes * eLeann Meier COA - 08/29/2023 12:36 PM EST Pt presents to the clinic today as a new patient for a cataract eval. Pt was previously seen at [facility]. documented in this encounter Miscellaneous Notes * Addendum Note - Umesh Shah DO - 08/29/2023 2:23 PM ESTAddended by: UMESH SHAH on: 08/29/2023 02:23 PM Modules accepted: Orders documented in this encounter Plan of Treatment Upcoming Encounters Date Type Department Care Team (Late st Contact Info) Description 09/16/2023 11:20 AM EDT Office Visit Ophthalmology, [facility] [address] [place] [address] Karlos Jay, DO [address] [place] [address] 09/17/2023 9:00 AM EDT Office Visit Family Practice [facility] 200 [facility] [place] [address] Arpit Antonio III, MD 200 [facility] [place] [place] [address] 10/10/2023 3:45 PM EDT Office Visit Ophthalmology, [facility] [address] [place] [address] Umesh Shah DO [address] [place] [address] 11/11/2023 7:50 AM EDT Office Visit Ophthalmology, [address] [address] Karlos Jay DO [address] [place] [address] Scheduled Orders Name Type Priority Associated Diagnoses Orde r Schedule RETINA SCAN DIAGNOSTIC IMAGE, POSTERIOR Procedures Routine Age-related nuclear cataract of both eyes Ordered: 08/29/2023 Scheduled Procedures Name Priority Associated Diagnoses Date/Ti [...] of both eyes- Primary Senile nuclear sclerosis Dry eyes, bilateral Tear film insufficiency, unspecified Pterygium of both eyes Pterygium, unspecified Hx of LASIK Other states following surgery of eye and adnexa documented in this encounter Advance Directives Documents on File Type Date Recorded Patient Outsole Cutter Machine Expl anation Advance Directives and Living Will 06/10/2020 10:26 AM ADVANCE DIRECTIVE HEALTH CARE POWER OF MANAGER NON PROFIT & INSTRUCTIONS Latest Code Status on File [...] and were consensually agreed upon. Care Teams Emt Paramedic Relationship Specialty Start Date End Date Arpit Antonio III, MD 200 [facility] [place] [place] [address] PCP - General Family Medicine 05/06/17 documented as of this encounter
--- OUTSIDE RECORDS SUMMARY | 2024-01-13 01:38 | External Medical Summary | Summary of Care ---
Author Name Unknown Organization [facility] Address [address] [facility] [address] Phone [phone] Care Team Providers Care Bin Packer Name Role Phone Paco ODOM MD, Arpit Yan Primary Care Provider [phone] Reason for Visit * Reason Onset Date Comments Medical Records Request 09/02/2023 Encounter Details Date Type Department Care Team (Late st Contact Info) Description 09/02/2023 Telephone Ophthalmology, [facility] [place] [address] Umesh Hawkins [place] [address] Medical Records Request Allergies Active Allergy Reactions Criticality Noted Date Comments Penicillins 01/21/2003 As a child Sulfa Antibiotics 01/21/2003 hives and difficulty breathing documented as of this encounter (statuses as of 09/02/2023) Medications Medication Sig Dispensed Refills Start Date [...] Cough. 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 Dyslipidemia, goal LDL below 160 11/29/2009 ADVANCE DIRECTIVE INFORMATION 07/06/2009 Overview: Yes, Patient instructed to provide copy of advance directive for provider to review and to be scanned into Electronic Medical Record documented as of this encounter (statuses as of 09/02/2023) Resolved Problems Problem Noted Date Diagnosed Date [...] as of this encounter (statuses as of 09/02/2023) Immunizations Name Administration Dates Next Due COVID-19 mRNA, LNP-s, No Pre serve, 2-Dose Series (Moderna) 09/01/2020,08/06/2020 COVID-19, mRNA, LNP-s, PF, B ooster, 100mcg/0.5mg (Moderna) 05/01/2021 Covid-19, Mrna, Lnp-s, Pf, B ivalent, 30 Mcg, IM, 12 yrs and above (Biomedix vascular solution) 06/05/2022 H1N1 2009 Influenza, IM 06/16/2009 Pneumococcal [...] sent to request medical records from previous [facility] - Dr. J Carlos Matthews MD documented in this encounter Plan of Treatment Upcoming Encounters Date Type Department Care Team (Late st Contact Info) Description 09/16/2023 11:20 AM EDT Office Visit Ophthalmology, [facility] [address] [facility] [address] Karlos Jay, DO [address] [place] [address] 09/17/2023 9:00 AM EDT Office Visit Family Practice [facility] [address] [place] [address] Arpit Antonio III, MD [address] [place] [address] 10/10/2023 3:45 PM EDT Office Visit Ophthalmology, [facility] [address] [facility] [address] Umesh Hawkins, DO [address] [facility] [place] [address] 11/11/2023 7:50 AM EDT Office Visit Ophthalmology, [facility] 132 [facility] [place] [address] Karlos Jay, 16 [facility] [place] [address] Scheduled Procedures Name Priority Associated Diagnoses Date/Ti [...] Documents on File Type Date Recorded Patient Supervisor Engine Repair Expl anation Advance Directives and Living Will 06/10/2020 10:26 AM ADVANCE DIRECTIVE HEALTH CARE POWER OF MARKETING EFFECTIVENESS MANAGER & INSTRUCTIONS Latest Code Status on File [...] and were consensually agreed upon. Care Teams Bin Packer Relationship Specialty Start Date End Date Arpit Antonio III, MD 200 [place] [address] PCP - General Family Medicine 05/06/17 documented as of this encounter
--- OUTSIDE RECORDS SUMMARY | 2024-01-13 01:38 | External Medical Summary | Summary of Care ---
Author Name Unknown Organization [facility] Address [address] [facility] [place] [address] Phone [phone] Care Team Providers Care Plastics Fabrication Supervisor Name Role Phone Paco ODOM MD, Arpit Yan Primary Care Provider [phone] Reason for Visit * Reason Comments NEW PATIENT Cataracts Encounter Details Date Type Department Care Team (Late st Contact Info) Description 08/29/2023 12:30 PM EST Office Visit Ophthalmology, [facility] 132 [facility] [place] [address] Umesh Shah, DO [facility] [place] [id number] Age-related nuclear cataract of both eyes*; Dry [...] Cough. 30 Capsule 1 10/24/2022 Active Creon [id number] UNIT Oral Capsule Delayed Release Particles (Pancrelipase (Mot-[id number]-Kbst))Kita cations:History of resection of pancreas,Cholangioca rcinoma (HCC) [...] 12:45 PM Additional Tests Keratometry (Automated) K1 [place] K2 [place] Right 42.75 115 43.50 25 Left 44.50 [...] Normal Refraction Manifest Refraction (Auto) Sphere Cylinder [place] Right +1.50 Left -0.25 +0.50 149 Date: [...] of refractive procedure=YES - LASIK OU in [place] per patient - attempt to get records [...] Nursing Notes * Leeann Meier COA - 08/29/2023 12:36 PM EST Pt presents to the clinic today as a new patient for a cataract eval. Pt was previously seen at [facility]. documented in this encounter Miscellaneous Notes * Addendum Note - Umesh Shah DO - 08/29/2023 2:23 PM ESTAddended by: UMESH SHAH on: 08/29/2023 02:23 PM Modules accepted: Orders documented in this encounter Plan of Treatment Upcoming Encounters Date Type Department Care Team (Late st Contact Info) Description 09/16/2023 11:20 AM EDT Office Visit Ophthalmology, [facility] 132 [place] [address] Karlos Jay, DO [address] [place] [address] 09/17/2023 9:00 AM EDT Office Visit Family Practice [facility] 200 [facility] [place] [address] Arpit Antonio III, MD 200 [facility] [place] [address] 10/10/2023 3:45 PM EDT Office Visit Ophthalmology, [facility] [address] [place] [address] Umesh Shah DO [address] [place] [address] 11/11/2023 7:50 AM EDT Office Visit Ophthalmology, [address] [address] Karlos Jay DO [address] [place] [address] Scheduled Orders Name Type Priority Associated Diagnoses [...] Documents on File Type Date Recorded Patient Heavy Equipment Technician Expl anation Advance Directives and Living Will 06/10/2020 10:26 AM ADVANCE DIRECTIVE HEALTH CARE POWER OF HELIUM ARC WELDER & INSTRUCTIONS Latest Code Status on File [...] and were consensually agreed upon. Care Teams Plastics Fabrication Supervisor Relationship Specialty Start Date End Date Arpit Antonio III, MD 200 [facility] [place] [address] PCP - General Family Medicine 05/06/17 documented as of this encounter
--- OUTSIDE RECORDS SUMMARY | 2024-01-13 01:38 | External Medical Summary | Summary of Care ---
Author Name Unknown Organization [facility] Address [address] [place] [address] Phone [phone] Care Team Providers Care Marketing Information Manager Name Role Phone Paco ODOM MD, Arpit Yan Primary Care Provider [phone] Encounter Details Date Type Department Care Team (Late st Contact Info) Description 08/12/2023 Orders Only Outcomes Research Department [address] [place] [address] Liv Neely CHRA [email or web address] Research Other*[id number] Allergies Active Allergy Reactions Criticality Noted Date Comments Penicillins 01/21/2003 As a child Sulfa Antibiotics 01/21/2003 hives and difficulty breathing documented as of this encounter (statuses as of 08/12/2023) Medications Medication Sig Dispensed Refills Start Date [...] Cough. 30 Capsule 1 10/24/2022 Active Creon [id number] UNIT Oral Capsule Delayed Release Particles (Pancrelipase (Fod-Jhju-Qdyn))Kita cations:History of resection of pancreas,Cholangioca rcinoma (HCC) [...] as of this encounter (statuses as of 08/12/2023) Active Problems Problem Noted Date Diagnosed Date Knee effusion, left 07/21/2016 Elevated glucose 01/04/2014 History of resection of pancreas 11/23/2012 Dyslipidemia, goal LDL below 160 11/29/2009 ADVANCE DIRECTIVE INFORMATION 07/06/2009 Overview: Yes, Patient instructed to provide copy of advance directive for provider to review and to be scanned into Electronic Medical Record documented as of this encounter (statuses as of 08/12/2023) Resolved Problems Problem Noted Date Diagnosed Date [...] of right inguinal hernia 02/02/2003 05/06/2017 Overview: [facility]: Conor Cortes MD 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 Overview: ICD-10 update of inactive term documented as of this encounter (statuses as of 08/12/2023) Immunizations Name Administration Dates Next Due COVID-19 [...] 08/29/2023 12:30 PM EST Office Visit Ophthalmology, [facility] [address] Umesh Hawkins, DO [address] [place] [address] 09/16/2023 11:20 AM EDT Office Visit Ophthalmology, [facility] 132 [facility] [place] [address] Karlos Jay, DO [address] [place] [address] 09/17/2023 9:00 AM EDT Office Visit Family Practice [facility] 200 [place] [address] Arpit Antonio III, MD [address] [place] [address] 11/11/2023 7:50 AM EDT Office Visit Ophthalmology, [facility] 132 [facility] [place] [address] Karlos Jay, DO [address] [place] [address] Scheduled Orders Name Type Priority Associated Diagnoses Orde r Schedule MYCODE SUBSEQUENT ADULT Lab Routine [employer] Research Other*[id number] Every 6 Months for 2 Occurrences starting 08/12/2023 until 08/31/2024 Scheduled Procedures Name Priority Associated Diagnoses Date/Ti [...] as of this encounter Visit Diagnoses Diagnosis [employer] Research Other*[id number] documented in this encounter Advance Directives Documents on File Type Date Recorded Patient Dip Tanker Expl anation Advance Directives and Living Will 06/10/2020 10:26 AM ADVANCE DIRECTIVE HEALTH CARE POWER OF NEEDLE LOOM TENDER & INSTRUCTIONS Latest Code Status on File [...] were consensually agreed upon. Care Teams Marketing Information Manager Relationship Specialty Start Date End Date Arpit Antonio III, MD 200 [place] [address] PCP - General Family Medicine 05/06/17 documented as of this encounter
--- OUTSIDE RECORDS SUMMARY | 2024-01-13 01:38 | External Medical Summary | Continuity of Care Document ---
Author Name Unknown Organization [facility] [address] [facility] [address] Address [address] [phone] Care Team Providers Care Patient Accounts Clerk Name Role Phone PacoArpit Farrah Primary Care Physician [phone] Encounter [facility] [id number] Date(s): 07/29/23 - 07/29/23 [facility] [address] [facility] [address] [id number] Encounter Diagnosis Actinic keratoses(Discharge Diagnosis) - 07/29/23 History of basal cell carcinoma of skin(Discharge Diagnosis) - 07/29/23 Discharge Disposition: Home or Self Care Attending Physician: MD Gentile Cassandra Referring Physician: MD Gentile Cassandra Allergies, Adverse Reactions, Alerts Substance Reaction Severity Status sulfa drugs hives Active PCN (penicillin) hives Active Assessment and Plan Extracted from: Title:Office Visit Note Author:MD Seferino, Ca ssandra Date:07/29/23 1.Actinic keratoses - acute lesions present on exam today, diagnosis and natural course reviewed including risk of transformation to SCC, treatment with cryotherapy today Cryotherapy performed following verbal consent and allowing time for questions. Alternative therapies were discussed, and education on wound healing, risk of thermal injury, dyspigmentation, infection and scar formation were performed. Wound care instructions reviewed. Total # lesions treated: 4 2.History of basal cell carcinoma of skin - s/p Mohs surgery of BCC x 2 at L postauricular region repaired primarily on 07/08/23 - healing very well, continue daily wound care to L postauricular sulcus until fully healed, then transition to routine skin care F/u PRN for above and as scheduled for skin exam Medications Advil 200 mg oral tablet Start: [...] Start Date: 01/24/21 Status: Ordered Mental Status 07/29/23 Barriers to Learning one year Hearing de ficit Mandatory Health Literacy Documentation Yes Health Literacy Communication Barriers N ever Primary Language Spanish Problem List Condition Confirmation Course Effective Dates Status Health St atus Informant Basal cell carcinoma 1 Confirmed Active BCC (basal cell carcinoma) Confirmed Active Reflux Confirmed Active SCC (squamous cell carcinoma) Confirmed Active 1L post aurucular area; L infraauricular area Diagnosis Diagnosis Type Effective Dates Health Status Cl inical Service Informant Actinic keratoses Discharge Diagnosis 07/29/23 History of basal cell carcinoma of skin Discharge Diagnosis 07/29/23 Procedures Procedure Date Related Diagnosis Body Site Status Mohs' micrographic surgery 07/08/23 Completed Shave biopsy of skin 03/28/23 Comp leted Shave biopsy of skin 03/28/23 Comp leted Shave biopsy and cauterization of skin 03/15/21 Completed Radiation 09/2020 Completed Shave biopsy of skin 06/14/20 Comp leted Shave biopsy of skin 03/01/20 Comp leted Mohs surgery 1 04/23/18 Completed Shave biopsy of skin 03/12/18 Comp leted Shave biopsy and cauterisati on of skin 2 03/22/17 Completed Curettage and cauterization of skin lesion 3 02/07/17 Completed Curettage and cauterization of skin lesion 4 12/20/16 Completed Shave biopsy of skin 5 05/30/16 Co mpleted Shave biopsy of skin 03/27/16 Comp leted Mohs surgery 08/2015 Completed Shave biopsy 07/22/15 Completed Whipple operation 2012 Complet ed Mohs surgery 6 Completed Mohs surgery 7 Completed Shave biopsy 8 Completed 1Right cheek 2left side nose 3right preauricular area 4right cheek 5ED&C 6notes a dozen times/ numerous areas over the past years 7Moh on the nose 8right periorbital area Social History Social History Type Response Smoking Status Never smoked cigaret lilly Sex Dermatology Outpatient Note * MD Seferino, Kelli: PERFORM Event Display: Dermatology Outpt Note Authored Date: [id number] Chief Complaint f/u post Mohs 07/08/23 L infraauricular area; L post auricular area History of Present Illness Patient is a 77 yo CM, following up s/p Mohs surgery of BCC x 2 at L postauricular region repaired primarily on 07/08/23 Patient notes that he has healed well. Concerned about a few rough spots at L cheek and R dorsalhand, hoping thatthey can be frozen Physical Exam A&O x 3, well-appearing, well-groomed, pleasant Focused skin exam reveals a well-healed scar with small (~5 mm) area of thin crust at the L postauricular sulcus and well-healed scar at the L earlobe, pink scaly macules at the L cheek and R dorsal hand x3 Assessment/Plan 1.Actinic keratoses - acute lesions present on exam today, diagnosis and natural course reviewed including risk of transformation to SCC, treatment with cryotherapy today Cryotherapy performed following verbal consent and allowing time for questions. Alternative therapies were discussed, and education on wound healing, risk of thermal injury, dyspigmentation, infection and scar formation were performed. Wound care instructions reviewed. Total # lesions treated:4 2.History of basal cell carcinoma of skin - s/p Mohs surgery of BCC x 2 at L postauricular region repaired primarily on 07/08/23 - healing very well, continue daily wound care to L postauricular sulcus until fully healed, then transition to routine skin care F/u PRN for above and as scheduled for skin exam Problem List/Past Medical History Ongoing Basal cell carcinoma BCC (basal cell carcinoma) Reflux SCC (squamous cell carcinoma) Procedure/Surgical History Mohs' micrographic surgery (07/08/2023)Shave biopsy of skin (03/28/2023)Shave biopsy of skin (03/28/2023)Shave biopsy and cauterization of skin (03/15/2021)Radiation (09/2020)Shave biopsy of skin (06/14/2020)Shave biopsy of skin (03/01/2020)Mohs surgery (04/23/2018)Shave biopsy of skin (03/12/2018)Shave biopsy and cauterisation of skin (03/22/2017)Curettage and cauterization of skin lesion (02/07/2017)Curettage and cauterization of skin lesion (12/20/2016)Shave biopsy of skin (05/30/2016)Shave biopsy of skin (03/27/2016)Mohs surgery (08/2015)Shave biopsy (07/22/2015)Whipple operation (2011)[facility] Medications aspirin(Aspirin Low Dose 81 mg oral delayed release tablet), 162 mg= 2 tab, PO, Daily ibuprofen(Advil 200 mg oral tablet), 200 mg= 1 tab, PO, Daily multivitamin(Vitamin B Complex), 1 tab, PO, Daily omeprazole(PriLOSEC), 20 mg, PO, Daily pancrelipase(Creon), 1 tab/ dose unknown, PO Allergies PCN (penicillin)hives sulfa drugshives Social History Smoking Status Never smoked cigarettes Recommendations Health Maintenance Pending(in the next year) OverDue Adult Influenza Vaccine due12/28/22and every 1year Due Adult COVID-19 Vaccination due07/29/23Unknown Frequency Adult Social Determinants of Health Screening due07/29/23Unknown Frequency Adult Tdap/Td Vaccine due07/29/23Unknown Frequency Body Mass Index due07/29/23Unknown Frequency Hepatitis C Screening due07/29/23One-time only Lipid Screening due07/29/23Unknown Frequency Medicare Annual Wellness Visit due07/29/23and every 1year Pneumococcal Vaccine Older Adults due07/29/23One-time only Shingles Vaccine due07/29/23One-time only Satisfied(in the past 1 year) There are no satisfied recommendations within the defined date range Electronic Signature on File Electronically Reviewed/Signed by: Kelli Gentile MD Author Signature Dt/Tm:07/29/2023 11:35 PM Department of Dermatology CS Patient Care team information Care Team Personnel Name: MD Paco, Arpit Yan Position: Referring DIRECT Member Role: Primary Care Provider Address: Address: [address] [place] [address] Care Team Related Persons Name: JESIKA BAUGH Address: home [address] [place], [place] [phone] Name: JESIKA BAUGH Address: home [address] [place], [place] [id number]
[2024-01-13] MEDS: SODIUM CHLORIDE 0.9% 500 ML IV STA (01:42)
[2024-01-13 02:10] LABS: Basophils # (auto) 0.05 K/uL (0.00-0.20); Basophils % (auto) 0.8 %; Eosinophils % (auto) 1.7 %; Hematocrit (blood only) 36.5 % (42.0-52.0); Hemoglobin 12.3 g/dl (14.0-18.0); Immature Granulocytes # (auto) 0.01 K/uL (0.01-0.20); Immature Granulocytes % (auto) 0.2 %; Lymphocytes # (auto) 2.43 K/uL (1.20-3.40); Lymphocytes % (auto) 40.3 %; Mean Corpuscular Hemoglobin 32.5 pg (25.0-34.0); Mean Corpuscular Hgb Conc 33.7 g/dL (32.0-36.0); Mean Corpuscular Volume 96.3 fL (80.0-100.0); Mean Platelet Volume 10.5 fL (9.4-12.4); Monocytes # (auto) 0.68 K/uL (0.11-0.59); Monocytes % (auto) 11.3 %; Neutrophils # (auto) 2.76 K/uL (1.40-6.50); Neutrophils % (auto) 45.7 %; Platelet Count 227 K/uL (130-400); RDW Coefficient of Variation 12.7 % (11.5-14.5); RDW Standard Deviation 44.7 fL (36.4-46.3); Red Blood Count 3.79 M/uL (4.70-6.10); White Blood Count 6.03 K/ul (4.8-10.8)
[2024-01-13 02:22] LABS: Albumin Globulin Ratio 1.4 (0.9-2); Albumin Level 3.8 gm/dl (3.4-5.0); BUN Creatinine Ratio 10.3 (10-20); Bilirubin,Total 0.5 mg/dl (0.2-1.0); Calcium 8.9 mg/dl (8.6-10.3); Creatinine Clr Calc Pharmacy 68.6 ml/min; Est GFR (African American) 85.1 ml/min; Est GFR (Non-African American) 73.4 ml/min; Globulin 2.7 gm/dl (2.5-4.0); Total Protein 6.5 gm/dl (6.0-8.3)
[2024-01-13 02:25] LABS: Partial Thromboplastin Time 26 Seconds (21-31); Prothrombin Time 10.6 Seconds (9.0-12.0)
[2024-01-13 02:27] LABS: Troponin I High Sensitivity 6.5 pg/ml (0-20)
[2024-01-13] MEDS: NITROGLYCERIN SL 0.4 MG/TAB TAB SL STA (02:30)
[2024-01-13] MEDS: NITROGLYCERIN SL 0.4 MG/TAB TAB ONE (02:38)
[2024-01-13] MEDS: SODIUM CHLORIDE 0.9% 1,000 ML IV ONE (04:17)
--- NOTE | 2024-01-13 04:44 | History & Physical Report ---
Date of Service January 13, 2024 Assessment & Plan (1) NSTEMI (non-ST elevated myocardial infarction): Plan: valvular heart disease (moderate /mild AR, TTE 2020), systolic murmur appreciated on exam hyperlipidemia, not on maintenance medications cholangiocarcinoma status post surgery/chemotherapy, in remission chronic anemia, hemoglobin at baseline Hyperglycemia likely prediabetes, hemoglobin A1c of 5.8 from 2013 past tobacco abuse Admit to PCU Aspirin, beta-emy, statin Rx; IV heparin Nitro as needed pain TTE, Cardiology consult Re: NSTEMI N.p.o. in anticipation of ischemic workup Update hemoglobin A1c and lipid profile DVT prophylaxis. IV heparin Full code Text document was generated using [employer]yo[employer] voice recognition software. It may contain grammatical or spelling errors. Kindly contact undersigned for clarification of any documentation item in question. History of Present Illness Chief Complaint: Chest pain Primary Care Provider: Arpit Antonio MD History obtained from patient and records. Medical history significant for valvular heart disease (moderate /mild AR, TTE 2020), hyperlipidemia, cholangiocarcinoma status post surgery/chemotherapy, chronic anemia (baseline hemoglobin 12-13), past tobacco abuse. Last confinement March 2020 for sepsis secondary to cholangitis. Last night, patient experienced substernal tightness associated with diaphoresis different from usual indigestion symptoms not relieved by home antacid. Some relief with aspirin intake and bowel movement at home. No previous episodes. Subsequent chest pain recurrence. He felt like he was going to pass out. EMS called to patient's home. Patient brought to ER for evaluation. Chest tightness relieved by nitroglycerin. Patient currently comfortable. 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 Allergies Allergy/AdvReac Type Severity Reaction Status Date / Time Sulfa (Sulfonamide Allergy Intermediate HIVES Verified 01/13/24 02:52 Antibiotics) Penicillins Allergy Mild HIVES Verified 01/13/24 02:52 Home Medications Medication Instructions Recorded Confirmed Type [id number]-[id number] 1 cap PO QAM 04/05/20 01/13/24 History 12,000-38,000-60,000 unit capsule,delayed rel (Creon) omeprazole 20 mg capsule,delayed 20 mg PO DAILY 04/05/20 01/13/24 History release ibuprofen-diphenhydramine citrate 1 cap PO HS 01/13/24 01/13/24 History 200 mg-38 mg tablet (Advil PM) 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 Social History Smoking Status: Never smoker Do You Dip or Chew Tobacco: No; Hx Alcohol Use: Yes Alcohol type: beer Hx Substance Use: No Preferred Language: [place]ill[place] Communication Ability: Effective Gas Well Drilling Manager Required: No Beliefs That Will Affect Care: None Current Living Situation: Spouse Feels Safe at Home: Yes Safety Concerns: Feels Safe At This Time Assistive Devices: None and Glasses Review of Systems Review of Systems: As per HPI, all other systems reviewed and negative Physical Exam Physical Exam: GENERAL: Comfortable, pleasant, no respiratory distress SKIN: Pallor, warm HEENT: Alopecia, pale palpebral conjunctivae, no ptosis, dry buccal mucosa NECK : Supple, no tenderness CHEST : CTA, no tenderness HEART : RRR, systolic murmur ABDOMEN: no distention, nontender EXTREMITIES : Minimal LE swelling/tenderness, no other conspicuous deformities noted NEUROLOGIC : Coherent, no facial asymmetry, no other gross focality Results & Data Results & Data Vital Signs (Past 12 Hours) Vital Signs Temp Pulse Pulse Resp BP BP Pulse Ox 01/13/24 03:06 72 16 112/66 98 01/13/24 02:40 71 16 114/68 95 01/13/24 02:18 98 01/13/24 02:16 176/75 H 01/13/24 02:15 01/13/24 02:03 63 13 100 01/13/24 02:00 144/79 H 01/13/24 02:00 144/79 H 01/13/24 01:51 58 L 19 99 01/13/24 01:48 56 L 22 99 01/13/24 01:45 129/75 01/13/24 01:45 129/75 01/13/24 01:45 129/75 01/13/24 01:45 55 L 01/13/24 01:32 37.2 C 56 L 16 141/75 H 98 O2 Del Method O2 Flow Rate 01/13/24 03:06 Room Air 01/13/24 02:40 Room Air 01/13/24 02:18 Room Air 01/13/24 02:16 01/13/24 02:15 Room Air 98 01/13/24 02:03 01/13/24 02:00 01/13/24 02:00 01/13/24 01:51 01/13/24 01:48 01/13/24 01:45 01/13/24 01:45 01/13/24 01:45 01/13/24 01:45 01/13/24 01:32 Room Air Laboratory Results Laboratory Results WBC 6.03 K/ul (4.8-10.8) 01/13/24 01:34 RBC 3.79 M/uL (4.70-6.10) L 01/13/24 01:34 Hgb 12.3 g/dl (14.0-18.0) L 01/13/24 01:34 Hct 36.5 % (42.0-52.0) L 01/13/24 01:34 MCV 96.3 fL (80.0-100.0) 01/13/24 01:34 MCH 32.5 pg (25.0-34.0) 01/13/24 01:34 MCHC 33.7 g/dL (32.0-36.0) 01/13/24 01:34 RDW Std Deviation 44.7 fL (36.4-46.3) 01/13/24 01:34 RDW Coeff of Riley 12.7 % (11.5-14.5) 01/13/24 01:34 Plt Count 227 K/uL (130-400) 01/13/24 01:34 MPV 10.5 fL (9.4-12.4) 01/13/24 01:34 Immature Gran % (Auto) 0.2 % 01/13/24 01:34 Neut % (Auto) 45.7 % 01/13/24 01:34 Lymph % (Auto) 40.3 % 01/13/24 01:34 [place] % (Auto) 11.3 % 01/13/24 01:34 Eos % (Auto) 1.7 % 01/13/24 01:34 Baso % (Auto) 0.8 % 01/13/24 01:34 Neut # (Auto) 2.76 K/uL (1.40-6.50) 01/13/24 01:34 Lymph # (Auto) 2.43 K/uL (1.20-3.40) 01/13/24 01:34 [place] # (Auto) 0.68 K/uL (0.11-0.59) H 01/13/24 01:34 Eos # (Auto) 0.10 K/uL (0.00-0.50) 01/13/24 01:34 Baso # (Auto) 0.05 K/uL (0.00-0.20) 01/13/24 01:34 Immature Gran # (Auto) 0.01 K/uL (0.01-0.20) 01/13/24 01:34 PT 10.6 Seconds (9.0-12.0) 01/13/24 01:34 INR 1.0 (0.9-1.1) 01/13/24 01:34 APTT 26 Seconds (21-31) 01/13/24 01:34 PTT Ratio 1.0 01/13/24 01:34 Sodium 138 mmol/L (136-145) 01/13/24 01:34 Potassium 4.0 mmol/L (3.5-5.1) 01/13/24 01:34 Chloride 106 mmol/L (98-107) 01/13/24 01:34 Carbon Dioxide 25 mmol/L (21-32) 01/13/24 01:34 Anion Gap 7 (3-11) 01/13/24 01:34 BUN 10 mg/dl (6-23) 01/13/24 01:34 Creatinine 0.97 mg/dl (0.6-1.4) 01/13/24 01:34 Est Cr Clr Drug Dosing 68.6 ml/min 01/13/24 01:34 Est GFR ( Amer) 85.1 ml/min 01/13/24 01:34 Est GFR (Non-Af Amer) 73.4 ml/min 01/13/24 01:34 BUN/Creatinine Ratio 10.3 (10-20) 01/13/24 01:34 Glucose 115 mg/dl (70-99(Fasting)) H 01/13/24 01:34 Calcium 8.9 mg/dl (8.6-10.3) 01/13/24 01:34 Total Bilirubin 0.5 mg/dl (0.2-1.0) 01/13/24 01:34 AST 22 U/L (13-39) 01/13/24 01:34 ALT 13 U/L (7-52) 01/13/24 01:34 Alkaline Phosphatase 57 U/L (34-104) 01/13/24 01:34 Total Creatine Kinase 65 U/L (30-223) 01/13/24 01:34 Troponin I High Sens 6.5 pg/ml (0-20) 01/13/24 01:34 Total Protein 6.5 gm/dl (6.0-8.3) 01/13/24 01:34 Albumin 3.8 gm/dl (3.4-5.0) 01/13/24 01:34 Globulin 2.7 gm/dl (2.5-4.0) 01/13/24 01:34 Albumin/Globulin Ratio 1.4 (0.9-2) 01/13/24 01:34 Lipase 3 U/L (11-82) L 01/13/24 01:34 Diagnostic Findings Chest x-ray as per my interpretation no congestion EKG as per my interpretation : Rate 60, NSR, normal axis, T wave inversion lateral leads
[2024-01-13 04:45] LABS: Magnesium 2.1 mg/dl (1.7-2.4)
[2024-01-13 04:53] LABS: Troponin I High Sensitivity 40.2 pg/ml (0-20)
[2024-01-13] MEDS ORDERED: PROMETHAZINE HCL 6.25 MG in SODIUM CHLORIDE 0.9% 50 ML IV PRN (04:56)
[2024-01-13] MEDS ORDERED: MoRPHine SULFATE 2 MG/ML CARP IV PRN (04:56)
[2024-01-13] MEDS ORDERED: NITROGLYCERIN SL 0.4 MG/TAB TAB SL PRN (04:56)
[2024-01-13] MEDS ORDERED: traMADol HCL 50 MG TABLET PO PRN (04:56)
[2024-01-13] MEDS: HEPARIN SODIUM/DEXTROSE 25,000 UNITS/500 ML BAG IV SCH (05:21)
[2024-01-13] MEDS: Heparin IV Adult Wt-Based Standard *NO* INITIAL Bolus Protocol IV STA (05:22)
[2024-01-13] MEDS: METOPROLOL TARTRATE 25 MG TAB PO STA (05:23)
--- NOTE | 2024-01-13 06:38 | Emergency Department Note ---
Impression & Plan Chest tightness admit to the [facility] ED Provider Note NAME: IDA BAUGH AGE: 78 SEX: Male INFORMANT: Patient ED PROVIDER(S): Nanci Lamas DO CHIEF COMPLAINT: chest tightness PLAN: Disposition: admit to the [facility] MEDICAL DECISION MAKING: This is an 78-year-old male patient who presents to the emergency department with sudden onset of chest tightness and bilateral arm heaviness. Patient began to sweat and had a near syncopal event. He took aspirin. upon arrival here in the emergency department, the patient was still having some discomfort in his chest for which she received sublingual nitroglycerin. This relieved his discomfort. Patient had minimal ST segment elevation in the inferior leads on EKG. This was all concerning for coronary artery disease. First troponin was normal. I discussed the case with the [facility] and they will evaluate for further inpatient care. Other laboratory studies revealed a glucose of 115. Coagulation studies were normal. There was no leukocytosis. The patient did have mild anemia with a hemoglobin of 12.3. Patient does have a family history of heart disease. Patient's mother had coronary artery bypass surgery in her 80s. Care/management discussed with: clinical rn manager and [facility] Triage Nursing notes: reviewed and agree with them. Vital Signs: reviewed and remarkable for mild hypertension Additional History obtained from: the patient's who is at the bedside Differential Diagnosis: GERD, cardiac ischemia, aortic dissection, Aortic dissection, costochondritis Diagnostics, independently interpreted by me: ECG: normal sinus rhythm at a rate of [address] segment elevation in leads III and aVF with T wave inversion in leads I and aVL. There is no ectopy. Repeat ECG: Normal sinus rhythm at a rate of 68 with resolution of the ST segment elevation that was seen in the first ECG. Cardiac Monitoring: Normal sinus rhythm at 77 Imaging studies: portable chest x-ray: No significant cardiomegaly or pulmonary pathology as per my independent interpretation HPI: 78 year old Male arrives for evaluation of chest tightness. patient had slept from 10-12 when he woke up in his usual state of health but then developed a chest tightness and bilateral arm heaviness. The patient had significant diaphoresis and near syncope. Had a bowel movement and continued to not feel well. He some aspirin. patient called EMS PAST MEDICAL HISTORY: GERD PAST SURGICAL HISTORY: Whipple procedure many years ago, family history: The patient's mother had CABG in her 80s SOCIAL HISTORY: lives with his , is very active and rides a bike frequently, denies any tobacco use HOME MEDICATIONS: see list ALLERGIES: see list VITALS: See Below PHYSICAL EXAMINATION: HEENT: Head - normocephalic and atraumatic. Pupils are equal, round, and reactive to light. Extraocular eye muscles are intact, and sclera are anicteric. Nose - moist nasal mucosa without discharge. Mouth - moist buccal mucosa. Oropharynx is nonerythematous and there is no tonsillar exudate or edema noted. Neck: Supple; no JVD, nuchal rigidity, cervical lymphadenopathy, or auscultated bruits. Heart: Regular rate and rhythm. There is a normal S1 and S2 with no murmurs, clicks, or gallops appreciated. Lungs: Clear to auscultation bilaterally with no wheezes, rales, or rhonchi. Abdomen: Soft, completely nontender, nondistended, with good bowel sounds. There are no palpable pulsatile masses or hepatosplenomegaly. There is no guarding, rigidity, or rebound noted. Extremities: No evidence of cyanosis, clubbing, or edema. There are easily palpable peripheral pulses. Skin: warm and dry with good turgor and no rashes. Emergency department treatment: monitoring coordinator, sublingual nitroglycerin emergency department course: The patient was evaluated in room A-10. A complete history and physical was performed. An order was placed for continuous cardiac monitoring. The patient was in a normal sinus rhythm at a rate of 77. A twelve-lead EKG was obtained as described above. Portable chest x-ray was performed. The patient continued to have some slight chest tightness and was given 1 sublingual nitroglycerin. This did relieve his chest tightness. The ECG was repeated and the ECG changes on the first tracing had resolved. I discussed the case with the [facility] Hospitalist and they will evaluate for further inpatient care. 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 Social History Smoking Status: Never smoker Do You Dip or Chew Tobacco: No; Hx Alcohol Use: Yes Alcohol type: beer Hx Substance Use: No Preferred Language: [place]an Communication Ability: Effective Inspector Wire Rope Required: No Beliefs That Will Affect Care: None Current Living Situation: Spouse Feels Safe at Home: Yes Safety Concerns: Feels Safe At This Time Assistive Devices: None and Glasses Allergies Allergies Allergy/AdvReac Type Severity Reaction Status Date / Time Sulfa (Sulfonamide Allergy Intermediate HIVES Verified 01/13/24 02:52 Antibiotics) Penicillins Allergy Mild HIVES Verified 01/13/24 02:52 Home Meds Home Medications Medication Instructions Recorded Confirmed vjgomm-bioyzoop-kjvvuei 1 cap PO QAM 04/05/20 01/13/24 12,000-38,000-60,000 unit capsule,delayed rel (Creon) omeprazole 20 mg capsule,delayed 20 mg PO DAILY 04/05/20 01/13/24 release ibuprofen-diphenhydramine citrate 1 cap PO HS 01/13/24 01/13/24 200 mg-38 mg tablet (Advil PM) Results & Data (ED) Vital Signs Vital Signs - 24 hr 01/13/24 01:32 01/13/24 01:45 01/13/24 01:45 Temperature 37.2 C Temperature Source Oral Pulse Rate 56 L 55 L Pulse Rate [Apical] Pulse Rate from SpO2 Sensor Pulse Rhythm [Apical] Respiratory Rate 16 Respiratory Depth Blood Pressure 141/75 H 129/75 Blood Pressure [Right Arm] Blood Pressure Mean 97 105 Blood Pressure Mean [Right Arm] Pulse Oximetry 98 Oxygen Delivery Method Room Air Oxygen Flow Rate Sepsis Recent Fever Within 48 Hours No Sepsis New/Unexplained Change in Mental Status No Sepsis Action Taken by Nursing No Action Required 01/13/24 01:45 01/13/24 01:45 01/13/24 01:48 Temperature Temperature Source Pulse Rate 56 L Pulse Rate [Apical] Pulse Rate from SpO2 Sensor 55 L Pulse Rhythm [Apical] Respiratory Rate 22 Respiratory Depth Blood Pressure 129/75 129/75 Blood Pressure [Right Arm] Blood Pressure Mean 105 105 Blood Pressure Mean [Right Arm] Pulse Oximetry 99 Oxygen Delivery Method Oxygen Flow Rate Sepsis Recent Fever Within 48 Hours Sepsis New/Unexplained Change in Mental Status Sepsis Action Taken by Nursing 01/13/24 01:51 01/13/24 02:00 01/13/24 02:00 Temperature Temperature Source Pulse Rate 58 L Pulse Rate [Apical] Pulse Rate from SpO2 Sensor 60 Pulse Rhythm [Apical] Respiratory Rate 19 Respiratory Depth Blood Pressure 144/79 H 144/79 H Blood Pressure [Right Arm] Blood Pressure Mean 107 107 Blood Pressure Mean [Right Arm] Pulse Oximetry 99 Oxygen Delivery Method Oxygen Flow Rate Sepsis Recent Fever Within 48 Hours Sepsis New/Unexplained Change in Mental Status Sepsis Action Taken by Nursing 01/13/24 02:03 01/13/24 02:15 01/13/24 02:16 Temperature Temperature Source Pulse Rate 63 Pulse Rate [Apical] Pulse Rate from SpO2 Sensor 63 Pulse Rhythm [Apical] Respiratory Rate 13 Respiratory Depth Blood Pressure 176/75 H Blood Pressure [Right Arm] Blood Pressure Mean 101 Blood Pressure Mean [Right Arm] Pulse Oximetry 100 Oxygen Delivery Method Room Air Oxygen Flow Rate 98 Sepsis Recent Fever Within 48 Hours Sepsis New/Unexplained Change in Mental Status Sepsis Action Taken by Nursing 01/13/24 02:18 01/13/24 02:40 01/13/24 03:06 Temperature Temperature Source Pulse Rate Pulse Rate [Apical] 71 72 Pulse Rate from SpO2 Sensor Pulse Rhythm [Apical] Regular Respiratory Rate 16 16 Respiratory Depth Normal Normal Blood Pressure Blood Pressure [Right Arm] 114/68 112/66 Blood Pressure Mean Blood Pressure Mean [Right Arm] 83 81 Pulse Oximetry 98 95 98 Oxygen Delivery Method Room Air Room Air Room Air Oxygen Flow Rate Sepsis Recent Fever Within 48 Hours Sepsis New/Unexplained Change in Mental Status Sepsis Action Taken by Nursing 01/13/24 03:06 01/13/24 03:39 01/13/24 03:42 Temperature Temperature Source Pulse Rate 70 73 76 Pulse Rate [Apical] Pulse Rate from SpO2 Sensor Pulse Rhythm [Apical] Respiratory Rate 18 19 18 Respiratory Depth Blood Pressure 112/66 127/80 129/75 Blood Pressure [Right Arm] Blood Pressure Mean 81 95 93 Blood Pressure Mean [Right Arm] Pulse Oximetry 98 98 97 Oxygen Delivery Method Oxygen Flow Rate Sepsis Recent Fever Within 48 Hours Sepsis New/Unexplained Change in Mental Status Sepsis Action Taken by Nursing 01/13/24 04:06 01/13/24 04:12 01/13/24 04:30 Temperature Temperature Source Pulse Rate 76 76 79 Pulse Rate [Apical] Pulse Rate from SpO2 Sensor Pulse Rhythm [Apical] Respiratory Rate 18 24 18 Respiratory Depth Blood Pressure 132/76 146/82 H 140/88 Blood Pressure [Right Arm] Blood Pressure Mean 94 103 105 Blood Pressure Mean [Right Arm] Pulse Oximetry 97 96 Oxygen Delivery Method Oxygen Flow Rate Sepsis Recent Fever Within 48 Hours Sepsis New/Unexplained Change in Mental Status Sepsis Action Taken by Nursing Laboratory Data 01/13/24 01:34 01/13/24 01:34 Lab Results 01/13/24 01/13/24 Range/Units 01:34 04:10 WBC 6.03 (4.8-10.8) K/ul RBC 3.79 L (4.70-6.10) M/uL Hgb 12.3 L (14.0-18.0) g/dl Hct 36.5 L (42.0-52.0) % MCV 96.3 (80.0-100.0) fL MCH 32.5 (25.0-34.0) pg MCHC 33.7 (32.0-36.0) g/dL RDW Std Deviation 44.7 (36.4-46.3) fL RDW Coeff of Riley 12.7 (11.5-14.5) % Plt Count 227 (130-400) K/uL MPV 10.5 (9.4-12.4) fL Immature Gran % (Auto) 0.2 % Neut % (Auto) 45.7 % Lymph % (Auto) 40.3 % [place] % (Auto) 11.3 % Eos % (Auto) 1.7 % Baso % (Auto) 0.8 % Neut # (Auto) 2.76 (1.40-6.50) K/uL Lymph # (Auto) 2.43 (1.20-3.40) K/uL [place] # (Auto) 0.68 H (0.11-0.59) K/uL Eos # (Auto) 0.10 (0.00-0.50) K/uL Baso # (Auto) 0.05 (0.00-0.20) K/uL Immature Gran # (Auto) 0.01 (0.01-0.20) K/uL PT 10.6 (9.0-12.0) Seconds INR 1.0 (0.9-1.1) APTT 26 (21-31) Seconds PTT Ratio 1.0 Sodium 138 (136-145) mmol/L Potassium 4.0 (3.5-5.1) mmol/L Chloride 106 (98-107) mmol/L Carbon Dioxide 25 (21-32) mmol/L Anion Gap 7 (3-11) BUN 10 (6-23) mg/dl Creatinine 0.97 (0.6-1.4) mg/dl Est Cr Clr Drug Dosing 68.6 ml/min Est GFR ( Amer) 85.1 ml/min Est GFR (Non-Af Amer) 73.4 ml/min BUN/Creatinine Ratio 10.3 (10-20) Glucose 115 H (70-99(Fasting)) mg/dl Estimat Average Glucose 123 mg/dl Hemoglobin A1c 5.9 H (4.5-5.6) % Calcium 8.9 (8.6-10.3) mg/dl Magnesium 2.1 (1.7-2.4) mg/dl Total Bilirubin 0.5 (0.2-1.0) mg/dl AST 22 (13-39) U/L ALT 13 (7-52) U/L Alkaline Phosphatase 57 (34-104) U/L Total Creatine Kinase 65 (30-223) U/L Troponin I High Sens 6.5 40.2 H D (0-20) pg/ml Total Protein 6.5 (6.0-8.3) gm/dl Albumin 3.8 (3.4-5.0) gm/dl Globulin 2.7 (2.5-4.0) gm/dl Albumin/Globulin Ratio 1.4 (0.9-2) Lipase 3 L (11-82) U/L Administered Medications Lipase/Protease/Amylase (Pancreaze (Lipase 4,200u) Cap) 3 cap PO DAILY@0730 NATE Stop: 02/12/24 07:29 Last Admin: 01/13/24 08:06 Dose: Not Given Documented By: ABHI Atorvastatin Calcium (Atorvastatin 40 Mg Tab) 40 mg PO QAM [facility] Stop: 02/12/24 08:59 Last Admin: 01/13/24 08:08 Dose: 40 mg Documented By: ABHI Heparin Sodium/Dextrose (Heparin Sodium/Dextrose) 25,000 units in 500 mls @ 29 mls/hr IV .[id number] NATE; Protocol Stop: 02/12/24 05:14 Last Titration: 01/13/24 07:21 Dose: 1,450 units/hr, 29 mls/hr Documented By: ABHI Co-signed By: ZACK Titration: 01/13/24 06:31 Dose: 1,450 units/hr, 29 mls/hr Documented By: ZACK Co-signed By: SB Admin: 01/13/24 05:21 Dose: 1,450 units/hr, 29 mls/hr Documented By: KENDELL Co-signed By: LAVONNE Pantoprazole Sodium (Pantoprazole 40 Mg Tab) 40 mg PO DAILY [facility] Stop: 02/12/24 08:59 Last Admin: 01/13/24 08:09 Dose: 40 mg Documented By: ABHI Discontinued Medications Fentanyl Citrate (Fentanyl Citrate Pf 100 Mcg/2 Ml Vial) Confirm Administered Dose 100 mcg .ROUTE .STK-MED ONE Stop: 01/13/24 12:46 Last Increment: 01/13/24 13:53 Dose: 25 mcg Documented By: TWAN Heparin Sodium (Porcine) (Heparin (Porcine) 1000 Unit/Ml 10 Ml (Car Racer Use Only)) Confirm Administered Dose 10,000 units .ROUTE .STK-MED ONE Stop: 01/13/24 12:46 Last Admin: 01/13/24 13:54 Dose: Not Given Documented By: TWAN Heparin Sodium/Dextrose (Heparin Iv Adult Wt-Based Standard *No* Initial Bolus Protocol) 1 each IV ONE STA; Protocol Stop: 01/13/24 04:54 Last Admin: 01/13/24 05:22 Dose: Not Given Documented By: KENDELL Heparin Sodium/Sodium Chloride (Heparin In Nss Infusion 1000 Unit/500 Ml (2 U/Ml) Bag) Confirm Administered Dose 3,000 units IV .STK-MED ONE Stop: 01/13/24 12:46 Last Admin: 01/13/24 13:54 Dose: 3,000 units Documented By: WTAN Sodium Chloride (Nss) 500 mls @ 999 mls/hr IV .Q31M STA Stop: 01/13/24 02:09 Last Infusion: 01/13/24 02:42 Dose: Infused Documented By: Admin: 01/13/24 01:42 Dose: 999 mls/hr Documented By: JANIS Sodium Chloride (Nss) 1,000 mls @ 60 mls/hr IV .[id number] ONE Stop: 01/13/24 14:24 Last Admin: 01/13/24 04:17 Dose: 75 mls/hr Documented By: KENDELL Ioversol (Optiray 350) Confirm Administered Dose 1 ml .ROUTE .STK-MED ONE Stop: 01/13/24 12:47 Last Admin: 01/13/24 13:55 Dose: 40 ml Documented By: TWAN Metoprolol Tartrate (Metoprolol Tartrate 25 Mg Tab) 12.5 mg PO NOW STA Stop: 01/13/24 05:03 Last Admin: 01/13/24 05:23 Dose: 12.5 mg Documented By: KENDELL Midazolam HCl (Midazolam Hcl 1 Mg/Ml 2ml Vial) Confirm Administered Dose 2 mg .ROUTE .STK-MED ONE Stop: 01/13/24 12:45 Last Increment: 01/13/24 13:53 Dose: 1 mg Documented By: TWAN Nicardipine HCl (Nicardipine Hcl Inj 2.5 Mg/Ml 10 Ml Amp) Confirm Administered Dose 25 mg .ROUTE .STK-MED ONE Stop: 01/13/24 12:46 Last Admin: 01/13/24 13:54 Dose: 25 mg Documented By: TWAN Nitroglycerin (Nitroglycerin Sl 0.4 Mg/Tab Tab) 0.4 mg SL NOW STA Stop: 01/13/24 02:24 Last Admin: 01/13/24 02:30 Dose: 0.4 mg Documented By: JANIS Nitroglycerin (Nitroglycerin Sl 0.4 Mg/Tab Tab) Confirm Administered Dose 0.4 mg .ROUTE .STK-MED ONE Stop: 01/13/24 02:27 Last Admin: 01/13/24 02:38 Dose: Not Given Documented By: JANIS Nitroglycerin/Dextrose (Nitroglycerin/D5w 100mcg/Ml 20ml Syr) Confirm Administered Dose 2,000 mcg .ROUTE .STK-MED ONE Stop: 01/13/24 12:47 Last Admin: 01/13/24 13:55 Dose: 2,000 mcg Documented By: TWAN Imaging Data Radiologist's Impression: Chest X-Ray 01/13/24 01:39 XR chest 1V portable CLINICAL HISTORY: Chest pain, nonspecific TECHNIQUE: Single frontal radiograph of the chest was obtained. Comparison: Comparison is made to chest radiograph 04/05/2020 FINDINGS: No lines and tubes are seen. Calcified aortic knob is seen. The lungs are clear. No evidence of pleural effusion or pneumothorax. IMPRESSION: No acute chest disease. ACT 112: Negative or not required by law. Electronically signed by: Isidro Valle M.D. 01/13/2024 7:21 AM Discharge Plan Visit Data Chief Complaint: Chest Pain Stated Complaint: AWOKE W/ CHEST PAIN, WEAKNESS, SYNCOPE ED Provider: Nanci Lamas Discharge Problem: Chest tightness Patient Disposition: Admitted As Inpatient Discharge Instructions Interventions: ED Discharge Assessment Last Done: 01/13/24 05:43
--- NOTE | 2024-01-13 07:22 | XRay Report ---
XR chest 1V portable CLINICAL HISTORY: Chest pain, nonspecific TECHNIQUE: Single frontal radiograph of the chest was obtained. Comparison: Comparison is made to chest radiograph 04/05/2020 FINDINGS: No lines and tubes are seen. Calcified aortic knob is seen. The lungs are clear. No evidence of pleur al effusion or pneumothorax. IMPRESSION: No acute chest disease. ACT 112: Negative or not required by law. Electronically signed by: Isidro Valle M.D. 01/13/2024 7:21 AM
[2024-01-13 07:25] LABS: Estimated Average Glucose 123 mg/dl; Hemoglobin A1C 5.9 % (4.5-5.6)
[2024-01-13] MEDS: PANCREAZE (LIPASE 4,200U) CAP PO SCH (08:06)
[2024-01-13] MEDS: ATORVASTATIN 40 MG TAB PO SCH (08:08)
[2024-01-13] MEDS: PANTOprazole 40 MG TAB PO SCH (08:09)
--- NOTE | 2024-01-13 08:11 | Hospitalist Progress Note ---
Date of Service January 13, 2024 Assessment & Plan (1) NSTEMI (non-ST elevated myocardial infarction): Plan Pt is an 78yoM with PMHx significant for valvular heart disease (moderate /mild AR, TTE 2020), hyperlipidemia, cholangiocarcinoma status post surgery/chemotherapy, chronic anemia (baseline hemoglobin 12-13), past tobacco abuse presenting with chest pain. NSTEMI Presenting with chest discomfort and associated sweats Trop progressed from 6.5 on arrival to 40.2 Echo with mild LVH, no wall motion abnormalities, EF 55-60%, aortic valve moderately calcified, moderate aortic stenosis Chest XRAY with no acute disease Cardiology consulted, appreciate recs -Symptoms and findings suggestive of non-STEMI -Medical therapy: Continue aspirin, metoprolol, heparin, atorvastatin. -Fasting lipid panel has been ordered and is currently pending -Proceed with invasive coronary angiography for further evaluation. Patient agreeable. No contraindication to dual antiplatelet therapy noted. Continue IV heparin Continue telemetry monitoring Hyperlipidemia Lipid panel pending Continue statin Cholangiocarcinoma status post surgery/chemotherapy in remission stable Chronic anemia Hgb chronically low, currently 12.3 AM anemia panel Prediabetes hemoglobin A1c of 5.9 Diet: NPO currently DVT prophylaxis: IV heparin Dispo: PT/OT for further recs once medically stable Admission and Anticipated Discharge Date Admission Date: January 13, 2024 Subjective pt was seen laying in bed, resting comfortably. Denied chest pain at that time. Denied SOB or palpitations. AAOx3 Due for cath. States he is going on a [employer] cruise soon. Review of Systems Review of Systems: All systems reviewed & are unremarkable except as noted in Subjective Physical Exam Physical Exam: General: Alert, oriented. No acute distress Skin: No noted rashes or bruises Psych: Appropriate mood and affect Neuro: No gross deficits HEENT: NC/AT CV: RRR, + murmur appreciated Resp: Breath sounds clear bilaterally, no increased effort of breathing. Abdomen:Soft, nontender, nondistended Extremities: No edema in lower extremities bilaterally. Results & Data Results & Data Vital Signs (Past 12 Hours) Vital Signs Temp Pulse Pulse Resp BP BP Pulse Ox 01/13/24 06:02 36.5 C 77 18 156/88 H 100 01/13/24 05:36 80 19 98 01/13/24 05:15 152/81 H 01/13/24 05:15 152/81 H 01/13/24 05:15 80 15 152/81 H 98 01/13/24 04:30 79 18 140/88 96 01/13/24 04:12 76 24 146/82 H 01/13/24 04:06 76 18 132/76 97 01/13/24 03:42 76 18 129/75 97 01/13/24 03:39 73 19 127/80 98 01/13/24 03:06 70 18 112/66 98 01/13/24 03:06 72 16 112/66 98 01/13/24 02:40 71 16 114/68 95 01/13/24 02:18 98 01/13/24 02:16 176/75 H 01/13/24 02:15 01/13/24 02:03 63 13 100 01/13/24 02:00 144/79 H 01/13/24 02:00 144/79 H 01/13/24 01:51 58 L 19 99 01/13/24 01:48 56 L 22 99 01/13/24 01:45 129/75 01/13/24 01:45 129/75 01/13/24 01:45 129/75 01/13/24 01:45 55 L 01/13/24 01:32 37.2 C 56 L 16 141/75 H 98 O2 Del Method O2 Flow Rate 01/13/24 06:02 Room Air 01/13/24 05:36 01/13/24 05:15 01/13/24 05:15 01/13/24 05:15 01/13/24 04:30 01/13/24 04:12 01/13/24 04:06 01/13/24 03:42 01/13/24 03:39 01/13/24 03:06 01/13/24 03:06 Room Air 01/13/24 02:40 Room Air 01/13/24 02:18 Room Air 01/13/24 02:16 01/13/24 02:15 Room Air 98 01/13/24 02:03 01/13/24 02:00 01/13/24 02:00 01/13/24 01:51 01/13/24 01:48 01/13/24 01:45 01/13/24 01:45 01/13/24 01:45 01/13/24 01:45 01/13/24 01:32 Room Air Diagnostic Findings Chest X-Ray 01/13/24 01:39 XR chest 1V portable CLINICAL HISTORY: Chest pain, nonspecific TECHNIQUE: Single frontal radiograph of the chest was obtained. Comparison: Comparison is made to chest radiograph 04/05/2020 FINDINGS: No lines and tubes are seen. Calcified aortic knob is seen. The lungs are clear. No evidence of pleural effusion or pneumothorax. IMPRESSION: No acute chest disease. ACT 112: Negative or not required by law. Electronically signed by: Isidro Valle M.D. 01/13/2024 7:21 AM
--- NOTE | 2024-01-13 09:28 | Cardiology Consultation ---
Date of Consultation January 13, 2024 Assessment & Plan (1) NSTEMI (non-ST elevated myocardial infarction): * Symptoms and findings suggestive of non-STEMI. Patient chest pain-free at present. Medical therapy: Continue aspirin, metoprolol, heparin, atorvastatin. Fasting lipid panel has been ordered and is currently pending. * Echocardiogram reviewed and reveals normal LVEF, no regional wall motion abnormalities, the aortic valve is moderately calcified with moderate aortic stenosis noted. * Proceed with invasive coronary angiography for further evaluation. Patient agreeable. No contraindication to dual antiplatelet therapy noted. History of Present Illness Attending Physician: Jackie Joseph MD History of Present Illness Mr Pemberton is an 78-year-old male seen in cardiology consultation per the request of Dr. Mcadams for the evaluation of chest discomfort. Patient describes himself as physically active. Over the weekend he had ridden approximately 4 miles on his bicycle on a rails to trail without any symptoms on both Saturday and Saturday. He does note that within the last month however when walking in his neighborhood, and after thinking of things he believes he had some chest pressure recently while walking up that hill a few weeks ago. Last night at about midnight he got up to use the bathroom and had midline chest discomfort with associated heavy perspiration. He waited and the symptoms progressed. Ultimately he presented to the emergency department. Symptoms were palliated with the administration of nitroglycerin. At present he feels well. He denies any chest discomfort or shortness of breath at present. He notes no upcoming operations. Past Medical History: Moderate aortic stenosis, mild aortic regurgitation noted at time of previous echocardiogram performed as an outpatient 2020 cholangiocarcinoma s/p cholecystectomy and pancreaticoduodenectomy & bilateral hepaticojejunostomies on 12/20/2011 and adjunct chemotherapy GERD Family History: Mother had [place] at age of 80 and had subsequent CABG. 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 Allergies Allergy/AdvReac Type Severity Reaction Status Date / Time Sulfa (Sulfonamide Allergy Intermediate HIVES Verified 01/13/24 02:52 Antibiotics) Penicillins Allergy Mild HIVES Verified 01/13/24 02:52 Home Medications Medication Instructions Recorded Confirmed Type [id number]-[id number] 1 cap PO QAM 04/05/20 01/13/24 History 12,000-38,000-60,000 unit capsule,delayed rel (Creon) omeprazole 20 mg capsule,delayed 20 mg PO DAILY 04/05/20 01/13/24 History release ibuprofen-diphenhydramine citrate 1 cap PO HS 01/13/24 01/13/24 History 200 mg-38 mg tablet (Advil PM) Patient History Medical History Hypomagnesemia Transaminitis Elevated lactic acid level Sepsis No pertinent family history Acquired absence of other specified parts of digestive tract Cholangiocarcinoma Social History Smoking Status: Never smoker Do You Dip or Chew Tobacco: No; Hx Alcohol Use: Yes Alcohol type: beer Hx Substance Use: No Preferred Language: Sami Communication Ability: Effective Field Control Inspector Required: No Beliefs That Will Affect Care: None Current Living Situation: Spouse Feels Safe at Home: Yes Safety Concerns: Feels Safe At This Time Assistive Devices: None and Glasses Review of Systems Review of Systems: All systems reviewed & are unremarkable except as noted in HPI & below Physical Exam Physical Exam: General: no acute distress and stated age Eyes: conjunctiva are pink and non-injected, sclera clear Neck: normal jugular venous pulse, no hepatojugular reflux Chest: normal shape and normal respiratory effort Lungs: clear to auscultation and percussion Cardiac Exam: - regular heart sounds, II/ SM, rubs, or gallops, no jugular venous distention Abdomen: abdomen soft, non-tender, no abnormal masses and no hepatosplenomegaly Musculoskeletal: no gait disturbance, no weakness Extremities: no edema and no cyanosis Neuro:awake, conversant, follows commands, no focal motor deficits Psych: appropriate affect and insight. Results & Data Vital Signs (Past 12 Hours) Vital Signs Temp Pulse Pulse Resp BP BP Pulse Ox 01/13/24 06:02 36.5 C 77 18 156/88 H 100 01/13/24 05:36 80 19 98 01/13/24 05:15 152/81 H 01/13/24 05:15 152/81 H 01/13/24 05:15 80 15 152/81 H 98 01/13/24 04:30 79 18 140/88 96 01/13/24 04:12 76 24 146/82 H 01/13/24 04:06 76 18 132/76 97 01/13/24 03:42 76 18 129/75 97 01/13/24 03:39 73 19 127/80 98 01/13/24 03:06 70 18 112/66 98 01/13/24 03:06 72 16 112/66 98 01/13/24 02:40 71 16 114/68 95 01/13/24 02:18 98 01/13/24 02:16 176/75 H 01/13/24 02:15 01/13/24 02:03 63 13 100 01/13/24 02:00 144/79 H 01/13/24 02:00 144/79 H 01/13/24 01:51 58 L 19 99 01/13/24 01:48 56 L 22 99 01/13/24 01:45 129/75 01/13/24 01:45 129/75 01/13/24 01:45 129/75 01/13/24 01:45 55 L 01/13/24 01:32 37.2 C 56 L 16 141/75 H 98 O2 Del Method O2 Flow Rate 01/13/24 06:02 Room Air 01/13/24 05:36 01/13/24 05:15 01/13/24 05:15 01/13/24 05:15 01/13/24 04:30 01/13/24 04:12 01/13/24 04:06 01/13/24 03:42 01/13/24 03:39 01/13/24 03:06 01/13/24 03:06 Room Air 01/13/24 02:40 Room Air 01/13/24 02:18 Room Air 01/13/24 02:16 01/13/24 02:15 Room Air 98 01/13/24 02:03 01/13/24 02:00 01/13/24 02:00 01/13/24 01:51 01/13/24 01:48 01/13/24 01:45 01/13/24 01:45 01/13/24 01:45 01/13/24 01:45 01/13/24 01:32 Room Air Laboratory Results Cardiac Enzymes 01/13/24 01/13/24 Range/Units 01:34 04:10 AST 22 (13-39) U/L Troponin I High Sens 6.5 40.2 H D (0-20) pg/ml Coagulation 01/13/24 Range/Units 01:34 PT 10.6 (9.0-12.0) Seconds APTT 26 (21-31) Seconds CBC 01/13/24 Range/Units 01:34 WBC 6.03 (4.8-10.8) K/ul RBC 3.79 L (4.70-6.10) M/uL Hgb 12.3 L (14.0-18.0) g/dl Hct 36.5 L (42.0-52.0) % Plt Count 227 (130-400) K/uL Neut # (Auto) 2.76 (1.40-6.50) K/uL Lymph # (Auto) 2.43 (1.20-3.40) K/uL [place] # (Auto) 0.68 H (0.11-0.59) K/uL Eos # (Auto) 0.10 (0.00-0.50) K/uL Baso # (Auto) 0.05 (0.00-0.20) K/uL Comprehensive Metabolic Panel 01/13/24 Range/Units 01:34 Sodium 138 (136-145) mmol/L Potassium 4.0 (3.5-5.1) mmol/L Chloride 106 (98-107) mmol/L Carbon Dioxide 25 (21-32) mmol/L BUN 10 (6-23) mg/dl Creatinine 0.97 (0.6-1.4) mg/dl Glucose 115 H (70-99(Fasting)) mg/dl Calcium 8.9 (8.6-10.3) mg/dl AST 22 (13-39) U/L ALT 13 (7-52) U/L Alkaline Phosphatase 57 (34-104) U/L Total Protein 6.5 (6.0-8.3) gm/dl Albumin 3.8 (3.4-5.0) gm/dl Intake and Output 01/12/24 01/13/24 01/13/24 22:59 06:59 14:59 Intake Total 533.833 / 533.833 . / Balance 533.833 / 533.833 / Intake: IV 533.833 / 533.833 / 24.167 Heparin Sodium/Dextrose 25,000 33.833 / 33.833 24.167 / 24.167 units In 500 ml @ 1,450 UNITS/ HR 29 mls/hr IV .[id number] NATE Rx #:[id number] Sodium Chloride 0.9% 500 ml @ 500 / 500 999 mls/hr IV .Q31M STA Rx#: [id number] Other: Weight 79.4 kg Weight Measurement Method Built in [facility] Diagnostic Findings EKG performed 01/13/2024 at 1:30 AM and interpret independently: Sinus rhythm at 61 bpm, T wave inversions noted in the high lateral leads I and aVL Suggestive of lateral ischemia. -Repeat tracing performed at 2:14 AM was relatively unchanged with ongoing lateral ischemia. No ST segment elevation. Telemetry overnight revealed sinus rhythm in the 70s. No arrhythmias.
--- NOTE | 2024-01-13 12:50 | Electrocardiogram Report ---
Test Reason : Blood Pressure : / mmHG Vent. Rate : 068 BPM Atrial Rate : 068 BPM P-R Int : 192 ms QRS Dur : 100 ms QT Int : 414 ms P-R-T Axes : 061 060 108 degrees QTc Int : 440 ms Normal sinus rhythm Nonspecific ST and T wave abnormality Abnormal ECG When compared with ECG of 13-JAN-2024 01:30, (unconfirmed) No significant change was found Confirmed by Tyler Mcgovern ([id number]) on 01/13/2024 12:49:59 PM Referred By: Confirmed By:Tyler Mcgovern
--- NOTE | 2024-01-13 12:52 | Electrocardiogram Report ---
Test Reason : Blood Pressure : / mmHG Vent. Rate : 061 BPM Atrial Rate : 061 BPM P-R Int : 170 ms QRS Dur : 098 ms QT Int : 430 ms P-R-T Axes : 025 033 102 degrees QTc Int : 432 ms Normal sinus rhythm Abnormal ECG When compared with ECG of 05-APR-2020 15:21, Vent. rate has decreased BY 42 BPM Non-specific change in ST segment in Anterior leads T wave inversion no longer evident in Inferior leads T wave inversion less evident in Anterolateral leads Confirmed by Tyler Mcgovern ([id number]) on 01/13/2024 12:52:22 PM Referred By: Confirmed By:Tyler Mcgovern
--- NOTE | 2024-01-13 13:24 | Pre Anesthesia Assessment ---
Date of Service January 13, 2024 Pre Sedation Assessment Vital Signs Temp Pulse Pulse Resp BP BP Pulse Ox 01/13/24 12:30 78 18 152/80 H 100 01/13/24 10:50 97.9 F 80 18 165/80 H 100 01/13/24 06:02 97.7 F 77 18 156/88 H 100 01/13/24 05:36 80 19 98 01/13/24 05:15 152/81 H 01/13/24 05:15 152/81 H 01/13/24 05:15 80 15 152/81 H 98 01/13/24 04:30 79 18 140/88 96 01/13/24 04:12 76 24 146/82 H 01/13/24 04:06 76 18 132/76 97 01/13/24 03:42 76 18 129/75 97 01/13/24 03:39 73 19 127/80 98 01/13/24 03:06 70 18 112/66 98 01/13/24 03:06 72 16 112/66 98 01/13/24 02:40 71 16 114/68 95 01/13/24 02:18 98 01/13/24 02:16 176/75 H 01/13/24 02:15 01/13/24 02:03 63 13 100 01/13/24 02:00 144/79 H 01/13/24 02:00 144/79 H 01/13/24 01:51 58 L 19 99 01/13/24 01:48 56 L 22 99 01/13/24 01:45 129/75 01/13/24 01:45 129/75 01/13/24 01:45 129/75 01/13/24 01:45 55 L 01/13/24 01:32 99.0 F 56 L 16 141/75 H 98 O2 Del Method O2 Flow Rate 01/13/24 12:30 Room Air 01/13/24 10:50 Room Air 01/13/24 06:02 Room Air 01/13/24 05:36 01/13/24 05:15 01/13/24 05:15 01/13/24 05:15 01/13/24 04:30 01/13/24 04:12 01/13/24 04:06 01/13/24 03:42 01/13/24 03:39 01/13/24 03:06 01/13/24 03:06 Room Air 01/13/24 02:40 Room Air 01/13/24 02:18 Room Air 01/13/24 02:16 01/13/24 02:15 Room Air 98 01/13/24 02:03 01/13/24 02:00 01/13/24 02:00 01/13/24 01:51 01/13/24 01:48 01/13/24 01:45 01/13/24 01:45 01/13/24 01:45 01/13/24 01:45 01/13/24 01:32 Room Air Cardiovascular + regular rate Respiratory + respiratory effort normal Pre-Sedation Airway Assessment Smoking Status: Never smoker Hx Sleep Apnea: No Short, Thick Neck: No Thyromental Distance: > or= 3.5 Finger Breadths Oral Cavity: + WNL Mallampati Class: III ASA: ASA3 NPO Status Date of Last Intake of Fluids: 01/13/24 Time of Last Intake of Fluids: 07:00 Date of Last Intake of Solid Food: 01/12/24 Time of Last Intake of Solid Foods: 20:00 Procedure Planning Contraindications for Sedation: none Current Medications Reviewed: Yes Notes The planned sedation has been discussed with the patient. Informed Consent was obtained. I have identified the patient, determined the appropriateness of sedation and have assessed the patient immediately prior to the procedure. All medicine(s) and interventions are by my order.
[2024-01-13] MEDS: fentaNYL citrate PF 100 MCG/2 ML VIAL ONE (13:53)
[2024-01-13] MEDS: MIDAZOLAM HCL 1 MG/ML 2ML VIAL ONE (13:53)
[2024-01-13] MEDS: niCARdipine HCL INJ 2.5 MG/ML 10 ML AMP ONE (13:54)
[2024-01-13] MEDS: HEPARIN (PORCINE) 1000 UNIT/ML 10 ML (CATH LAB USE ONLY) ONE (13:54)
[2024-01-13] MEDS: NITROGLYCERIN/D5W 100MCG/ML 20ML SYR ONE (13:55)
[2024-01-13] MEDS: OPTIRAY 350 ONE (13:55)
--- NOTE | 2024-01-13 14:24 | Post Anesthesia Assessment ---
Date of Service January 13, 2024 Post Sedation Assessment Vital Signs Temp Pulse Pulse Resp BP BP Pulse Ox 01/13/24 14:15 78 18 141/98 H 99 01/13/24 14:00 78 18 147/88 H 99 01/13/24 12:30 78 18 152/80 H 100 01/13/24 10:50 97.9 F 80 18 165/80 H 100 01/13/24 06:02 97.7 F 77 18 156/88 H 100 01/13/24 05:36 80 19 98 01/13/24 05:15 152/81 H 01/13/24 05:15 152/81 H 01/13/24 05:15 80 15 152/81 H 98 01/13/24 04:30 79 18 140/88 96 01/13/24 04:12 76 24 146/82 H 01/13/24 04:06 76 18 132/76 97 01/13/24 03:42 76 18 129/75 97 01/13/24 03:39 73 19 127/80 98 01/13/24 03:06 70 18 112/66 98 01/13/24 03:06 72 16 112/66 98 01/13/24 02:40 71 16 114/68 95 01/13/24 02:18 98 01/13/24 02:16 176/75 H 01/13/24 02:15 01/13/24 02:03 63 13 100 01/13/24 02:00 144/79 H 01/13/24 02:00 144/79 H 01/13/24 01:51 58 L 19 99 01/13/24 01:48 56 L 22 99 01/13/24 01:45 129/75 01/13/24 01:45 129/75 01/13/24 01:45 129/75 01/13/24 01:45 55 L 01/13/24 01:32 99.0 F 56 L 16 141/75 H 98 O2 Del Method O2 Flow Rate 01/13/24 14:15 Room Air 01/13/24 14:00 Room Air 01/13/24 12:30 Room Air 01/13/24 10:50 Room Air 01/13/24 06:02 Room Air 01/13/24 05:36 01/13/24 05:15 01/13/24 05:15 01/13/24 05:15 01/13/24 04:30 01/13/24 04:12 01/13/24 04:06 01/13/24 03:42 01/13/24 03:39 01/13/24 03:06 01/13/24 03:06 Room Air 01/13/24 02:40 Room Air 01/13/24 02:18 Room Air 01/13/24 02:16 01/13/24 02:15 Room Air 98 01/13/24 02:03 01/13/24 02:00 01/13/24 02:00 01/13/24 01:51 01/13/24 01:48 01/13/24 01:45 01/13/24 01:45 01/13/24 01:45 01/13/24 01:45 01/13/24 01:32 Room Air Recovery Score Activity: Moves 4 extremities Respiration: Deep Breath/Cough Circulation: +/-20% PreAnes Value Consciousness: Fully Awake Oxygen Saturation: > 92% On Room Air Post Anesthesia Score: 10 Discharge Sedation Level of Care: Fast Track Phase II Post Sedation Plan On clinical assessment, the patient appears to have tolerated the sedation without complications. Patient is recovering as anticipated. Patient will continue to be monitored by nursing and may be discharged when sedation discharge criteria are met per below protocol. Upon Completions of procedure up to 15 minutes continue every 5 minute vital signs and the P.A.R. score; then discharge to a Phase I or Fast Track to Phase II per the following guidelines: * Discharge Patient to appropriate Phase II area if PAR is 8 or greater or return to pre- procedure baseline. The post - procedure orders will be as directed. * If PAR score is less than 8 or not return to pre-procedure baseline then patient will follow Phase I monitoring till PAR is reached for Phase II. The Phase I may be done in procedure room or may call to secure a Phase I area. * If naloxone or flumazenil are used for reversal, hold in Phase I for continued monitoring from when last reversal dose was given for a minimum of 60 minutes or longer pending the nurse and/or physician discretion of patient condition before discharge to Phase II. Please call the Sedation Physician to re-evaluate and complete post-note for discharge to Phase II area. Do NOT discharge from procedure sedation or Phase 1 until post- sedation evaluation note is complete by procedure /sedation MD Sedation Discharge Instructions to be given to the patient at discharge to home.
--- NOTE | 2024-01-13 14:31 | Cardiac Catheterization ---
[facility] Data: Electronic Masking System Operator Cardiac Status Clinical evaluation leading to the procedure CAD Presenation: Non STEMI Anginal Classification: CCS IV Diagnostic Physicians Name: Po Lakhani MD Closure Device Recommendations: Medical Therapy and/or Counseling Cardiac Cath Procedure Full Procedure Date January 13, 2024 Pre-Procedure Diagnosis Pre-Procedure Diagnosis: Non STEMI AUC Score AUC Score: 8 Post-Procedure Diagnosis Post-Procedure Diagnosis: Severe CAD Procedure(s) Performed Procedure(s) Performed: Coronary Angiography Auditor Appraiser Po Lakhani MD Herbarium Worker(s) Meghana Estimated Blood Loss Estimated Blood Loss: 10 Medication(s) Medication(s): Fentanyl, Heparin, Lidocaine 1%, Nicardipine, Nitroglycerin and Versed Summary of Findings Indication: NSTEMI Access: 6 Fr right radial artery Catheters: [place] Findings: LM -normal caliber, no significant disease LAD -medium caliber vessel extends around apex. 50% proximal to mid disease. 60-70% early-distal stenosis. Remainder of vessel without significant disease as wraps around apex. Small D1, medium D2 without significant disease. Circumflex -dominant, large caliber, AV groove circumflex without significant disease. Left PDA without disease. Large OM 2 gives off inferior branch with 50% ostial stenosis. RCA -small caliber, nondominant, 100% acute proximal occlusion Arterial Closure: TR band Summary: 1. Multivessel coronary artery disease -100% acute small nondominant proximal RCA occlusion 50% proximal to mid LAD disease. 60-70% focal earlydistal LAD stenosis 50% proximal stenosis and inferior branch of OM2. Recommendations: Patient asymptomatic with preserved LV function. Recommend medical management of small, nondominant RCA. Additional heparin, antiplatelet therapy per Dr. Muller. If refractory exertional symptoms in the future could consider PCI to distal LAD. Hemodynamics Rest Ao:: 127/71/114 Final Ao: 155/77/114 LV: -- Recommendations Recommendations: Medical Therapy and/or Counseling Specimens Specimens: None Radiation Exposure (mGy) 422 Contrast (mls) 40 Procedural Complication(s) None Disposition PCU I attest to the content of the Intraoperative Record and any orders documented therein. Any exceptions are noted below. [facility] Card Cath Procedure Codes Cardiac Catheterization Procedure 1: Cardiovascular Cath Procedures: 57640 Coronaries Moderate Sedation Procedure 1: Sedation/Anesthesia: 61118 Mod Sedation by the same physician;Init15 Min Child Age 5 & Up PG Care Time/CCT Total # of Minutes Spent Total Time Spent with Patient: Total time spent is greater than 50% in coordination of care (as documented) at patient's floor/unit and/or counseling patient:
--- NOTE | 2024-01-13 15:50 | Communication Note ---
Date of Service: January 13, 2024 Cardiac catheterization films reviewed independently and discussed with Dr Lakhani. -100% acute small nondominant proximal RCA occlusion 50% proximal to mid LAD disease Medical therapy recommended. 1. resume Heparin infusion for another 24 hours 2. Continue ASA, metoprolol, statin therapy. Add clopidogrel.
[2024-01-13] MEDS: SODIUM CHLORIDE 0.9% 1,000 ML IV SCH (16:00)
[2024-01-13] MEDS: CLOPIDOGREL BISULFATE 300 MG TAB PO STA (16:00)
[2024-01-13] MEDS: METOPROLOL TARTRATE 25 MG TAB PO SCH (20:50)
[2024-01-14 01:33] LABS: ANTI-Xa, UFH(UnfractionatedHep 0.78 IU/ml (0.3-0.7)
[2024-01-14 07:10] LABS: Hematocrit (blood only) 36.4 % (42.0-52.0); Hemoglobin 12.4 g/dl (14.0-18.0); Mean Corpuscular Hemoglobin 32.3 pg (25.0-34.0); Mean Corpuscular Hgb Conc 34.1 g/dL (32.0-36.0); Mean Corpuscular Volume 94.8 fL (80.0-100.0); Mean Platelet Volume 9.7 fL (9.4-12.4); Platelet Count 214 K/uL (130-400); RDW Coefficient of Variation 12.5 % (11.5-14.5); RDW Standard Deviation 43.5 fL (36.4-46.3); Red Blood Count 3.84 M/uL (4.70-6.10); White Blood Count 7.36 K/ul (4.8-10.8)
[2024-01-14 07:39] LABS: Albumin Globulin Ratio 1.4 (0.9-2); Albumin Level 3.5 gm/dl (3.4-5.0); BUN Creatinine Ratio 6.5 (10-20); Bilirubin,Total 0.6 mg/dl (0.2-1.0); Calcium 8.3 mg/dl (8.6-10.3); Chol HDL Ratio 2.3 (0-5); Creatinine Clr Calc Pharmacy 86.1 ml/min; Est GFR (African American) 99.3 ml/min; Est GFR (Non-African American) 85.7 ml/min; Globulin 2.5 gm/dl (2.5-4.0); Magnesium 1.8 mg/dl (1.7-2.4); Phosphorus 2.5 mg/dl (2.5-4.9); Potassium 3.7 mmol/L (3.5-5.1)
[2024-01-14 07:55] LABS: Troponin I High Sensitivity 13336.7 pg/ml (0-20)
[2024-01-14 07:58] LABS: ANTI-Xa, UFH(UnfractionatedHep 0.97 IU/ml (0.3-0.7); Folate (Folic Acid),Ser orPlas 13.56 ng/ml (>5.38)
[2024-01-14 08:02] LABS: Ferritin 39.4 ng/ml (8-388)
[2024-01-14] MEDS: CLOPIDOGREL BISULFATE 75 MG TAB PO SCH (09:19)
[2024-01-14] MEDS: ASPIRIN 81 MG ECTAB PO SCH (09:19)
--- NOTE | 2024-01-14 12:29 | Electrocardiogram Report ---
Test Reason : Blood Pressure : / mmHG Vent. Rate : 080 BPM Atrial Rate : 080 BPM P-R Int : 158 ms QRS Dur : 096 ms QT Int : 398 ms P-R-T Axes : 056 054 -01 degrees QTc Int : 459 ms Normal sinus rhythm Cannot rule out Inferior infarct , age undetermined Abnormal ECG When compared with ECG of 13-JAN-2024 02:14, Nonspecific T wave abnormality now evident in Inferior leads T wave inversion now evident in Anterior leads T wave inversion no longer evident in Lateral leads Confirmed by Tyler Mcgovern ([id number]) on 01/14/2024 12:28:46 PM Referred By: REFERRED SELF Confirmed By:Tyler Mcgovern
--- NOTE | 2024-01-14 13:40 | Hospitalist Progress Note ---
Date of Service January 14, 2024 Assessment & Plan (1) NSTEMI (non-ST elevated myocardial infarction): Plan Pt is an 78yoM with PMHx significant for valvular heart disease (moderate /mild AR, TTE 2020), hyperlipidemia, cholangiocarcinoma status post surgery/chemotherapy, chronic anemia (baseline hemoglobin 12-13), past tobacco abuse presenting with chest pain. NSTEMI Presenting with chest discomfort and associated sweats Trop progressed from 6.5 on [place] [id number] on 01/13 Echo with mild LVH, no wall motion abnormalities, EF 55-60%, aortic valve moderately calcified, moderate aortic stenosis Chest XRAY with no acute disease Cardiology consulted, appreciate recs -Symptoms and findings suggestive of non-STEMI -Medical therapy: Continue aspirin, metoprolol, heparin, atorvastatin. -Fasting lipid panel wnl -s/p catheterization on 01/12 -100% acute small nondominant proximal RCA occlusion 50% proximal to mid LAD disease -Medical therapy recommended. 1. resume Heparin infusion for another 24 hours 2. Continue ASA, metoprolol, statin therapy. Add clopidogrel. Continue telemetry monitoring Dispo per Cardiology- monitoring overnight Hyperlipidemia Lipid panel wnl Continue statin in setting of above Cholangiocarcinoma status post surgery/chemotherapy in remission stable Chronic anemia Hgb chronically low, currently 12.3 Anemia panel wnl Continue to monitor Prediabetes hemoglobin A1c of 5.9 Diet:HH DVT prophylaxis: IV heparin Dispo: PT/OT for further recs once medically stable Admission and Anticipated Discharge Date Admission Date: January 13, 2024 Subjective pt was seen laying in bed, resting comfortably. Has paper with drawing of the heart and his associated coronary blockages that was given to him by interventional cardiology. States he has questions. Denies chest pain, SOB, palpitations. States he is moving his bowels Review of Systems Review of Systems: All systems reviewed & are unremarkable except as noted in Subjective Physical Exam Physical Exam: General: Alert, oriented. No acute distress Skin: No noted rashes or bruises Psych: Appropriate mood and affect Neuro: No gross deficits while laying in bed HEENT: NC/AT CV: RRR, + murmur appreciated Resp: Breath sounds clear bilaterally, no increased effort of breathing. Abdomen:Soft, nontender, nondistended Extremities: No edema in lower extremities bilaterally. Results & Data Results & Data Vital Signs (Past 12 Hours) Vital Signs Temp Pulse Pulse Resp BP Pulse Ox O2 Del Method 01/14/24 10:33 36.5 C 62 18 150/79 H 98 Room Air 01/14/24 07:05 36.5 C 78 18 159/81 H 96 Room Air 01/14/24 05:27 71 01/14/24 03:17 36.5 C 85 18 170/78 H 97 Room Air
[2024-01-14 16:09] LABS: ANTI-Xa, UFH(UnfractionatedHep 0.74 IU/ml (0.3-0.7)
--- NOTE | 2024-01-14 17:23 | Cardiology Progress Note ---
Date of Service January 14, 2024 Assessment & Plan (1) NSTEMI (non-ST elevated myocardial infarction): Plan: Repeat troponin performed this morning trended up to 13,336 PG per mL. Cardiac catheterization performed 01/13/2024 with results as noted: 100% acute small nondominant proximal RCA occlusion 50% proximal to mid LAD disease. 60-70% focal earlydistal LAD stenosis 50% proximal stenosis and inferior branch of OM2. Patient asymptomatic with preserved LV function. Recommend medical management of small, nondominant RCA. Discontinue unfractioned heparin. Change metoprolol to tartrate 12.5 mg twice daily to metoprolol succinate 25 mg daily next dose 01/14/2024. Add lisinopril 2.5 mg daily. Continue atorvastatin 40 mg daily. LDL 63 mg/dL at baseline prior to statin therapy. (2) Aortic stenosis: Plan: Moderate aortic stenosis noted on echocardiogram. Start subcutaneous Lovenox 01/15/2024 for DVT prophylaxis Updates provided to spouse and patient in detail at bedside. Admission and Anticipated Discharge Date Admission Date: January 13, 2024 Subjective Patient seen in cardiology follow-up. Denies chest discomfort or shortness of breath. Telemetry reveals sinus rhythm in the 70s. A 3 beat run of nonsustained ventricular tachycardia was observed on 01/13/2024 at 11:30 AM without additional arrhythmia. Physical Exam Physical Exam: General: no acute distress and stated age Eyes: conjunctiva are pink and non-injected, sclera clear Neck: normal jugular venous pulse, no hepatojugular reflux Chest: normal shape and normal respiratory effort Lungs: clear to auscultation and percussion Cardiac Exam: - Regular rhythm, 1/6 systolic murmur heard best at right sternal border Abdomen: abdomen soft, non-tender, no abnormal masses and no hepatosplenomegaly Musculoskeletal: no gait disturbance, no weakness Extremities: no edema and no cyanosis, right radial catheterization site clean dry and intact, no hematoma. Neuro:awake, conversant, follows commands, no focal motor deficits Psych: appropriate affect and insight. Results & Data Vital Signs (Past 12 Hours) Vital Signs Temp Pulse Pulse Resp BP Pulse Ox O2 Del Method 01/14/24 15:03 36.8 C 69 18 157/92 H 69 L Room Air 01/14/24 13:02 71 01/14/24 10:33 36.5 C 62 18 150/79 H 98 Room Air 01/14/24 07:05 36.5 C 78 18 159/81 H 96 Room Air 01/14/24 05:27 71 (2) Aortic stenosis Cardiac valve disease etiology: nonrheumatic Qualified Code(s): I35.0 - Nonrheumatic aortic (valve) stenosis
[2024-01-15 07:03] LABS: Hematocrit (blood only) 35.6 % (42.0-52.0); Hemoglobin 12.3 g/dl (14.0-18.0); Mean Corpuscular Hemoglobin 31.9 pg (25.0-34.0); Mean Corpuscular Hgb Conc 34.6 g/dL (32.0-36.0); Mean Corpuscular Volume 92.5 fL (80.0-100.0); Mean Platelet Volume 10.2 fL (9.4-12.4); Platelet Count 208 K/uL (130-400); RDW Coefficient of Variation 12.5 % (11.5-14.5); RDW Standard Deviation 42.6 fL (36.4-46.3); Red Blood Count 3.85 M/uL (4.70-6.10); White Blood Count 6.65 K/ul (4.8-10.8)
[2024-01-15 07:33] LABS: Albumin Globulin Ratio 1.3 (0.9-2); Albumin Level 3.6 gm/dl (3.4-5.0); BUN Creatinine Ratio 11.4 (10-20); Bilirubin,Total 0.8 mg/dl (0.2-1.0); Calcium 8.5 mg/dl (8.6-10.3); Creatinine Clr Calc Pharmacy 94.5 ml/min; Est GFR (African American) 103.3 ml/min; Est GFR (Non-African American) 89.1 ml/min; Globulin 2.7 gm/dl (2.5-4.0); Magnesium 1.8 mg/dl (1.7-2.4); Phosphorus 2.8 mg/dl (2.5-4.9); Potassium 3.6 mmol/L (3.5-5.1); Total Protein 6.3 gm/dl (6.0-8.3)
[2024-01-15 07:46] LABS: Troponin I High Sensitivity 11874.6 pg/ml (0-20)
--- NOTE | 2024-01-15 08:53 | Cardiology Progress Note ---
Date of Service January 15, 2024 Assessment & Plan (1) NSTEMI (non-ST elevated myocardial infarction): Plan: Repeat troponin 01/14/24 = 13,336 --> 11,874 PG per mL. Cardiac catheterization performed 01/13/2024 with results as noted: 100% acute small nondominant proximal RCA occlusion 50% proximal to mid LAD disease. 60-70% focal earlydistal LAD stenosis 50% proximal stenosis and inferior branch of OM2. Patient asymptomatic with preserved LV function. Recommend medical management of small, nondominant RCA. Discontinued unfractionated heparin after two days of therapy as of 01/13. metoprolol succinate 25 mg daily. lisinopril 2.5 mg daily. atorvastatin 40 mg daily. LDL 63 mg/dL at baseline prior to statin therapy. PRN SL nitrogycerin Protonix rather than omeprazole given plavix treatment PM TECHNICIAN Creon (2) Aortic stenosis: Plan: Moderate aortic stenosis noted on echocardiogram. Repeat Echo in 1 year. subcutaneous Lovenox 01/15/2024 for DVT prophylaxis Recommend patient postpones trip [place] the [place] for at least one month. Patient has trip insurance, and I offered to supply medical letter. If patient ambulates well with walking this am , possible discharge later today. 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 Admission and Anticipated Discharge Date Admission Date: January 13, 2024 Subjective Patient seen in cardiology follow up. Feels well. No angina. Walked in hallway without difficulty overnight. Telemetry reveals SR in the 70s, no arrhythmias in last 24 hours. Review of Systems Review of Systems: All systems reviewed & are unremarkable except as noted in HPI & below Physical Exam Physical Exam: General: no acute distress and stated age Eyes: conjunctiva are pink and non-injected, sclera clear Neck: normal jugular venous pulse, no hepatojugular reflux Chest: normal shape and normal respiratory effort Lungs: clear to auscultation and percussion Cardiac Exam: - Regular rhythm, 1/6 systolic murmur heard best at right sternal border Abdomen: abdomen soft, non-tender, no abnormal masses and no hepatosplenomegaly Musculoskeletal: no gait disturbance, no weakness Extremities: no edema and no cyanosis, right radial catheterization site clean dry and intact, no hematoma. Neuro:awake, conversant, follows commands, no focal motor deficits Psych: appropriate affect and insight. Results & Data Vital Signs (Past 12 Hours) Vital Signs Temp Pulse Pulse Resp BP Pulse Ox O2 Del Method 01/15/24 08:00 36.5 C 69 16 141/70 H 97 Room Air 01/15/24 03:08 36.6 C 85 18 139/77 93 Room Air 01/14/24 23:23 36.7 C 75 18 153/76 H 97 Room Air 01/14/24 23:06 75 Laboratory Results Cardiac Enzymes 01/15/24 Range/Units 06:33 AST 78 H (13-39) U/L Troponin I High Sens 08837.6 H* (0-20) pg/ml CBC 01/15/24 Range/Units 06:33 WBC 6.65 (4.8-10.8) K/ul RBC 3.85 L (4.70-6.10) M/uL Hgb 12.3 L (14.0-18.0) g/dl Hct 35.6 L (42.0-52.0) % Plt Count 208 (130-400) K/uL Comprehensive Metabolic Panel 01/15/24 Range/Units 06:33 Sodium 138 (136-145) mmol/L Potassium 3.6 (3.5-5.1) mmol/L Chloride 105 (98-107) mmol/L Carbon Dioxide 27 (21-32) mmol/L BUN 8 (6-23) mg/dl Creatinine 0.70 (0.6-1.4) mg/dl Glucose 102 H (70-99(Fasting)) mg/dl Calcium 8.5 L (8.6-10.3) mg/dl AST 78 H (13-39) U/L ALT 24 (7-52) U/L Alkaline Phosphatase 54 (34-104) U/L Total Protein 6.3 (6.0-8.3) gm/dl Albumin 3.6 (3.4-5.0) gm/dl Intake and Output 01/14/24 01/15/24 01/15/24 22:59 06:59 14:59 Intake Total 410.633 / 1332.433 240 / 1332.433 Balance 410.633 / 832.433 240 / 832.433 Intake: IV 170.633 / 262.433 Heparin Sodium/Dextrose 25,000 170.633 / 262.433 units In 500 ml @ 1,100 UNITS/ HR 22 mls/hr IV .[id number] [facility] Rx #:[id number] Oral 240 / 1070 240 / 1070 Other: # Unmeasured Voids 2 2 Weight 79.4 kg Weight Measurement Method Built in [facility] Diagnostic Findings EKG on 01/14/24: SR at 80 bpm.Age undetermined inferior infarction. (2) Aortic stenosis Cardiac valve disease etiology: nonrheumatic Qualified Code(s): I35.0 - Nonrheumatic aortic (valve) stenosis
[2024-01-15] MEDS: lisinopril 2.5 MG TAB PO SCH (09:39)
[2024-01-15] MEDS: ENOXAPARIN INJ 40 MG/0.4 ML SYR SQ SCH (09:39)
[2024-01-15] MEDS: METOPROLOL SUCC 25MG EXT REL TAB PO SCH (09:39)
--- NOTE | 2024-01-15 16:23 | Discharge Summary ---
Discharge Summary Date of Service January 15, 2024 Principal Dx & Hospital Course #1 = Principal Diagnosis (1) NSTEMI (non-ST elevated myocardial infarction): Plan Pt is an 78yoM with PMHx significant for valvular heart disease (moderate /mild AR, TTE 2020), hyperlipidemia, cholangiocarcinoma status post surgery/chemotherapy, chronic anemia (baseline hemoglobin 12-13), past tobacco abuse presenting with chest pain on 01/12 and admitted for NSTEMI. Patient underwent LHC on 01/12 and found to have total occlusion of prox RCA. Patient managed conservatively with heparin for 48 hours and medication management. On day of discharge, patient without chest pain or concerns. #NSTEMI #Coronary artery disease s/p PCI Presenting with chest discomfort and associated sweats Trop progressed from 6.5 on [place] [id number] on 01/13 Echo with mild LVH, no wall motion abnormalities, EF 55-60%, aortic valve moderately calcified, moderate aortic stenosis Chest XRAY with no acute disease Cardiology consulted, appreciate recs -Symptoms and findings suggestive of non-STEMI -Medical therapy: Continue aspirin, metoprolol, heparin, atorvastatin. -Fasting lipid panel wnl -s/p catheterization on 01/12 -100% acute small nondominant proximal RCA occlusion 50% proximal to mid LAD disease -Medical therapy recommended. 1. completed Heparin x 48 hours 2. Continue ASA 3 Started Metorpolol 25mg PO, lisinopril 2.5mg po 4. Plavix 5 Atorvastatin Follow up cards OP nitro prn #Cholangiocarcinoma status post surgery/chemotherapy in remission stable continue creon #Chronic anemia Hgb chronically low, currently 12.3 Anemia panel wnl Continue to monitor #Prediabetes hemoglobin A1c of 5.9 Notes For Next Care Provider Medication Changes From Visit metoprolol succinate 25 mg daily. lisinopril 2.5 mg daily. atorvastatin 40 mg daily. Aspirin 81 mg daily as needed sublingual nitroglycerin Plavix 75mg daily Protonix rather than omeprazole given plavix treatment Admission HPI Per Admitting Provider History obtained from patient and records. Medical history significant for valvular heart disease (moderate /mild AR, TTE 2020), hyperlipidemia, cholangiocarcinoma status post surgery/chemotherapy, chronic anemia (baseline hemoglobin 12-13), past tobacco abuse. Last confinement March 2020 for sepsis secondary to cholangitis. Last night, patient experienced substernal tightness associated with diaphoresis different from usual indigestion symptoms not relieved by home antacid. Some relief with aspirin intake and bowel movement at home. No previous episodes. Subsequent chest pain recurrence. He felt like he was going to pass out. EMS called to patient's home. Patient brought to ER for evaluation. Chest tightness relieved by nitroglycerin. Patient currently comfortable. 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 Admission Exam Per Admitting Provider GENERAL: Comfortable, pleasant, no respiratory distress SKIN: Pallor, warm HEENT: Alopecia, pale palpebral conjunctivae, no ptosis, dry buccal mucosa NECK : Supple, no tenderness CHEST : CTA, no tenderness HEART : RRR, systolic murmur ABDOMEN: no distention, nontender EXTREMITIES : Minimal LE swelling/tenderness, no other conspicuous deformities noted NEUROLOGIC : Coherent, no facial asymmetry, no other gross focality Discharge Exam Constitutional WD/WN, vitals as above Respiratory normal respiratory effort, lungs clear to auscultation Cardiovascular RRR, no murmur, no edema Gastrointestinal (Abdomen) normal bowel sounds, soft, nontender, no hepatosplenomegaly Updated Medication List Medication Instructions Recorded Confirmed Type [id number] 1 cap PO QAM 04/05/20 01/13/24 History 12,000-38,000-60,000 unit capsule,delayed rel (Creon) ibuprofen-diphenhydramine citrate 1 cap PO HS 01/13/24 01/13/24 History 200 mg-38 mg tablet (Advil PM) aspirin 81 mg tablet,delayed 81 mg PO DAILY #30 tabs 01/15/24 Rx release atorvastatin 40 mg tablet 40 mg PO QAM #30 tabs 01/15/24 Rx clopidogrel 75 mg tablet 75 mg PO QAM #30 tabs 01/15/24 Rx lisinopril 2.5 mg tablet 2.5 mg PO QAM #30 tabs 01/15/24 Rx metoprolol succinate 25 mg 25 mg PO QAM #30 tabs 01/15/24 Rx tablet,extended release 24 hr nitroglycerin 0.4 mg sublingual 0.4 mg sublingual Q5M PRN chest 01/15/24 Rx tablet (Nitrostat) pain #30 tabs pantoprazole 40 mg tablet,delayed 40 mg PO DAILY #30 tabs 01/15/24 Rx release Hospital Stay Data Consultations 01/13/24 03:10 ED Decision to Admit Stat 01/13/24 04:56 Consult Cardiology Routine 01/13/24 06:02 Consult Cardiology Routine Procedures Performed Operation Date: 01/13/24 12:00 Actual Procedures p Cineradiography w/Routine Exam - Po Lakhani MD s Cath, Left with Cors and Vent - Po Lakhani MD Diagnostic Imagining Performed 01/13/24 08:45 CL Cath Imgs for PACS use only Routine Pending Results Patient Have Any Pending Studies at Discharge: No Discharge Instructions Given to Patient (Per Discharging Provider) You were admitted for management of a myocardial infarction. Cardiac catheterization performed 01/13/2024 with results as noted: 100% acute small nondominant proximal RCA occlusion 50% proximal to mid LAD disease. 60-70% focal earlydistal LAD stenosis 50% proximal stenosis and inferior branch of OM2. You have coronary artery disease and Cardiology recommended the following medications metoprolol succinate 25 mg daily. lisinopril 2.5 mg daily. atorvastatin 40 mg daily. Aspirin 81 mg daily as needed sublingual nitroglycerin Plavix 75mg daily Protonix rather than omeprazole given plavix treatment Total Time Total Time Spent Total Time Spent (In Minutes): 35
== END 2024-01-15 11:16 | disposition home or self-care (01) | DRG 281 ==
LOC: ED 01:26 → 2S 04:55 → SUATTDRO 04:55 → 2S 05:43

== ENCOUNTER 2025-01-09 07:39 | Inpatient (IN) ==
[2025-01-09 08:09] LABS: Hematocrit (blood only) 37.5 % (42.0-52.0); Hemoglobin 12.8 g/dl (14.0-18.0); Immature Granulocytes # (auto) 0.04 K/uL (0.01-0.20); Immature Granulocytes % (auto) 0.4 %; Mean Corpuscular Hemoglobin 32.7 pg (25.0-34.0); Mean Corpuscular Volume 95.7 fL (80.0-100.0); Platelet Count 172 K/uL (130-400); RDW Standard Deviation 45.1 fL (36.4-46.3); Red Blood Count 3.92 M/uL (4.70-6.10); White Blood Count 10.50 K/ul (4.8-10.8)
[2025-01-09] MEDS: ACETAMINOPHEN 1,000 MG/100 ML VIAL IV STA (08:17)
[2025-01-09] MEDS: ONDANSETRON INJ 2 MG/ML 2 ML VIAL IV STA (08:17)
--- NOTE | 2025-01-09 08:25 | Emergency Department Note ---
Impression & Plan Generalized abdominal pain, SBO (small bowel obstruction), Aortic dissection ED Provider Note HISTORY OF PRESENT ILLNESS: Patient is an 79-year-old male presenting with generalized abdominal pain. Patient reports that last evening he started having a cramping and diffuse pain throughout his abdomen. He states the pain started after he ate a hamburger. He states that the pain continued throughout the night. Currently rates the pain a 9.5 out of 10. He denies any nausea, vomiting or diarrhea. Denies any fevers. He has a history of a Whipple back in 2011. He had an aortic valve replacement performed [address] [facility]. He states he been doing well up until last evening. He reports he had a normal bowel movement this morning. Denies any dysuria or hematuria. Locates the pain diffusely across his abdomen. ROS: as above PHYSICAL EXAM: Constitutional: Patient appears in no acute distress. HENT: Head: Normocephalic and atraumatic. Eyes: EOMI, PERRL Mouth/Throat: Mucous membranes moist. Neck: Trachea midline. Neck supple. Cardiovascular: RRR, No rubs or gallops. Intact distal pulses. Pulmonary/Chest: No respiratory distress. Breath sounds clear and equal bilaterally. No wheezes or rales. Abdominal: Abdomen soft, no rebound or guarding. Generalized tenderness to palpation Musculoskeletal: No edema, tenderness or deformity noted. Skin: Warm and dry. No rash, erythema, pallor or cyanosis Psychiatric: Appropriate mood and affect for situation. Neurological: Alert and keenly responsive. CN II-XII grossly intact, moving all extremities equally and fully. MDM: - Vitals signs showed hypertension - History obtained via patient. History as above. - Chronic conditions affecting care: Cholangiocarcinoma (s/p Whipple procedure); aortic stenosis (s/p TAVR) - Differential diagnoses include, but are not limited to: Cholecystitis; pancreatitis; bowel obstruction; aortic dissection; ischemic colitis; diverticulitis - Order placed for continuous cardiac monitoring. At this time, monitor showed rate of 60 bpm with normal sinus rhythm, per my interpretation. - External medical records reviewed. Discharge summary dated 01/15/2024 was reviewed. Patient was admitted that time due to an NSTEMI and found to have coronary artery disease and had a stent placed. - Laboratory workup interpreted by myself showed normal WBC; normal lactate; normal PT/INR; normal creatinine; normal AST/ALT; undetectable lipase - Patient given 1g IV tlyenol on arrival to ER. Given 4 mg IV zofran - CT abdomen/pelvis with IV contrast showed distal small bowel obstruction. Noted to also have short segment focal aortic dissection at the level of the left renal vessels with dilatation of the aorta to 2.8 cm without active hemorrhage. - Discussed CT findings with vascular surgeon professional nursing tutor, Dr. Jain, at 9:31 am. He reports that a focal dissection such as this would be treated medically. - Discussed results with patient and his at bedside. They are requesting that the avionics electronics technician at [facility], Dr. Lamas, be contacted. Hospitalist is working on contacting this doctor. - Discussion was had with case consultant about patient's case and need for admission - Hospitalist, Dr. Becker, consulted for admission at 10:13 AM. - Patient admitted to [facility] service for further evaluation and management. ASSESSMENT AND PLAN: Diagnosis: Generalized abdominal pain; small bowel obstruction; focal aortic dissection Plan: Admit Past Med/Surg History Problem List (Updated 01/09/25 @ 11:59 by Tim Becker MD) History of CAD (coronary artery disease) S/P TAVR (transcatheter aortic valve replacement) Aortic dissection (Acute) SBO (small bowel obstruction) (Acute) Generalized abdominal pain (Acute) Aortic stenosis NSTEMI (non-ST elevated myocardial infarction) Benign positional vertigo Impacted cerumen, right ear Sensorineural hearing loss (SNHL) of both ears Bacteremia Encounter for pre-operative examination Elevated alkaline phosphatase level Fever Colitis (Acute) Medical History Hypomagnesemia Transaminitis Elevated lactic acid level Sepsis No pertinent family history Acquired absence of other specified parts of digestive tract Cholangiocarcinoma Social History Smoking Status: Never smoker Do You Dip or Chew Tobacco: No; Hx Alcohol Use: Yes Alcohol type: beer Hx Substance Use: No Preferred Language: Sami Communication Ability: Effective Furnishings Conservator Required: No Beliefs That Will Affect Care: None Current Living Situation: Spouse Feels Safe at Home: Yes Assistive Devices: Glasses Allergies Allergies Allergy/AdvReac Type Severity Reaction Status Date / Time Sulfa (Sulfonamide Allergy Intermediate HIVES Verified 01/09/25 10:34 Antibiotics) Penicillins Allergy Mild HIVES Verified 01/09/25 10:34 Home Meds Home Medications Medication Instructions Recorded Confirmed [id number] 0 cap PO QAM 04/05/20 01/09/25 12,000-38,000-60,000 unit capsule,delayed rel (Creon) ibuprofen-diphenhydramine citrate 1 cap PO HS 01/13/24 01/09/25 200 mg-38 mg tablet (Advil PM) Previous Rx's Medication Instructions Recorded aspirin 81 mg tablet,delayed 81 mg PO DAILY #30 tabs 01/15/24 release atorvastatin 40 mg tablet 40 mg PO QAM #30 tabs 01/15/24 clopidogrel 75 mg tablet 75 mg PO QAM #30 tabs 01/15/24 metoprolol succinate 25 mg 25 mg PO QAM #30 tabs 01/15/24 tablet,extended release 24 hr nitroglycerin 0.4 mg sublingual 0.4 mg sublingual Q5M PRN chest 01/15/24 tablet (Nitrostat) pain #30 tabs pantoprazole 40 mg tablet,delayed 40 mg PO DAILY #30 tabs 01/15/24 release Results & Data (ED) Vital Signs Vital Signs - 24 hr 01/09/25 07:40 01/09/25 07:48 01/09/25 07:51 Temperature 36.6 C Temperature Source Temporal Artery Scan Pulse Rate 84 60 Pulse Rate [Left Apical] 62 Pulse Rhythm [Left Apical] Regular Pulse Strength [Left Apical] Normal Respiratory Rate 18 17 24 Respiratory Effort / Characteristics Non-Labored Spontaneous Non-Labored Spontaneous Respiratory Depth Normal Normal Respiratory Pattern Regular Regular Blood Pressure 190/94 H Blood Pressure [Left Arm] 161/69 H Blood Pressure Mean 126 Blood Pressure Mean [Left Arm] 99 Blood Pressure Position Sitting Blood Pressure Position [Left Arm] Lying Pulse Oximetry 98 96 98 Oxygen Delivery Method Room Air Room Air Room Air Sepsis Recent Fever Within 48 Hours No Sepsis New/Unexplained Change in Mental Status N/A Sepsis Action Taken by Nursing No Action Required 01/09/25 08:00 01/09/25 09:39 Temperature Temperature Source Pulse Rate 74 Pulse Rate [Left Apical] 59 L Pulse Rhythm [Left Apical] Pulse Strength [Left Apical] Respiratory Rate 17 Respiratory Effort / Characteristics Non-Labored Spontaneous Respiratory Depth Normal Respiratory Pattern Regular Blood Pressure Blood Pressure [Left Arm] 137/86 Blood Pressure Mean Blood Pressure Mean [Left Arm] 103 Blood Pressure Position Blood Pressure Position [Left Arm] Lying Pulse Oximetry 99 Oxygen Delivery Method Room Air Sepsis Recent Fever Within 48 Hours Sepsis New/Unexplained Change in Mental Status Sepsis Action Taken by Nursing Laboratory Data 01/09/25 07:55 01/09/25 07:55 Lab Results 01/09/25 01/09/25 Range/Units 07:55 08:35 WBC 10.50 (4.8-10.8) K/ul RBC 3.92 L (4.70-6.10) M/uL Hgb 12.8 L (14.0-18.0) g/dl Hct 37.5 L (42.0-52.0) % MCV 95.7 (80.0-100.0) fL MCH 32.7 (25.0-34.0) pg MCHC 34.1 (32.0-36.0) g/dL RDW Std Deviation 45.1 (36.4-46.3) fL RDW Coeff of Riley 12.8 (11.5-14.5) % Plt Count 172 (130-400) K/uL MPV 10.4 (9.4-12.4) fL Immature Gran % (Auto) 0.4 % Neut % (Auto) 85.6 % Lymph % (Auto) 7.3 % Platte % (Auto) 5.0 % Eos % (Auto) 1.0 % Baso % (Auto) 0.7 % Neut # (Auto) 8.98 H (1.40-6.50) K/uL Lymph # (Auto) 0.77 L (1.20-3.40) K/uL Platte # (Auto) 0.53 (0.11-0.59) K/uL Eos # (Auto) 0.11 (0.00-0.50) K/uL Baso # (Auto) 0.07 (0.00-0.20) K/uL Immature Gran # (Auto) 0.04 (0.01-0.20) K/uL PT 10.1 (9.0-12.0) Seconds INR 0.9 (0.9-1.1) Sodium 139 (136-145) mmol/L Potassium 4.2 (3.5-5.1) mmol/L Chloride 105 (98-107) mmol/L Carbon Dioxide 28 (21-32) mmol/L Anion Gap 6 (3-11) BUN 11 (6-23) mg/dl Creatinine 0.97 (0.6-1.4) mg/dl Est Cr Clr Drug Dosing 66.3 ml/min eGFR 78.43 BUN/Creatinine Ratio 11.3 (10-20) Glucose 185 H (70-99(Fasting)) mg/dl Lactate 1.1 (0.4-2.0) mmol/L Calcium 9.5 (8.6-10.3) mg/dl Total Bilirubin 0.6 (0.2-1.0) mg/dl AST 30 (13-39) U/L ALT 21 (7-52) U/L Alkaline Phosphatase 72 (34-104) U/L Total Protein 7.8 (6.0-8.3) gm/dl Albumin 4.6 (3.4-5.0) gm/dl Globulin 3.2 (2.5-4.0) gm/dl Albumin/Globulin Ratio 1.4 (0.9-2) Lipase < 3 L (11-82) U/L Administered Medications Acetaminophen (Ofirmev) 1,000 mg in 100 mls @ 400 mls/hr IV Q8H PRN PRN Reason: fever/pain Stop: 01/12/25 10:19 Last Infusion: 01/09/25 13:19 Dose: Infused Documented By: Admin: 01/09/25 12:49 Dose: 400 mls/hr Documented By: DELFIN Dextrose/Sodium Chloride (D5w And Nss) 1,000 mls @ 60 mls/hr IV .[id number] [facility] Stop: 01/12/25 10:29 Last Admin: 01/09/25 12:01 Dose: 60 mls/hr Documented By: DELFIN Ondansetron HCl (Ondansetron Inj 2 Mg/Ml 2 Ml Vial) 4 mg IV Q6H PRN PRN Reason: Nausea And Vomiting Stop: 02/08/25 10:19 Last Admin: 01/09/25 13:14 Dose: 4 mg Documented By: DELFIN Discontinued Medications Hydralazine HCl (Hydralazine Hcl 20 Mg/Ml Vial) 2.5 mg IV NOW ONE Stop: 01/09/25 12:13 Last Admin: 01/09/25 12:48 Dose: 2.5 mg Documented By: DELFIN Acetaminophen (Ofirmev) 1,000 mg in 100 mls @ 400 mls/hr IV NOW STA Stop: 01/09/25 08:21 Last Infusion: 01/09/25 08:35 Dose: Infused Documented By: Admin: 01/09/25 08:17 Dose: 400 mls/hr Documented By: ARIADNE Promethazine HCl (Phenergan) 12.5 mg in 50.5 mls @ 202 mls/hr IV NOW STA Stop: 01/09/25 11:42 Last Admin: 01/09/25 12:06 Dose: Not Given Documented By: DELFIN Ioversol (Optiray 320 100ml) 94 ml IV ONCE ONE Stop: 01/09/25 08:56 Last Admin: 01/09/25 08:56 Dose: 94 ml Documented By: GODWIN Ondansetron HCl (Ondansetron Inj 2 Mg/Ml 2 Ml Vial) 4 mg IV NOW STA Stop: 01/09/25 08:08 Last Admin: 01/09/25 08:17 Dose: 4 mg Documented By: ARIADNE Imaging Data Radiologist's Impression: Abdomen/Pelvis CT 01/09/25 08:07 EXAM: CT Abdomen and Pelvis With Intravenous Contrast INDICATION: Generalized abdominal pain beginning last night worsening this morning. Aortic valve replacement 1 week ago. Whipple procedure 13 years ago. TECHNIQUE: Axial computed tomography images of the abdomen and pelvis with intravenous contrast. Sagittal and coronal reformatted images were created and reviewed. This CT exam was performed using one or more of the following dose reduction techniques: automated exposure control, adjustment of the mA and/or kV according to patient size, and/or use of iterative reconstruction technique. COMPARISON: 04/05/2020 FINDINGS: Limitations: None. Lung bases: No abnormality noted. Pleural space: No visualized pleural effusion or pneumothorax. Heart: The visualized portion of aortic valve prosthetic stent appears normal. Mediastinum: Small sliding hiatal hernia noted. ABDOMEN: Liver: No abnormality noted. Gallbladder and bile ducts: Cholecystectomy. Pancreas: Proximal pancreatic resection. No mass in the resection bed. No inflammation about the distal pancreas. Spleen: No significant abnormality noted. Adrenals: No significant abnormality noted. Kidneys and ureters: Normal enhancement. No mass, hydronephrosis or visualized stone. Stomach and bowel: There are multiple dilated thickened small bowel loops predominantly noted in the right abdomen and pelvis. There is mild to moderate associated edema in the mesentery. The stomach is mildly distended with air and fluid. Distal small bowel loops are collapsed. There is some air and stool in the colon. There is extensive diverticulosis of the rectosigmoid and descending colon without diverticulitis. Postoperative deformity of Whipple procedure noted with gastric and duodenal resection. Appearance stable. PELVIS: Appendix: No findings to suggest acute appendicitis. Bladder: No filling defects to suggest mass or large stone. No inflammation. Reproductive: No abnormalities noted. ABDOMEN and PELVIS: Intraperitoneal space: Small amounts of free fluid noted in the right upper quadrant. No abscess or free air. Bones/joints: Degenerative changes noted in the spine with chronic L5 pars defects. No acute osseous abnormality. Soft tissues: No significant abnormality noted. Vasculature: Findings concerning for focal, short segment aortic dissection at the level of the left renal vein crossover with dilatation of the aorta at this level to 2.8 cm. No hemorrhage. Atherosclerosis noted. No vascular occlusion or stenosis noted. The portal vein is patent. Lymph nodes: No pathologically enlarged lymph nodes. IMPRESSION: 1. Distal small bowel obstruction. Etiology unclear. Consider adhesions. 2. Findings strongly suspicious for short segment focal aortic dissection at the level of the left renal vessels with dilatation of the aortic to 2.8 cm. No hemorrhage. 3. Extensive left colonic diverticulosis. No diverticulitis. ACT 112: N/A Electronically signed by Bronwyn Bliss 01-09-2025 09:25 AM Discharge Plan Visit Data Chief Complaint: Abdominal Pain Stated Complaint: STOMACH CRAMPS ED Provider: Gloria Weinberg Discharge Problem: Generalized abdominal pain, SBO (small bowel obstruction), Aortic dissection Condition: Fair
[2025-01-09 08:26] LABS: Anion Gap 6 (3-11); Blood Urea Nitrogen 11 mg/dl (6-23); Calcium 9.5 mg/dl (8.6-10.3); Carbon Dioxide 28 mmol/L (21-32); Chloride 105 mmol/L (98-107); Creatinine Clr Calc Pharmacy 66.3 ml/min; Glucose 185 mg/dl (70-99(Fasting)); Potassium 4.2 mmol/L (3.5-5.1); Sodium 139 mmol/L (136-145)
[2025-01-09 08:27] LABS: Alanine Aminotransferase 21 U/L (7-52); Albumin Globulin Ratio 1.4 (0.9-2); Alkaline Phosphatase 72 U/L (34-104); Bilirubin,Total 0.6 mg/dl (0.2-1.0); Globulin 3.2 gm/dl (2.5-4.0); Lipase < 3 U/L (11-82); Total Protein 7.8 gm/dl (6.0-8.3)
[2025-01-09 08:37] LABS: INR 0.9 (0.9-1.1); Prothrombin Time 10.1 Seconds (9.0-12.0)
[2025-01-09] MEDS: OPTIRAY 320 100ml IV ONE (08:56)
--- NOTE | 2025-01-09 09:26 | CT Scan Report ---
EXAM: CT Abdomen and Pelvis With Intravenous Contrast INDICATION: Generalized abdominal pain beginning last night worsening this morning. Aortic valve replacement 1 week ago. Whipple procedure 13 years ago. TECHNIQUE: Axial computed tomography images of the abdomen and pelvis with intravenous contrast. Sagittal and coronal reformatted images were created and reviewed. This CT exam was performed using one or more of the following dose reduction techniques: automated exposure control, adjustment of the mA and/or kV according to patient size, and/or use of iterative reconstruction technique. COMPARISON: 04/05/2020 FINDINGS: Limitations: None. Lung bases: No abnormality noted. Pleural space: No visualized pleural effusion or pneumothorax. Heart: The visualized portion of aortic valve prosthetic stent appears normal. Mediastinum: Small sliding hiatal hernia noted. ABDOMEN: Liver: No abnormality noted. Gallbladder and bile ducts: Cholecystectomy. Pancreas: Proximal pancreatic resection. No mass in the resection bed. No inflammation about the distal pancreas. Spleen: No significant abnormality noted. Adrenals: No significant abnormality noted. Kidneys and ureters: Normal enhancement. No mass, hydronephrosis or visualized stone. Stomach and bowel: There are multiple dilated thickened small bowel loops predominantly noted in the right abdomen and pelvis. There is mild to moderate associated edema in the mesentery. The stomach is mildly distended with air and fluid. Distal small bowel loops are collapsed. There is some air and stool in the colon. There is extensive diverticulosis of the rectosigmoid and descending colon without diverticulitis. Postoperative deformity of Whipple procedure noted with gastric and duodenal resection. Appearance stable. PELVIS: Appendix: No findings to suggest acute appendicitis. Bladder: No filling defects to suggest mass or large stone. No inflammation. Reproductive: No abnormalities noted. ABDOMEN and PELVIS: Intraperitoneal space: Small amounts of free fluid noted in the right upper quadrant. No abscess or free air. Bones/joints: Degenerative changes noted in the spine with chronic L5 pars defects. No acute osseous abnormality. Soft tissues: No significant abnormality noted. Vasculature: Findings concerning for focal, short segment aortic dissection at the level of the left renal vein crossover with dilatation of the aorta at this level to 2.8 cm. No hemorrhage. Atherosclerosis noted. No vascular occlusion or stenosis noted. The portal vein is patent. Lymph nodes: No pathologically enlarged lymph nodes. IMPRESSION: 1. Distal small bowel obstruction. Etiology unclear. Consider adhesions. 2. Findings strongly suspicious for short segment focal aortic dissection at the level of the left renal vessels with dilatation of the aortic to 2.8 cm. No hemorrhage. 3. Extensive left colonic diverticulosis. No diverticulitis. ACT 112: N/A Electronically signed by Bronwyn Bliss 01-09-2025 09:25 AM
[2025-01-09] MEDS ORDERED: PROMETHAZINE 12.5 MG/50.5 ML BAG IV PRN (11:28)
[2025-01-09] MEDS: D5W AND NSS 1,000 ML IV SCH (12:01)
[2025-01-09] MEDS: PROMETHAZINE 12.5 MG/50.5 ML BAG IV STA (12:06)
--- NOTE | 2025-01-09 12:06 | History & Physical Report ---
Date of Service January 09, 2025 Assessment & Plan (1) Aortic dissection: (2) SBO (small bowel obstruction): (3) Generalized abdominal pain: (4) S/P TAVR (transcatheter aortic valve replacement): (5) History of CAD (coronary artery disease): Plan: 79-year-old male with history of CAD, non-ST elevation HI, aortic stenosis status post TAVR December 28, 2024 at [facility], cholangiocarcinoma status post pancreatic resection Presented with abdominal pain since last evening. Focal abdominal aortic dissection Status post TAVR December 28, [address] [facility] [address] abdomen pelvis: 1. Distal small bowel obstruction. Etiology unclear. Consider adhesions. 2. Findings strongly suspicious for short segment focal aortic dissection at the level of the left renal vessels with dilatation of the aortic to 2.8 cm. No hemorrhage. 3. Extensive left colonic diverticulosis. No diverticulitis. Discussed case with Dr. Jain, vascular surgery, recommend medical management at this time Discussed case with cardiology service, CURLY Bragg, consulted for medical management given recent TAVR- HR and BP control also called Dr. Lamas of [facility] to update regarding patient's medical condition, awaiting callback echocardiogram ordered Distal small bowel obstruction History of Whipple's procedure 2011, cholangiocarcinoma Currently patient has some nausea, but abdomen is nondistended, no vomiting N.p.o., IV fluids, as needed antiemetics, as needed Tylenol IV for pain general surgery consulted patient takes Creon, hold for now in light of small bowel obstruction Other chronic medical conditions: CAD, NSTEMI- hold aspirin, Plavix, Lipitor for today given small bowel obstruction, reevaluate in a.m. - hold metoprolol as patient's heart rate is in the high 50s Cholangiocarcinoma, s/p Whipple DVT Prophylaxis SCDs for now Full Code Disposition lives at home with his plan of care discussed with patient and his in detail and at length all questions answered they are understanding, agreeable, comfortable with the plan of care Admission and Anticipated Discharge Date Admission Date: January 09, 2025 History of Present Illness Chief Complaint: Abdominal pain since last evening Primary Care Provider: Arpit Antonio MD 79-year-old male with history of CAD, non-ST elevation HI, aortic stenosis status post TAVR December 28, 2024 at [facility], cholangiocarcinoma status post pancreatic resection Presented with abdominal pain since last evening. Patient had a TAVR procedure at [facility] last December 28, 2024. He has been feeling well since the time of the procedure until last night. After having dinner, patient started to note crampy generalized abdominal discomfort associated with some nausea. Crepitus came in waves And persisted throughout the night. This morning, around 5 AM, while standing in the bathroom, patient felt lightheaded to the point that he had to lower himself on the bathroom floor but managed to return to bed. At the ER, blood pressure upon arrival 190/94, heart rate 84, RR 18, afebrile, 98% on room air CT abdomen and pelvis showing distal small bowel obstruction, and a focal area of dissection of the abdominal aorta at the level of the left renal vessels, 2.[address] dil[address]. ER physician Dr. Weinberg discussed case with Dr. Jain who recommended medical management. On my exam, patient seen resting in bed, not in distress, comfortable, reports abdominal pain has been relieved by IV Tylenol, currently mild. No active shortness of breath, chest pain, palpitations, dizziness but feels tired. Last bowel movement was this morning, normal appearance, brown. No fevers or chills, headache, neck pain, cough, problems with urination. Allergies Allergy/AdvReac Type Severity Reaction Status Date / Time Sulfa (Sulfonamide Allergy Intermediate HIVES Verified 01/09/25 10:34 Antibiotics) Penicillins Allergy Mild HIVES Verified 01/09/25 10:34 Home Medications Medication Instructions Recorded Confirmed Type mntfck-[id number]-zrsascq 0 cap PO QAM 04/05/20 01/09/25 History 12,000-38,000-60,000 unit capsule,delayed rel (Creon) ibuprofen-diphenhydramine citrate 1 cap PO HS 01/13/24 01/09/25 History 200 mg-38 mg tablet (Advil PM) aspirin 81 mg tablet,delayed 81 mg PO DAILY #30 tabs 01/15/24 01/09/25 Rx release atorvastatin 40 mg tablet 40 mg PO QAM #30 tabs 01/15/24 01/09/25 Rx clopidogrel 75 mg tablet 75 mg PO QAM #30 tabs 01/15/24 01/09/25 Rx metoprolol succinate 25 mg 25 mg PO QAM #30 tabs 01/15/24 01/09/25 Rx tablet,extended release 24 hr nitroglycerin 0.4 mg sublingual 0.4 mg sublingual Q5M PRN chest 01/15/24 01/09/25 Rx tablet (Nitrostat) pain #30 tabs pantoprazole 40 mg tablet,delayed 40 mg PO DAILY #30 tabs 01/15/24 01/09/25 Rx release Past Med/Surg History Problem List (Updated 01/09/25 @ 11:59 by Tim Becker MD) History of CAD (coronary artery disease) S/P TAVR (transcatheter aortic valve replacement) Aortic dissection (Acute) SBO (small bowel obstruction) (Acute) Generalized abdominal pain (Acute) Aortic stenosis NSTEMI (non-ST elevated myocardial infarction) Benign positional vertigo Impacted cerumen, right ear Sensorineural hearing loss (SNHL) of both ears Bacteremia Encounter for pre-operative examination Elevated alkaline phosphatase level Fever Colitis (Acute) Medical History Hypomagnesemia Transaminitis Elevated lactic acid level Sepsis No pertinent family history Acquired absence of other specified parts of digestive tract Cholangiocarcinoma Social History Smoking Status: Never smoker Do You Dip or Chew Tobacco: No; Hx Alcohol Use: Yes Alcohol type: beer Hx Substance Use: No Preferred Language: Haitian Communication Ability: Effective Composition Roll Maker And Cutter Required: No Beliefs That Will Affect Care: None Current Living Situation: Spouse Feels Safe at Home: Yes Assistive Devices: Glasses Review of Systems Review of Systems: all noted and negative except for above Physical Exam Physical Exam: General- oriented x 3, not in distress, speaks in sentences with no effort or accessory muscle use Head- atraumatic Eyes- PERRL, EOMI, anicteric ENT- oropharynx clear Neck- supple, no JVD, no adenopathy, no thyromegaly; carotids +2/2, no bruits appreciated Lungs- clear to auscultation bilaterally, no rales/wheezes Heart- normal rate, regular rhythm; no murmur, no gallop, no rub appreciated Abdomen- (+) hypoactive bowel sounds, nondistended, soft, nontender, no masses or hepatosplenomegaly (+) cath insertion site R groin: wound h ealing well, small hematoma R suprapubic region, no edema/warmth/tenderness Extremities- no pretibial edema, no calf tenderness; peripheral pulses intact Neuro- alert, oriented x 3; CN 2-12 grossly intact; motor 5/5 bilaterally;sensation 100% on all extremities; no other gross focal neurologic deficits Skin- warm & dry Results & Data Results & Data Vital Signs (Past 12 Hours) Vital Signs Temp Pulse Pulse Resp BP BP Pulse Ox 01/09/25 09:39 59 L 17 137/86 99 01/09/25 08:00 74 01/09/25 07:51 60 24 98 01/09/25 07:48 62 17 161/69 H 96 01/09/25 07:40 36.6 C 84 18 190/94 H 98 O2 Del Method 01/09/25 09:39 Room Air 01/09/25 08:00 01/09/25 07:51 Room Air 01/09/25 07:48 Room Air 01/09/25 07:40 Room Air all noted and reviewed including below Code Status & VTE Plan VTE Prophylaxis Plan VTE Prophylaxis will be ordered: Yes
--- NOTE | 2025-01-09 12:33 | Surgery Consultation ---
Date of Consultation January 09, 2025 Assessment & Plan (1) S/P TAVR (transcatheter aortic valve replacement): (2) Aortic dissection: (3) SBO (small bowel obstruction): No indication for urgent surgical intervention at this time. Unclear if this is the true etiology of his discomfort or if it is more related to his dissection. Apparently they are waiting callback from [facility] regarding his cardiovascular issues. His lactic acid level was normal with no evidence of bowel ischemia. Recommend n.p.o./IV fluids as well as symptom control. We will continue to follow along but have no current plans for surgical intervention. No nausea or vomiting currently so I would hold on NG tube. (4) History of CAD (coronary artery disease): History of Present Illness Attending Physician: Tim Becker MD History of Present Illness 79-year-old male who is about a week and a half status post TAVR procedure at [facility]. He began having some upper and lower abdominal pain last evening after eating a hamburger. He denies any nausea or vomiting. The pain is currently somewhat improved from his ER presentation. He continues to have some subxiphoid pain as well as lower suprapubic discomfort. His only abdominal surgical history is a Whipple procedure performed over 13 years ago at [facility]. This was for cholangiocarcinoma. Allergies Allergy/AdvReac Type Severity Reaction Status Date / Time Sulfa (Sulfonamide Allergy Intermediate HIVES Verified 01/09/25 10:34 Antibiotics) Penicillins Allergy Mild HIVES Verified 01/09/25 10:34 Home Medications Medication Instructions Recorded Confirmed Type rqlqrd-rfsbglhb-[id number] 0 cap PO QAM 04/05/20 01/09/25 History 12,000-38,000-60,000 unit capsule,delayed rel (Creon) ibuprofen-diphenhydramine citrate 1 cap PO HS 01/13/24 01/09/25 History 200 mg-38 mg tablet (Advil PM) aspirin 81 mg tablet,delayed 81 mg PO DAILY #30 tabs 01/15/24 01/09/25 Rx release atorvastatin 40 mg tablet 40 mg PO QAM #30 tabs 01/15/24 01/09/25 Rx clopidogrel 75 mg tablet 75 mg PO QAM #30 tabs 01/15/24 01/09/25 Rx metoprolol succinate 25 mg 25 mg PO QAM #30 tabs 01/15/24 01/09/25 Rx tablet,extended release 24 hr nitroglycerin 0.4 mg sublingual 0.4 mg sublingual Q5M PRN chest 01/15/24 01/09/25 Rx tablet (Nitrostat) pain #30 tabs pantoprazole 40 mg tablet,delayed 40 mg PO DAILY #30 tabs 01/15/24 01/09/25 Rx release Patient History Medical History Hypomagnesemia Transaminitis Elevated lactic acid level Sepsis No pertinent family history Acquired absence of other specified parts of digestive tract Cholangiocarcinoma Social History Smoking Status: Never smoker Do You Dip or Chew Tobacco: No; Hx Alcohol Use: Yes Alcohol type: beer Hx Substance Use: No Preferred Language: Croatian Communication Ability: Effective Athletic Scout Required: No Beliefs That Will Affect Care: None Current Living Situation: Spouse Feels Safe at Home: Yes Assistive Devices: Glasses Physical Exam Constitutional: WD/WN, vitals as above no acute distress and not ill appearing Eyes: PERRL, conjunctivae normal, anicteric sclerae EOM intact bilaterally ENMT: external ear and nose normal, oropharynx normal Ears: no hearing impairment Neck: trachea midline, no thyromegaly Respiratory: normal respiratory effort; no respiratory distress and does not use accessory muscles Cardiovascular: Rate/Rhythm: regular rate and regular rhythm Gastrointestinal (Abdomen): Soft. Minimal abdominal tenderness in the subxiphoid region as well as supr apubic region. Does not appear distended. No peritoneal signs Skin: no rashes, warm and dry Psychiatric: Orientation: alert, oriented x 3 and cooperative Results & Data Vital Signs (Past 12 Hours) Vital Signs Temp Pulse Pulse Resp BP BP Pulse Ox 01/09/25 09:39 59 L 17 137/86 99 01/09/25 08:00 74 01/09/25 07:51 60 24 98 01/09/25 07:48 62 17 161/69 H 96 01/09/25 07:40 36.6 C 84 18 190/94 H 98 O2 Del Method 01/09/25 09:39 Room Air 01/09/25 08:00 01/09/25 07:51 Room Air 01/09/25 07:48 Room Air 01/09/25 07:40 Room Air PG Care Time/CCT Total # of Minutes Spent Total Time Spent with Patient: Total time spent is greater than 50% in coordination of care (as documented) at patient's floor/unit and/or counseling patient: Coding Level of Care Code 19745 INT INP/OBS CARE 2/55MIN Diagnoses S/P TAVR (transcatheter aortic valve replacement) Z95.2 Aortic dissection I71.00 SBO (small bowel obstruction) K56.609 History of CAD (coronary artery disease) Z86.79
[2025-01-09] MEDS: ACETAMINOPHEN 1,000 MG/100 ML VIAL IV PRN (12:49)
[2025-01-09] MEDS: ONDANSETRON INJ 2 MG/ML 2 ML VIAL IV PRN (13:14)
--- NOTE | 2025-01-09 13:15 | Cardiology Consultation ---
Date of Consultation January 09, 2025 Assessment & Plan (1) Abdominal pain: (2) Status post transcatheter aortic valve replacement (TAVR) using bioprosthesis: (3) ASCVD (arteriosclerotic cardiovascular disease): (4) Abdominal aortic aneurysm dissection: (5) SBO (small bowel obstruction): (6) Generalized abdominal pain: Plan 79 year old male admitted to [facility] on January 09, 2025 with diffuse abdominal discomfort, localized epigastric and suprapubic pain/tenderness aggr avated by stethoscope placement on the abdomen, with guarding. Imaging on presentation revealed a distal small bowel obstruction and a short segment of focal aortic dissection at the level of the left renal vessels. Additional findings noted as below. Cardiology consultation requested due to observed findings of focal abdominal aortic dissection. No dissection noted on the November 12, 2024 CTA Abdomen and Pelvis report from [facility] (images not available for review). Patient status post December 28, 2024 TAVR with unremarkable post TAVR course noted. Recommendations: * Small bowel obstruction. As per Hospitalist and surgeon * Focal abdominal aortic dissection. At the level of the renal vessels. ? spontaneous versus iatrogenic. Vascular Surgery has recommended conservative management. Recommend aggressive blood pressure and heart rate control. Target heart rate less than 60 bpm. Target blood pressure of less than 120 over less than 80. * Status post transfemoral transcatheter aortic valve replacement at the [facility] on December 28, 2024, 23 mm JULIO 3 ultra valve. Refer for resting echocardiography. Requires single agent antiplatelet therapy and lifelong SBE prophylaxis. * Abnormal EKG. Known ASCVD. Serial high sensitivity troponins ordered. Resting echocardiography requested. Planning on medical management as long as patient remains angina free. Continue beta-emy, aspirin, and moderate intensity statin therapy. Prior cough noted with lisinopril. Consider addition of losartan pending course. * Hypertension. Target blood pressure <120/<80 * Dyslipidemia. Continue moderate intensity statin therapy. Supervising Physician Co-Signing Physician Notes I have personally performed a history and physical examination on the patient. I have reviewed the advance practitioner's documentation, and I agree with, and take responsibility for the plan of care. 79-year-old male presents with abdominal discomfort. Imaging demonstrates small bowel obstruction as well as focal abdominal aortic dissection without aneurysmal dilatation. The dissection is iatrogenic related to recent TAVR procedure versus spontaneous. No intervention recommended at this time per vascular surgery. Blood pressure fairly controlled currently. Further management of small bowel obstruction as per internal medicine and general surgery. Consider NG tube placement. Continue conservative management of dissection. Echocardiogram reviewed, however, TAVR prosthesis was not well- visualized. There is no physical exam evidence of significant stenosis per auscultation. Consider repeat imaging as outpatient. Continue aspirin, beta- emy, and statin therapy consider addition of angiotensin receptor emy during hospitalization pending clinical course. Brad Amaya DO, [facility] History of Present Illness Reason for Consultation: Abdominal aortic dissection, status post TAVR Requesting Physician: [facility]. Tim Becker [facility] Attending Physician: Dr. Tim Becker MD, [facility] Service History of Present Illness Patient is an 79-year-old male with a history of coronary artery disease and severe aortic valve stenosis status post December 28, 2024 transfemoral transcatheter aortic valve replacement with a 23 mm JULIO 3 Ultra Valve at the [facility]. Per report, postoperative course uncomplicated with patient discharged on November 30, 2024, delayed due to the patient's having food poisoning. Patient notes returning home without difficulty. Last night they drove to a drive-in in [place] called [employer] where he consumed a hamburger, chocolate shake, and fries. Around 7 PM the patient began to have diffuse abdominal discomfort with localized pain in the epigastric area and suprapubic area. The pain waxed and waned throughout the night. No subjective fevers or chills. Around 5 AM the patient had a normal bowel movement, denying melena or hematochezia. Due to ongoing discomfort patient presented to the [facility] ER this morning. CT scan of the abdomen and pelvis revealed, per radiological interpretation, distal small bowel obstruction, short segment focal aortic dissection at the level of the left renal vessels with dilation of the aorta up to 2.8 cm, extensive left colonic diverticulosis without diverticulitis. 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 Cardiology consultation requested due to observed findings of abdominal aortic dissection post TAVR. EKG on presentation revealed sinus rhythm at 61 bpm with low voltage QRS, anterolateral STT wave changes suggestive of ischemia which are new compared to prior. No high-sensitivity troponin available. at bedside. At time my evaluation patient is complaining of ongoing abdominal discomfort. No nausea or vomiting. No chest pain. No shortness of breath. Patient lying flat, denying orthopnea or PND. Past Medical and Surgical History: Coronary artery disease December 2023 NSTEMI January 13, 2024 cardiac catheterization revealing a culprit 100% proximal occlusion of a small non dominant right coronary artery. 50% proximal to mid LAD stenosis was noted including a 60- 70% early distal LAD stenosis and a 50% proximal stenosis in the obtuse marginal. Patient was treated medically without PCI with thoughts that if he had refractory exertional symptoms after medical therapy could consider PCI to the distal LAD. Valvular heart disease, severe aortic valve stenosis Status post December 28, 2024 transfemoral transcatheter aortic valve replacement with a 23 mm Julio 3 Ultra valve at [facility] Hypertension Dyslipidemia Cholangiocarcinoma status post pancreatic resection Inguinal hernia status post repair Cataract extraction Tonsillectomy Vasectomy Cholecystectomy Family History: Mother at 83 following CABG. 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 . 3 children. Allergies Allergy/AdvReac Type Severity Reaction Status Date / Time Sulfa (Sulfonamide Allergy Intermediate HIVES Verified 01/09/25 10:34 Antibiotics) Penicillins Allergy Mild HIVES Verified 01/09/25 10:34 Home Medications Medication Instructions Recorded Confirmed Type riolca-fctwndgm-jvpzujj 0 cap PO QAM 04/05/20 01/09/25 History 12,000-38,000-60,000 unit capsule,delayed rel (Creon) ibuprofen-diphenhydramine citrate 1 cap PO HS 01/13/24 01/09/25 History 200 mg-38 mg tablet (Advil PM) aspirin 81 mg tablet,delayed 81 mg PO DAILY #30 tabs 01/15/24 01/09/25 Rx release atorvastatin 40 mg tablet 40 mg PO QAM #30 tabs 01/15/24 01/09/25 Rx clopidogrel 75 mg tablet 75 mg PO QAM #30 tabs 01/15/24 01/09/25 Rx metoprolol succinate 25 mg 25 mg PO QAM #30 tabs 01/15/24 01/09/25 Rx tablet,extended release 24 hr nitroglycerin 0.4 mg sublingual 0.4 mg sublingual Q5M PRN chest 01/15/24 01/09/25 Rx tablet (Nitrostat) pain #30 tabs pantoprazole 40 mg tablet,delayed 40 mg PO DAILY #30 tabs 01/15/24 01/09/25 Rx release Patient History Medical History Chest tightness Hypomagnesemia Transaminitis Elevated lactic acid level Sepsis No pertinent family history Acquired absence of other specified parts of digestive tract Cholangiocarcinoma Social History Smoking Status: Never smoker Do You Dip or Chew Tobacco: No; Hx Alcohol Use: Yes Alcohol type: beer Hx Substance Use: No Preferred Language: Divehi Communication Ability: Effective 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 Mild distress HENT: Normocephalic. Atraumatic. Eyes: Sclera clear. Neck: No JVD. Heart: Regular at 80 bpm. Systolic murmur. No diastolic murmur. Lungs: Clear to auscultation anteriorly. Abdomen: Diffuse abdominal tenderness aggravated by auscultation with the stethoscope. Decrease bowel sounds. Extremities: No significant edema. Limited neurological examination is without focal deficits. Pulses: Posterior tibial=2/4. Results & Data Vital Signs (Past 12 Hours) Vital Signs Temp Pulse Pulse Resp BP BP Pulse Ox 01/09/25 09:39 59 L 17 137/86 99 01/09/25 08:00 74 01/09/25 07:51 60 24 98 01/09/25 07:48 62 17 161/69 H 96 01/09/25 07:40 36.6 C 84 18 190/94 H 98 O2 Del Method 01/09/25 09:39 Room Air 01/09/25 08:00 01/09/25 07:51 Room Air 01/09/25 07:48 Room Air 01/09/25 07:40 Room Air Laboratory Results Cardiac Enzymes 01/09/25 Range/Units 07:55 AST 30 (13-39) U/L Coagulation 01/09/25 Range/Units 07:55 PT 10.1 (9.0-12.0) Seconds CBC 01/09/25 Range/Units 07:55 WBC 10.50 (4.8-10.8) K/ul RBC 3.92 L (4.70-6.10) M/uL Hgb 12.8 L (14.0-18.0) g/dl Hct 37.5 L (42.0-52.0) % Plt Count 172 (130-400) K/uL Neut # (Auto) 8.98 H (1.40-6.50) K/uL Lymph # (Auto) 0.77 L (1.20-3.40) K/uL [place] # (Auto) 0.53 (0.11-0.59) K/uL Eos # (Auto) 0.11 (0.00-0.50) K/uL Baso # (Auto) 0.07 (0.00-0.20) K/uL Comprehensive Metabolic Panel 01/09/25 Range/Units 07:55 Sodium 139 (136-145) mmol/L Potassium 4.2 (3.5-5.1) mmol/L Chloride 105 (98-107) mmol/L Carbon Dioxide 28 (21-32) mmol/L BUN 11 (6-23) mg/dl Creatinine 0.97 (0.6-1.4) mg/dl Glucose 185 H (70-99(Fasting)) mg/dl Calcium 9.5 (8.6-10.3) mg/dl AST 30 (13-39) U/L ALT 21 (7-52) U/L Alkaline Phosphatase 72 (34-104) U/L Total Protein 7.8 (6.0-8.3) gm/dl Albumin 4.6 (3.4-5.0) gm/dl Intake and Output 01/08/25 01/09/25 01/09/25 22:59 06:59 14:59 Intake Total 200 / 200 Balance 200 / 200 Intake: IV 200 / 200 Acetaminophen 1,000 mg In 100 200 / 200 ml @ 400 mls/hr IV Q8H PRN Rx#: [id number] Other: Other Intake Source Pt. NPO Weight 77.5 kg Weight Measurement Method Stated by Patient Patient Weight 01/10/25 06:59 Weight 77.5 kg Diagnostic Findings December 28, 2024 echo ([facility]) - Technically difficult exam due to difficult/limited windows. - Exam indication: TAVR - S/P transcatheter aortic valve replacement. Lopez S3 Ultra prosthetic aortic valve (size #23). There is no aortic valve regurgitation. The peak gradient is 8 mmHg and the mean gradient is 5 mmHg. TAVR procedure - Extremely limited echo to evaluate for paravalvular AI, pericardial effusion, and acute aortic pathology. - Successful implantation of 23mm Lopez S3 Ultra TAVR valve via TF approach. - post dilated 1x - The valve appears well seated without AI by color Doppler. - There is no pericardial effusion - Exam was compared with the prior echocardiographic exam performed on 11/12/2024. Intraop TTE during [facility]. Care Time/CCT Total # of Minutes Spent Total Time Spent with Patient: Total time spent is greater than 50% in coordination of care (as documented) at patient's floor/unit and/or counseling patient: Coding Level of Care Code 11683 IN/OBS CONSULT LVL 5,80M Diagnoses Abdominal pain R10.9 Status post transcatheter aortic valve replacement (TAVR) using bioprosthesis Z95.3 ASCVD (arteriosclerotic cardiovascular disease) I25.10 Abdominal aortic aneurysm dissection I71.02 SBO (small bowel obstruction) K56.609 Generalized abdominal pain R10.84
--- NOTE | 2025-01-09 16:42 | CT Scan Report ---
EXAMINATION: CT of the abdomen and pelvis performed without contrast TECHNIQUE: Helical CT images from the lung bases through the symphysis pubis were obtained without contrast. Coronal and sagittal reformatted images were generated at a workstation for further assessment. Dose reduction techniques were achieved by using automatic exposure control and/or adjustment of mA and/or kV according to patient size and/or use of iterative reconstruction technique. COMPARISON: Same-day CT HISTORY: Aortic dissection FINDINGS: Lower chest: No consolidation. No pleural effusion or pneumothorax. Aortic valve replacement. Liver: No suspicious liver lesions. Gallbladder: Cholecystectomy. Spleen: Normal size. Pancreas: No suspicious pancreatic lesions. The pancreatic duct is not dilated. Adrenal glands: No adrenal nodules. Kidneys: No hydronephrosis or obstructing renal stones. Contrast excretion into the renal collecting systems, ureters and bladder. Bladder / Pelvic organs: Unremarkable. Bowel: Several significantly dilated and fluid-filled loops of small bowel have increased from earlier today. Increased fluid distention of the stomach from earlier. Left colonic diverticulosis without diverticulitis.. Lymph nodes: No retroperitoneal, mesenteric, or pelvic lymphadenopathy. Peritoneum / Retroperitoneum: Persistent mild ascites. Vessels: No change in appearance of the abdominal aorta measuring up to 2.8 cm in diameter at the level of the renal arteries. A faintly visualized dissection flap again appears to be appreciated. Bones and soft tissues: No suspicious lesion in the bones. IMPRESSION: 1. No change in appearance on noncontrast CT of the abdominal aorta, with faintly visualized dissection flap again likely seen. 2. Findings of small bowel obstruction have increased. Electronically signed by Po Cole 01-09-2025 4:40 PM
[2025-01-09] MEDS: MoRPHine SULFATE 4 MG/ML 1 ML CARP\\VIAL IV STA (17:38)
[2025-01-09] MEDS ORDERED: MoRPHine SULFATE 4 MG/ML 1 ML CARP\\VIAL IV PRN (17:48)
[2025-01-09] MEDS: HYDROmorphone INJ 0.5 MG/0.5 ML SYR IV STA (19:37)
--- NOTE | 2025-01-09 19:58 | XRay Report ---
Abdominal radiograph, one view History: Abdominal pain Comparison: Same-day CT Findings/impression: Single AP view of the abdomen performed. An NG tube has been placed with sidehole projecting over the stomach. The bowel gas pattern is nonspecific, however there is interval decreased gaseous distention of the stomach, and there are fewer air distended loops of small bowel seen. Note that the obstructed small bowel loops on CT were mostly fluid-filled and may not be well-visualized. Electronically signed by Po Cole 01-09-2025 7:57 PM
[2025-01-09] MEDS ORDERED: SODIUM CHLORIDE 0.9% 100 ML IV PRN ×2 (20:10→20:33)
--- NOTE | 2025-01-09 20:19 | History & Physical Bridge Note ---
Date of Service January 09, 2025 History & Physical Bridge Note I have examined the patient, reviewed the History & Physical and in the interval since the performance of the History & Physical I have noted the following changes of clinical significance: Called her today by primary service with patient having worsening abdominal pain. Repeat CT scan showed worsening small bowel dilation as well as gastric dilation. Repeat lactic acid level was also elevated. Earlier it was 1.1 and now it is 3.4. NG tube was just placed 10 minutes ago and we have obtained about 400 cc of gastric contents. Patient is feeling better however was just recently given Dilaudid. His abdomen is rather firm. There is diffuse lower abdominal tenderness. Is unclear to me at 100% what is going on however I am concerned that he is having pain out of proportion to his exam and may be experiencing some bowel ischemia. We are going to repeat his lactic acid level now and I am going to repeat evaluate him in 1 to 2 hours. If his labs and/or symptoms worsen I would have a very low threshold for a diagnostic laparoscopy with surgery as needed this evening. I discussed all of this with him his primary care physician here as well as his . They agree with the plan.
[2025-01-09 21:10] LABS: INR 0.9 (0.9-1.1); Partial Thromboplastin Time 29 Seconds (21-31); Prothrombin Time 10.3 Seconds (9.0-12.0)
[2025-01-09] MEDS: SODIUM CHLORIDE 0.9% 500 ML IV ONE (21:18)
[2025-01-09] MEDS: ACETAMINOPHEN 1,000 MG/100 ML VIAL IV SCH (21:24)
--- NOTE | 2025-01-09 22:02 | History & Physical Bridge Note ---
Date of Service January 09, 2025 History & Physical Bridge Note I have examined the patient, reviewed the History & Physical and in the interval since the performance of the History & Physical I have noted the following changes of clinical significance: Patient reexamined. at bedside. Considerably more comfortable since the NG tube was placed. Lactic acid level has decreased back down to 2.7. Vital signs are stable. At this point in time organ to continue observation IV fluids and NG tube decompression. I will recheck his lactic acid level in the morning. After discussion with our anesthesiologist he felt that if an emergent operation was not necessary tonight that he would recommend transfer to a tertiary center due to his recent aortic valve replacement as well as aortic dissection. I will reach out to the admitting service regarding this.
--- NOTE | 2025-01-09 22:40 | Communication Note ---
Date of Service: January 09, 2025 Emergent surgery not indicated tonight due to current patient comfort and improved lactic acidosis as per general surgeon communication with morning provider. General Surgery recommends transfer to tertiary center as per [facility] Anesthesiology recommendations with CV surgery support given recent TAVR and focal aortic dissection on CT. Patient requesting for [facility] transfer if possible. Ertapenem initiated for possible bowel ischemia. Case discussed with Dr. Cleveland ([facility] colorectal surgeon on-call) who has kindly accepted patient for transfer.
[2025-01-09] MEDS: ERTAPENEM 1000MG 1,000 MG/10 ML SYR IV SCH (23:06)
[2025-01-09] MEDS: LACTATED RINGER'S 1,000 ML IV ONE (23:06)
[2025-01-10 00:50] VITALS: RESP 17; TEMP 97.5
--- NOTE | 2025-01-10 01:34 | Discharge Summary ---
Date of Service January 10, 2025 Admission HPI Per Admitting Provider 79-year-old male with history of CAD, non-ST elevation NH, aortic stenosis status post TAVR December 28, 2024 at [facility], cholangiocarcinoma status post pancreatic resection Presented with abdominal pain since last evening. Patient had a TAVR procedure at [facility] last December 28, 2024. He has been feeling well since the time of the procedure until last night. After having dinner, patient started to note crampy generalized abdominal discomfort associated with some nausea. Crepitus came in waves And persisted throughout the night. This morning, around 5 AM, while standing in the bathroom, patient felt lightheaded to the point that he had to lower himself on the bathroom floor but managed to return to bed. At the ER, blood pressure upon arrival 190/94, heart rate 84, RR 18, afebrile, 98% on room air CT abdomen and pelvis showing distal small bowel obstruction, and a focal area of dissection of the abdominal aorta at the level of the left renal vessels, 2.8 cm dilatation. ER physician Dr. Weinberg discussed case with Dr. Jain who recommended medical management. On my exam, patient seen resting in bed, not in distress, comfortable, reports abdominal pain has been relieved by IV Tylenol, currently mild. No active shortness of breath, chest pain, palpitations, dizziness but feels tired. Last bowel movement was this morning, normal appearance, brown. No fevers or chills, headache, neck pain, cough, problems with urination. Discharge Data Consultations 01/09/25 10:00 Consult Vascular Surgery Routine 01/09/25 10:10 ED Decision to Admit Stat 01/09/25 10:20 Consult General Surgery Routine Consult Vascular Surgery Routine 01/09/25 14:00 Consult Cardiology Routine 01/10/25 00:30 Burn CD for patient Stat Hospital Course (1) Aortic dissection: (2) SBO (small bowel obstruction): (3) Generalized abdominal pain: (4) S/P TAVR (transcatheter aortic valve replacement): (5) History of CAD (coronary artery disease): 79-year-old male with history of CAD, non-ST elevation NH, aortic stenosis status post TAVR December 28, 2024 at [facility], cholangiocarcinoma status post pancreatic resection Presented with abdominal pain since last evening. Focal abdominal aortic dissection Status post TAVR December 28, [address] at the [facility] CT abdomen pelvis: 1. Distal small bowel obstruction. Etiology unclear. Consider adhesions. 2. Findings strongly suspicious for short segment focal aortic dissection at the level of the left renal vessels with dilatation of the aortic to 2.8 cm. No hemorrhage. 3. Extensive left colonic diverticulosis. No diverticulitis. Discussed case with Dr. Jain, vascular surgery, recommend medical management at this time Discussed case with cardiology service, CURLY Bragg, consulted for medical management given recent TAVR- HR and BP control also called Dr. Lamas of [facility] to update regarding patient's medical condition, awaiting callback echocardiogram ordered Distal small bowel obstruction History of Whipple's procedure 2011, cholangiocarcinoma Currently patient has some nausea, but abdomen is nondistended, no vomiting N.p.o., IV fluids, as needed antiemetics, as needed Tylenol IV for pain general surgery consulted patient takes Creon, hold for now in light of small bowel obstruction Other chronic medical conditions: CAD, NSTEMI- hold aspirin, Plavix, Lipitor for today given small bowel obstruction, reevaluate in a.m. - hold metoprolol as patient's heart rate is in the high 50s Cholangiocarcinoma, s/p Whipple DVT Prophylaxis SCDs for now Full Code (Preceding documentation as per admitting provider.) January 09, 2025 17:46 Patient reported increased abdominal pain Repeat CT abdomen pelvis showing: Several significantly dilated and fluid-filled loops of small bowel have increased from earlier today. Increased fluid distention of the stomach from earlier. Left colonic diverticulosis without diverticulitis.. No change in appearance on noncontrast CT of the abdominal aorta, with faintly visualized dissection flap again likely seen. NGT placed. Initial lactic acid noted to be 3.4. Repeat lactic acid 2.7. General surgery deferred plan for emergent diagnostic laparoscopy with surgery due to patient comfort and improving lactic acidosis. Surgeon recommends transfer to tertiary center as per [facility] Anesthesiology recommendations with CV surgery support given recent TAVR and focal aortic dissection on CT. Patient requesting for [facility] transfer if possible. Ertapenem initiated for possible bowel ischemia. Case discussed with Dr. Cleveland ([facility] colorectal surgeon on-call) who has kindly accepted patient for transfer. Total time to prepare this discharge summary was less than 10 minutes. Text document was generated using [employer] voice recognition software. It may contain grammatical or spelling errors. Kindly contact undersigned for clarification of any documentation item in question.
[2025-01-10] MEDS: MoRPHine SULFATE 4 MG/ML 1 ML CARP\\VIAL IV PRN (03:03)
[2025-01-10 03:05] VITALS: PULSE 116; O2SAT 98
[2025-01-10] MEDS: LACTATED RINGER'S 1,000 ML IV SCH (04:06)
[2025-01-10 07:19] VITALS: BP 128/84
[2025-01-10] MEDS ORDERED: METOPROLOL SUCC 25MG EXT REL TAB PO SCH (09:00)
[2025-01-10] MEDS ORDERED: PANTOprazole 40 MG/10 ML SYR IV SCH (09:00)
[2025-01-10] MEDS ORDERED: ATORVASTATIN 40 MG TAB PO SCH (09:00)
--- NOTE | 2025-01-11 10:09 | Electrocardiogram Report ---
Test Reason : Blood Pressure : */* mmHG Vent. Rate : 61 BPM Atrial Rate : 61 BPM P-R Int : 120 ms QRS Dur : 88 ms QT Int : 434 ms P-R-T Axes : -19 -9 -10 degrees QTcB Int : 436 ms Normal sinus rhythm Low voltage QRS T wave abnormality, consider anterolateral ischemia Abnormal ECG When compared with ECG of 14-Jan-2024 09:07, Questionable change in QRS axis ST elevation now present in Lateral leads Confirmed by Tyler Mcgovern ([id number]) on 01/11/2025 10:09:19 AM Referred By: REFERRED SELF Confirmed By: Tyler Mcgovern
== END 2025-01-10 08:49 | disposition short-term general hospital (02) | DRG 300 ==
LOC: ED 07:39 → 2S 11:45 → SUATTDRO 11:45 → 2S 14:54